=== PATIENT | female | born 1940 | race Caucasian/White ===

== ENCOUNTER → 2017-05-14 | Outpatient (CLI) | payer MEDICARE, BC ==
[2017-05-14 12:23] LABS: ALT 25 U/L (9-52); AST 23 U/L (14-36); Alkaline Phosphatase 73 U/L (38-126); Anion Gap 11 mmol/L; Blood Urea Nitrogen 25 mg/dL (7-17); Calcium 9.9 mg/dL (8.4-10.2); Carbon Dioxide 26 mmol/L (22-30); Chloride 105 mmol/L (98-107); Cholesterol 262 mg/dL (<200); Glucose 91 mg/dL (74-99); HDL Cholesterol 59 mg/dL (40-60); Non-African American GFR(MDRD) 57 (>60 ml/min/1.73 sqM); Potassium 4.7 mmol/L (3.5-5.1); Sodium 142 mmol/L (137-145); Total Bilirubin 0.9 mg/dL (0.2-1.3); Total Protein 7.6 g/dL (6.3-8.2)
== END | disposition home or self-care (01) ==
LOC: LABWHC1 11:07
PROVIDERS: ATTEND Internal Medicine Interventional Cardiology
DX: E78.2 Mixed hyperlipidemia (principal)
CPT/HCPCS: 36415; 80053; 80061

== ENCOUNTER → 2017-06-09 | Outpatient (CLI) | payer MEDICARE, BC ==
--- NOTE | 2017-06-09 11:46 | US ---
EXAMINATION TYPE: US abdomen complete DATE OF EXAM: 06/09/2017 COMPARISON: NONE CLINICAL HISTORY: 76-year-old female Right Upper Quad Pain R10.9. Bloating, indigestion, intermittent abdominal pain . TECHNIQUE: Multiple sonographic images of the abdomen are obtained. FINDINGS: Liver Length: 14.1 cm Gallbladder Wall: 0.2 cm CBD: 0.3 cm Spleen: 8.5 cm Right Kidney: 10.6 x 3.8 x 3.7 cm Left Kidney: 9.5 x 4.2 x 4.6 cm Pancreas: Portions of the pancreatic head are obscured by shadowing from bowel gas. Liver: appears wnl Gallbladder: non mobile dense echogenic area posterior wall = 0.4cm without shadowing, possible chol esterol polyp or adherent calculus. No abnormal gallbladder distention or pericholecystic fluid. Evidence for sonographic Oneill's sign: No CBD: wnl Spleen: wnl Right Kidney: no evidence of hydronephrosis or mass Left Kidney: no evidence of hydronephrosis or mass Upper IVC: appears wnl Abd Aorta: calcifications noted throughout. Proximal abdominal aorta is ectatic at 2.7 cm. IMPRESSION: 1. A 4 mm nodular echogenicity along the gallbladder wall could represent an adherent calculus or a c holesterol polyp. A 6-12 month follow-up can be considered. No evidence for acute cholecystitis. 2. Atherosclerotic changes throughout the aorta with an ectatic upper abdominal aorta at 2.7 cm.
== END | disposition home or self-care (01) ==
LOC: RADUSWWP 10:28
PROVIDERS: ATTEND Family Medicine
DX: I77.811 Abdominal aortic ectasia (principal); I70.0 Atherosclerosis of aorta; K82.8 Other specified diseases of gallbladder
CPT/HCPCS: 76700

== ENCOUNTER → 2017-12-06 | Outpatient (CLI) | payer MEDICARE, BC ==
--- NOTE | 2017-12-07 15:52 | PE ---
EXAMINATION TYPE: PET CT fusion skull to thigh DATE OF EXAM: 12/06/2017 COMPARISON: NONE Prior PET/CT: None HISTORY: Urinary bladder carcinoma TECHNIQUE: Following the intravenous administration of 13.06 mCi of F-18 FDG, whole body images are performed from the skull base to the midthigh. Images are reviewed on the computer in the coronal, a xial, and sagittal planes. Reconstructed rotating images are created on independent workstation and reviewed on the computer. A localization and attenuation correction CT is performed in conjunction with the PET scan. DLP: 307.72 mGycm SCAN: Initial Blood glucose: 92 mg/dL Average Mediastinum SUV: 2.1 Average Liver SUV: 2.24 FINDINGS: NECK: There is mild increased uptake within the left tonsillar pillar region. This has an SUV of 2.8 7. Inflammatory changes should be considered. This would be an unusual location for metastasis. THORAX: No abnormal uptake ABDOMEN: There is normal uptake within the renal collecting systems. The neobladder and urostomy site of normal excretion within these regions. PELVIS: No abnormal uptake OSSEOUS STRUCTURES: No abnormal uptake. LOCALIZATION CT: There is some fullness in the left tonsillar pillar. Direct visualization is recomme nded. Postsurgical changes are within the pelvis. Urinary bladder is absent. Uterus and adnexal regio ns are unremarkable. COMPARISON: Not applicable IMPRESSION: 1. Mild elevated uptake within the left tonsillar pillar which is slightly full compared to the right . Direct visualization is recommended. This would be an unusual location for metastatic disease. 2. No additional suspicious abnormal uptake identified.
== END | disposition home or self-care (01) ==
LOC: RADPETMAIN 10:27
PROVIDERS: ATTEND Internal Medicine Hematology & Oncology
DX: C67.8 Malignant neoplasm of overlapping sites of bladder (principal); R93.8 Abnormal findings on diagnostic imaging of other specified body structures
CPT/HCPCS: 78815; A9552

== ENCOUNTER → 2017-12-19 | Outpatient (CLI) | payer MEDICARE, BC ==
--- NOTE | 2017-12-19 11:07 | XR ---
EXAMINATION TYPE: XR abdomen 1V DATE OF EXAM: 12/19/2017 COMPARISON: 07/06/2017 HISTORY: Pain TECHNIQUE: Single supine KUB image of the abdomen is obtained FINDINGS: Right-sided stent is noted in place. Small bowel demonstrates no evidence for dilatation or air fluid levels. Gas and fecal material is seen in non-distended colon. No convincing evidence for pneumoperitoneum. No unusual calcifications. The lung bases are clear. The osseous structures are intact. IMPRESSION: 1. Overall nonobstructive bowel gas pattern.
== END ==
LOC: RADXRMAIN 10:34
PROVIDERS: ATTEND Urology
DX: N20.1 Calculus of ureter (principal); C67.9 Malignant neoplasm of bladder, unspecified
CPT/HCPCS: 74018

== ENCOUNTER 2018-03-16 08:30 | Inpatient (IN) | payer MEDICARE, BC ==
[2018-03-16] MEDS ORDERED: SODIUM CHLORIDE 0.9% 1,000 ML IV STA ×2 (08:52→10:25)
--- NOTE | 2018-03-16 09:19 | ED ---
General Adult HPI - General Chief complaint: Weakness Stated complaint: dehydration, weakness Time Seen by Provider: 03/16/18 08:52 Source: patient, RN notes reviewed, old records reviewed Mode of arrival: wheelchair Limitations: no limitations - History of Present Illness Initial comments: This is a 37-year-old female the ER for evaluation weakness. Patient is presenting with just generalized weakness nausea decreased appetite and anorexia. Patient has no fevers. No nausea vomiting or diarrhea. 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 No other significant changes or change in medications - Related Data Home Medications Medication Instructions Recorded Confirmed Aspirin 162 mg PO HS@199906/29/14 03/16/18 Flecainide [Tambocor] 50 mg PO Q12HR 07/06/17 03/16/18 Losartan [Cozaar] 25 mg PO HS@199907/06/17 03/16/18 Metoprolol Tartrate [Lopressor] 12.5 mg PO BID 07/06/17 03/16/18 Allergies Allergy/AdvReac Type Severity Reaction Status Date / Time ciprofloxacin [From Cipro] AdvReac Nausea & Verified 03/16/18 10:16 Vomiting codeine AdvReac Rash, Verified 03/16/18 10:16 vomiting hydrocodone AdvReac Rash, Verified 03/16/18 10:16 Vomiting levofloxacin [From Levaquin] AdvReac Nausea & Verified 03/16/18 10:16 Vomiting metoclopramide [From Reglan] AdvReac Hallucinati Verified 03/16/18 10:16 ons Penicillins AdvReac Rash/Hives Verified 03/16/18 10:16 zolpidem [From Ambien] AdvReac Hallucinati Verified 03/16/18 10:16 ons narcotics AdvReac Rash, Uncoded 03/16/18 10:16 Vomiting Review of Systems ROS Statement: Those systems with pertinent positive or pertinent negative responses have been documented in the HPI. ROS Other: All systems not noted in ROS Statement are negative. Past Medical History Past Medical History: Cancer, Hyperlipidemia, Hypertension Additional Past Medical History / Comment(s): ARRYTHMIA, MURMUR, "YELLOW JAUNDICE" AT AGE 11, bladder ca History of Any Multi-Drug Resistant Organisms: None Reported Past Surgical History: Appendectomy, Hysterectomy Additional Past Surgical History / Comment(s): POLIO HX, RT SHOULDER FUSED WITH BONE FROM HIP bladder removal Past Anesthesia/Blood Transfusion Reactions: Postoperative Nausea & Vomiting ( PONV) Past Psychological History: Anxiety Smoking Status: Former smoker Past Alcohol Use History: Occasional Past Drug Use History: None Reported - Past Family History Brother(s) Family Medical History: Cancer Additional Family Medical History / Comment(s): PANCREATIC General Exam Limitations: no limitations General appearance: alert, in no apparent distress, cachectic Head exam: Present: atraumatic, normocephalic, normal inspection Eye exam: Present: normal appearance, PERRL, EOMI. Absent: scleral icterus, conjunctival injection, periorbital swelling ENT exam: Present: normal exam, mucous membranes moist Neck exam: Present: normal inspection. Absent: tenderness, meningismus, lymphadenopathy Respiratory exam: Present: normal lung sounds bilaterally. Absent: respiratory distress, wheezes, rales, rhonchi, stridor Cardiovascular Exam: Present: regular rate, normal rhythm, normal heart sounds. Absent: systolic murmur, diastolic murmur, rubs, gallop, clicks GI/Abdominal exam: Present: soft, normal bowel sounds. Absent: distended, tenderness, guarding, rebound, rigid Extremities exam: Present: normal inspection, full ROM, normal capillary refill. Absent: tenderness, pedal edema, joint swelling, calf tenderness Back exam: Present: normal inspection Neurological exam: Present: alert, oriented X3, CN II-XII intact Psychiatric exam: Present: normal affect, normal mood Skin exam: Present: warm, dry, intact, normal color. Absent: rash Course Vital Signs 03/16/18 08:34 Temperature 98.6 F Pulse Rate 71 Respiratory 18 Rate Blood Pressure 112/73 O2 Sat by Pulse 97 Oximetry - Reevaluation(s) Reevaluation #1: 03/16/18 10:55 Patient has no significant change in clinical condition EKG Findings - EKG Comments: EKG Findings:: EKG shows paced rhythm rate of 66, pO2 66, QRS 160, QTc 423 Medical Decision Making - Medical Decision Making 77 female the ER for evaluation. Patient comes in for weakness, mild UTI, severe dehydration, patient will be admitted for IV hydration, monitoring of kidney function and electrolytes - Lab Data Result diagrams: 03/16/18 09:15 03/16/18 09:15 Lab Results 03/16/18 03/16/18 03/16/18 Range/Units 09:15 09:15 09:15 WBC 5.1 (3.8-10.6) k/uL RBC 3.34 L (3.80-5.40) m/uL Hgb 10.3 L (11.4-16.0) gm/dL Hct 28.6 L (34.0-46.0) % MCV 85.7 (80.0-100.0) fL MCH 30.8 (25.0-35.0) pg MCHC 35.9 (31.0-37.0) g/dL RDW 15.5 (11.5-15.5) % Plt Count 73 L (150-450) k/uL Neutrophils % 76 % Lymphocytes % 10 % Monocytes % 10 % Eosinophils % 0 % Basophils % 0 % Neutrophils # 3.9 (1.3-7.7) k/uL Lymphocytes # 0.5 L (1.0-4.8) k/uL Monocytes # 0.5 (0-1.0) k/uL Eosinophils # 0.0 (0-0.7) k/uL Basophils # 0.0 (0-0.2) k/uL Manual Slide Review Performed PT (9.0-12.0) sec INR (<1.2) APTT (22.0-30.0) sec Sodium 128 L (137-145) mmol/L Potassium 4.7 (3.5-5.1) mmol/L Chloride 95 L (98-107) mmol/L Carbon Dioxide 17 L (22-30) mmol/L Anion Gap 16 mmol/L BUN 64 H (7-17) mg/dL Creatinine 2.25 H (0.52-1.04) mg/dL Est GFR (CKD-EPI)AfAm 24 (>60 ml/min/1.73 sqM) Est GFR (CKD-EPI)NonAf 21 (>60 ml/min/1.73 sqM) Glucose 115 H (74-99) mg/dL Plasma Lactic Acid Jae (0.7-2.0) mmol/L Calcium 9.0 (8.4-10.2) mg/dL Phosphorus 3.1 (2.5-4.5) mg/dL Magnesium 1.6 (1.6-2.3) mg/dL Total Bilirubin 0.8 (0.2-1.3) mg/dL AST 22 (14-36) U/L ALT 20 (9-52) U/L Alkaline Phosphatase 76 (38-126) U/L Total Creatine Kinase <20 L (30-135) U/L CK-MB (CK-2) <0.2 (0.0-2.4) ng/mL CK-MB (CK-2) Rel Index Troponin I <0.012 (0.000-0.034) ng/mL Total Protein 6.9 (6.3-8.2) g/dL Albumin 3.6 (3.5-5.0) g/dL TSH 1.150 (0.465-4.680) mIU/L Urine Color Urine Appearance (Clear) Urine pH (5.0-8.0) Ur Specific Dexter (1.001-1.035) Urine Protein (Negative) Urine Glucose (UA) (Negative) Urine Ketones (Negative) Urine Blood (Negative) Urine Nitrite (Negative) Urine Bilirubin (Negative) Urine Urobilinogen (<2.0) mg/dL Ur Leukocyte Esterase (Negative) Urine RBC (0-5) /hpf Urine WBC (0-5) /hpf Urine WBC Clumps (None) /hpf Urine Bacteria (None) /hpf 03/16/18 03/16/18 03/16/18 Range/Units 09:15 09:15 09:25 WBC (3.8-10.6) k/uL RBC (3.80-5.40) m/uL Hgb (11.4-16.0) gm/dL Hct (34.0-46.0) % MCV (80.0-100.0) fL MCH (25.0-35.0) pg MCHC (31.0-37.0) g/dL RDW (11.5-15.5) % Plt Count (150-450) k/uL Neutrophils % % Lymphocytes % % Monocytes % % Eosinophils % % Basophils % % Neutrophils # (1.3-7.7) k/uL Lymphocytes # (1.0-4.8) k/uL Monocytes # (0-1.0) k/uL Eosinophils # (0-0.7) k/uL Basophils # (0-0.2) k/uL Manual Slide Review PT 9.7 (9.0-12.0) sec INR 1.0 (<1.2) APTT 22.5 (22.0-30.0) sec Sodium (137-145) mmol/L Potassium (3.5-5.1) mmol/L Chloride (98-107) mmol/L Carbon Dioxide (22-30) mmol/L Anion Gap mmol/L BUN (7-17) mg/dL Creatinine (0.52-1.04) mg/dL Est GFR (CKD-EPI)AfAm (>60 ml/min/1.73 sqM) Est GFR (CKD-EPI)NonAf (>60 ml/min/1.73 sqM) Glucose (74-99) mg/dL Plasma Lactic Acid Jae 1.2 (0.7-2.0) mmol/L Calcium (8.4-10.2) mg/dL Phosphorus (2.5-4.5) mg/dL Magnesium (1.6-2.3) mg/dL Total Bilirubin (0.2-1.3) mg/dL AST (14-36) U/L ALT (9-52) U/L Alkaline Phosphatase (38-126) U/L Total Creatine Kinase (30-135) U/L CK-MB (CK-2) (0.0-2.4) ng/mL CK-MB (CK-2) Rel Index Troponin I (0.000-0.034) ng/mL Total Protein (6.3-8.2) g/dL Albumin (3.5-5.0) g/dL TSH (0.465-4.680) mIU/L Urine Color Light Red Urine Appearance Turbid H (Clear) Urine pH 6.0 (5.0-8.0) Ur Specific Dexter 1.010 (1.001-1.035) Urine Protein 2+ H (Negative) Urine Glucose (UA) Negative (Negative) Urine Ketones Negative (Negative) Urine Blood Large H (Negative) Urine Nitrite Negative (Negative) Urine Bilirubin Negative (Negative) Urine Urobilinogen <2.0 (<2.0) mg/dL Ur Leukocyte Esterase Large H (Negative) Urine RBC >182 H (0-5) /hpf Urine WBC >182 H (0-5) /hpf Urine WBC Clumps Many H (None) /hpf Urine Bacteria Moderate H (None) /hpf - Radiology Data Radiology results: report reviewed (X-ray abdominal series with chest is negative for acute dz), image reviewed Disposition Clinical Impression: Acute renal failure, Dehydration, Weakness Disposition: ADMITTED IP TO THIS [facility] Condition: Fair Is patient prescribed a controlled substance at d/c from ED?: No Referrals: Sonny Villar DO [Primary Care Provider] - 1-2 days
[2018-03-16 09:50] LABS: Partial Thromboplastin Time 22.5 sec (22.0-30.0); Prothrombin Time 9.7 sec (9.0-12.0)
[2018-03-16 09:51] LABS: Albumin 3.6 g/dL (3.5-5.0); Magnesium 1.6 mg/dL (1.6-2.3); Phosphorus 3.1 mg/dL (2.5-4.5); Potassium 4.7 mmol/L (3.5-5.1); Total Bilirubin 0.8 mg/dL (0.2-1.3); Total Protein 6.9 g/dL (6.3-8.2)
[2018-03-16 09:54] LABS: Basophils % (A) 0 %; Eosinophils % (A) 0 %; HCT 28.6 % (34.0-46.0); HGB 10.3 gm/dL (11.4-16.0); Lymphocytes # (A) 0.5 k/uL (1.0-4.8); Lymphocytes % (A) 10 %; MCH 30.8 pg (25.0-35.0); MCHC 35.9 g/dL (31.0-37.0); MCV 85.7 fL (80.0-100.0); Mean Platelet Volume 7.4; Monocytes # (A) 0.5 k/uL (0-1.0); Monocytes % (A) 10 %; Neutrophils # (A) 3.9 k/uL (1.3-7.7); Neutrophils % (A) 76 %; RBC 3.34 m/uL (3.80-5.40); RDW 15.5 % (11.5-15.5); WBC 5.1 k/uL (3.8-10.6)
[2018-03-16 09:54] LABS: Appearance,Urine Turbid (Clear); Bacteria,Urine Moderate /hpf; Bilirubin,Urine Negative (Negative); Blood,Urine Large (Negative); Color,Urine Light Red; Glucose,Urine (UA) Negative (Negative); Ketones,Urine Negative (Negative); Leukocyte Esterase,Urine Large (Negative); Nitrite,Urine Negative (Negative); Protein,Urine 2+ (Negative); RBC,Urine >182 /hpf (0-5); Urobilinogen,Urine <2.0 mg/dL (<2.0); WBC,Urine >182 /hpf (0-5)
--- NOTE | 2018-03-16 10:03 | XR ---
EXAMINATION TYPE: XR abdomen acute w cxr DATE OF EXAM: 03/16/2018 COMPARISON: 12/19/2017 HISTORY: 77-year-old female with pain TECHNIQUE: 4 views FINDINGS: Frontal view of the chest shows normal heart size, aorta, and pulmonary vasculature. No consolidation or pleural effusion. Multiple screws with fixation is present at the right shoulder. Left anterior chest wall pacemaker ge nerator with right atrial and right ventricular leads. No evidence for free intraperitoneal air. Probable right abdominal ostomy. No dilated small bowel or differential air-fluid levels. Gassy colon with mild stool burden. Multiple surgical clips along the pelvic sidewalls. IMPRESSION: 1. No acute cardiopulmonary process. 2. No evidence for free air or bowel obstruction.
[2018-03-16 10:10] LABS: Creatine Kinase <20 U/L (30-135)
[2018-03-16 10:24] LABS: Creatine Kinase MB <0.2 ng/mL (0.0-2.4); Troponin I <0.012 ng/mL (0.000-0.034)
[2018-03-16] MEDS ORDERED: cefTRIAXone IN SWFI 2,000 MG/20 ML SYRINGE IVP STA (10:25)
[2018-03-16] MEDS ORDERED: SODIUM CHLORIDE 0.9% 500 ML IV STA (10:25)
[2018-03-16 10:31] LABS: Platelet Count 73 k/uL (150-450)
[2018-03-16] MEDS: SODIUM CHLORIDE 0.9% 1,000 ML IV SCH (20:03)
[2018-03-16] MEDS: FLECAINIDE 50 MG TAB PO SCH (20:04)
[2018-03-16] MEDS: FAMOTIDINE 20 MG TAB PO SCH (20:04)
[2018-03-16] MEDS: METOPROLOL TARTRATE 12.5 MG TAB PO SCH (20:04)
[2018-03-16] MEDS ORDERED: ASPIRIN 81 MG PO SCH (21:30)
[2018-03-16] MEDS ORDERED: BISACODYL 5 MG TABLET.DR PO PRN (21:31)
[2018-03-16] MEDS: ACETAMINOPHEN TAB 500 MG TAB PO PRN (22:34)
[2018-03-17] MEDS: SODIUM CHLORIDE 0.9% 1,000 ML IV SCH ×3 (00:13→21:08)
[2018-03-17 08:14] LABS: Albumin 3.3 g/dL (3.5-5.0); Calcium 8.8 mg/dL (8.4-10.2); Potassium 4.8 mmol/L (3.5-5.1); Total Bilirubin 0.6 mg/dL (0.2-1.3); Total Protein 6.5 g/dL (6.3-8.2)
[2018-03-17 08:39] LABS: HGB 10.4 gm/dL (11.4-16.0); Hypochromasia Slight; MCH 32.1 pg (25.0-35.0); MCHC 33.4 g/dL (31.0-37.0); Mean Platelet Volume 8.3; RBC 3.23 m/uL (3.80-5.40); RDW 15.5 % (11.5-15.5); WBC 6.2 k/uL (3.8-10.6)
[2018-03-17 08:43] LABS: Platelet Count 51 k/uL (150-450)
[2018-03-17 08:46] LABS: MCV 96.1 fL (80.0-100.0)
[2018-03-17] MEDS: cefTRIAXone IN SWFI 1,000 MG/10 ML SYRINGE IVP SCH (08:53)
[2018-03-17] MEDS: FLECAINIDE 50 MG TAB PO SCH ×2 (08:55→21:06)
[2018-03-17] MEDS: METOPROLOL TARTRATE 12.5 MG TAB PO SCH ×2 (08:55→21:06)
[2018-03-17] MEDS: FAMOTIDINE 20 MG TAB PO SCH (08:56)
[2018-03-17 10:43] LABS: Neutrophils # (M) 3.91 k/uL (1.3-7.7); Neutrophils % (M) 63 %; Nucleated Red Blood Cells 0 /100 WBC (0-0); Total Cells Counted 100
[2018-03-17 10:44] LABS: Toxic Vacuolation Present
--- NOTE | 2018-03-17 11:14 | P.HPIM ---
History of Present Illness H&P Date: 03/17/18 Chief Complaint: Weakness 77-year-old female who presented to the emergency room with a chief complaint of generalized weakness. She also reports decreased oral intake and decreased appetite. She states that "a lot of food does not taste good". She denies shortness of breath, chest pain, pressure, abdominal pain, or vomiting. She denies fever or chills at home. The patient has a history of bladder cancer with urostomy. She states she last had chemotherapy approximately one week ago. The patient has not completed her entire on chemotherapy, but she states she does not want to continue with further treatment. Patient reports "I am not living. This is not living. Whether I have 10 minutes left or 10 years, I am okay with that". Patient states she has not discussed this with her oncologist but plans to do so today. She also has a history of hyperlipidemia, hypertension, and anxiety. 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 The patient is a former cigarette smoker inserted smoking at age 26. She states that she smoked 3-7 cigarettes per day and quit smoking in 2013. She reports occasional alcohol use. Abdominal x-ray: No evidence for free air obstruction. Chest x-ray: Negative for acute process. Laboratory data: WBC 5.1. Hemoglobin 10.3. Platelet count 73. INR 1.0. Sodium 128. Potassium 4.7. Chloride 95. Carbon dioxide 17. BUN 64. Creatinine 2.25. Glucose 115. Troponin negative 1. Urinalysis reveals turbid light red blood, 2+ proteinuria, large hematuria, large leukocyte esterase, RBC greater than 182, WBCs greater than 182, many WBC clumps and moderate bacteria. The patient was admitted to the hospital under the care of Dr. Villar. Consultations were placed to urology and oncology. Review of Systems Those systems with pertinent positive or pertinent negative responses have been documented in the HPI Past Medical History Past Medical History: Cancer, Hyperlipidemia, Hypertension Additional Past Medical History / Comment(s): "tachybrady "-had pacemaker, MURMUR, "YELLOW JAUNDICE" AT AGE 11, bladder ca- had 2 rounds of chemo, cataracts, hx polio History of Any Multi-Drug Resistant Organisms: None Reported Past Surgical History: Appendectomy, Hysterectomy, Pacemaker Additional Past Surgical History / Comment(s): RT SHOULDER FUSED WITH BONE FROM HIP bladder removal /ostomy, dual pacemaker 2013 Past Anesthesia/Blood Transfusion Reactions: Postoperative Nausea & Vomiting ( PONV) Type of Cardiac Device: Permanent Pacemaker Device Placement Date:: 2013 Smoking Status: Former smoker - Past Family History Father History Unknown: Yes Mother Family Medical History: Diabetes Mellitus Additional Family Medical History / Comment(s): rheumatic fever. "heart problems " Brother(s) Family Medical History: Cancer Additional Family Medical History / Comment(s): PANCREATIC Medications and Allergies Home Medications Medication Instructions Recorded Confirmed Type Aspirin 162 mg PO HS@199906/29/14 03/16/18 History Flecainide [Tambocor] 50 mg PO Q12HR 07/06/17 03/16/18 History Losartan [Cozaar] 25 mg PO HS@199907/06/17 03/16/18 History Metoprolol Tartrate [Lopressor] 12.5 mg PO BID 07/06/17 03/16/18 History Allergies Allergy/AdvReac Type Severity Reaction Status Date / Time ciprofloxacin [From Cipro] AdvReac Nausea & Verified 03/16/18 10:16 Vomiting codeine AdvReac Rash, Verified 03/16/18 10:16 vomiting hydrocodone AdvReac Rash, Verified 03/16/18 10:16 Vomiting levofloxacin [From Levaquin] AdvReac Nausea & Verified 03/16/18 10:16 Vomiting metoclopramide [From Reglan] AdvReac Hallucinati Verified 03/16/18 10:16 ons Penicillins AdvReac Rash/Hives Verified 03/16/18 10:16 zolpidem [From Ambien] AdvReac Hallucinati Verified 03/16/18 10:16 ons narcotics AdvReac Rash, Uncoded 03/16/18 10:16 Vomiting Physical Exam Vitals: Vital Signs Temp Pulse Pulse Resp BP BP Pulse Ox 03/17/18 07:52 98.3 F 03/17/18 06:19 97.4 F L 77 18 130/69 99 03/16/18 23:25 99 F 03/16/18 21:35 102.1 F H 62 18 125/75 98 03/16/18 20:24 97 03/16/18 17:18 98.8 F 89 16 145/78 94 L 03/16/18 14:30 97.8 F 62 18 106/60 97 03/16/18 11:00 64 18 102/64 98 Intake and Output 03/16/18 03/17/18 03/17/18 22:59 06:59 14:59 Intake Total 1850 Output Total 1050 250 Balance 800 -250 Intake: Intake, IV Titration 1200 Amount Sodium Chloride 0.9% 1, 1200 000 ml @ 100 mls/hr IV . Q10H [facility] Rx#:[id number] Oral 650 Output: Urine 1050 250 Other: Voiding Method Ileal Conduit (Right) Ileal Conduit (Right) Ileal Conduit ( Right) # Bowel Movements 1 1 GENERAL: This is a 77-year-old female in no apparent distress at the time of examination, however is shivering during examination. Pleasant and cooperative. HEENT: Head is atraumatic, normocephalic. Pupils are equal, round, and reactive to light. Sclerae anicteric. Conjunctivae are clear. Mucus membranes of the mouth are moist. Neck is supple. RESPIRATORY: Clear to ausculation. No wheezes, rales, or rhonchi. No use of accessory muscles. Patient maintaining oxygen saturation greater than 92%. No chest wall tenderness is noted on palpation or with deep breathing. CARDIOVASCULAR: Regular rate and rhythm. S1 and S2 noted. No systolic or diastolic murmur auscultated. No JVD noted. No S3 or S4 noted. GASTROINTESTINAL/GI: No distention noted. Abdomen soft and round. Normal active bowel sounds auscultated x 4 quadrants. No pain or tenderness noted upon palpation. Patient has urostomy to lower abdomen with reddish colored urine. INTEGUMENTARY: No cyanosis. No jaundice. No rashes noted. No cellulitis noted. EXTREMITIES: 2+ peripheral pulses. No evidence of peripheral edema. No calf tenderness noted. NEUROLOGIC: Cranial nerves II-XII intact. PSYCHIATRIC: Awake, alert, and oriented X 3. Appropriate affect. Intact judgement and insight. Results CBC & Chem 7: 03/17/18 07:36 03/17/18 07:36 Labs: Abnormal Lab Results - Last 24 Hours (Table) 03/17/18 03/17/18 Range/Units 07:36 07:36 RBC 3.23 L (3.80-5.40) m/uL Hgb 10.4 L (11.4-16.0) gm/dL Hct 31.0 L (34.0-46.0) % Plt Count 51 L (150-450) k/uL Sodium 132 L (137-145) mmol/L Chloride 108 H (98-107) mmol/L Carbon Dioxide 11 L (22-30) mmol/L BUN 47 H (7-17) mg/dL Creatinine 1.50 H (0.52-1.04) mg/dL Albumin 3.3 L (3.5-5.0) g/dL Microbiology - Last 24 Hours (Table) 03/16/18 09:25 Urine Culture - Preliminary Urine,Suprapubic Thrombosis Risk Factor Assmnt - Choose All That Apply Any of the Below Risk Factors Present?: Yes Each Risk Factor Represents 2 Points: Patient confined to bed, Malignancy Each Risk Factor Represents 3 Points: Age 75 years or older Thrombosis Risk Factor Assessment Total Risk Factor Score: 7 Thrombosis Risk Factor Assessment Level: High Risk Assessment and Plan Plan: ASSESSMENT: Urinary tract infection related to urostomy, present on admission, urine culture pending Bladder cancer with history of urostromy, last chemotherapy treatment 1 week ago , patient does not want to continue chemo Thrombocytopenia, secondary to above Acute kidney injury, present on admission, creatinine 2.25, baseline creatinine 1.0, secondary to dehydration, decreased PO intake, and urinary tract infection Metabolic acidosis, secondary to above Hypovolemic hyponatremia, improving with IV hydration Reports of syncope at home per patient, may be secondary to hypovolemia and dehydration Hyperlipidemia Hypertension Generalized anxiety disorder History of tachybradycardia syndrome with permanent pacemaker implantation in 2013 History of nicotine dependence, in remission, patient quit smoking in 2013 PLAN: Urology and oncology on consult. Await further recommendations and input Continue Rocephin. Await results of urine culture. Check orthostatics due to patient reports of syncope at home when she gets home from supine position Hold Cozaar due to KELI Begin sodium bicarb 650mg QID Continue IV fluids Hold aspirin due to thrombocytopenia Home meds as appropriate Monitor labs. Repeat in AM PT/OT GI prophylaxis: Protonix 40 mg PO Daily DVT prophylaxis: SCDs to bilateral LE Monitor vital signs and address as appropriate Discharge planning: Patient to return home when stable Further recommendations pending patient's course Nurse practitioner note has been reviewed by physician. Signing provider agrees with the documented findings, assessment, and plan of care.
[2018-03-17] MEDS: SODIUM BICARBONATE TAB 650 MG TAB PO SCH ×3 (16:29→22:47)
--- NOTE | 2018-03-17 17:56 | P.CONS ---
History of Present Illness - Reason for Consult Consult date: 03/17/18 bladder carcinoma Requesting physician: Sonny Villar - Chief Complaint weakness - History of Present Illness Mrs. Barker is a very pleasant female patient of Dr. Foote who presented with gross hematuria Jul 2017, evaluated by Urology in [facility], cystoscopy revealed high-grade urothelial carcinoma, CT CAP did not reveal any evident of metastatic disease (per patient/family), she had TURBT, of treatments offered she opted for surgical approach and had radical cystectomy on 11/16/17, path revealing 1.8 X 1.9 cm, grade 3/3, urothelial carcinoma with invasion into muscularis propria, Lt sided lymph nodes 2/6 positive, Rt sided lymph nodes 2/2 negative. patient had prolonged recovery. Patient was initially seen by Dr. Sullivan in October, she was initiated on treatment aat the beginning of January. Patient is status post 2 cycles day 1 and 8 of carboplatin and Gemzar. Patient did not tolerate first cycle well, dose was reduced by 20%, patient completed second cycle and is hospitalized with progressive weakness. Patient has a urostomy so she had no symptoms of UTI other than weakness, today the urine in her ostomy is blood tinged, patient denies fevers chills, appetite is poor, energy levels are poor, no vomiting, difficulty in breathing, abdominal pain, diarrhea or constipation to report, no other bleeding, patient denies pain. Patient states that she is not going to do chemotherapy anymore. Daughter is at bedside. 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, MURMUR, "YELLOW JAUNDICE" AT AGE 11, bladder ca- had 2 rounds of chemo, cataracts, hx polio History of Any Multi-Drug Resistant Organisms: None Reported Past Surgical History: Appendectomy, Bladder Surgery, Hysterectomy, Pacemaker Additional Past Surgical History / Comment(s): RT SHOULDER FUSED WITH BONE FROM HIP bladder removal /ostomy, dual pacemaker 2013 Past Anesthesia/Blood Transfusion Reactions: Postoperative Nausea & Vomiting ( PONV) Type of Cardiac Device: Permanent Pacemaker Device Placement Date:: 2013 Smoking Status: Former smoker (1/2 PPD x 50 years) Past Drug Use History: None Reported - Past Family History Father History Unknown: Yes Mother Family Medical History: Diabetes Mellitus Additional Family Medical History / Comment(s): rheumatic fever. "heart problems " Brother(s) Family Medical History: Cancer Additional Family Medical History / Comment(s): PANCREATIC Medications and Allergies Home Medications Medication Instructions Recorded Confirmed Type Aspirin 162 mg PO HS@199906/29/14 03/16/18 History Flecainide [Tambocor] 50 mg PO Q12HR 07/06/17 03/16/18 History Losartan [Cozaar] 25 mg PO HS@199907/06/17 03/16/18 History Metoprolol Tartrate [Lopressor] 12.5 mg PO BID 07/06/17 03/16/18 History Allergies Allergy/AdvReac Type Severity Reaction Status Date / Time ciprofloxacin [From Cipro] AdvReac Nausea & Verified 03/16/18 10:16 Vomiting codeine AdvReac Rash, Verified 03/16/18 10:16 vomiting hydrocodone AdvReac Rash, Verified 03/16/18 10:16 Vomiting levofloxacin [From Levaquin] AdvReac Nausea & Verified 03/16/18 10:16 Vomiting metoclopramide [From Reglan] AdvReac Hallucinati Verified 03/16/18 10:16 ons Penicillins AdvReac Rash/Hives Verified 03/16/18 10:16 zolpidem [From Ambien] AdvReac Hallucinati Verified 03/16/18 10:16 ons narcotics AdvReac Rash, Uncoded 03/16/18 10:16 Vomiting Physical Exam Vitals: Vital Signs Temp Pulse Resp BP Pulse Ox 03/17/18 14:41 98.4 F 65 24 176/67 100 03/17/18 07:52 98.3 F 03/17/18 06:19 97.4 F L 77 18 130/69 99 03/16/18 23:25 99 F 03/16/18 21:35 102.1 F H 62 18 125/75 98 03/16/18 20:24 97 Intake and Output 03/17/18 03/17/18 03/17/18 06:59 14:59 22:59 Intake Total 1850 800 Output Total 1050 250 450 Balance 800 550 -450 Intake: Intake, IV Titration 1200 800 Amount Sodium Chloride 0.9% 1, 1200 800 000 ml @ 100 mls/hr IV . Q10H [facility] Rx#:[id number] Oral 650 Output: Urine 1050 250 450 Other: Voiding Method Ileal Conduit (Right) Ileal Conduit (Right) Ileal Conduit ( Right) # Bowel Movements 1 - Constitutional General appearance: cooperative, no acute distress, thin - EENT dry mucous membranes Eyes: anicteric sclerae ENT: hearing grossly normal - Neck Neck: no lymphadenopathy - Respiratory Respiratory: bilateral: CTA - Cardiovascular Rhythm: regular Heart sounds: normal: S1, S2 leg Peripheral Edema: bilateral: Trace - Gastrointestinal right side of the abdomen urostomy, stoma is pink, collection bag has blood tinged urine, no particulate matter noted General gastrointestinal: soft - Integumentary Integumentary: pale - Neurologic Neurologic: CNII-XII intact - Musculoskeletal Musculoskeletal: generalized weakness, strength equal bilaterally - Psychiatric Psychiatric: A&O x's 3, appropriate affect, intact judgment & insight Results CBC & Chem 7: 03/17/18 07:36 03/17/18 07:36 Labs: Abnormal Lab Results - Last 24 Hours (Table) 03/17/18 03/17/18 Range/Units 07:36 07:36 RBC 3.23 L (3.80-5.40) m/uL Hgb 10.4 L (11.4-16.0) gm/dL Hct 31.0 L (34.0-46.0) % Plt Count 51 L (150-450) k/uL Sodium 132 L (137-145) mmol/L Chloride 108 H (98-107) mmol/L Carbon Dioxide 11 L (22-30) mmol/L BUN 47 H (7-17) mg/dL Creatinine 1.50 H (0.52-1.04) mg/dL Albumin 3.3 L (3.5-5.0) g/dL Microbiology - Last 24 Hours (Table) 03/16/18 09:15 Blood Culture - Preliminary Blood No Growth after 24 hours 03/16/18 09:25 Urine Culture - Preliminary Urine,Suprapubic Gram Neg Bacilli Assessment and Plan (1) Urothelial carcinoma Narrative/Plan: Patient diagnosed with T2 N2 M0 disease in July 2017. Patient is status post surgery with radical cystectomy. Adjuvant chemotherapy recommended due to positive lymph nodes. Patient intolerant to treatment due to side effects. Patient has decided against further chemotherapy. Recommended palliative care if patient is going to opt out of active cancer treatment. This would allow patient to continue treatment of other, i.e. urinary tract infections, and she can transition to a hospice setting at an appropriate time. Patient is progressively getting weaker but does live independently. Suggested again, palliative care so that senior living can evaluate patient frequently and make recommendations for safety and, if needed, transition to more supportive settings as appropriate. All of patient's and daughter's questions were answered to the best of my ability, palliative care informational session requested. Will review the case with primary Oncologist. Current Visit: Yes Status: Chronic Priority: High Code(s): C68.9 - MALIGNANT NEOPLASM OF URINARY ORGAN, UNSPECIFIED SNOMED Code(s): 410998388
[2018-03-17] MEDS: ACETAMINOPHEN TAB 500 MG TAB PO PRN (21:05)
[2018-03-18] MEDS: SODIUM CHLORIDE 0.9% 1,000 ML IV SCH ×3 (04:53→20:39)
[2018-03-18] MEDS: ACETAMINOPHEN TAB 500 MG TAB PO PRN (06:05)
[2018-03-18 07:50] LABS: Basophils % (A) 0 %; Eosinophils % (A) 0 %; HCT 21.5 % (34.0-46.0); Lymphocytes # (A) 0.7 k/uL (1.0-4.8); Lymphocytes % (A) 13 %; MCH 30.6 pg (25.0-35.0); MCHC 34.4 g/dL (31.0-37.0); Mean Platelet Volume 7.4; Monocytes # (A) 0.5 k/uL (0-1.0); Monocytes % (A) 9 %; Neutrophils % (A) 73 %; RBC 2.42 m/uL (3.80-5.40); WBC 5.5 k/uL (3.8-10.6)
[2018-03-18 07:57] LABS: Platelet Count 45 k/uL (150-450)
[2018-03-18 07:58] LABS: HGB 7.4 gm/dL (11.4-16.0); MCV 89.2 fL (80.0-100.0)
[2018-03-18] MEDS: METOPROLOL TARTRATE 12.5 MG TAB PO SCH ×2 (08:03→20:42)
[2018-03-18] MEDS: SODIUM BICARBONATE TAB 650 MG TAB PO SCH ×4 (08:03→20:42)
[2018-03-18] MEDS: cefTRIAXone IN SWFI 1,000 MG/10 ML SYRINGE IVP SCH (08:03)
[2018-03-18] MEDS: PANTOPRAZOLE 40 MG TABLET PO SCH (08:03)
[2018-03-18] MEDS: FLECAINIDE 50 MG TAB PO SCH ×2 (08:03→20:42)
[2018-03-18 08:29] LABS: Albumin 2.3 g/dL (3.5-5.0); Calcium 7.9 mg/dL (8.4-10.2); Potassium 3.8 mmol/L (3.5-5.1); Total Bilirubin 0.3 mg/dL (0.2-1.3); Total Protein 4.7 g/dL (6.3-8.2)
--- NOTE | 2018-03-18 09:27 | P.PN ---
Subjective Progress Note Date: 03/18/18 77-year-old female who presented to the emergency room with a chief complaint of generalized weakness. She also reports decreased oral intake and decreased appetite. She states that "a lot of food does not taste good". She denies shortness of breath, chest pain, pressure, abdominal pain, or vomiting. She denies fever or chills at home. The patient has a history of bladder cancer with urostomy. She states she last had chemotherapy approximately one week ago. The patient has not completed her entire on chemotherapy, but she states she does not want to continue with further treatment. Patient reports "I am not living. This is not living. Whether I have 10 minutes left or 10 years, I am okay with that". Patient states she has not discussed this with her oncologist but plans to do so today. She also has a history of hyperlipidemia, hypertension, and anxiety. 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 The patient is a former cigarette smoker inserted smoking at age 26. She states that she smoked 3-7 cigarettes per day and quit smoking in 2013. She reports occasional alcohol use. Abdominal x-ray: No evidence for free air obstruction. Chest x-ray: Negative for acute process. Laboratory data: WBC 5.1. Hemoglobin 10.3. Platelet count 73. INR 1.0. Sodium 128. Potassium 4.7. Chloride 95. Carbon dioxide 17. BUN 64. Creatinine 2.25. Glucose 115. Troponin negative 1. Urinalysis reveals turbid light red blood, 2+ proteinuria, large hematuria, large leukocyte esterase, RBC greater than 182, WBCs greater than 182, many WBC clumps and moderate bacteria. The patient was admitted to the hospital under the care of Dr. Villar. Consultations were placed to urology and oncology. 03/18/2018 Patient seen and examined at the bedside on rounds with Dr. Villar. Patient states she is feeling better today. She reports no further episodes of chills or rigors. She is afebrile. Urine culture reveals E. coli. She is on ceftriaxone, which is susceptible to bacteria. WBC today 5.5. Her hemoglobin is 7.4, down from 10.4 yesterday. Platelet count is 45. Urostomy connected to Bertrand drainage bag with blood-tinged urine. Creatinine this morning is down to 1.31. BUN is 30. Patient states she is tolerating PO intake without nausea or vomiting. She denies pain or discomfort at this time. She remains on an annual stable. She is afebrile. Patient states she spoke with oncology regarding stopping chemotherapy treatment. Palliative care was consulted. When appropriate, patient will sign into hospice which was discussed with her this morning. Objective - Vital Signs Vital signs: Vital Signs Temp 98.9 F 03/18/18 05:00 Pulse 64 03/18/18 05:00 Resp 16 03/18/18 05:00 BP 155/69 03/18/18 05:00 Pulse Ox 99 03/18/18 05:00 Intake & Output 03/17/18 03/18/18 03/18/18 18:59 06:59 18:59 Intake Total 800 1870 Output Total 700 1250 Balance 100 620 Weight 54.975 kg Intake: Intake, IV Titration 800 800 Amount Sodium Chloride 0.9% 1, 800 800 000 ml @ 100 mls/hr IV . Q10H [facility] Rx#:[id number] Oral 1070 Output: Urine 700 1250 Other: Voiding Method Ileal Conduit (Right) Ileal Conduit (Right) Ileal Conduit ( Right) - Exam GENERAL: This is a 77-year-old female in no apparent distress at the time of examination. Pleasant and cooperative. HEENT: Head is atraumatic, normocephalic. Pupils are equal, round, and reactive to light. Sclerae anicteric. Conjunctivae are clear. Mucus membranes of the mouth are moist. Neck is supple. RESPIRATORY: Clear to ausculation. No wheezes, rales, or rhonchi. No use of accessory muscles. Patient maintaining oxygen saturation greater than 92%. No chest wall tenderness is noted on palpation or with deep breathing. CARDIOVASCULAR: Regular rate and rhythm. S1 and S2 noted. No systolic or diastolic murmur auscultated. No JVD noted. No S3 or S4 noted. GASTROINTESTINAL/GI: No distention noted. Abdomen soft and round. Normal active bowel sounds auscultated x 4 quadrants. No pain or tenderness noted upon palpation. Patient has urostomy to lower abdomen with reddish colored urine. INTEGUMENTARY: No cyanosis. No jaundice. No rashes noted. No cellulitis noted. EXTREMITIES: 2+ peripheral pulses. No evidence of peripheral edema. No calf tenderness noted. NEUROLOGIC: Cranial nerves II-XII intact. PSYCHIATRIC: Awake, alert, and oriented X 3. Appropriate affect. Intact judgement and insight. - Labs CBC & Chem 7: 03/18/18 07:15 03/18/18 07:15 Labs: Abnormal Lab Results - Last 24 Hours (Table) 03/18/18 03/18/18 Range/Units 07:15 07:15 RBC 2.42 L (3.80-5.40) m/uL Hgb 7.4 L D (11.4-16.0) gm/dL Hct 21.5 L (34.0-46.0) % RDW 16.0 H (11.5-15.5) % Plt Count 45 L* (150-450) k/uL Lymphocytes # 0.7 L (1.0-4.8) k/uL Sodium 129 L (137-145) mmol/L Carbon Dioxide 13 L (22-30) mmol/L BUN 30 H (7-17) mg/dL Creatinine 1.31 H (0.52-1.04) mg/dL Glucose 72 L (74-99) mg/dL Calcium 7.9 L (8.4-10.2) mg/dL Total Protein 4.7 L (6.3-8.2) g/dL Albumin 2.3 L (3.5-5.0) g/dL Microbiology - Last 24 Hours (Table) 03/16/18 09:25 Urine Culture - Final Urine,Suprapubic Escherichia coli 03/16/18 09:15 Blood Culture - Preliminary Blood No Growth after 24 hours Assessment and Plan Plan: ASSESSMENT: Urinary tract infection related to urostomy, present on admission, urine culture pending Bladder cancer with history of urostromy, last chemotherapy treatment 1 week ago , patient does not want to continue chemo Thrombocytopenia, secondary to above Acute blood loss anemia, hemoglobin 7.4 down from 10.4, also aspect of hemodilution secondary to IV fluids Acute kidney injury, present on admission, creatinine 2.25, baseline creatinine 1.0, secondary to dehydration, decreased PO intake, and urinary tract infection Metabolic acidosis, secondary to above Hypovolemic hyponatremia, maintained on IV fluids Reports of syncope at home per patient, may be secondary to hypovolemia and dehydration Hyperlipidemia Hypertension Generalized anxiety disorder History of tachybradycardia syndrome with permanent pacemaker implantation in 2013 History of nicotine dependence, in remission, patient quit smoking in 2013 PLAN: Urology and oncology on consult. Appreciate recommendations and input Continue ceftriaxone Monitor platelets and hemoglobin. Recheck in a.m. Patient may require transfusion in near future. Check orthostatics due to patient reports of syncope at home when she gets home from supine position Hold Cozaar due to KELI Begin hydralazine 25 mg twice a day for hypertension Continue sodium bicarb 650mg QID Continue IV fluids Hold aspirin due to thrombocytopenia Home meds as appropriate Monitor labs. Repeat in AM PT/OT GI prophylaxis: Protonix 40 mg PO Daily DVT prophylaxis: SCDs to bilateral LE Monitor vital signs and address as appropriate Discharge planning: Patient to return home when stable Further recommendations pending patient's course Nurse practitioner note has been reviewed by physician. Signing provider agrees with the documented findings, assessment, and plan of care.
[2018-03-18] MEDS: hydrALAZINE HCL 25 MG TAB PO SCH ×2 (11:31→20:42)
[2018-03-18 15:04] VITALS: BMI 18.4
--- NOTE | 2018-03-18 17:22 | P.PN ---
Subjective Progress Note Date: 03/18/18 Principal diagnosis: urinary tract infection patient seen today in follow-up, she states changing her urostomy collection device, urine is clear yellow, no foul odor, she is tolerating oral intake without nausea, no shortness of breath, abdominal pain, diarrhea, constipation, swelling, bleeding or pain to report. Objective - Vital Signs Vital signs: Vital Signs Temp 97.8 F 03/18/18 14:50 Pulse 67 03/18/18 14:50 Resp 18 03/18/18 14:50 BP 145/75 03/18/18 14:50 Pulse Ox 100 03/18/18 14:50 Intake & Output 03/17/18 03/18/18 03/18/18 18:59 06:59 18:59 Intake Total 800 1870 Output Total 700 1250 Balance 100 620 Weight 54.975 kg 54.975 kg Intake: Intake, IV Titration 800 800 Amount Sodium Chloride 0.9% 1, 800 800 000 ml @ 100 mls/hr IV . Q10H [facility] Rx#:[id number] Oral 1070 Output: Urine 700 1250 Other: Voiding Method Ileal Conduit (Right) Ileal Conduit (Right) Ileal Conduit ( Right) - Constitutional General appearance: Present: no acute distress, thin - EENT Eyes: Present: anicteric sclerae - Respiratory Respiratory: bilateral: CTA - Cardiovascular Heart sounds: normal: S1, S2 - Peripheral edema leg Peripheral Edema: bilateral: None - Gastrointestinal General gastrointestinal: Present: soft - Genitourinary Genitourinary Comment(s): right lower quadrant urostomy, stoma is pink, urine is yellow in collection device - Neurologic Neurologic: Present: CNII-XII intact - Musculoskeletal Musculoskeletal: Present: generalized weakness, strength equal bilaterally - Psychiatric Psychiatric: Present: A&O x's 3, appropriate affect, intact judgment & insight - Labs CBC & Chem 7: 03/18/18 07:15 03/18/18 07:15 Labs: Abnormal Lab Results - Last 24 Hours (Table) 03/18/18 03/18/18 Range/Units 07:15 07:15 RBC 2.42 L (3.80-5.40) m/uL Hgb 7.4 L D (11.4-16.0) gm/dL Hct 21.5 L (34.0-46.0) % RDW 16.0 H (11.5-15.5) % Plt Count 45 L* (150-450) k/uL Lymphocytes # 0.7 L (1.0-4.8) k/uL Sodium 129 L (137-145) mmol/L Carbon Dioxide 13 L (22-30) mmol/L BUN 30 H (7-17) mg/dL Creatinine 1.31 H (0.52-1.04) mg/dL Glucose 72 L (74-99) mg/dL Calcium 7.9 L (8.4-10.2) mg/dL Total Protein 4.7 L (6.3-8.2) g/dL Albumin 2.3 L (3.5-5.0) g/dL Microbiology - Last 24 Hours (Table) 03/16/18 09:15 Blood Culture - Preliminary Blood No Growth after 48 hours 03/16/18 09:25 Urine Culture - Final Urine,Suprapubic Escherichia coli Assessment and Plan (1) Urothelial carcinoma Current Visit: Yes Status: Chronic Priority: High Code(s): C68.9 - MALIGNANT NEOPLASM OF URINARY ORGAN, UNSPECIFIED SNOMED Code(s): 626233361 Plan: case was discussed yesterday with Dr. Foote. Reviewed case with patient and daughter with clarification of prognosis. Patient diagnosed with metastatic bladder carcinoma with resection, disease invading muscularis propria and 2 out of 4 lymph nodes on one slide. Patient receiving treatment adjuvantly to reduce risk of recurrence. Patient verbalizes understanding the purpose of treatment. Patient understands that her risk of recurrence is increased due to not completing treatment. Patient will continue to follow-up with Dr. Foote for monitoring of her disease, typically every 3-4 months. If patient has recurrence she can be considered for treatment at that time based on her performance status and preference as there are other options for second line treatment including immunotherapy. Patient's prognosis fair. Pt has no active malignancy at this time.
[2018-03-19] MEDS: SODIUM CHLORIDE 0.9% 1,000 ML IV SCH ×2 (06:46→20:05)
[2018-03-19 07:39] VITALS: RESP 16
[2018-03-19 08:21] LABS: Calcium 7.9 mg/dL (8.4-10.2); Potassium 3.4 mmol/L (3.5-5.1)
[2018-03-19] MEDS: cefTRIAXone IN SWFI 1,000 MG/10 ML SYRINGE IVP SCH (08:27)
[2018-03-19] MEDS: SODIUM BICARBONATE TAB 650 MG TAB PO SCH ×4 (08:28→20:05)
[2018-03-19] MEDS: FLECAINIDE 50 MG TAB PO SCH ×2 (08:28→20:05)
[2018-03-19] MEDS: PANTOPRAZOLE 40 MG TABLET PO SCH (08:28)
[2018-03-19] MEDS: hydrALAZINE HCL 25 MG TAB PO SCH ×2 (08:29→20:05)
[2018-03-19] MEDS: METOPROLOL TARTRATE 12.5 MG TAB PO SCH ×2 (08:29→20:05)
[2018-03-19] MEDS: ACETAMINOPHEN TAB 500 MG TAB PO PRN ×2 (08:42→17:20)
[2018-03-19 08:50] LABS: HCT 21.6 % (34.0-46.0); HGB 7.5 gm/dL (11.4-16.0); MCH 30.7 pg (25.0-35.0); MCHC 34.9 g/dL (31.0-37.0); MCV 87.9 fL (80.0-100.0); Mean Platelet Volume 7.3; RBC 2.46 m/uL (3.80-5.40); RDW 15.6 % (11.5-15.5); WBC 5.8 k/uL (3.8-10.6)
[2018-03-19 08:51] LABS: Platelet Count 55 k/uL (150-450)
[2018-03-19 11:59] LABS: Band Neutrophils % 1 %; Lymphocytes # (M) 1.16 k/uL (1.0-4.8); Monocytes # (M) 0.52 k/uL (0-1.0); Neutrophils % (M) 70 %; Nucleated Red Blood Cells 0 /100 WBC (0-0); Total Cells Counted 100
[2018-03-19 12:00] LABS: Poikilocytosis (M) Present
[2018-03-19] MEDS: NAPROXEN 250 MG TAB PO PRN (20:04)
[2018-03-20] MEDS: SODIUM CHLORIDE 0.9% 1,000 ML IV SCH ×2 (06:10→20:45)
[2018-03-20] MEDS: cefTRIAXone IN SWFI 1,000 MG/10 ML SYRINGE IVP SCH (07:28)
[2018-03-20] MEDS: ACETAMINOPHEN TAB 500 MG TAB PO PRN (07:28)
[2018-03-20] MEDS: PANTOPRAZOLE 40 MG TABLET PO SCH (07:29)
[2018-03-20] MEDS: FLECAINIDE 50 MG TAB PO SCH ×2 (07:29→20:43)
[2018-03-20] MEDS: SODIUM BICARBONATE TAB 650 MG TAB PO SCH ×4 (07:29→20:43)
[2018-03-20] MEDS: METOPROLOL TARTRATE 12.5 MG TAB PO SCH ×2 (07:29→20:43)
[2018-03-20] MEDS: hydrALAZINE HCL 25 MG TAB PO SCH ×2 (07:29→20:44)
[2018-03-20 07:41] LABS: Anisocytosis Slight; Basophils % (A) 0 %; Eosinophils % (A) 0 %; HCT 22.3 % (34.0-46.0); HGB 7.6 gm/dL (11.4-16.0); Lymphocytes # (A) 0.7 k/uL (1.0-4.8); Lymphocytes % (A) 12 %; MCH 30.3 pg (25.0-35.0); MCHC 34.3 g/dL (31.0-37.0); MCV 88.3 fL (80.0-100.0); Mean Platelet Volume 7.9; Monocytes # (A) 0.5 k/uL (0-1.0); Monocytes % (A) 9 %; Neutrophils # (A) 4.5 k/uL (1.3-7.7); Neutrophils % (A) 75 %; RBC 2.52 m/uL (3.80-5.40); RDW 16.5 % (11.5-15.5)
[2018-03-20 07:45] LABS: Platelet Count 58 k/uL (150-450)
[2018-03-20 07:52] LABS: Calcium 7.9 mg/dL (8.4-10.2); Potassium 3.2 mmol/L (3.5-5.1)
[2018-03-20] MEDS: NAPROXEN 250 MG TAB PO PRN (20:44)
[2018-03-21] MEDS: SODIUM CHLORIDE 0.9% 1,000 ML IV SCH ×2 (08:04→12:15)
[2018-03-21 08:19] LABS: Calcium 7.8 mg/dL (8.4-10.2); Potassium 3.6 mmol/L (3.5-5.1)
[2018-03-21 08:28] LABS: Anisocytosis Slight; Basophils % (A) 1 %; Eosinophils % (A) 1 %; Lymphocytes # (A) 1.2 k/uL (1.0-4.8); Lymphocytes % (A) 25 %; MCHC 33.2 g/dL (31.0-37.0); MCV 90.2 fL (80.0-100.0); Mean Platelet Volume 8.2; Monocytes # (A) 0.4 k/uL (0-1.0); Monocytes % (A) 9 %; Neutrophils # (A) 2.8 k/uL (1.3-7.7); Neutrophils % (A) 61 %; RBC 2.33 m/uL (3.80-5.40); WBC 4.7 k/uL (3.8-10.6)
[2018-03-21 08:37] LABS: Platelet Count 85 k/uL (150-450)
[2018-03-21] MEDS: cefTRIAXone IN SWFI 1,000 MG/10 ML SYRINGE IVP SCH (08:48)
[2018-03-21] MEDS: hydrALAZINE HCL 25 MG TAB PO SCH (08:48)
[2018-03-21] MEDS: SODIUM BICARBONATE TAB 650 MG TAB PO SCH ×2 (08:48→12:15)
[2018-03-21] MEDS: METOPROLOL TARTRATE 12.5 MG TAB PO SCH (08:48)
[2018-03-21] MEDS: PANTOPRAZOLE 40 MG TABLET PO SCH (08:48)
[2018-03-21] MEDS: FLECAINIDE 50 MG TAB PO SCH (08:48)
--- NOTE | 2018-03-21 10:54 | P.DS ---
Providers Date of admission: 03/16/18 10:54 Attending physician: Sonny Villar Consults: 03/16/18 21:31 Consult Physician Routine Consulting Provider: Fei Alexis Consult Reason/Comments: UTI, Bladder cancer Do you want consulting provider notified?: Yes, Notify in am 03/16/18 21:33 Consult Physician Routine Consulting Provider: Nadeem Foote Consult Reason/Comments: Bladder cancer Do you want consulting provider notified?: Yes, Notify in am Primary care physician: Sonny Villar Hospital Course: 77-year-old with history of bladder cancer status post radiation therapy is admitted for urinary tract infection patient is clinically doing well will be discharged today. Patient aspirin is being held because of thrombocytopenia with platelet count lower than 55,000 on admission and now it C. diff thousand and patient is not to receive anymore chemotherapy because of which I'll resume aspirin. Patient blood pressure is a little low normal side because of which losartan will not be restarted rest of rate control medications will be continued as if he is. Patient will receive 1 unit of blood transfusion as per recommendations from my oncology as her hemoglobin is borderline at 7. Patient has history of proximal atrial fibrillation PHYSICAL EXAMINATION: GENERAL: The patient is alert and oriented x3, not in any acute distress. Well developed, well nourished. HEENT: Pupils are round and equally reacting to light. EOMI. No scleral icterus. Does have conjunctival pallor. Normocephalic, atraumatic. No pharyngeal erythema. No thyromegaly. CARDIOVASCULAR: S1 and S2 present. No murmurs, rubs, or gallops. PULMONARY: Chest is clear to auscultation, no wheezing or crackles. ABDOMEN: Soft, nontender, nondistended, normoactive bowel sounds. No palpable organomegaly. MUSCULOSKELETAL: No joint swelling or deformity. EXTREMITIES: No cyanosis, clubbing, or pedal edema. NEUROLOGICAL: Gross neurological examination did not reveal any focal deficits. SKIN: No rashes. Please refer to the progress note from Dr. Villar yesterday for further details of hospitalization course and other chronic medical problems Patient Condition at Discharge: Fair Plan - Discharge Summary Discharge Rx Participant: No New Discharge Prescriptions: New Cefuroxime Axetil [Ceftin] 500 mg PO BID #4 tab Continue Aspirin 162 mg PO HS@2000 Metoprolol Tartrate [Lopressor] 12.5 mg PO BID Flecainide [Tambocor] 50 mg PO Q12HR Discontinued Losartan [Cozaar] 25 mg PO HS@1999 Discharge Medication List Aspirin 162 mg PO HS@199906/29/14 [History] Flecainide [Tambocor] 50 mg PO Q12HR 07/06/17 [History] Metoprolol Tartrate [Lopressor] 12.5 mg PO BID 07/06/17 [History] Cefuroxime Axetil [Ceftin] 500 mg PO BID #4 tab 03/21/18 [Rx] Follow up Appointment(s)/Referral(s): Sonny Villar DO [Primary Care Provider] - 1-2 days [facility], [NON-STAFF] - (for Palliative Care) Nadeem Foote MD [STAFF PHYSICIAN] - 6 Weeks Discharge Disposition: HOME WITH HOME HEALTH SERVICES
[2018-03-21] MEDS: NAPROXEN 250 MG TAB PO PRN (13:14)
[2018-03-21 14:15] VITALS: BP 134/68; PULSE 62; TEMP 97.3
== END 2018-03-21 14:45 | disposition home health service (06) | DRG 699 ==
LOC: EC 08:30 → 5ONC 10:54
PROVIDERS: ADMIT Family Medicine; ATTEND Family Medicine
PROC: 30233N1 Transfusion of Nonautologous Red Blood Cells into Peripheral Vein, Percutaneous Approach (ICD-10-PCS; principal; 2018-03-21)
DX: N99.521 Infection of incontinent external stoma of urinary tract (principal); N39.0 Urinary tract infection, site not specified; D62 Acute posthemorrhagic anemia; E87.1 Hypo-osmolality and hyponatremia; E87.2 Acidosis; N17.9 Acute kidney failure, unspecified; C67.9 Malignant neoplasm of bladder, unspecified; D69.59 Other secondary thrombocytopenia; E78.5 Hyperlipidemia, unspecified; E86.0 Dehydration; F41.1 Generalized anxiety disorder; I10 Essential (primary) hypertension; I48.0 Paroxysmal atrial fibrillation; R31.9 Hematuria, unspecified; Z79.82 Long term (current) use of aspirin; Z83.3 Family history of diabetes mellitus; Z86.12 Personal history of poliomyelitis; Z87.891 Personal history of nicotine dependence; Z90.710 Acquired absence of both cervix and uterus; Z92.3 Personal history of irradiation; Z95.0 Presence of cardiac pacemaker; Z90.6 Acquired absence of other parts of urinary tract; Z79.899 Other long term (current) drug therapy; Z92.21 Personal history of antineoplastic chemotherapy; H26.9 Unspecified cataract; Z88.1 Allergy status to other antibiotic agents; Z88.5 Allergy status to narcotic agent; Z88.0 Allergy status to penicillin; Z88.8 Allergy status to other drugs, medicaments and biological substances
CPT/HCPCS: 36415; 74022; 80048; 80053; 81001; 82550; 82553; 83605; 83735; 84100; 84443; 84484; 85025; 85610; 85730; 86850; 86900; 86901; 86920; 87040; 87077; 87086; 87186; 93005; 96361; 96374; 99285

== ENCOUNTER → 2018-05-23 | Outpatient (CLI) | payer MEDICARE, BC ==
--- NOTE | 2018-05-25 16:21 | PE ---
Nuclear medicine PET/CT HISTORY: Bladder cancer, subsequent Patient received 10.3 mCi F-18 intravenously in delayed scanning was performed from the skull base to the mid thighs. Localization and attenuation correction CT scan was performed. Correlation to prior nuclear medicine PET/CT dated 12/06/2017 Neck and chest: There is no evident cervical adenopathy. No suspicious hypermetabolic uptake. There i s no evident lung mass or mediastinal, or hilar adenopathy. Pacemaker is present in the left pectoral region, leads are present in the right atrium and ventricle. There are coronary artery calcification s. Biapical pleural thickening is present. Abdomen pelvis: No retroperitoneal adenopathy. Atheromatous changes present within the aorta. There i s moderate right-sided hydronephrosis. Ostomy is present in the right lower quadrant. Postop changes are noted to the bowel status post ileal loop and cystectomy, radiopharmaceutical uptake in the right hemipelvis thought to be present within the ileal loop, some physiologic bowel activity also suspect ed. No evident adenopathy. Osseous structures are stable. Postop changes are noted in the right shoulder. No evident lytic or bl astic lesion, no suspicious hypermetabolic uptake. Degenerative disc disease, facet arthropathy noted especially in the lower lumbar spine. IMPRESSION: Suspect interval development of a ureteral stricture on the right with hydronephrosis may be present, consider urologic consult. Postop changes, no suspicious hypermetabolic uptake.
== END | disposition home or self-care (01) ==
LOC: RADPETMAIN 13:19
PROVIDERS: ATTEND Internal Medicine Hematology & Oncology
DX: C67.8 Malignant neoplasm of overlapping sites of bladder (principal); Z90.79 Acquired absence of other genital organ(s)
CPT/HCPCS: 78815; A9552

== ENCOUNTER 2018-06-25 10:20 | Day surgery (SDC) | payer MEDICARE, BC ==
[~2018-06-25 10:20] MED LIST: GENTAMICIN 80 MG in SODIUM CHLORIDE 0.9% 100 ML IVPB ONE; GENTAMICIN IN NACL ISO-OSM PMX 80 MG in SALINE 1 100ML.BAG IVPB ONE
[2018-06-25 11:06] LABS: Basophils # (A) 0.1 k/uL (0-0.2); Basophils % (A) 1 %; Eosinophils # (A) 0.2 k/uL (0-0.7); Eosinophils % (A) 2 %; HCT 35.3 % (34.0-46.0); HGB 11.2 gm/dL (11.4-16.0); Lymphocytes % (A) 31 %; MCHC 31.6 g/dL (31.0-37.0); MCV 101.2 fL (80.0-100.0); Macrocytosis Slight; Mean Platelet Volume 6.9; Monocytes # (A) 0.5 k/uL (0-1.0); Monocytes % (A) 8 %; Neutrophils # (A) 3.6 k/uL (1.3-7.7); Neutrophils % (A) 55 %; Platelet Count 209 k/uL (150-450); RBC 3.49 m/uL (3.80-5.40); RDW 14.1 % (11.5-15.5); WBC 6.5 k/uL (3.8-10.6)
[2018-06-25 11:12] VITALS: PULSE 82
[2018-06-25 11:13] LABS: Calcium 9.6 mg/dL (8.4-10.2); Potassium 4.5 mmol/L (3.5-5.1)
[2018-06-25] MEDS ORDERED: SODIUM CHLORIDE 0.9% 500 ML 500 ML IV ONE (12:35)
[2018-06-25] MEDS ORDERED: MIDAZOLAM 2 MG/2 ML VIAL IV ONE (12:39)
[2018-06-25] MEDS ORDERED: LIDOCAINE 1% INJ 10MG/ML (20 ML MDV) SQ ONE (12:40)
[2018-06-25] MEDS ORDERED: IOPAMIDOL-370 50ML BTL MISCELLANE ONE (12:57)
[2018-06-25] MEDS ORDERED: ACETAMINOPHEN TAB 325 MG TAB PO STA (14:53)
--- NOTE | 2018-06-25 16:21 | IR ---
EXAMINATION TYPE: IR nephrostomy DATE OF EXAM: 06/25/2018 COMPARISON: Nuclear medicine PET/CT 05/23/2018 HISTORY: Hydronephrosis, ureteral obstruction PROCEDURE: Maximal barrier technique was utilized. The skin overlying the right kidney was localized using ultrasound and the overlying skin prepped and draped. Ultrasound was utilized with sterile te chnique. Lidocaine used for local anesthesia. Skin casper was made with a scalpel. Access was gained under ultrasound with a 21-gauge needle to the upper pole posterior calyx of the right kidney. Urine returned in the hub of the needle. A 0.018 inch wire was advanced. The access site was dilated, gentle hand injection of contrast performed and fluoroscopic images obtained verifying placement, an d subsequently an 8.5-Spanish catheter was advanced over wire in the renal pelvis and fixed in place. Urine returned in the hub of the catheter. Catheter was fixed to the skin with 2-0 silk and a steri le dressing was placed. The patient remained in stable condition without complication. The patient was discharged to observation. 113 intraoperative images. 1.7 minutes fluoroscopy time. 27 minutes conscious sedation time. IMPRESSION: STATUS POST 8.5 TURKMEN NEPHROSTOMY TUBE PLACEMENT WITH ULTRASOUND AND FLUOROSCOPIC GREGORY DUNAWAY. THIS PROCEDURE WAS PERFORMED BY THE UNDERSIGNED.
[2018-06-25 16:54] VITALS: BP 147/77; RESP 18
== END 2018-06-25 16:10 | disposition home or self-care (01) ==
LOC: CATHCVL 10:20
PROVIDERS: ATTEND Radiology Diagnostic Radiology
DX: N13.30 Unspecified hydronephrosis (principal); Z90.6 Acquired absence of other parts of urinary tract; Z88.6 Allergy status to analgesic agent; Z88.1 Allergy status to other antibiotic agents; Z88.5 Allergy status to narcotic agent; Z88.0 Allergy status to penicillin; Z88.8 Allergy status to other drugs, medicaments and biological substances
CPT/HCPCS: 50432; 80048; 85025; C1729; C1769 ×2; J2250; J2001; J1580; Q9967

== ENCOUNTER → 2018-07-02 | Day surgery (SDC) | payer MEDICARE, BC ==
[2018-07-02 16:12] VITALS: BP 165/71; PULSE 75; RESP 16; TEMP 97.8
== END ==
LOC: RADPROMAIN 15:07
PROVIDERS: ATTEND Radiology Diagnostic Radiology
DX: Z43.6 Encounter for attention to other artificial openings of urinary tract (principal)

== ENCOUNTER → 2018-07-13 | Outpatient (CLI) | payer MEDICARE, BC ==
--- NOTE | 2018-07-13 13:59 | XR ---
EXAMINATION TYPE: XR KUB DATE OF EXAM: 07/13/2018 COMPARISON: 07/06/2017 INDICATION: Issues with right kidney TECHNIQUE: Single view abdomen supine view FINDINGS: Ostomy site is over the right midabdomen. Double pigtail catheters present presumably thro ugh the ostomy into the renal collecting system. Multiple surgical clips are within the [id number] from the patient's cystectomy. Bowel gas pattern is nonspecific. Psoas margins are normal. No organomegaly is present. IMPRESSION: 1. Nonspecific abdomen.
== END | disposition home or self-care (01) ==
LOC: RADXRMAIN 11:32
PROVIDERS: ATTEND Urology
DX: C67.4 Malignant neoplasm of posterior wall of bladder (principal)
CPT/HCPCS: 74018

== ENCOUNTER → 2018-12-05 | Outpatient (CLI) | payer MEDICARE, BC ==
--- NOTE | 2018-12-06 16:24 | PE ---
EXAMINATION TYPE: PET CT fusion skull to thigh DATE OF EXAM: 12/05/2018 COMPARISON: No recent CT examinations. Prior PET/CT: 05/23/2018 HISTORY: Bladder cancer TECHNIQUE: Following the intravenous administration of 1 4.667 mCi of F-18 FDG, whole body images ar e performed from the skull base to the midthigh. Images are reviewed on the computer in the coronal, axial, and sagittal planes. Reconstructed rotating images are created on independent workstation an d reviewed on the computer. A localization and attenuation correction CT is performed in conjunctio n with the PET scan. DLP: 268.45 mGycm SCAN: Subsequent Blood glucose: 80 mg/dL Average Mediastinum SUV: 1.64 Average Liver SUV: 2.25 FINDINGS: NECK: No abnormal uptake THORAX: No abnormal uptake ABDOMEN: There is increased uptake at an ostomy site over the right upper quadrant. This appears to b e related to the excretion. Note is made of hydronephrosis on the right. PELVIS: There may be a neobladder in the right hemipelvis. Correlate with surgical history. Suspiciou s uptake is not identified. OSSEOUS STRUCTURES: No abnormal uptake LOCALIZATION CT: Ascending thoracic aorta at the level of main pulmonary artery is 3.4 cm. The main p ulmonary artery the bifurcation is 2.6 cm. Vascular calcifications within the coronary vessels and wi thin the aorta. There is a moderate right hydronephrosis. Ostomy is in the right upper quadrant. Neob ladder the right lower quadrant hemipelvis. Stent is present within the right ureter and neobladder. COMPARISON: Findings appear stable from the prior PET/CT. IMPRESSION: 1. No suspicious uptake to suggest metastatic disease. 2. Hydronephrosis remains stable on the right.
== END | disposition home or self-care (01) ==
LOC: RADPETMAIN 11:56
PROVIDERS: ATTEND Internal Medicine Hematology & Oncology
DX: C67.8 Malignant neoplasm of overlapping sites of bladder (principal); Z92.21 Personal history of antineoplastic chemotherapy
CPT/HCPCS: 78815; A9552

== ENCOUNTER 2019-02-11 11:24 | Inpatient (IN) | payer MEDICARE, BC ==
[2019-02-11] MEDS ORDERED: ACETAMINOPHEN TAB 500 MG TAB PO STA (11:54)
--- NOTE | 2019-02-11 11:57 | ED ---
General Adult HPI - General Chief complaint: Extremity Injury, Lower Stated complaint: Fall Time Seen by Provider: 02/11/19 11:35 Source: patient, RN notes reviewed Mode of arrival: ambulatory Limitations: no limitations - History of Present Illness Initial comments: This a 78-year-old female who presents emergency Department complaining of left hip pain. Patient states she was walking off a stage and fell off the edges states which was about a foot and a half hyper patient states she did not strike her head did not hurt her neck per patient denies any loss of consciousness or any episode of being days. Patient denies any upper extremity pain. Patient denies any chest pain or back pain. Patient denies any abdominal pain. Patient denies any knee ankle or foot pain. Patient's only complaint is left hip pain. She states anytime she tries to move it at all it hurts. - Related Data Home Medications Medication Instructions Recorded Confirmed Aspirin 162 mg PO HS 06/29/14 07/08/18 Flecainide [Tambocor] 50 mg PO Q12HR 07/06/17 07/08/18 Metoprolol Tartrate [Lopressor] 12.5 mg PO BID 07/06/17 07/08/18 Acetaminophen Tab [Tylenol Tab] 650 mg PO DIRECTED PRN 07/03/18 07/08/18 Dronabinol [Marinol] 2.5 mg PO HS 07/03/18 07/08/18 Allergies Allergy/AdvReac Type Severity Reaction Status Date / Time nitrofurantoin Allergy Swelling Verified 02/11/19 11:49 [From Macrobid] ciprofloxacin [From Cipro] AdvReac Nausea & Verified 02/11/19 11:49 Vomiting codeine AdvReac Rash, Verified 02/11/19 11:49 vomiting gentamicin AdvReac Diarrhea Verified 02/11/19 11:49 hydrocodone AdvReac Rash, Verified 02/11/19 11:49 Vomiting hydromorphone [From Dilaudid] AdvReac Vomiting Verified 02/11/19 11:49 levofloxacin [From Levaquin] AdvReac Nausea & Verified 02/11/19 11:49 Vomiting metoclopramide [From Reglan] AdvReac Hallucinati Verified 02/11/19 11:49 ons morphine AdvReac Vomiting Verified 02/11/19 11:49 oxycodone AdvReac Vomiting Verified 02/11/19 11:49 Penicillins AdvReac Rash/Hives Verified 02/11/19 11:49 zolpidem [From Ambien] AdvReac Hallucinati Verified 02/11/19 11:49 ons narcotics AdvReac Rash, Uncoded 02/11/19 11:49 Vomiting Review of Systems ROS Statement: Those systems with pertinent positive or pertinent negative responses have been documented in the HPI. ROS Other: All systems not noted in ROS Statement are negative. 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 . Bladder cancer, diagnosed December 2017, tx with chemo. , has urostomy bag., Bilateral cataracts. Hx "polio and pneumonia when young"., Nephrostomy tube inserted 06/25/18. History of Any Multi-Drug Resistant Organisms: None Reported Past Surgical History: Appendectomy, Bladder Surgery, Hysterectomy, Pacemaker Additional Past Surgical History / Comment(s): RT SHOULDER FUSED WITH BONE FROM HIP. Bladder removal /ostomy, dual pacemaker 2013., Nephrostomy tube (06/25/18) Past Anesthesia/Blood Transfusion Reactions: Postoperative Nausea & Vomiting (PONV) Type of Cardiac Device: Permanent Pacemaker Device Placement Date:: 2013 Past Psychological History: Anxiety Smoking Status: Former smoker Past Alcohol Use History: Rare Past Drug Use History: None Reported - Past Family History Father History Unknown: Yes Mother Family Medical History: Cancer, Diabetes Mellitus Additional Family Medical History / Comment(s): rheumatic fever. "heart problems" Cervical cancer. Brother(s) Family Medical History: Cancer Additional Family Medical History / Comment(s): PANCREATIC General Exam - General Exam Comments Initial Comments: GENERAL: Patient is well-developed and well-nourished. Patient is nontoxic and well- hydrated and is in mild distress. ENT: Neck is soft and supple. No significant lymphadenopathy is noted. Oropharynx is clear. Moist mucous membranes. Neck has full range of motion without eliciting any pain. EYES: The sclera were anicteric and conjunctiva were pink and moist. Extraocular movements were intact and pupils were equal round and reactive to light. Eyelids were unremarkable. PULMONARY: Unlabored respirations. Good breath sounds bilaterally. No audible rales rhonchi or wheezing was noted. CARDIOVASCULAR: There is a regular rate and rhythm without any murmurs gallops or rubs. ABDOMEN: Soft and nontender with normal bowel sounds. No palpable organomegaly was noted. There is no palpable pulsatile mass. SKIN: Skin is clear with no lesions or rashes and otherwise unremarkable. NEUROLOGIC: Patient is alert and oriented x3. Cranial nerves II through XII are grossly intact. Motor and sensory are also intact. Normal speech, volume and content. Symmetrical smile. MUSCULOSKELETAL: Left hip is tender to palpation. Left hip is also externally rotated and it appears shortened. Any movement of the leg hurts the hip. LYMPHATICS: No significant lymphadenopathy is noted PSYCHIATRIC: Normal psychiatric evaluation. Limitations: no limitations Course Vital Signs 02/11/19 11:38 Temperature 97.6 F Pulse Rate 78 Respiratory 18 Rate Blood Pressure 139/98 O2 Sat by Pulse 97 Oximetry Medical Decision Making - Medical Decision Making X-ray of the hip shows a left hip subcapital femur fracture I spoke with the [facility] physician medical research assistant and he agreed to admit the patient admitted the patient I consulted Dr. Villar for medical management EKG shows sinus rhythm at 65 bpm IA interval is 448 QRSs 106 QT interval 422 QTC is 438. EKG shows no ST segment elevation or depression. - Lab Data Result diagrams: 02/11/19 13:27 Disposition Clinical Impression: Subcapital fracture of femur Disposition: ADMITTED IP TO THIS [facility] Time of Disposition: 13:08
--- NOTE | 2019-02-11 12:46 | XR ---
EXAMINATION TYPE: XR Hip Complete LT DATE OF EXAM: 02/11/2019 CLINICAL HISTORY: History of bladder cancer with left hip pain. TECHNIQUE: AP and frogleg views of the left hip are obtained. COMPARISON: PET CT December 05, 2018. FINDINGS: There is acute subcapital displaced fracture through the left proximal femur with impactio n and superior displacement of distal fracture fragment. Left pelvic surgical clips are present. No h ip joint dislocation is seen. IMPRESSION: There is acute subcapital fracture of left proximal femur. (Initial encounter closed type post traumatic fracture)
[2019-02-11] MEDS ORDERED: SODIUM CHLORIDE 0.9% 1,000 ML IV ONE (13:08)
[2019-02-11 13:35] LABS: Basophils % (A) 0 %; Eosinophils # (A) 0.1 k/uL (0-0.7); Eosinophils % (A) 2 %; HCT 35.3 % (34.0-46.0); HGB 11.8 gm/dL (11.4-16.0); Lymphocytes # (A) 1.5 k/uL (1.0-4.8); Lymphocytes % (A) 21 %; MCH 31.9 pg (25.0-35.0); MCHC 33.3 g/dL (31.0-37.0); MCV 95.7 fL (80.0-100.0); Mean Platelet Volume 7.7; Monocytes # (A) 0.4 k/uL (0-1.0); Monocytes % (A) 5 %; Neutrophils % (A) 71 %; Platelet Count 148 k/uL (150-450); RBC 3.69 m/uL (3.80-5.40); RDW 13.1 % (11.5-15.5); WBC 7.1 k/uL (3.8-10.6)
[2019-02-11 13:46] LABS: Partial Thromboplastin Time 25.5 sec (22.0-30.0); Prothrombin Time 10.5 sec (9.0-12.0)
[2019-02-11 13:47] LABS: Albumin 3.8 g/dL (3.5-5.0); Calcium 9.5 mg/dL (8.4-10.2); Potassium 4.4 mmol/L (3.5-5.1); Total Bilirubin 0.5 mg/dL (0.2-1.3); Total Protein 6.7 g/dL (6.3-8.2)
[2019-02-11] MEDS: PANTOPRAZOLE 40 MG/10 ML VIAL IVP SCH (15:59)
[2019-02-11] MEDS: ACETAMINOPHEN TAB 325 MG TAB PO PRN ×2 (18:01→23:27)
--- NOTE | 2019-02-11 18:15 | XR ---
EXAMINATION TYPE: XR chest 1V portable DATE OF EXAM: 02/11/2019 COMPARISON: 07/02/2014 HISTORY: Preop TECHNIQUE: Single frontal view of the chest is obtained. FINDINGS: There is no heart failure nor confluent pneumonic infiltrate. Costophrenic angles are sun r. There is left axillary pacemaker. Bony thorax is intact. There is right shoulder surgery. IMPRESSION: No active cardiopulmonary disease. No change.
--- NOTE | 2019-02-11 19:41 | P.HPOR ---
History of Present Illness H&P Date: 02/11/19 Chief Complaint: Left hip pain after fall The patient is a pleasant 78-year-old female who experienced a mechanical fall earlier today. She was walking down the steps of the stage and missed the last step, falling and injuring her left hip. She was brought to the emergency department where x-rays revealed a displaced femoral neck fracture. She denies head trauma or other areas of pain. She localizes the pain to the left hip. She denies antecedent hip pain. She normally ambulates without the use of a walker or any assistive devices. Past Medical History Past Medical History: Cancer, Hyperlipidemia, Hypertension, Pneumonia, Renal Disease Additional Past Medical History / Comment(s): Bladder cancer with muscle invasion/surgery/urostomy and chemo, frequent UTIs, tachybrady syndrome with pacemaker, hx of polio History of Any Multi-Drug Resistant Organisms: None Reported Past Surgical History: Appendectomy, Bladder Surgery, Hysterectomy, Pacemaker Additional Past Surgical History / Comment(s): 2013 pacemaker, radical cy stectomy with ileal loop/urostomy, R nephrostomy tube and now R ureteral stent, R shoulder fusion with bone from hip donor site. Past Anesthesia/Blood Transfusion Reactions: Postoperative Nausea & Vomiting (PONV) Additional Past Anesthesia/Blood Transfusion Reaction / Comment(s): Pt has received blood in past without reaction. Type of Cardiac Device: Permanent Pacemaker Device Placement Date:: 2013 Smoking Status: Current every day smoker - Past Family History Father History Unknown: Yes Additional Family Medical History / Comment(s): Father in a MVA when pt was young. Mother Family Medical History: Cancer, Diabetes Mellitus Additional Family Medical History / Comment(s): Cervical cancer, rheumatic fever, heart problems. Brother(s) Family Medical History: Cancer Additional Family Medical History / Comment(s): PANCREATIC Medications and Allergies Home Medications Medication Instructions Recorded Confirmed Type Aspirin 162 mg PO HS 06/29/14 02/11/19 History Flecainide [Tambocor] 50 mg PO Q12HR 07/06/17 02/11/19 History Metoprolol Tartrate [Lopressor] 12.5 mg PO BID 07/06/17 02/11/19 History Allergies Allergy/AdvReac Type Severity Reaction Status Date / Time nitrofurantoin Allergy Swelling Verified 02/11/19 13:47 [From Macrobid] ciprofloxacin [From Cipro] AdvReac Nausea & Verified 02/11/19 13:47 Vomiting codeine AdvReac Rash, Verified 02/11/19 13:47 vomiting gentamicin AdvReac Diarrhea Verified 02/11/19 13:47 hydrocodone AdvReac Rash, Verified 02/11/19 13:47 Vomiting hydromorphone [From Dilaudid] AdvReac Vomiting Verified 02/11/19 13:47 levofloxacin [From Levaquin] AdvReac Nausea & Verified 02/11/19 13:47 Vomiting metoclopramide [From Reglan] AdvReac Hallucinati Verified 02/11/19 13:47 ons morphine AdvReac Vomiting Verified 02/11/19 13:47 oxycodone AdvReac Vomiting Verified 02/11/19 13:47 Penicillins AdvReac Rash/Hives Verified 02/11/19 13:47 zolpidem [From Ambien] AdvReac Hallucinati Verified 02/11/19 13:47 ons narcotics AdvReac Rash, Uncoded 02/11/19 11:49 Vomiting Physical Examination HEENT: Normocephalic and atraumatic. Cardiovascular: Regular rate and rhythm. Pulmonary: No audible wheeze or conversational dyspnea Abdomen: Soft & nontender Musculoskeletal: Focal tenderness to palpation over the greater trochanter of the left hip. There is no erythema, ecchymosis or abrasions. The left lower extremity is short and externally rotated. Pain with logroll. Light touch sensation is subjectively intact throughout the left lower extremity. Intact gross motor function to the tibialis anterior, EHL and gastroc-soleus complex. Palpable dorsalis pedis pulse. The foot is warm, dry and well perfused. No pain with palpation or passive range of motion of the right lower extremity or bilateral upper extremities. Results X-rays of the pelvis and left hip were reviewed and interpreted from an orthopedic standpoint. These demonstrate a displaced transcervical fracture of the left femoral neck. No other fractures or acute osseous pathology is appreciated. - Labs Labs: Abnormal Lab Results - Last 24 Hours (Table) 02/11/19 02/11/19 Range/Units 13:27 13:27 RBC 3.69 L (3.80-5.40) m/uL Plt Count 148 L (150-450) k/uL Chloride 113 H (98-107) mmol/L Carbon Dioxide 20 L (22-30) mmol/L BUN 34 H (7-17) mg/dL Creatinine 1.27 H (0.52-1.04) mg/dL H & H 02/11/19 Range/Units 13:27 Hgb 11.8 (11.4-16.0) gm/dL Hct 35.3 (34.0-46.0) % Coagulation 02/11/19 Range/Units 13: INR 1.0 (<1.2) Result Diagrams: 02/11/19 13:27 02/11/19 13:27 Assessment and Plan Assessment: 1. Displaced left transcervical femoral neck fracture status post fall 2. History of bladder cancer with permanent ostomy 3. History of bradycardia status post pacemaker insertion 4. Nicotine addiction Plan: I discussed the diagnosis and radiographic findings with the patient and her significant other. We reviewed the pertinent anatomy and pathophysiology of the fracture. We discussed treatment options and I explained the rationale behind surgical intervention. I recommended operative treatment in the form of a hemiarthroplasty. We discussed the surgical plan and expected postoperative course. Risks and benefits were reviewed including (but not limited to) the risks of infection, bleeding, blood clots, dislocation and possible need for additional surgery. Questions were invited and answered. Patient expressed understanding and wishes to proceed with surgery. Patient will be kept on bedrest. Continue PRN pain management. NPO after midnight. We will plan for surgery after preoperative evaluation by the internal medicine and cardiology teams. Petar Ratliff D.O. Orthopedic surgeon [facility]
[2019-02-11] MEDS: FLECAINIDE 50 MG TAB PO SCH (20:25)
[2019-02-11] MEDS: METOPROLOL TARTRATE 12.5 MG TAB PO SCH (20:26)
[2019-02-12] MEDS: ACETAMINOPHEN TAB 325 MG TAB PO PRN (05:51)
[2019-02-12 08:05] LABS: Basophils % (A) 0 %; Eosinophils # (A) 0.3 k/uL (0-0.7); Eosinophils % (A) 5 %; HCT 33.6 % (34.0-46.0); Lymphocytes # (A) 1.5 k/uL (1.0-4.8); Lymphocytes % (A) 23 %; MCH 31.7 pg (25.0-35.0); MCHC 32.6 g/dL (31.0-37.0); MCV 97.2 fL (80.0-100.0); Mean Platelet Volume 7.6; Monocytes # (A) 0.6 k/uL (0-1.0); Monocytes % (A) 9 %; Neutrophils # (A) 3.8 k/uL (1.3-7.7); Neutrophils % (A) 60 %; Platelet Count 153 k/uL (150-450); RBC 3.46 m/uL (3.80-5.40); RDW 12.9 % (11.5-15.5); WBC 6.3 k/uL (3.8-10.6)
[2019-02-12 08:20] LABS: Calcium 8.9 mg/dL (8.4-10.2); Potassium 4.4 mmol/L (3.5-5.1)
[2019-02-12] MEDS: METOPROLOL TARTRATE 12.5 MG TAB PO SCH ×2 (09:47→21:57)
[2019-02-12] MEDS: FLECAINIDE 50 MG TAB PO SCH ×2 (09:48→21:57)
[2019-02-12] MEDS: PANTOPRAZOLE 40 MG/10 ML VIAL IVP SCH (09:49)
--- NOTE | 2019-02-12 10:29 | CONS ---
CONSULTATION Mrs. Barker is a 78-year-old female who presented after a fall and a fractured hip. Cardiology consultation was requested for preoperative evaluation. She has a known history of sick sinus syndrome with pauses and subsequently underwent a permanent pacemaker implantation. She had a prior history of smoking as well as a history of hypertension and hyperlipidemia. She has been doing well from the cardiac standpoint, underwent permanent pacemaker implantation in 2014 and has been stable from the cardiac standpoint. She has a history of bladder CA, underwent surgical intervention and urostomy and has been followed by Dr. Alexis. Yesterday, she was cleaning up a stage when she misjudged a step and fell down and fractured her hip. She had a displaced femoral neck fracture on the left side. Prior to that, she has been doing well. Her activity level has been stable. She denied any chest pain. No dizziness. No palpitation. No PND or orthopnea. No peripheral edema. She is active without any limitation until this point. Her appetite has been good and her weight has been stable. Her coronary risk factors are remarkable for the history of hypertension and hyperlipidemia. Her medications at home include metoprolol tartrate 12.5 mg twice a day, flecainide 50 mg twice a day, and aspirin once a day. The patient could not tolerate statin and has declined anticoagulation in the past. REVIEW OF SYSTEMS: RESPIRATORY SYSTEM: No recent wheezing. No cough. No history of obstructive lung disease. GI SYSTEM: No recent GI bleeding. No peptic ulcer disease. SYSTEM: She has urostomy, but no recent hematuria or dysuria. NERVOUS SYSTEM: No history of stroke or seizure. PHYSICAL EXAMINATION: She is a 78-year-old female, alert, oriented, in no apparent distress. Blood pressure 133/70 with a heart rate in the 60s. HEAD: Normocephalic. EYES: Sclerae nonicteric. NECK: Good upstroke, no bruit noted, no venous distention. LUNGS: Clear to auscultation anteriorly. HEART: Regular rate and rhythm, S1, S2. No S3 with systolic ejection murmur heard at the base. No diastolic murmur, no rub. ABDOMEN: Soft, nontender, positive bowel sounds, no organomegaly. EXTREMITIES: No edema, intact distal pulses. LAB DATA: Revealed BUN and creatinine 27 and 1.36, potassium 4.4, hemoglobin of 11. Her EKG revealed a sinus mechanism with evidence of atrial pacing and first-degree AV block. Her chest x-ray shows no acute infiltrate. IMPRESSION: 1. Status post fall and mechanical fracture of the left hip. 2. History of sick sinus syndrome with permanent pacemaker implantation, stable. 3. Prior history of smoking. 4. History of bladder cancer with permanent ostomy. 5. Renal failure has been noted in the past. RECOMMENDATION: From the cardiac standpoint she is stable, will continue present therapy. She has no evidence of congestive heart failure or acute ischemic event. There is no contraindication to her surgical intervention from the cardiac standpoint. Thank you for this consult. We will follow with you. MARY / IJN: [id number] /
--- NOTE | 2019-02-12 11:22 | P.CONS ---
History of Present Illness - Reason for Consult Consult date: 02/12/19 Medical Clearance, medical management Requesting physician: Petar Vogt Gaudencio - Chief Complaint Left hip fracture - History of Present Illness This is a 78-year-old female presented to the ER after walking off the stage, missed the last step, sustaining a fall resulting in left hip pain. Denies syncope, denies head trauma. Denies lightheadedness dizziness or focal def icits. Denies chest pain, palpitations or increased shortness of breath. Denies nausea, vomiting or diarrhea. Denies abdominal pain. Hip x-ray reporting left hip subcapital femur fracture. EKG reporting sinus rhythm with first-degree AV block, incomplete right bundle branch block. BUN 27, Creatinine 1.36, VSS.Cardiac clearance obtained per RN. Review of Systems ROS Statement: Those systems with pertinent positive or pertinent negative responses have been documented in the HPI. ROS Other: All systems not noted in ROS Statement are negative. Past Medical History Past Medical History: Cancer, Hyperlipidemia, Hypertension, Pneumonia, Renal Disease Additional Past Medical History / Comment(s): Bladder cancer with muscle invasion/surgery/urostomy and chemo, frequent UTIs, tachybrady syndrome with pacemaker, hx of polio History of Any Multi-Drug Resistant Organisms: None Reported Past Surgical History: Appendectomy, Bladder Surgery, Hysterectomy, Pacemaker Additional Past Surgical History / Comment(s): 2013 pacemaker, radical cystectomy with ileal loop/urostomy, R nephrostomy tube and now R ureteral stent, R shoulder fusion with bone from hip donor site. Past Anesthesia/Blood Transfusion Reactions: Postoperative Nausea & Vomiting (PONV) Additional Past Anesthesia/Blood Transfusion Reaction / Comm: Pt has received blood in past without reaction. Type of Cardiac Device: Permanent Pacemaker Device Placement Date:: 2013 Smoking Status: Current every day smoker - Past Family History Father History Unknown: Yes Additional Family Medical History / Comment(s): Father in a MVA when pt was young. Mother Family Medical History: Cancer, Diabetes Mellitus Additional Family Medical History / Comment(s): Cervical cancer, rheumatic fever, heart problems. Brother(s) Family Medical History: Cancer Additional Family Medical History / Comment(s): PANCREATIC Medications and Allergies Home Medications Medication Instructions Recorded Confirmed Type Aspirin 162 mg PO HS 06/29/14 02/11/19 History Flecainide [Tambocor] 50 mg PO Q12HR 07/06/17 02/11/19 History Metoprolol Tartrate [Lopressor] 12.5 mg PO BID 07/06/17 02/11/19 History Allergies Allergy/AdvReac Type Severity Reaction Status Date / Time nitrofurantoin Allergy Swelling Verified 02/11/19 13:47 [From Macrobid] ciprofloxacin [From Cipro] AdvReac Nausea & Verified 02/11/19 13:47 Vomiting codeine AdvReac Rash, Verified 02/11/19 13:47 vomiting gentamicin AdvReac Diarrhea Verified 02/11/19 13:47 hydrocodone AdvReac Rash, Verified 02/11/19 13:47 Vomiting hydromorphone [From Dilaudid] AdvReac Vomiting Verified 02/11/19 13:47 levofloxacin [From Levaquin] AdvReac Nausea & Verified 02/11/19 13:47 Vomiting metoclopramide [From Reglan] AdvReac Hallucinati Verified 02/11/19 13:47 ons morphine AdvReac Vomiting Verified 02/11/19 13:47 oxycodone AdvReac Vomiting Verified 02/11/19 13:47 Penicillins AdvReac Rash/Hives Verified 02/11/19 13:47 zolpidem [From Ambien] AdvReac Hallucinati Verified 02/11/19 13:47 ons narcotics AdvReac Rash, Uncoded 02/11/19 11:49 Vomiting Physical Exam Vitals: Vital Signs Temp Pulse Pulse Resp BP BP Pulse Ox 02/12/19 07:00 98.3 F 64 14 133/71 94 L 02/12/19 02:10 98.8 F 61 16 103/62 94 L 02/11/19 20:08 98.3 F 66 16 116/59 96 02/11/19 14:59 97.8 F 79 16 164/82 98 02/11/19 13:53 97.5 F L 61 16 138/68 97 02/11/19 11:38 97.6 F 78 18 139/98 97 Intake and Output 02/11/19 02/12/19 02/12/19 22:59 06:59 14:59 Intake Total 150 590 Output Total 400 200 Balance -250 390 Intake: Intake, IV Titration 150 Amount Sodium Chloride 0.9% 1, 150 000 ml @ 75 mls/hr IV . [id number] ONE Rx#:[id number] Oral 590 Output: Urine 400 200 PHYSICAL EXAM: VITAL SIGNS: As above GENERAL: Sitting up in bed, no acute distress HEENT: Conjunctivae normal. eyes normal. NECK: No JVD. No thyroid enlargement. No LNs CARDIOVASCULAR: S1, S2 regular.. No murmur RESPIRATION: Unlabored. Breath sounds diminished in the bases. No rhonchi or crackles. No bronchial breathing. ABDOMEN: Soft, nontender . Urostomy present with clear urine. No guarding. no masses palpable. Bowel sounds heard. LEGS: No edema. no swelling PSYCHIATRY: Alert and oriented X3, mood and affect normal. NERVOUS SYSTEM: Cranial N 2-12 grossly normal. Moves all 4 limbs. Diffuse weakness No focal deficits. Strength and sensation grossly intact.. Skin: no lesions, no rash. Tender left hip, externally rotated and shorter.warm,positive DP. Lymphatic system. No LN neck axilla or groin. Results CBC & Chem 7: 02/12/19 07:36 02/12/19 07:36 Labs: Abnormal Lab Results - Last 24 Hours (Table) 02/11/19 02/11/19 02/12/19 Range/Units 13:27 13:27 07:36 RBC 3.69 L 3.46 L (3.80-5.40) m/uL Hgb 11.0 L (11.4-16.0) gm/dL Hct 33.6 L (34.0-46.0) % Plt Count 148 L (150-450) k/uL Chloride 113 H (98-107) mmol/L Carbon Dioxide 20 L (22-30) mmol/L BUN 34 H (7-17) mg/dL Creatinine 1.27 H (0.52-1.04) mg/dL Glucose (74-99) mg/dL 02/12/19 Range/Units 07:36 RBC (3.80-5.40) m/uL Hgb (11.4-16.0) gm/dL Hct (34.0-46.0) % Plt Count (150-450) k/uL Chloride 116 H (98-107) mmol/L Carbon Dioxide 18 L (22-30) mmol/L BUN 27 H (7-17) mg/dL Creatinine 1.36 H (0.52-1.04) mg/dL Glucose 107 H (74-99) mg/dL Assessment and Plan Assessment: -Left femoral neck fracture status post fall -History of PONV -Acute on chronic renal failure, stage 3b, baseline around 1.0 -Hypertension -Hyperlipidemia -Nicotine dependence -Tachybrady Syndrome status post pacemaker insertion -History of bladder cancer with urostomy -History of recurrent UTIs -History of polio Plan: Continue on current medication regime ,monitoring and symptomatic treatment. Gentle IV fluid hydration. Close monitoring of renal function and electrolytes with repeat labs ordered for a.m. Home meds have been reviewed and resumed. Medically cleared for surgery. Pain management/anticoagulation as per PCP. Further recommendations to follow.Thank you Dr. Lion for allowing us to participate in the care of this pleasant lady. The impression and plan of care has been dictated as directed. : I performed a history and examination of this patient, discussed the same with the dictator. I agree with the dictator's note ,documented as a scribe. Any additional findings or plans will be noted. Time taken: 35 minutes
[2019-02-12 13:57] VITALS: BMI 18.8
[2019-02-12] MEDS ORDERED: CLINDAMYCIN 600 MG in DEXTROSE 5% IN WATER 50 ML IVPB ONE ×2 (15:00)
[2019-02-12] MEDS ORDERED: LACTATED RINGERS 1,000 ML IV ONE ×2 (15:31→19:14)
[2019-02-12] MEDS ORDERED: ONDANSETRON 4 MG/2 ML VIAL IVP ONE (16:50)
[2019-02-12] MEDS ORDERED: MIDAZOLAM (PF) 2 MG/2 ML VIAL IVP ONE (16:52)
[2019-02-12] MEDS ORDERED: KETAMINE 10 MG/ML 20 ML VIAL ONE (18:02)
[2019-02-12] MEDS ORDERED: PHENYLEPHRINE-0.9% NACL SYG 1 MG/10 ML SYRINGE ONE (18:02)
[2019-02-12] MEDS ORDERED: MIDAZOLAM 2 MG/2 ML VIAL ONE (18:02)
[2019-02-12] MEDS ORDERED: PROPOFOL 10 MG/ML 20 ML VIAL IV ONE (18:02)
[2019-02-12] MEDS ORDERED: BUPIVACAIN-EPI 0.25%-1:200,000 30 ML VIAL SQ ONE (20:04)
[2019-02-12] MEDS ORDERED: NALOXONE 0.4 MG/ML 1 ML VIAL IV PRN (20:35)
--- NOTE | 2019-02-12 21:12 | XR ---
PROCEDURE: XR Hip Limited LT - 1V DATE AND TIME: 02/12/2019 8:55 PM CLINICAL INDICATION: PHH; POST SURGERY TECHNIQUE: Department protocol COMPARISON: None FINDINGS: The left hip prosthesis anatomic positioning and alignment is documented on this AP view. P ostprocedure changes appreciated. No unexpected findings. IMPRESSION: Postoperative 1 view
[2019-02-12] MEDS: KETOROLAC 30 MG/ML 1 ML VIAL IVP PRN (21:21)
[2019-02-12 22:29] LABS: Basophils % (A) 0 %; Eosinophils # (A) 0.1 k/uL (0-0.7); Eosinophils % (A) 2 %; HCT 33.9 % (34.0-46.0); HGB 10.7 gm/dL (11.4-16.0); Lymphocytes # (A) 1.1 k/uL (1.0-4.8); Lymphocytes % (A) 13 %; MCH 31.1 pg (25.0-35.0); MCHC 31.4 g/dL (31.0-37.0); MCV 98.8 fL (80.0-100.0); Mean Platelet Volume 7.6; Monocytes # (A) 0.5 k/uL (0-1.0); Monocytes % (A) 6 %; Neutrophils # (A) 6.3 k/uL (1.3-7.7); Neutrophils % (A) 77 %; Platelet Count 122 k/uL (150-450); RBC 3.43 m/uL (3.80-5.40); RDW 12.9 % (11.5-15.5); WBC 8.2 k/uL (3.8-10.6)
[2019-02-13] MEDS: CLINDAMYCIN 900 MG in DEXTROSE 5% IN WATER 50 ML IVPB SCH ×4 (00:14→05:01)
[2019-02-13 08:06] LABS: Basophils % (A) 0 %; Eosinophils # (A) 0.1 k/uL (0-0.7); Eosinophils % (A) 1 %; HGB 9.3 gm/dL (11.4-16.0); Lymphocytes # (A) 1.1 k/uL (1.0-4.8); Lymphocytes % (A) 12 %; MCH 31.4 pg (25.0-35.0); MCHC 33.1 g/dL (31.0-37.0); Mean Platelet Volume 8.4; Monocytes # (A) 0.8 k/uL (0-1.0); Monocytes % (A) 9 %; Neutrophils # (A) 6.6 k/uL (1.3-7.7); Neutrophils % (A) 76 %; Platelet Count 106 k/uL (150-450); RBC 2.95 m/uL (3.80-5.40); RDW 14.7 % (11.5-15.5); WBC 8.7 k/uL (3.8-10.6)
[2019-02-13 08:37] LABS: Calcium 8.5 mg/dL (8.4-10.2); Potassium 4.3 mmol/L (3.5-5.1)
[2019-02-13] MEDS: METOPROLOL TARTRATE 12.5 MG TAB PO SCH ×2 (10:12→21:37)
[2019-02-13] MEDS: ACETAMINOPHEN TAB 325 MG TAB PO PRN (10:12)
[2019-02-13] MEDS: ENOXAPARIN 40 MG/0.4 ML SYRINGE SQ SCH (10:12)
[2019-02-13] MEDS: FLECAINIDE 50 MG TAB PO SCH ×2 (10:12→21:37)
[2019-02-13] MEDS: PANTOPRAZOLE 40 MG/10 ML VIAL IVP SCH (10:17)
--- NOTE | 2019-02-13 11:19 | P.PN ---
Subjective Progress Note Date: 02/13/19 Chart and interval events reviewed. Patient was seen and examined. Son at bedside. She states that the pain is much improved and well-controlled. Denies any issues or concerns overnight. She has not been out of bed yet. Objective - Vital Signs Vital signs: Vital Signs Temp 100.4 F H 02/13/19 08:00 Pulse 60 02/13/19 08:15 Resp 16 02/13/19 08:15 BP 106/60 02/13/19 08:00 Pulse Ox 95 02/13/19 08:00 Intake & Output 02/12/19 02/13/19 02/13/19 18:59 06:59 18:59 Intake Total 1054 625 436 Output Total 1140 700 Balance -86 -75 436 Weight 54.431 kg Intake: IV 1054 500 Intake, IV Titration 125 Amount Clindamycin 900 mg In 50 Dextrose 5% in Water 50 ml @ 50 mls/hr IVPB Q6HR MARGARETTE Rx#:[id number] Sodium Chloride 0.9% 1, 75 000 ml @ 75 mls/hr IV . [id number] ONE Rx#:[id number] Oral 436 Output: Urine 1140 650 Estimated Blood Loss 50 Other: # Voids 2 - Exam General: Lying supine in bed. Appears comfortable and in no acute distress Musculoskeletal - left hip: The dressing is clean, dry and in place. No strikethrough or shadowing. A ppropriate tenderness to palpation. Abduction pillow and KI in place. Intact light touch sensation and gross motor function distally. Calf is soft and nontender. - Labs CBC & Chem 7: 02/13/19 07:21 02/13/19 07:21 Labs: Abnormal Lab Results - Last 24 Hours (Table) 02/12/19 02/13/19 02/13/19 Range/Units 21:54 07:21 07:21 RBC 3.43 L 2.95 L (3.80-5.40) m/uL Hgb 10.7 L 9.3 L (11.4-16.0) gm/dL Hct 33.9 L 28.0 L (34.0-46.0) % Plt Count 122 L 106 L (150-450) k/uL Sodium 136 L (137-145) mmol/L Chloride 111 H (98-107) mmol/L Carbon Dioxide 19 L (22-30) mmol/L BUN 24 H (7-17) mg/dL Creatinine 1.19 H (0.52-1.04) mg/dL Assessment and Plan Assessment: 1. Postop day #1 status post left hip hemiarthroplasty for displaced femoral neck fracture 2. Sick sinus syndrome s/p pacemaker implantation 3. H/o bladder cancer with permanent ostomy 4. Nicotine addiction Plan: Intraoperative findings were reviewed with the patient. Begin PT/OT - weightbearing as tolerated with a walker. Posterior hip precautions - these were reviewed with the patient. Maintain abduction pillow while in bed (knee immobilizer DC'd) Up with assist only, fall precautions DVT prophylaxis with LMWH Continue PRN pain management Reinforce dressing as needed. Will be changed to aquacel prior to discharge. Discussed the negative effects of cigarette smoking as it relates to increased risk of infection and delayed wound healing - she expressed understanding. DC planning - expect subacute rehab
--- NOTE | 2019-02-13 11:35 | P.OP ---
Date of Procedure: 02/12/19 Preoperative Diagnosis: Displaced left femoral neck fracture Postoperative Diagnosis: Displaced left femoral neck fracture Procedure(s) Performed: Left hip hemiarthroplasty Implants: Rodo LDFX size 12 cemented femoral stem. 47mm +0 endo head with centralizer and cement restrictor Anesthesia: local, spinal Surgeon: Petar Ratliff Dairy Equipment Specialist #1: Chris Bales Estimated Blood Loss (ml): 50 Condition: stable Disposition: PACU Indications for Procedure: The patient is 78-year-old female who sustained a displaced left femoral neck fracture after a mechanical fall. Surgical treatment was recommended. Risks and benefits were discussed with the patient and her family, including (but not limited to) the risks of infection, bleeding, injury tendons or neurovascular structures, dislocation and possible need for future surgery. They expressed und erstanding and wished to proceed with surgery. Consent forms were signed. The surgical site was confirmed and marked preoperatively. Description of Procedure: The patient was brought to the OR by the Anesthesia team and spinal anesthesia was administered. She was then placed in the right lateral decubitus position on a peg board. An axillary roll was placed and all bony prominences were well padded. The left lower extremity was then prepped and draped in standard, sterile fashion. Prophylactic antibiotics were administered. A timeout was performed which confirmed the patient, the operative side, site and procedure to be performed: all team members expressed agreement. A curvilinear incision was marked over the greater trochanter for a posterior approach to the left hip. The skin was sharply incised. Electrocautery was used to dissect the subcutaneous tissue down to the tensor fascia, coagulating perforating vessels as needed. The fascia was sharply incised and the gluteus lukas was bluntly divided proximally. A Charnley retractor was placed and hip was gently internally rotated. The gluteus medius musculature was retracted proximally. The piriformis and short external rotators were identified. These were released from their insertions and tagged for later repair. A capsulotomy was made, taking care to protect the labrum. The fracture site was identified. The femoral head was still seated within the acetabulum. A corkscrew extractor was used to remove the fractured head. A cutting guide was used to make a femoral neck osteotomy while the femoral head was being sized on the back table. The diameter of the acetabulum was sized and a 47 mm head was selected. We elevated the femoral neck and performed a box osteotomy. We lateralized, reamed and broached up to a size 12 stem. The trial head was attached and the hip was reduced. This demonstrated excellent motion and stability. The hip was again dislocated and the trial components were r emoved. A distal cement restrictor was inserted. Antibiotic cement was prepared while the femoral canal was irrigated, brushed and dried. We then inserted and cemented the femoral stem with appropriate anteversion. We allowed the cement to harden fully. The 47 mm head was retrialed and size was confirmed. This was selected and impacted onto a clean, dry trunnion. The hip was reduced and showed good stability, range of motion and leg length. The joint was thoroughly irrigated with normal saline. The capsule was repaired with #1 Vicryl suture after final deep irrigation. The piriformis and short external rotators were repaired with #5 Ethibond suture. The tensor fascia was closed with interrupted #1 Vicryl suture followed by and a running, barbed suture. The subcutaneous tissues were closed in layers with 0 Vicryl & 2-0 Vicryl. The skin incision was closed with a running, barbed subcuticular stitch. Local anesthetic with epinephrine was injected into the stefany-incisional subcutaneous tissues for adjunctive postoperative pain control and hemostasis. Mastisol and steri strips were applied, followed by a sterile dressing were applied. An abduction pillow and knee immobilizer were placed. The patient tolerated the procedure well. She was transferred to her hospital bed and taken to recovery in stable condition. All sponge, needle and instrument counts were correct at the end of the case.
[2019-02-13] MEDS ORDERED: BACLOFEN 10 MG TAB PO PRN (15:29)
--- NOTE | 2019-02-13 17:08 | P.PN ---
Subjective Progress Note Date: 02/13/19 Principal diagnosis: left hip fracture; status post left hip arthroplasty; POD #1 78-year-old female who sustained a displaced left femoral neck fracture after a mechanical fall. Surgical treatment was recommended. Risks and benefits were discussed with the patient and her family, including (but not limited to) the risks of infection, bleeding, injury tendons or neurovascular structures, dislocation and possible need for future surgery. Objective - Vital Signs Vital signs: Vital Signs Temp 99.4 F 02/13/19 11:49 Pulse 60 02/13/19 08:15 Resp 16 02/13/19 08:15 BP 106/60 02/13/19 08:00 Pulse Ox 95 02/13/19 08:00 Intake & Output 02/12/19 02/13/19 02/13/19 18:59 06:59 18:59 Intake Total 1054 625 436 Output Total 1140 700 Balance -86 -75 436 Weight 54.431 kg Intake: IV 1054 500 Intake, IV Titration 125 Amount Clindamycin 900 mg In 50 Dextrose 5% in Water 50 ml @ 50 mls/hr IVPB Q6HR MARGARETTE Rx#:[id number] Sodium Chloride 0.9% 1, 75 000 ml @ 75 mls/hr IV . [id number] ONE Rx#:[id number] Oral 436 Output: Urine 1140 650 Estimated Blood Loss 50 Other: # Voids 2 - Exam - Constitutional General appearance: Present: average body habitus, cooperative, no acute distress - EENT Eyes: Present: anicteric sclerae, EOMI, PERRLA, normal appearance ENT: Present: hearing grossly normal, normal oropharynx Ears: bilateral: normal - Neck Neck: Present: normal ROM. Absent: lymphadenopathy, rigidity, thyromegaly Carotids: negative: bruit present Thyroid: bilateral: normal size, negative: enlarged, nodule - Respiratory Respiratory: bilateral: CTA, negative: rales, rhonchi, wheezing - Cardiovascular Rhythm: regular Heart sounds: normal: S1, S2 Abnormal Heart Sounds: Absent: systolic murmur, diastolic murmur - Gastrointestinal General gastrointestinal: Present: normal bowel sounds, soft. Absent: distended, organomegaly, tenderness - Genitourinary Genitourinary Comment(s): deferred - Integumentary Integumentary: Present: normal turgor. Absent: jaundiced, rash, ulcer - Neurologic Neurologic: Present: CNII-XII intact. Absent: focal deficits - Musculoskeletal Musculoskeletal: Present: gait normal, strength equal bilaterally - Psychiatric Psychiatric: Present: A&O x's 3, appropriate affect, intact judgment & insight - Labs CBC & Chem 7: 02/13/19 07:21 02/13/19 07:21 Labs: Abnormal Lab Results - Last 24 Hours (Table) 02/12/19 02/13/19 02/13/19 Range/Units 21:54 07:21 07:21 RBC 3.43 L 2.95 L (3.80-5.40) m/uL Hgb 10.7 L 9.3 L (11.4-16.0) gm/dL Hct 33.9 L 28.0 L (34.0-46.0) % Plt Count 122 L 106 L (150-450) k/uL Sodium 136 L (137-145) mmol/L Chloride 111 H (98-107) mmol/L Carbon Dioxide 19 L (22-30) mmol/L BUN 24 H (7-17) mg/dL Creatinine 1.19 H (0.52-1.04) mg/dL Assessment and Plan Assessment: -Left femoral neck fracture status post fall -History of PONV -Acute on chronic renal failure, stage 3b, baseline around 1.0 -Hypertension -Hyperlipidemia -Nicotine dependence -Tachybrady Syndrome status post pacemaker insertion -History of bladder cancer with urostomy -History of recurrent UTIs -History of polio Plan: Continue on current medication regime ,monitoring and symptomatic treatment. Gentle IV fluid hydration. Close monitoring of renal function and electrolytes with repeat labs ordered for a.m. Home meds have been reviewed and resumed. Medically cleared for surgery. Pain management/anticoagulation as per PCP. Further recommendations to follow.Thank you Dr. Lion for allowing us to participate in the care of this pleasant lady. Time with Patient: Greater than 30
[2019-02-13] MEDS: KETOROLAC 30 MG/ML 1 ML VIAL IVP PRN (22:57)
[2019-02-14 07:42] LABS: Calcium 8.7 mg/dL (8.4-10.2); Potassium 4.2 mmol/L (3.5-5.1)
[2019-02-14 08:12] LABS: Basophils % (A) 0 %; Eosinophils # (A) 0.4 k/uL (0-0.7); Eosinophils % (A) 4 %; HGB 9.2 gm/dL (11.4-16.0); Lymphocytes # (A) 1.4 k/uL (1.0-4.8); Lymphocytes % (A) 17 %; MCH 32.2 pg (25.0-35.0); MCHC 34.3 g/dL (31.0-37.0); MCV 93.9 fL (80.0-100.0); Mean Platelet Volume 8.3; Monocytes # (A) 0.9 k/uL (0-1.0); Monocytes % (A) 11 %; Neutrophils # (A) 5.3 k/uL (1.3-7.7); Neutrophils % (A) 66 %; Platelet Count 106 k/uL (150-450); RBC 2.87 m/uL (3.80-5.40); RDW 13.6 % (11.5-15.5); WBC 8.1 k/uL (3.8-10.6)
[2019-02-14] MEDS: PANTOPRAZOLE 40 MG/10 ML VIAL IVP SCH (08:12)
[2019-02-14] MEDS: KETOROLAC 30 MG/ML 1 ML VIAL IVP PRN ×3 (08:23→22:19)
[2019-02-14] MEDS: METOPROLOL TARTRATE 12.5 MG TAB PO SCH ×2 (08:23→20:06)
[2019-02-14] MEDS: FLECAINIDE 50 MG TAB PO SCH ×2 (08:23→20:06)
[2019-02-14] MEDS: ENOXAPARIN 40 MG/0.4 ML SYRINGE SQ SCH (09:10)
[2019-02-14] MEDS ORDERED: traMADol 50 MG TAB PO PRN (12:31)
--- NOTE | 2019-02-14 12:42 | P.PN ---
Subjective Progress Note Date: 02/14/19 Chart and interval events reviewed, discussed with RN. Patient was seen and examined. Daughter at bedside. She reports the pain is mild at rest but worse when moving. This is not well controlled with Tylenol. She was able to get up to the chair with help. Objective - Vital Signs Vital signs: Vital Signs Temp 98.8 F 02/14/19 08:29 Pulse 62 02/14/19 08:29 Resp 16 02/14/19 08:29 BP 152/75 02/14/19 08:29 Pulse Ox 96 02/14/19 08:29 Intake & Output 02/13/19 02/14/19 02/14/19 18:59 06:59 18:59 Intake Total 1268 Output Total 450 1075 Balance 818 -1075 Intake: Oral 1268 Output: Urine 450 1075 Other: Voiding Method Toilet Toilet - Exam Musculoskeletal - left hip: The dressing is clean, dry and in place. Minimal shadowing. Abduction pillow in place. Mild/appropriate pain with gentle PROM of the thigh. Leg lengths appear symmetric - Labs CBC & Chem 7: 02/14/19 06:49 02/14/19 06:49 Labs: Abnormal Lab Results - Last 24 Hours (Table) 02/14/19 02/14/19 Range/Units 06:49 06:49 RBC 2.87 L (3.80-5.40) m/uL Hgb 9.2 L (11.4-16.0) gm/dL Hct 27.0 L (34.0-46.0) % Plt Count 106 L (150-450) k/uL Chloride 112 H (98-107) mmol/L Carbon Dioxide 20 L (22-30) mmol/L BUN 22 H (7-17) mg/dL Creatinine 1.32 H (0.52-1.04) mg/dL Assessment and Plan Assessment: 1. Postop day #2 status post left hip hemiarthroplasty for displaced femoral neck fracture 2. Postop anemia 3. Sick sinus syndrome s/p pacemaker implantation 4. H/o bladder cancer with permanent ostomy 5. Nicotine addiction Plan: Will try adding tramadol for adjunctive pain management. Begin PT/OT - weightbearing as tolerated with a walker. Posterior hip precautions - these were reviewed with the patient. Maintain abduction pillow while in bed Up with assist only, fall precautions DVT prophylaxis with LMWH Reinforce dressing as needed. Will be changed to aquacel prior to discharge. DC planning
--- NOTE | 2019-02-14 13:42 | P.PN ---
Subjective Progress Note Date: 02/14/19 Principal diagnosis: left hip fracture; status post left hip arthroplasty; POD #1 78-year-old female who sustained a displaced left femoral neck fracture after a mechanical fall. Surgical treatment was recommended. Risks and benefits were discussed with the patient and her family, including (but not limited to) the risks of infection, bleeding, injury tendons or neurovascular structures, dislocation and possible need for future surgery. 02/14/2019 Patient is seen and evaluated in room at bedside; patient does report uncontrolled pain especially with movement; currently taking Tylenol; orthopedic has seen patient and recommended adding tramadol for pain control; PT/OT are working with patient she is weightbearing as tolerated with a walker and up with assistance only; she will continue to maintain hip precautions Plan is for patient to be discharged to skilled rehab; discharge planning in process Objective - Vital Signs Vital signs: Vital Signs Temp 98.8 F 02/14/19 08:29 Pulse 62 02/14/19 08:29 Resp 16 02/14/19 08:29 BP 152/75 02/14/19 08:29 Pulse Ox 96 02/14/19 08:29 Intake & Output 02/13/19 02/14/19 02/14/19 18:59 06:59 18:59 Intake Total 1268 Output Total 450 1075 Balance 818 -1075 Intake: Oral 1268 Output: Urine 450 1075 Other: Voiding Method Toilet Toilet - Exam - Constitutional General appearance: Present: average body habitus, cooperative, no acute distress - EENT Eyes: Present: anicteric sclerae, EOMI, PERRLA, normal appearance ENT: Present: hearing grossly normal, normal oropharynx Ears: bilateral: normal - Neck Neck: Present: normal ROM. Absent: lymphadenopathy, rigidity, thyromegaly Carotids: negative: bruit present Thyroid: bilateral: normal size, negative: enlarged, nodule - Respiratory Respiratory: bilateral: CTA, negative: rales, rhonchi, wheezing - Cardiovascular Rhythm: regular Heart sounds: normal: S1, S2 Abnormal Heart Sounds: Absent: systolic murmur, diastolic murmur - Gastrointestinal General gastrointestinal: Present: normal bowel sounds, soft. Absent: distended, organomegaly, tenderness - Genitourinary Genitourinary Comment(s): deferred - Integumentary Integumentary: Present: normal turgor. Absent: jaundiced, rash, ulcer - Neurologic Neurologic: Present: CNII-XII intact. Absent: focal deficits - Musculoskeletal Musculoskeletal: Present: gait normal, strength equal bilaterally - Psychiatric Psychiatric: Present: A&O x's 3, appropriate affect, intact judgment & insight - Labs CBC & Chem 7: 02/14/19 06:49 19 06:49 Labs: Abnormal Lab Results - Last 24 Hours (Table) 02/14/19 02/14/19 Range/Units 06:49 06:49 RBC 2.87 L (3.80-5.40) m/uL Hgb 9.2 L (11.4-16.0) gm/dL Hct 27.0 L (34.0-46.0) % Plt Count 106 L (150-450) k/uL Chloride 112 H (98-107) mmol/L Carbon Dioxide 20 L (22-30) mmol/L BUN 22 H (7-17) mg/dL Creatinine 1.32 H (0.52-1.04) mg/dL Assessment and Plan Assessment: -Left femoral neck fracture status post fall -History of PONV -Acute on chronic renal failure, stage 3b, baseline around 1.0 -Hypertension -Hyperlipidemia -Nicotine dependence -Tachybrady Syndrome status post pacemaker insertion -History of bladder cancer with urostomy -History of recurrent UTIs -History of polio Plan: Continue on current medication regime ,monitoring and symptomatic treatment. Gentle IV fluid hydration. Close monitoring of renal function and electrolytes with repeat labs ordered for a.m. Home meds have been reviewed and resumed. Medically cleared for surgery. Pain management/anticoagulation as per PCP. Further recommendations to follow.Thank you Dr. Lion for allowing us to participate in the care of this pleasant lady. Time with Patient: Greater than 30
[2019-02-14 19:39] VITALS: PULSE 72
[2019-02-14 21:01] LABS: Basophils % (A) 0 %; Eosinophils # (A) 0.5 k/uL (0-0.7); Eosinophils % (A) 8 %; HCT 26.8 % (34.0-46.0); HGB 8.9 gm/dL (11.4-16.0); Lymphocytes # (A) 1.4 k/uL (1.0-4.8); Lymphocytes % (A) 20 %; MCH 31.7 pg (25.0-35.0); MCHC 33.2 g/dL (31.0-37.0); MCV 95.2 fL (80.0-100.0); Mean Platelet Volume 8.5; Monocytes # (A) 0.6 k/uL (0-1.0); Monocytes % (A) 9 %; Neutrophils # (A) 4.2 k/uL (1.3-7.7); Neutrophils % (A) 61 %; Platelet Count 109 k/uL (150-450); RBC 2.82 m/uL (3.80-5.40); RDW 13.7 % (11.5-15.5); WBC 6.8 k/uL (3.8-10.6)
[2019-02-15] MEDS: ENOXAPARIN 40 MG/0.4 ML SYRINGE SQ SCH (07:41)
[2019-02-15] MEDS: METOPROLOL TARTRATE 12.5 MG TAB PO SCH (07:42)
[2019-02-15] MEDS: FLECAINIDE 50 MG TAB PO SCH (07:42)
[2019-02-15] MEDS: PANTOPRAZOLE 40 MG/10 ML VIAL IVP SCH (07:42)
[2019-02-15 07:59] VITALS: BP 97/63; RESP 18; TEMP 98.4
[2019-02-15 08:05] LABS: Basophils % (A) 0 %; Eosinophils # (A) 0.6 k/uL (0-0.7); Eosinophils % (A) 8 %; HGB 9.4 gm/dL (11.4-16.0); Lymphocytes # (A) 1.4 k/uL (1.0-4.8); Lymphocytes % (A) 21 %; MCH 31.3 pg (25.0-35.0); MCHC 32.6 g/dL (31.0-37.0); MCV 96.1 fL (80.0-100.0); Mean Platelet Volume 8.1; Monocytes # (A) 0.6 k/uL (0-1.0); Monocytes % (A) 9 %; Neutrophils # (A) 3.9 k/uL (1.3-7.7); Neutrophils % (A) 58 %; Platelet Count 123 k/uL (150-450); RBC 3.01 m/uL (3.80-5.40); RDW 13.8 % (11.5-15.5); WBC 6.7 k/uL (3.8-10.6)
--- NOTE | 2019-02-15 08:51 | P.DS ---
Providers Date of admission: 02/11/19 13:08 Expected date of discharge: 02/15/19 Attending physician: Petar Ratliff, Consults: 02/11/19 13:08 Consult Physician Urgent Consulting Provider: Sonny Villar Consult Reason/Comments: Medical clearance for surgery Do you want consulting provider notified?: Yes 02/11/19 18:34 Consult Physician Urgent Consulting Provider: Kevin Traore Consult Reason/Comments: CARDIAC CLEARANCE FOR SURGERY Do you want consulting provider notified?: Yes Primary care physician: Sonny Villar - Discharge Diagnosis(es) (1) Subcapital fracture of femur Current Visit: Yes Status: Acute (2) Weakness Current Visit: No Status: Acute (3) 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 The patient was cleared by medicine for surgery. The patient underwent a left hip hemiarthroplasty on 02/12/[address] Ratliff. The procedure was performed without complication or sequelae. The patient is doing well postoperatively. Labs and vital signs are stable on the day of discharge. On the day of discharge the patient's hip incision is healing well. There is minimal erythema. There is no drainage noted at this time. There is minimal soft tissue swelling to the hip and thigh. The patient has full foot and ankle motion without difficulty or pain. Neurovascular status to the left lower extremity is intact. The patient is to be discharged to skilled rehab today in good condition. Pertinent Studies: Laboratory Tests 02/15/19 07:38 WBC 6.7 RBC 3.01 L Hgb 9.4 L Hct 29.0 L Plt Count 123 L Patient Condition at Discharge: Stable Plan - Discharge Summary Discharge Rx Participant: No New Discharge Prescriptions: New Enoxaparin [Lovenox] 40 mg SQ DAILY #14 syringe Acetaminophen Tab [Tylenol Tab] 650 mg PO Q6H PRN #30 tablet PRN Reason: Pain No Action Aspirin 162 mg PO HS Metoprolol Tartrate [Lopressor] 12.5 mg PO BID Flecainide [Tambocor] 50 mg PO Q12HR Discharge Medication List Aspirin 162 mg PO HS 06/29/14 [History] Flecainide [Tambocor] 50 mg PO Q12HR 11/05/17 [History] Metoprolol Tartrate [Lopressor] 12.5 mg PO BID 07/06/17 [History] Acetaminophen Tab [Tylenol Tab] 650 mg PO Q6H PRN #30 tablet 02/14/19 [Rx] Enoxaparin [Lovenox] 40 mg SQ DAILY #14 syringe 02/14/19 [Rx] Follow up Appointment(s)/Referral(s): Petar Ratliff DO [Medical Doctor] - 2 Weeks None,Stated [REFERRING] - 1-2 days Activity/Diet/Wound Care/Special Instructions: Keep dressing in place for 10 days post-op unless saturated. PT - WBAT with walker. Use pain medication as directed. Continue LMWH for 2 weeks then change to ASA 325mg PO BID Follow up outpatient with Dr. Ratliff in 2 weeks -- call for appointment. Call [facility] with questions or concerns Discharge Disposition: TRANSFER TO SNF/ECF
[2019-02-15] MEDS: KETOROLAC 30 MG/ML 1 ML VIAL IVP PRN (12:17)
--- NOTE | 2019-02-15 20:13 | PN ---
PROGRESS NOTE DATE OF SERVICE: 02/15/2019. This 78-year-old woman who was admitted after hip surgery is being closely monitored. The patient also had renal failure which is rather stable at this time. The patient is slated to go home. The patient being followed by Dr. Villar in the outpatient setting. No chest pain. No palpitations. No fever. PHYSICAL EXAM: Alert and oriented times three. Pulse 72, blood pressure 97/60, respiration 18. Temp is 98.4, pulse ox 94% on room air. HEENT is conjunctivae normal. NECK: No jugular venous distention. No carotid bruit. CARDIOVASCULAR: S1, S2 muffled. RESPIRATIONS: Breath sounds diminished in the bases. No rhonchi. No crackles. ABDOMEN is soft, nontender. No mass palpable. LEGS: Status post surgery. NERVOUS SYSTEM: Higher functions as mentioned earlier. Moves all four extremities. No focal deficits. Lymphatics: No lymph nodes palpable in the neck, axillae or groin. SKIN: No ulcer, rash or bleeding. JOINTS: Status post surgery. LABS: WBC 6.7, hemoglobin 9.5, creatinine is 1.32. ASSESSMENT: 1. Left femoral neck fracture status post fall and surgery. 2. History of postoperative nausea, vomiting. 3. History of chronic renal failure stage III. 4. Hypertension. 5. Hyperlipidemia. 6. History of nicotine dependence. 7. Tachy-shyanne syndrome and pacemaker implantation. 8. History of bladder cancer with urostomy. 9. History of recurrent urinary tract infection. 10.History of polio. RECOMMENDATIONS AND DISCUSSION: Recommend to continue current medications, management. Symptomatic treatment. Continue DVT prophylaxis. Incentive spirometry. Repeat labs in the outpatient setting. Otherwise, further recommendations per [facility]. Further recommendations to follow. Follow up with Dr. Villar in the outpatient setting. MMODL / IJN: [id number] /
== END 2019-02-15 12:52 | disposition home health service (06) | DRG 470 ==
LOC: EC 11:24 → 4SSUR 13:08
PROVIDERS: ADMIT Orthopaedic Surgery; ATTEND Orthopaedic Surgery
PROC: 0SRS0J9 Replacement of Left Hip Joint, Femoral Surface with Synthetic Substitute, Cemented, Open Approach (ICD-10-PCS; principal; 2019-02-12 18:06)
DX: S72.012A Unspecified intracapsular fracture of left femur, initial encounter for closed fracture (principal); C68.9 Malignant neoplasm of urinary organ, unspecified; N17.9 Acute kidney failure, unspecified; W10.9XXA Fall (on) (from) unspecified stairs and steps, initial encounter; Y92.009 Unspecified place in unspecified non-institutional (private) residence as the place of occurrence of the external cause; Y93.01 Activity, walking, marching and hiking; Z79.82 Long term (current) use of aspirin; E78.5 Hyperlipidemia, unspecified; F17.200 Nicotine dependence, unspecified, uncomplicated; I12.9 Hypertensive chronic kidney disease with stage 1 through stage 4 chronic kidney disease, or unspecified chronic kidney disease; N18.3 Chronic kidney disease, stage 3 (moderate); I44.0 Atrioventricular block, first degree; I45.10 Unspecified right bundle-branch block; Z80.49 Family history of malignant neoplasm of other genital organs; Z83.3 Family history of diabetes mellitus; Z85.51 Personal history of malignant neoplasm of bladder; Z86.12 Personal history of poliomyelitis; Z87.440 Personal history of urinary (tract) infections; Z90.710 Acquired absence of both cervix and uterus; Z93.6 Other artificial openings of urinary tract status; Z95.0 Presence of cardiac pacemaker; Z88.1 Allergy status to other antibiotic agents; Z88.5 Allergy status to narcotic agent; Z88.8 Allergy status to other drugs, medicaments and biological substances; D64.9 Anemia, unspecified
CPT/HCPCS: 71045; 73501; 73502; 80048; 80053; 84484; 85025; 85610; 85730; 86850; 86900; 86901; 93005; 99285

== ENCOUNTER 2019-04-13 15:04 | Emergency (ER) | payer MEDICARE, BC ==
[2019-04-13] MEDS ORDERED: IBUPROFEN 600 MG TAB PO STA (16:01)
[2019-04-13] MEDS ORDERED: ACETAMINOPHEN TAB 500 MG TAB PO STA (16:01)
[2019-04-13] MEDS ORDERED: SODIUM CHLORIDE 0.9% 500 ML 500 ML IV SCH (16:15)
[2019-04-13 16:24] LABS: Basophils % (A) 0 %; Eosinophils # (A) 0.1 k/uL (0-0.7); Eosinophils % (A) 1 %; HCT 33.9 % (34.0-46.0); HGB 11.5 gm/dL (11.4-16.0); Lymphocytes # (A) 0.4 k/uL (1.0-4.8); Lymphocytes % (A) 6 %; MCH 31.4 pg (25.0-35.0); MCV 92.4 fL (80.0-100.0); Monocytes # (A) 0.7 k/uL (0-1.0); Monocytes % (A) 9 %; Neutrophils % (A) 82 %; Platelet Count 176 k/uL (150-450); RBC 3.67 m/uL (3.80-5.40); RDW 13.2 % (11.5-15.5); WBC 7.3 k/uL (3.8-10.6)
--- NOTE | 2019-04-13 16:27 | ED ---
General Adult HPI - General Chief complaint: Urogenital Stated complaint: Abd pain & back pain Time Seen by Provider: 04/13/19 15:20 Source: patient, RN notes reviewed Mode of arrival: wheelchair Limitations: no limitations - History of Present Illness Initial comments: This is a 78-year-old female presents emergency Department with a urostomy. Patient states she has suprapubic discomfort and she believes she has an infection. Patient states she has had the chills but didn't know she had a fever. I took a temperature while interviewing her sugar 102.6 fever. Patient denies any nausea vomiting or diarrhea. Patient denies chest pain difficulty breathing shortness of breath. Patient states some of the pain radiates to the right side into her back a little. - Related Data Home Medications Medication Instructions Recorded Confirmed Aspirin 162 mg PO HS 06/29/14 04/13/19 Flecainide [Tambocor] 50 mg PO Q12HR 07/06/17 04/13/19 Metoprolol Tartrate [Lopressor] 12.5 mg PO BID 07/06/17 04/13/19 Allergies Allergy/AdvReac Type Severity Reaction Status Date / Time nitrofurantoin Allergy Swelling Verified 04/13/19 15:43 [From Macrobid] ciprofloxacin [From Cipro] AdvReac Nausea & Verified 04/13/19 15:43 Vomiting codeine AdvReac Vomiting Verified 04/13/19 15:43 gentamicin AdvReac Diarrhea Verified 04/13/19 15:43 hydrocodone AdvReac Vomiting Verified 04/13/19 15:43 hydromorphone [From Dilaudid] AdvReac Vomiting Verified 04/13/19 15:43 ketorolac [From Toradol] AdvReac Unknown Verified 04/13/19 15:43 levofloxacin [From Levaquin] AdvReac Nausea & Verified 04/13/19 15:43 Vomiting metoclopramide [From Reglan] AdvReac Hallucinati Verified 04/13/19 15:43 ons morphine AdvReac Vomiting Verified 04/13/19 15:43 oxycodone AdvReac Vomiting Verified 04/13/19 15:43 Penicillins AdvReac Rash/Hives Verified 04/13/19 15:43 zolpidem [From Ambien] AdvReac Hallucinati Verified 04/13/19 15:43 ons narcotics AdvReac Vomiting Uncoded 04/13/19 15:20 Review of Systems ROS Statement: Those systems with pertinent positive or pertinent negative responses have been documented in the HPI. ROS Other: All systems not noted in ROS Statement are negative. Past Medical History Past Medical History: Cancer, Hyperlipidemia, Hypertension, Pneumonia, Renal Disease Additional Past Medical History / Comment(s): Bladder cancer with muscle invasion/surgery/urostomy and chemo, frequent UTIs, tachybrady syndrome with pacemaker, hx of polio History of Any Multi-Drug Resistant Organisms: None Reported Past Surgical History: Appendectomy, Bladder Surgery, Hysterectomy, Pacemaker Additional Past Surgical History / Comment(s): 2013 pacemaker, radical cystectomy with ileal loop/urostomy, R nephrostomy tube and now R ureteral stent, R shoulder fusion with bone from hip donor site. Past Anesthesia/Blood Transfusion Reactions: Postoperative Nausea & Vomiting (PONV) Additional Past Anesthesia/Blood Transfusion Reaction / Comment(s): Pt has received blood in past without reaction. Type of Cardiac Device: Permanent Pacemaker Device Placement Date:: 2013 Past Psychological History: Anxiety Smoking Status: Current every day smoker - Past Family History Father History Unknown: Yes Additional Family Medical History / Comment(s): Father in a MVA when pt was young. Mother Family Medical History: Cancer, Diabetes Mellitus Additional Family Medical History / Comment(s): Cervical cancer, rheumatic fever, heart problems. Brother(s) Family Medical History: Cancer Additional Family Medical History / Comment(s): PANCREATIC General Exam - General Exam Comments Initial Comments: GENERAL: Patient is well-developed and well-nourished. Patient is nontoxic and well- hydrated and is in mild distress. ENT: Neck is soft and supple. No significant lymphadenopathy is noted. Oropharynx is clear. Moist mucous membranes. Neck has full range of motion without eliciting any pain. EYES: The sclera were anicteric and conjunctiva were pink and moist. Extraocular movements were intact and pupils were equal round and reactive to light. Eyelids were unremarkable. PULMONARY: Unlabored respirations. Good breath sounds bilaterally. No audible rales rhonchi or wheezing was noted. CARDIOVASCULAR: There is a regular rate and rhythm without any murmurs gallops or rubs. ABDOMEN: Soft and nontender with normal bowel sounds. SKIN: Skin is clear with no lesions or rashes and otherwise unremarkable. NEUROLOGIC: Patient is alert and oriented x3. Cranial nerves II through XII are grossly intact. Motor and sensory are also intact. Normal speech, volume and content. Symmetrical smile. MUSCULOSKELETAL: Normal extremities with adequate strength and full range of motion. No lower extremity swelling or edema. No calf tenderness. LYMPHATICS: No significant lymphadenopathy is noted PSYCHIATRIC: Normal psychiatric evaluation. Limitations: no limitations Course Vital Signs 04/13/19 04/13/19 04/13/19 15:20 16:45 17:36 Temperature 99.1 F 101.6 F H Pulse Rate 80 63 Respiratory 24 13 Rate Blood Pressure 102/70 116/75 O2 Sat by Pulse 96 98 Oximetry 04/13/19 04/13/19 18:18 18:35 Temperature 100.3 F H Pulse Rate 60 Respiratory 13 Rate Blood Pressure 112/57 O2 Sat by Pulse 97 Oximetry Medical Decision Making - Medical Decision Making EKG shows atrial paced rhythm with a prolonged FL interval ventricular rate is 76 FL interval 336 QRS is 118 QT interval 46 QTC is 456. Patient's EKG shows no ST segment elevation or depression. I gave the patient 2 g of Rocephin IV push I spoke with Dr. Villar he wanted to see the patient in his office tomorrow and the patient did not want to stay and she did want to go home and follow-up as an outpatient. - Lab Data Result diagrams: 04/13/19 16:16 04/13/19 16:16 Lab Results 04/13/19 04/13/19 04/13/19 Range/Units 16:16 16:16 16:16 WBC 7.3 (3.8-10.6) k/uL RBC 3.67 L (3.80-5.40) m/uL Hgb 11.5 (11.4-16.0) gm/dL Hct 33.9 L (34.0-46.0) % MCV 92.4 (80.0-100.0) fL MCH 31.4 (25.0-35.0) pg MCHC 34.0 (31.0-37.0) g/dL RDW 13.2 (11.5-15.5) % Plt Count 176 (150-450) k/uL Neutrophils % 82 % Lymphocytes % 6 % Monocytes % 9 % Eosinophils % 1 % Basophils % 0 % Neutrophils # 6.0 (1.3-7.7) k/uL Lymphocytes # 0.4 L (1.0-4.8) k/uL Monocytes # 0.7 (0-1.0) k/uL Eosinophils # 0.1 (0-0.7) k/uL Basophils # 0.0 (0-0.2) k/uL PT (9.0-12.0) sec INR (<1.2) APTT (22.0-30.0) sec Sodium 130 L (137-145) mmol/L Potassium 4.4 (3.5-5.1) mmol/L Chloride 101 (98-107) mmol/L Carbon Dioxide 16 L (22-30) mmol/L Anion Gap 13 mmol/L BUN 38 H (7-17) mg/dL Creatinine 1.60 H (0.52-1.04) mg/dL Est GFR (CKD-EPI)AfAm 36 (>60 ml/min/1.73 sqM) Est GFR (CKD-EPI)NonAf 31 (>60 ml/min/1.73 sqM) Glucose 101 H (74-99) mg/dL Plasma Lactic Acid Jae 0.7 (0.7-2.0) mmol/L Calcium 9.2 (8.4-10.2) mg/dL Total Bilirubin 0.6 (0.2-1.3) mg/dL AST 27 (14-36) U/L ALT 12 (9-52) U/L Alkaline Phosphatase 77 (38-126) U/L Total Protein 6.8 (6.3-8.2) g/dL Albumin 3.7 (3.5-5.0) g/dL Urine Color Urine Appearance (Clear) Urine pH (5.0-8.0) Ur Specific [place] (1.001-1.035) Urine Protein (Negative) Urine Glucose (UA) (Negative) Urine Ketones (Negative) Urine Blood (Negative) Urine Nitrite (Negative) Urine Bilirubin (Negative) Urine Urobilinogen (<2.0) mg/dL Ur Leukocyte Esterase (Negative) Urine WBC (0-5) /hpf Urine WBC Clumps (None) /hpf 04/13/19 04/13/19 Range/Units 16:16 16:35 WBC (3.8-10.6) k/uL RBC (3.80-5.40) m/uL Hgb (11.4-16.0) gm/dL Hct (34.0-46.0) % MCV (80.0-100.0) fL MCH (25.0-35.0) pg MCHC (31.0-37.0) g/dL RDW (11.5-15.5) % Plt Count (150-450) k/uL Neutrophils % % Lymphocytes % % Monocytes % % Eosinophils % % Basophils % % Neutrophils # (1.3-7.7) k/uL Lymphocytes # (1.0-4.8) k/uL Monocytes # (0-1.0) k/uL Eosinophils # (0-0.7) k/uL Basophils # (0-0.2) k/uL PT 9.5 (9.0-12.0) sec INR 0.9 (<1.2) APTT 27.8 (22.0-30.0) sec Sodium (137-145) mmol/L Potassium (3.5-5.1) mmol/L Chloride (98-107) mmol/L Carbon Dioxide (22-30) mmol/L Anion Gap mmol/L BUN (7-17) mg/dL Creatinine (0.52-1.04) mg/dL Est GFR (CKD-EPI)AfAm (>60 ml/min/1.73 sqM) Est GFR (CKD-EPI)NonAf (>60 ml/min/1.73 sqM) Glucose (74-99) mg/dL Plasma Lactic Acid Jae (0.7-2.0) mmol/L Calcium (8.4-10.2) mg/dL Total Bilirubin (0.2-1.3) mg/dL AST (14-36) U/L ALT (9-52) U/L Alkaline Phosphatase (38-126) U/L Total Protein (6.3-8.2) g/dL Albumin (3.5-5.0) g/dL Urine Color Yellow Urine Appearance Turbid H (Clear) Urine pH 6.0 (5.0-8.0) Ur Specific [place] 1.018 (1.001-1.035) Urine Protein 2+ H (Negative) Urine Glucose (UA) Negative (Negative) Urine Ketones Negative (Negative) Urine Blood Moderate H (Negative) Urine Nitrite Positive H (Negative) Urine Bilirubin Negative (Negative) Urine Urobilinogen <2.0 (<2.0) mg/dL Ur Leukocyte Esterase Large H (Negative) Urine WBC >182 H (0-5) /hpf Urine WBC Clumps Many H (None) /hpf Disposition Clinical Impression: Urinary tract infection, Cystitis Disposition: HOME SELF-CARE Instructions (If sedation given, give patient instructions): Urinary Tract Infection in Women (ED) Additional Instructions: Patient is to follow-up with Dr. Villar tomorrow morning and he will administer antibiotics in the office. Is patient prescribed a controlled substance at d/c from ED?: No Referrals: Sonny Villar DO [Primary Care Provider] - 1-2 days Time of Disposition: 18:42
[2019-04-13 16:32] LABS: Albumin 3.7 g/dL (3.5-5.0); Calcium 9.2 mg/dL (8.4-10.2); Potassium 4.4 mmol/L (3.5-5.1); Total Bilirubin 0.6 mg/dL (0.2-1.3); Total Protein 6.8 g/dL (6.3-8.2)
[2019-04-13 16:33] LABS: INR 0.9 (<1.2); Partial Thromboplastin Time 27.8 sec (22.0-30.0); Prothrombin Time 9.5 sec (9.0-12.0)
[2019-04-13 17:03] LABS: Appearance,Urine Turbid (Clear); Bilirubin,Urine Negative (Negative); Blood,Urine Moderate (Negative); Color,Urine Yellow; Glucose,Urine (UA) Negative (Negative); Ketones,Urine Negative (Negative); Leukocyte Esterase,Urine Large (Negative); Nitrite,Urine Positive (Negative); Protein,Urine 2+ (Negative); Specific Gravity,Urine 1.018 (1.001-1.035); Urobilinogen,Urine <2.0 mg/dL (<2.0); WBC,Urine >182 /hpf (0-5)
[2019-04-13 17:37] VITALS: RESP 13
[2019-04-13] MEDS ORDERED: cefTRIAXone IN SWFI 1,000 MG/10 ML SYRINGE IVP STA (18:19)
[2019-04-13 18:36] VITALS: BP 112/57; PULSE 60
[2019-04-13 19:12] VITALS: TEMP 98.7
== END 2019-04-13 19:11 | disposition home or self-care (01) ==
LOC: EC 15:04
DX: N30.90 Cystitis, unspecified without hematuria (principal); I10 Essential (primary) hypertension; F17.200 Nicotine dependence, unspecified, uncomplicated; Z79.82 Long term (current) use of aspirin; Z79.899 Other long term (current) drug therapy; Z88.1 Allergy status to other antibiotic agents; Z88.5 Allergy status to narcotic agent; Z88.0 Allergy status to penicillin; Z88.8 Allergy status to other drugs, medicaments and biological substances; Z87.440 Personal history of urinary (tract) infections; Z85.51 Personal history of malignant neoplasm of bladder; Z95.0 Presence of cardiac pacemaker
CPT/HCPCS: 36415; 93005; 80053; 83605; 85025; 85610; 85730; 81001; 87040; 87086; 87077; 87186; 99284; 96365; 96366; J0696

== ENCOUNTER → 2019-09-06 | Outpatient (CLI) | payer MEDICARE, BC ==
--- NOTE | 2019-09-06 16:30 | CT ---
EXAMINATION TYPE: CT abdomen pelvis wo con DATE OF EXAM: 09/06/2019 COMPARISON: 12/05/2018 HISTORY: 79-year-old female Bladder ca. Hx bladder sx, appy CT DLP: 656 mGycm. Automated exposure control for dose reduction was used. TECHNIQUE: Contiguous axial scanning of the abdomen and pelvis without IV contrast. Coronal and sagit heidy reconstructions performed. FINDINGS: Pacer leads are present. Heart normal size. Ectatic lower descending thoracic aorta 2.9 cm. Emphysema tous change in the visualized lower lungs. Strandy left basilar atelectasis. Lack of IV contrast limits assessment of the solid abdominal viscera, lymph nodes, and vascular struc tures. There is a 2.7 cm fatty omental epigastric midline hernia with the abdominal wall defect measuring 2. 4 cm wide. Slightly larger from prior. Noncontrast appearance of the liver, gallbladder, adrenal glands, left kidney, spleen, and pancreas s how no gross abnormality. Moderate atherosclerotic calcifications throughout the abdominal aorta with more severe atelectatic c hange near the aortic bifurcation and moderate to severe along the proximal aspect of the common maurizio c arteries. Continued moderate to severe right-sided hydronephrosis. A ureteral stent is present extending to the right lower quadrant ileal conduit. This distal aspect of the stent has retracted into the ostomy an d is located in the ileal conduit at the level of the subcutaneous adipose. No dilated small bowel, free fluid, or free air. Moderate stool right side of the colon. No perisplen ic inflammatory change. No mesenteric or retroperitoneal lymphadenopathy identified Prominent artifacts from the patient's left hip total arthroplasty Limited visualization of pelvic st ructures. Suspect the uterus to be present. Ovaries not clearly delineated. No obvious pelvic lymphad enopathy seen. Bladder not visualized likely due to cystectomy. Bones: Left hip total arthroplasty. Degenerative change at the pubic symphysis and right hip as well as both SI joints. Bony irregularity along the anterior aspect of the right iliac wing could be traum atic or postsurgical. Moderate to advanced degenerative disc disease L4-L5. Corresponding hypertrophi c facet arthropathy with grade 1 anterolisthesis here. No osseous destructive process seen. IMPRESSION: 1. Lack of IV contrast decreases sensitivity for detection of solid abdominal visceral metastases. 2. Status post cystectomy. No evident metastatic disease within the abdomen or pelvis on this noncon trast study. 3. Diverting urostomy with right lower quadrant ileal conduit. There is a right ureteral stent prese nt. As compared to 12/05/2018, the distal aspect of the stent has retracted into the ostomy. 4. Despite the stent, there is continued moderate to severe right-sided hydronephrosis. 5. Moderate-sized ventral epigastric midline hernia containing omental fat measuring 2.7 cm wide.
== END | disposition home or self-care (01) ==
LOC: RADCTMAIN 15:54
PROVIDERS: ATTEND Urology
DX: C67.9 Malignant neoplasm of bladder, unspecified (principal); N13.30 Unspecified hydronephrosis; Z90.49 Acquired absence of other specified parts of digestive tract; Z93.6 Other artificial openings of urinary tract status; Z96.0 Presence of urogenital implants; Z88.1 Allergy status to other antibiotic agents; Z88.0 Allergy status to penicillin; Z88.5 Allergy status to narcotic agent; Z88.8 Allergy status to other drugs, medicaments and biological substances
CPT/HCPCS: 74176

== ENCOUNTER → 2019-10-14 | Outpatient (CLI) | payer MEDICARE, BC ==
--- NOTE | 2019-10-14 14:55 | CT ---
EXAMINATION TYPE: CT shoulder RT wo con DATE OF EXAM: 10/14/2019 COMPARISON: None HISTORY: Right shoulder pain. History of shoulder fusion in 1972. CT DLP: [address] of the right shoulder with reconstruction imaging. TECHNIQUE: Unenhanced CT of the right shoulder was performed with bone and soft tissue window setting s submitted in the axial coronal and sagittal planes. At a separate workstation [id number] TR imaging was o btained. FINDINGS: There is extensive streak artifact from metallic hardware which limits evaluation. Noted ar e changes of glenohumeral effusion with multiple fixation screws noted to be in place. There also du ears to be acromiohumeral fusion as well. No visible subacromial joint space identified. I do not see evidence for fracture or bony lesion. No soft tissue masses are evident. IMPRESSION: 1. Changes of right shoulder fusion without evidence for fracture or dislocation. Limited evaluation given streak artifact from metallic hardware.
== END | disposition home or self-care (01) ==
LOC: RADCTMAIN 14:25
PROVIDERS: ATTEND Orthopaedic Surgery
DX: M25.511 Pain in right shoulder (principal); T84.84XA Pain due to internal orthopedic prosthetic devices, implants and grafts, initial encounter

== ENCOUNTER 2019-10-29 13:03 | Day surgery (SDC) | payer MEDICARE, BC ==
[2019-10-27 15:36] VITALS: BMI 19.3
[~2019-10-29 13:03] MED LIST changes: +DEXAMETHASONE SOD PHOSPHATE 10 MG/ML 1 ML VIAL IV ONE; -GENTAMICIN 80 MG in SODIUM CHLORIDE 0.9% 100 ML IVPB ONE; -GENTAMICIN IN NACL ISO-OSM PMX 80 MG in SALINE 1 100ML.BAG IVPB ONE; +LACTATED RINGERS 1,000 ML IV SCH; +MIDAZOLAM 2 MG/2 ML VIAL IV PRN; +ONDANSETRON 4 MG/2 ML VIAL IVP ONE; +fentaNYL (PF) 50 MCG/ML 2 ML AMP IV PRN
[2019-10-29] MEDS ORDERED: SUCCINYLCHOLINE CHLORIDE 100 MG/5 ML SYR IV ONE (15:40)
[2019-10-29] MEDS ORDERED: PROPOFOL 10 MG/ML 20 ML VIAL IV ONE (15:40)
[2019-10-29] MEDS ORDERED: ePHEDrine SULFATE/0.9% NACL/PF 50 MG/5 ML SYRINGE IV ONE (15:40)
[2019-10-29] MEDS ORDERED: LIDOCAINE 1% INJ 10MG/ML (20 ML MDV) ONE (15:40)
[2019-10-29] MEDS ORDERED: fentaNYL (PF) 50 MCG/ML 2 ML AMP ONE (15:40)
[2019-10-29 17:54] VITALS: RESP 16; TEMP 97.4
--- NOTE | 2019-10-29 18:15 | FL ---
EXAMINATION TYPE: FL guidance operating room, XR shoulder limited RT DATE OF EXAM: 10/29/2019 CLINICAL HISTORY: Right shoulder prior surgery. TECHNIQUE: Fluoroscopy. Limited intraoperative views right shoulder. COMPARISON: CT right shoulder October 14, 2019 FINDINGS: Fluoroscopic guidance was provided during surgical screw removal procedure performed by Dr Jose Ratliff. A total of 54 seconds of fluoroscopic time was utilized during the procedure and 2 spo t intraoperative images are acquired. Intraoperative images first show multiple screws in the right shoulder extending into the AC joint an d glenohumeral articulation with desired ossific fusion. Second image after surgery shows complete re moval of all these metallic screws. IMPRESSION: As Above.
[2019-10-29 18:57] VITALS: BP 134/72; PULSE 65
--- NOTE | 2019-11-03 14:39 | P.OP ---
Date of Procedure: 10/29/19 Preoperative Diagnosis: 1. Painful retained hardware - right shoulder 2. History of right glenohumeral arthrodesis Postoperative Diagnosis: 1. Painful retained hardware - right shoulder 2. History of right glenohumeral arthrodesis Procedure(s) Performed: 1. Removal of hardware - right shoulder Anesthesia: RAKAN Surgeon: Petar Ratliff Import/Export Analyst #1: Estee Sexton Estimated Blood Loss (ml): 15 Condition: stable Disposition: PACU Indications for Procedure: The patient is a very pleaseant 79-year-old female with a history of poliomyelitis and a prior right glenohumeral arthrodesis many years ago. Recently, she noticed several screw heads had become prominent and painful. One of them was tenting the skin, with overlying changes concerning for impending rupture. Treatment options (and associated risks and benefits) were reviewed; the patient opted for hardware removal. We specifically discussed the risks of intraoperative/iatrogenic or postoperative fracture, as well as persistent pain. In preop, additional questions were addressed and she wished to proceed with surgery. Consent forms were signed. The operative site was confirmed and marked. Description of Procedure: The patient was brought to the operating suite by the anesthesia team and general anesthesia was administered uneventfully. She was placed in the beachchair position and all bony prominences were well-padded. The right upper extremity was then prepped and draped in standard, sterile fashion. A time-out was performed, confirming patient identifiers, the operative side, site and the procedure to be performed: all team members expressed agreement. The prominent screw heads were identified by palpation. Their specific positions and trajectories were confirmed with intraoperative fluoroscopy. Small longitudinal incisions were sequentially made over each screw head. The two most superior and lateral screws were just below the skin. Fibrous tissue was resected to clear the screw heads. These were easily removed with a screwdriver. The most medial screw head was partially covered with bone. This was carefully resected with a curette and a rongeur. Once the head was exposed, this was also removed easily. The main compression screw across the glenoid was exposed in a similar fashion. It had a square head (without slots or grooves for a screwdriver). Once circumferentially exposed, it was grasped with a vise insurance agency owner and was atraumatically unscrewed out of the humeral head. A total of 5 screws were explanted. There was no purulence or obvious evidence of infection. However, since the screws had recently become prominent after over 40 years without any issues, a swab culture was obtained from the screw tract of the large compression screw to assess for any occult infection. X-rays were obtained, confirming complete removal of all the hardware. No fractures were identified. The shoulder was then examined under live fluoroscopy: the arthrodesis appeared solid and there was no appreciable motion at the fusion site. The wounds were thoroughly irrigated with normal saline. The incisions were closed with 4-0 nylon sutures. Local anesthetic with epinephrine was injected for postoperative pain control and hemostasis. The patient had very thin, fragile skin and diffuse blood-filled blisters were present throughout the shoulder and arm after removal of the [place] & adhesive drapes. There were no open wounds. Sterile dressings were applied. All sponge, needle and instrument counts were correct at the end of the case. The patient tolerated the procedure well and was transferred to recovery in stable condition.
== END 2019-10-29 19:00 | disposition home or self-care (01) ==
LOC: OR 13:03
PROVIDERS: ATTEND Orthopaedic Surgery
DX: T84.84XA Pain due to internal orthopedic prosthetic devices, implants and grafts, initial encounter (principal); I10 Essential (primary) hypertension; I49.5 Sick sinus syndrome; F41.9 Anxiety disorder, unspecified; E78.5 Hyperlipidemia, unspecified; Z86.12 Personal history of poliomyelitis; Z98.890 Other specified postprocedural states; Z88.0 Allergy status to penicillin; Z88.1 Allergy status to other antibiotic agents; Z88.5 Allergy status to narcotic agent; Z88.8 Allergy status to other drugs, medicaments and biological substances; Z95.0 Presence of cardiac pacemaker; Z95.5 Presence of coronary angioplasty implant and graft; Z79.82 Long term (current) use of aspirin; Z79.899 Other long term (current) drug therapy; Z85.51 Personal history of malignant neoplasm of bladder; Z92.21 Personal history of antineoplastic chemotherapy; Z90.49 Acquired absence of other specified parts of digestive tract; Y83.1 Surgical operation with implant of artificial internal device as the cause of abnormal reaction of the patient, or of later complication, without mention of misadventure at the time of the procedure
CPT/HCPCS: 87070; 87205; 87075; 87102; 73020; 20680; J1100; J0690; J2001; J3010; J0330; J2704

== ENCOUNTER → 2019-12-17 | Outpatient (CLI) | payer MEDICARE, BC ==
--- NOTE | 2019-12-20 10:14 | PE ---
EXAMINATION TYPE: PET CT fusion skull to thigh DATE OF EXAM: 12/17/2019 COMPARISON: CT abdomen and pelvis September 06, 2019 and prior PET/CT December 05, 2018. HISTORY: Bladder cancer progress study. Originally diagnosed end of 2016. Had surgery November 16 8. TECHNIQUE: Following the intravenous administration of 10.17 mCi of F-18 FDG, whole body images a re performed from the skull base to the midthigh. Images are reviewed on the computer in the coronal , axial, and sagittal planes. Reconstructed rotating images are created on independent workstation a nd reviewed on the computer. A noncontrast CT is performed in conjunction with the PET scan. SCAN: Subsequent Scan FINDINGS: SKULL BASE AND NECK: Slight asymmetric soft tissue thickening and mild hypermetabolic uptake left to ngue base axial image 29 Max SUV 3.05, consider ENT CT consult for direct visualization. No suspicio us adjacent hypermetabolic adenopathy. CHEST, MEDIASTINUM, AND HILAR REGION: No new areas of suspicious hypermetabolic uptake. ABDOMEN AND PELVIS: Redemonstration of right-sided urostomy. Persistent severe right-sided hydronephr osis despite ureter stent extending into right-sided urostomy. New [id number] left-sided hydr onephrosis noted. Metallic artifact from left hip arthroplasty makes evaluation of pelvis slightly ponce boptimal. No definitive new areas of suspicious hypermetabolic uptake. Normal urinary excretion into right lower quadrant ileal loop noted. Small focus right lateral gluteal muscles max SUV 2.45 could r eflect inflammatory change. OSSEOUS STRUCTURES: No areas of suspicious hypermetabolic uptake. OTHER CT: Moderate to severe left-sided carotid bulb calcified plaque. Stable left sided pacemaker. The descending thoracic aorta measures up to 3.1 cm in size on axial mechelle ge 101. Facet arthropathy lower lumbar spine. Calcified plaque distal abdominal aorta extends into iliac bran ch vessels. IMPRESSION: No new areas of suspicious hypermetabolic uptake to suggest malignant neoplastic recurre nce. New [id number] left-sided hydronephrosis noted. Persistent right-sided severe hydronephr osis despite ureter stent redemonstrated. Area of concern left tongue base, advise ENT follow-up.
== END | disposition home or self-care (01) ==
LOC: RADPETMAIN 10:04
PROVIDERS: ATTEND Internal Medicine Hematology & Oncology
DX: C67.8 Malignant neoplasm of overlapping sites of bladder (principal); N13.30 Unspecified hydronephrosis
CPT/HCPCS: 78815; A9552

== ENCOUNTER → 2020-01-17 | Outpatient (CLI) | payer MEDICARE, BC ==
--- NOTE | 2020-01-17 13:06 | CT ---
EXAMINATION TYPE: CT abdomen pelvis wo con DATE OF EXAM: 01/17/2020 COMPARISON: PET/CT dated 12/17/[address] dated 09/06/2019 HISTORY: History of bladder cancer with urostomy and hydronephrosis. CT DLP: 255.8 mGycm Automated exposure control for dose reduction was used. TECHNIQUE: Helical acquisition of images was performed from the lung bases through the pelvis. FINDINGS: Lack of intravenous and oral contrast limit evaluation of both the hollow and solid viscera . LUNG BASES: There is a punctate elongated 2 mm solid pulmonary nodule seen peripherally in the right lower lobe on series 4 image 2. This is not well seen on PET/CT, possibly given some motion artifact. Minimal emphysematous changes in the lung bases. LIVER/GB: Unremarkable unenhanced morphology. PANCREAS: No significant abnormality is seen. SPLEEN: No splenomegaly. ADRENALS: No significant abnormality is seen. KIDNEYS: There is a right-sided urostomy/ileal conduit with a stent coiled in the sinus tract within the subcutaneous tissues of the right lower quadrant of the urostomy and within the loop of small bow el of the urostomy. There is subsequent resolution of the previously seen severe right hydronephrosis however the severe left hydronephrosis is similar. The left ureter can be followed to the point wher e it crosses the left common iliac artery however distally it becomes decompressed and cannot be reli ably followed thereafter. There is a hair pin turn of the proximal left ureter at the level of L3 how ever ureter remains dilated distal to this in the mid ureter. FREE AIR: No free air is visualized. ADENOPATHY: No greater than 1 cm short axis lymph node is seen in the abdomen or pelvis given the li mitation of lack of intravenous contrast. OSSEOUS STRUCTURES: Extensive spray artifact from the patient's left hip arthroplasty creates limite d visualization of the surrounding structures. Urinary bladder is presumed to be surgically absent. T here is diffuse osseous demineralization. Again irregularity of the right iliac wing may be posttraum atic. BOWEL: Postsurgical change of the small bowel from the formed ileal conduit within the pelvis. Mild degree colonic fecal stasis. Very small hiatal hernia. No dilated bowel to suggest obstruction. OTHER: Fat filled midline ventral right paracentral hernia has a wide neck measuring approximately 2. 6 cm and no abutting loops of bowel. Inferior to this there is a small periumbilical fat filled herni a. Overall severe atherosclerosis of the abdominal aorta and its branches. IMPRESSION: 1. RESOLVED SEVERE RIGHT-SIDED HYDRONEPHROSIS IN COMPARISON TO THE PRIOR PET/CT STATUS POST REPOSITIO RADHA OF A RIGHT URETERAL STENT. 2. PERSISTENT SEVERE LEFT-SIDED HYDRONEPHROSIS AND HYDROURETER OF THE PROXIMAL AND MID URETER. THE LE FT URETER BECOMES COLLAPSED WITHIN THE HIGH PELVIS IT CROSSES OVER THE COMMON ILIAC ARTERY AND CAN NOT BE FOLLOWED DISTALLY.
== END | disposition home or self-care (01) ==
LOC: RADCTMAIN 12:23
PROVIDERS: ATTEND Urology
DX: N13.30 Unspecified hydronephrosis (principal); N28.89 Other specified disorders of kidney and ureter; Z88.5 Allergy status to narcotic agent; Z88.0 Allergy status to penicillin; Z88.1 Allergy status to other antibiotic agents
CPT/HCPCS: 74176

== ENCOUNTER 2020-01-21 10:41 | Day surgery (SDC) | payer MEDICARE, BC ==
[2020-01-19 15:23] VITALS: BMI 18.8
--- NOTE | 2020-01-21 08:00 | P.GSHP ---
History of Present Illness H&P Date: 01/21/20 79 yo female 2 years sp cystectomy and ileal loop 2 years ago in [facility]. SHe developed rt hydronephrosis that required a nephrostomy tube and antegrade stent THe same has developed on the left. We discussed exploration which she declined THer eis no obvious cancerous growth This is probably due to scar tissue. She comes for n tube placement left with possible antegrade stent - Constitutional Constitutional: Denies chills, Denies fever - EENT Eyes: denies blurred vision, denies pain Ears, nose, mouth and throat: Denies headache, Denies sore throat - Cardiovascular Cardiovascular: Denies chest pain, Denies shortness of breath - Respiratory Respiratory: Denies cough, Denies 7 - Gastrointestinal Gastrointestinal: Denies abdominal pain, Denies diarrhea, Denies nausea, Denies vomiting - Genitourinary (Female) Genitourinary: Denies dysuria, Denies hematuria - Genitourinary (Male) Genitourinary: Denies dysuria, Denies hematuria - Musculoskeletal Musculoskeletal: Denies myalgias - Integumentary Integumentary: Denies pruritus, Denies rash - Neurological Neurological: Denies numbness, Denies weakness - Psychiatric Psychiatric: Denies anxiety, Denies depression - Endocrine Endocrine: Denies fatigue, Denies weight change Past Medical History Past Medical History: Cancer, Hyperlipidemia, Hypertension, Pneumonia, Renal Disease Additional Past Medical History / Comment(s): Bladder cancer with muscle invasion/surgery/urostomy and chemo x2, frequent UTIs, has urostomy, has Rt ureteral stent. Tachybrady syndrome with pacemaker, hx of polio. Constipation. Bruises easily. History of Any Multi-Drug Resistant Organisms: None Reported Past Surgical History: Appendectomy, Bladder Surgery, Hysterectomy, Orthopedic Surgery, Pacemaker Additional Past Surgical History / Comment(s): 2013 pacemaker, radical cystectomy with ileal loop/urostomy, R nephrostomy tube, R ureteral stents, R shoulder fusion with bone from hip donor site. ORIF Lt hip. Removal hardware Rt Shoulder. Past Anesthesia/Blood Transfusion Reactions: Motion Sickness, Postoperative Nausea & Vomiting (PONV) Additional Past Anesthesia/Blood Transfusion Reaction / Comment(s): Pt has received blood in past without reaction. Type of Cardiac Device: Permanent Pacemaker Device Placement Date:: 2013 Smoking Status: Former smoker - Past Family History Father History Unknown: Yes Additional Family Medical History / Comment(s): Father in a MVA when pt was young. Mother Family Medical History: Cancer, Diabetes Mellitus Additional Family Medical History / Comment(s): Cervical cancer, rheumatic fever, heart problems. Brother(s) Family Medical History: Cancer Additional Family Medical History / Comment(s): PANCREATIC Medications and Allergies Home Medications Medication Instructions Recorded Confirmed Type Aspirin 162 mg PO HS 06/29/14 01/19/20 History Flecainide [Tambocor] 50 mg PO Q12HR 07/06/17 01/19/20 History Metoprolol Tartrate [Lopressor] 12.5 mg PO BID 07/06/17 01/19/20 History Multivit with Calcium,Iron,Min 1 each PO DAILY 10/27/19 01/19/20 History [Women's Multivitamin] L.acidoph,Paracasei, B.lactis 1 each PO BID 01/19/20 01/19/20 History [Probiotic] Allergies Allergy/AdvReac Type Severity Reaction Status Date / Time ciprofloxacin [From Cipro] Allergy Nausea & Verified 01/19/20 15:42 Vomiting hydrocodone Allergy Vomiting Verified 01/19/20 15:42 hydromorphone [From Dilaudid] Allergy Vomiting Verified 01/19/20 15:42 levofloxacin [From Levaquin] Allergy Nausea & Verified 01/19/20 15:42 Vomiting morphine Allergy Vomiting Verified 01/19/20 15:42 nitrofurantoin Allergy Swelling Verified 01/19/20 15:42 [From Macrobid] oxycodone Allergy Vomiting Verified 01/19/20 15:42 Penicillins Allergy Rash/Hives Verified 01/19/20 15:42 codeine AdvReac Vomiting Verified 01/19/20 15:42 gentamicin AdvReac Diarrhea Verified 01/19/20 15:42 in past, Tolerating recently ketorolac [From Toradol] AdvReac avoids due Verified 01/19/20 15:42 to kidneys metoclopramide [From Reglan] AdvReac Hallucinati Verified 01/19/20 15:42 ons zolpidem [From Ambien] AdvReac Hallucinati Verified 01/19/20 15:42 ons narcotics AdvReac Vomiting Uncoded 01/19/20 15:42 Surgical - Exam - General well developed, well nourished, no distress - ENT no hearing loss - Neck no masses - Respiratory normal expansion, normal respiratory effort - Cardiovascular Rhythm: regular - Abdomen right sided ostomy[ileal loop] - Integumentary no rash, no growths - Neurologic normal coordination, normal sensation - Musculoskeletal normal gait, normal posture - Psychiatric oriented to time, oriented to person, oriented to place, speech is normal, memory intact Assessment and Plan Assessment: Impression: Left sided hydronephrosis sp cystectomy with ileal loop O=Plan Left side n tube with possible antegrade stent by Dr Estrada of radiology
[~2020-01-21 10:41] MED LIST changes: -DEXAMETHASONE SOD PHOSPHATE 10 MG/ML 1 ML VIAL IV ONE; +GENTAMICIN 80 MG in SODIUM CHLORIDE 0.9% 100 ML IVPB ONE; -LACTATED RINGERS 1,000 ML IV SCH; -MIDAZOLAM 2 MG/2 ML VIAL IV PRN; -ONDANSETRON 4 MG/2 ML VIAL IVP ONE; -fentaNYL (PF) 50 MCG/ML 2 ML AMP IV PRN
[2020-01-21] MEDS ORDERED: SODIUM CHLORIDE 0.9% 500 ML 500 ML IV ONE (11:35)
[2020-01-21 11:43] VITALS: RESP 16; TEMP 98
[2020-01-21] MEDS ORDERED: LIDOCAINE 1% INJ 10MG/ML (20 ML MDV) SQ ONE (12:11)
[2020-01-21] MEDS ORDERED: IOPAMIDOL-250 50ML BTL IV ONE (12:19)
--- NOTE | 2020-01-21 13:05 | IR ---
EXAMINATION TYPE: IR nephrostomy, US guidance for procedure DATE OF EXAM: 01/21/2020 COMPARISON: CT dated 01/17/2020 HISTORY: Hydronephrosis, left ureteral obstruction PROCEDURE: Maximal barrier technique was utilized. The skin overlying the left kidney was localized using ultrasound and the overlying skin prepped and draped. Ultrasound was utilized with sterile celine hnique. Lidocaine used for local anesthesia. Skin casper was made with a scalpel. Access was gained u nder ultrasound with a 21-gauge needle to the left kidney. Urine returned in the hub of the needle. A 0.018 inch wire was advanced. The access site was dilated and subsequently an 8.5 Nepalese catheter was advanced over wire in the renal pelvis and fixed in place. Urine returned in the hub of the cat heter, fluid was cloudy and sent for microbiology. Catheter was fixed to the skin with 2-0 silk and a sterile dressing was placed. The patient remained in stable condition without complication. The p atient was discharged to observation. IMPRESSION: STATUS POST 8.5 PARAGUAYAN NEPHROSTOMY TUBE PLACEMENT WITH ULTRASOUND AND FLUOROSCOPIC GREGORY DUNAWAY. THIS PROCEDURE WAS PERFORMED BY THE UNDERSIGNED.
[2020-01-21 13:55] LABS: Appearance,Urine Turbid (Clear); Bacteria,Urine Few /hpf; Bilirubin,Urine Negative (Negative); Blood,Urine Large (Negative); Color,Urine Light Red; Glucose,Urine (UA) Negative (Negative); Ketones,Urine Negative (Negative); Leukocyte Esterase,Urine Large (Negative); Mucus,Urine Few /hpf; Nitrite,Urine Positive (Negative); PH, Urine 5.5 (5.0-8.0); Protein,Urine 1+ (Negative); RBC,Urine >182 /hpf (0-5); Urobilinogen,Urine <2.0 mg/dL (<2.0); WBC,Urine >182 /hpf (0-5)
[2020-01-21 13:57] LABS: Specific Gravity,Urine 1.012 (1.001-1.035)
[2020-01-21 14:47] VITALS: BP 130/84; PULSE 69
== END 2020-01-21 13:55 | disposition home or self-care (01) ==
LOC: CATHCVL 10:41
PROVIDERS: ATTEND Radiology Diagnostic Radiology
DX: N13.1 Hydronephrosis with ureteral stricture, not elsewhere classified (principal); I10 Essential (primary) hypertension; I49.5 Sick sinus syndrome; E78.5 Hyperlipidemia, unspecified; Z79.82 Long term (current) use of aspirin; Z79.899 Other long term (current) drug therapy; Z88.1 Allergy status to other antibiotic agents; Z88.5 Allergy status to narcotic agent; Z88.0 Allergy status to penicillin; Z87.891 Personal history of nicotine dependence; Z95.0 Presence of cardiac pacemaker; Z98.890 Other specified postprocedural states; Z90.710 Acquired absence of both cervix and uterus; Z90.49 Acquired absence of other specified parts of digestive tract; Z87.440 Personal history of urinary (tract) infections; Z87.01 Personal history of pneumonia (recurrent); Z85.51 Personal history of malignant neoplasm of bladder; Z86.12 Personal history of poliomyelitis; Z80.0 Family history of malignant neoplasm of digestive organs; Z83.3 Family history of diabetes mellitus; Z80.49 Family history of malignant neoplasm of other genital organs; Z82.49 Family history of ischemic heart disease and other diseases of the circulatory system
CPT/HCPCS: 50432; 81001; 87086; 87077; 87186; 87635; C1729; C1769 ×2; J2001; J1580; Q9966; 76942

== ENCOUNTER → 2020-02-01 | Day surgery (SDC) | payer MEDICARE, BC ==
--- NOTE | 2020-01-31 08:36 | P.GSHP ---
History of Present Illness H&P Date: 01/31/20 79 yo female with bladder cancer treated witha cystectomy and ileal loop in [facility]. Immediately moved back to [place] and I assumed her care. Had right sided hydro treated with n tube followed by an antegrade stent. 2 years later she had developed left sided hydro. She had a n tube placed last week She now comes for an antegrade stent the cause of each hydro is unknown I assume it is scar based on otherwise normal ct scans However short of exploration which she declined we arent sure. - Constitutional Constitutional: Denies chills, Denies fever - EENT Eyes: denies blurred vision, denies pain Ears, nose, mouth and throat: Denies headache, Denies sore throat - Cardiovascular Cardiovascular: Denies chest pain, Denies shortness of breath - Respiratory Respiratory: Denies cough, Denies 7 - Gastrointestinal Gastrointestinal: Denies abdominal pain, Denies diarrhea, Denies nausea, Denies vomiting - Genitourinary (Female) Genitourinary: Denies dysuria, Denies hematuria - Genitourinary (Male) Genitourinary: Denies dysuria, Denies hematuria - Musculoskeletal Musculoskeletal: Denies myalgias - Integumentary Integumentary: Denies pruritus, Denies rash - Neurological Neurological: Denies numbness, Denies weakness - Psychiatric Psychiatric: Denies anxiety, Denies depression - Endocrine Endocrine: Denies fatigue, Denies weight change Past Medical History Past Medical History: Cancer, Hyperlipidemia, Hypertension, Pneumonia, Renal Disease Additional Past Medical History / Comment(s): Bladder cancer with muscle invasion/surgery/urostomy and chemo x2, frequent UTIs, has urostomy, has Rt ureteral stent. Tachybrady syndrome with pacemaker, hx of polio. Constipation. Bruises easily. History of Any Multi-Drug Resistant Organisms: None Reported Past Surgical History: Appendectomy, Bladder Surgery, Hysterectomy, Orthopedic Surgery, Pacemaker Additional Past Surgical History / Comment(s): 2013 pacemaker, radical cystectomy with ileal loop/urostomy, R nephrostomy tube, R ureteral stents, R shoulder fusion with bone from hip donor site. ORIF Lt hip. Removal hardware Rt Shoulder. Past Anesthesia/Blood Transfusion Reactions: Motion Sickness, Postoperative Nausea & Vomiting (PONV) Additional Past Anesthesia/Blood Transfusion Reaction / Comment(s): Pt has received blood in past without reaction. Type of Cardiac Device: Permanent Pacemaker Device Placement Date:: 2013 Smoking Status: Former smoker - Past Family History Father History Unknown: Yes Additional Family Medical History / Comment(s): Father in a MVA when pt was young. Mother Family Medical History: Cancer, Diabetes Mellitus Additional Family Medical History / Comment(s): Cervical cancer, rheumatic fever, heart problems. Brother(s) Family Medical History: Cancer Additional Family Medical History / Comment(s): PANCREATIC Medications and Allergies Home Medications Medication Instructions Recorded Confirmed Type Aspirin 162 mg PO HS 06/29/14 01/21/20 History Flecainide [Tambocor] 50 mg PO Q12HR 07/06/17 01/21/20 History Metoprolol Tartrate [Lopressor] 12.5 mg PO BID 07/06/17 01/21/20 History Multivit with Calcium,Iron,Min 1 each PO DAILY 10/27/19 01/21/20 History [Women's Multivitamin] L.acidoph,Paracasei, B.lactis 1 each PO BID 01/19/20 01/21/20 History [Probiotic] Allergies Allergy/AdvReac Type Severity Reaction Status Date / Time ciprofloxacin [From Cipro] Allergy Nausea & Verified 01/19/20 15:42 Vomiting hydrocodone Allergy Vomiting Verified 01/19/20 15:42 hydromorphone [From Dilaudid] Allergy Vomiting Verified 01/19/20 15:42 levofloxacin [From Levaquin] Allergy Nausea & Verified 01/19/20 15:42 Vomiting morphine Allergy Vomiting Verified 01/19/20 15:42 nitrofurantoin Allergy Swelling Verified 01/19/20 15:42 [From Macrobid] oxycodone Allergy Vomiting Verified 01/19/20 15:42 Penicillins Allergy Rash/Hives Verified 01/19/20 15:42 codeine AdvReac Vomiting Verified 01/19/20 15:42 ketorolac [From Toradol] AdvReac avoids due Verified 01/19/20 15:42 to kidneys metoclopramide [From Reglan] AdvReac Hallucinati Verified 01/19/20 15:42 ons zolpidem [From Ambien] AdvReac Hallucinati Verified 01/19/20 15:42 ons narcotics AdvReac Vomiting Uncoded 01/19/20 15:42 Surgical - Exam - General well developed, well nourished - Eyes PERRL - ENT no hearing loss - Respiratory normal expansion, normal respiratory effort - Cardiovascular Rhythm: regular - Abdomen rlq ileal loop, left nephrostomy tube - Integumentary no rash, no growths - Neurologic normal coordination, normal sensation - Musculoskeletal normal gait, normal posture - Psychiatric oriented to time, oriented to person, oriented to place, speech is normal, memory intact Assessment and Plan Assessment: Impression Bladder cancer, left sie hydronephrosis, sp n tube Plan: antegrade stent left
[2020-01-31 08:56] VITALS: BMI 18.5
[~2020-02-01] MED LIST changes: +IOPAMIDOL-250 100ML BTL IV ONE; +IV FLUID CONTINUATION 450 ML IV ONE; +LIDOCAINE 1% INJ 10MG/ML (20 ML MDV) SQ ONE
[2020-02-01 14:14] LABS: Anisocytosis Slight; Basophils # (A) 0.1 k/uL (0-0.2); Basophils % (A) 1 %; Eosinophils # (A) 0.3 k/uL (0-0.7); Eosinophils % (A) 3 %; HCT 38.2 % (34.0-46.0); Lymphocytes % (A) 31 %; MCHC 31.4 g/dL (31.0-37.0); MCV 92.4 fL (80.0-100.0); Mean Platelet Volume 7.4; Monocytes # (A) 0.6 k/uL (0-1.0); Monocytes % (A) 6 %; Neutrophils # (A) 5.4 k/uL (1.3-7.7); Neutrophils % (A) 56 %; Platelet Count 344 k/uL (150-450); RBC 4.13 m/uL (3.80-5.40); RDW 16.3 % (11.5-15.5); WBC 9.7 k/uL (3.8-10.6)
[2020-02-01] MEDS: MIDAZOLAM 2 MG/2 ML VIAL IV ONE ×2 (14:15→14:32)
[2020-02-01 14:24] LABS: Potassium 4.6 mmol/L (3.5-5.1)
[2020-02-01 15:19] VITALS: RESP 18
[2020-02-01 15:32] VITALS: BP 133/79; PULSE 63
--- NOTE | 2020-02-02 10:30 | IR ---
EXAMINATION TYPE: IR percutaneous right ureteral stent insertion DATE OF EXAM: 02/01/2020 COMPARISON: 01/21/2020 HISTORY: Hydronephrosis, ureteral obstruction PROCEDURE: Procedure was discussed with the patient, the risks, complications, benefits and alternati ves were discussed and informed consent was obtained. Patient was placed prone position on the fluoro scopic table and prepped and draped in the usual sterile fashion. Maximal barrier and technique was u tilized. Small amount of diluted contrast was injected into the pre-existing percutaneous nephrostomy tube and there was severe hydronephrosis and hydroureter. Catheter was removed over guidewire and ex changed for a guiding catheter. Utilizing a Glidewire O.35 and guidance catheter access across the ob struction of the distal ureter at the level of the ileal conduit was easily achieved. There is subseq uent placement of a 6 x 26 cm ureteral stent. Repeat imaging demonstrated ideal placement. Patient was stable throughout procedure and stable upon discharge from Department of radiology. Appro ximately 20 images submitted. A 5.8 minutes of fluoroscopy utilized. IMPRESSION: 1. Successful left percutaneous antegrade ureteral stent insertion.
== END ==
LOC: CATHCVL 13:18
PROVIDERS: ATTEND Radiology Diagnostic Radiology
DX: N13.1 Hydronephrosis with ureteral stricture, not elsewhere classified (principal); E78.5 Hyperlipidemia, unspecified; I10 Essential (primary) hypertension; I49.5 Sick sinus syndrome; Z11.59 Encounter for screening for other viral diseases; Z85.51 Personal history of malignant neoplasm of bladder; Z88.0 Allergy status to penicillin; Z88.6 Allergy status to analgesic agent; Z88.5 Allergy status to narcotic agent; Z88.8 Allergy status to other drugs, medicaments and biological substances; Z88.1 Allergy status to other antibiotic agents; Z90.6 Acquired absence of other parts of urinary tract; Z87.01 Personal history of pneumonia (recurrent); Z92.21 Personal history of antineoplastic chemotherapy; Z93.6 Other artificial openings of urinary tract status; Z96.0 Presence of urogenital implants; Z95.0 Presence of cardiac pacemaker; Z86.12 Personal history of poliomyelitis; Z87.19 Personal history of other diseases of the digestive system; Z90.49 Acquired absence of other specified parts of digestive tract; Z98.890 Other specified postprocedural states; Z90.710 Acquired absence of both cervix and uterus; Z98.1 Arthrodesis status; Z87.81 Personal history of (healed) traumatic fracture; Z87.898 Personal history of other specified conditions; Z91.89 Other specified personal risk factors, not elsewhere classified; Z87.891 Personal history of nicotine dependence; Z79.82 Long term (current) use of aspirin; Z79.899 Other long term (current) drug therapy; Z80.49 Family history of malignant neoplasm of other genital organs; Z83.3 Family history of diabetes mellitus; Z82.49 Family history of ischemic heart disease and other diseases of the circulatory system; Z80.0 Family history of malignant neoplasm of digestive organs
CPT/HCPCS: 50693; 80048; 85025; C2625; C1769 ×2; U0003; J2250; J2001; J1580; Q9966

== ENCOUNTER → 2020-04-20 | Outpatient (CLI) | payer MEDICARE, BC ==
--- NOTE | 2020-04-20 12:40 | CT ---
EXAMINATION TYPE: CT abdomen pelvis wo con DATE OF EXAM: 04/20/2020 COMPARISON: 01/17/2020 and 09/06/2019 HISTORY: 79-year-old female UTI, bilateral hydronephrosis CT DLP: 293.2 mGycm. Automated exposure control for dose reduction was used. TECHNIQUE: Contiguous axial scanning of the abdomen and pelvis without IV contrast. Coronal and sagit heidy reconstructions performed. FINDINGS: Heart normal size without pericardial effusion. Right atrial and right ventricular pacer leads are pr esent. Mild emphysematous change in the visualized lower lungs. No pleural effusion. Ectatic lower descending thoracic aorta at 2.9 cm. Focal moderate to severe atherosclerotic calcifica tions of the mid abdominal aorta just below the renal artery takeoff, axial image 51. Additional mode rate atelectatic change throughout the distal abdominal aorta and iliac arteries. Noncontrast appearance of the liver, gallbladder, adrenal glands, spleen, pancreas and no gross abnor mality. Redemonstrated are several urostomy with a right lower quadrant ileal conduit. There is recurrence of severe right-sided hydronephrosis as compared to 01/17/2020. Persistent moderat e to severe left hydronephrosis as compared to 01/17/2020. The left-sided ureteral stent shows its proximal end looped within the proximal ureter. The right ureteral stent shows its proximal end looped in the right renal pelvis. The catheter stents extend into the right lower quadrant ileal conduit and distal loops are at the le erinn of the subcutaneous adipose just deep to the ostomy. No dilated small bowel, free fluid, or free air. No mesenteric or retroperitoneal lymphadenopathy see n. Moderate stool burden. A very chronic inflammatory change seen. Status post cystectomy. Uterus and ovaries are visualized. Left hip total arthroplasty. Degenerative changes of the pubic symphysis. Facet arthropathy lower lum bar spine. Either postsurgical post traumatic change of the right iliac crest are unchanged. Bones: Osteopenia. There is grade 1 anterolisthesis L4-L5. IMPRESSION: 1. Redemonstrated diverting urostomy with right lower quadrant ileal conduit. 2. As compared to 01/17/2020, there is recurrence of severe right-sided hydronephrosis and persistent moderate to severe left hydronephrosis. 3. Bilateral ureteral stents have been placed. On the left, the proximal loop is low within the prox imal aspect of the ureter. On the right, the proximal loop is within the renal pelvis. Both distal lo ops are at the level of the subcutaneous adipose, deep to the ostomy. 4. Moderate to severe focal atherosclerotic calcifications of the infrarenal mid abdominal aorta.
== END | disposition home or self-care (01) ==
LOC: RADCTMAIN 08:54
PROVIDERS: ATTEND Internal Medicine Infectious Disease
DX: N13.6 Pyonephrosis (principal); N39.0 Urinary tract infection, site not specified; Z96.0 Presence of urogenital implants
CPT/HCPCS: 36415; 74176; 82565; 84520

== ENCOUNTER → 2020-05-11 | Outpatient (CLI) | payer MEDICARE, BC ==
--- NOTE | 2020-05-11 15:05 | FL ---
EXAMINATION TYPE: FL loopogram DATE OF EXAM: 05/11/2020 COMPARISON: NONE HISTORY: possible stricture 50ml isovue 370 injected through ostomy, 3min 8sec fl time TECHNIQUE: Fluoroscopy. FINDINGS: Identified are 2 ureteral stents extending into the patient's diverting urostomy. Ostomy is localized and Bertrand catheter is placed into the ostomy and approximately 50 cc of contrast was injec melanie. Visualized ileal loop demonstrates a normal caliber. The ileal loop fills with contrast without evidence for reflux into the ureters. Therefore I suspect stricture at the ureteral anastomosis. No f illing defects are noted. IMPRESSION: 1. There is no evidence for reflux of contrast into the ureters and therefore I suspect stricture at the anastomotic site.
== END | disposition home or self-care (01) ==
LOC: RADUSWWP 05-10 13:24
PROVIDERS: ATTEND Urology
DX: N13.30 Unspecified hydronephrosis (principal); Z88.1 Allergy status to other antibiotic agents; Z88.0 Allergy status to penicillin; Z88.5 Allergy status to narcotic agent; Z88.6 Allergy status to analgesic agent; Z88.8 Allergy status to other drugs, medicaments and biological substances
CPT/HCPCS: 82565; 84520; 50431; Q9967

== ENCOUNTER → 2020-06-27 | Outpatient (CLI) | payer MEDICARE, BC ==
[2020-06-27 09:29] LABS: Basophils % (A) 0 %; Eosinophils # (A) 0.4 k/uL (0-0.7); Eosinophils % (A) 5 %; HCT 40.3 % (34.0-46.0); HGB 12.5 gm/dL (11.4-16.0); Lymphocytes # (A) 2.8 k/uL (1.0-4.8); Lymphocytes % (A) 33 %; MCH 30.7 pg (25.0-35.0); MCV 99.2 fL (80.0-100.0); Mean Platelet Volume 7.5; Monocytes # (A) 0.6 k/uL (0-1.0); Monocytes % (A) 7 %; Neutrophils # (A) 4.4 k/uL (1.3-7.7); Neutrophils % (A) 53 %; Platelet Count 232 k/uL (150-450); RBC 4.06 m/uL (3.80-5.40); RDW 13.3 % (11.5-15.5); WBC 8.3 k/uL (3.8-10.6)
[2020-06-27 09:41] LABS: Calcium 9.7 mg/dL (8.4-10.2); Potassium 4.3 mmol/L (3.5-5.1)
== END | disposition home or self-care (01) ==
LOC: LABWHC1 08:18
PROVIDERS: ATTEND Urology
DX: Z01.818 Encounter for other preprocedural examination (principal); N13.30 Unspecified hydronephrosis; R35.0 Frequency of micturition
CPT/HCPCS: 36415; 80048; 85025

== ENCOUNTER → 2020-07-05 | Day surgery (SDC) | payer MEDICARE, BC ==
[2020-07-03 17:07] VITALS: BMI 19.1
--- NOTE | 2020-07-04 17:45 | P.GSHP ---
History of Present Illness H&P Date: 07/04/20 79 yo female with invasive bladder cancer who underwent a radical cystectmy with ileal loop in [facility] 10/2017. SHe came back to [place] 1 week post op for recouperation I assumed her urological care. Eventually she developed bilateral hydronephrosis that was felt to be due to stricture disease She ended up with bilateral n tubes and eventual antegrade stents. SHe has had these changed via endoscopy of the loop. I wondered whether she may have fascial stenosis of the loop but saw a reconstructive surgeon who felt she did not. She comes for endscoy with exchange of the bilateral double j catheters. - Constitutional Constitutional: Denies chills, Denies fever - EENT Eyes: denies blurred vision, denies pain Ears, nose, mouth and throat: Denies headache, Denies sore throat - Cardiovascular Cardiovascular: Denies chest pain, Denies shortness of breath - Respiratory Respiratory: Denies cough, Denies 7 - Gastrointestinal Gastrointestinal: Denies abdominal pain, Denies diarrhea, Denies nausea, Denies vomiting - Genitourinary (Female) Genitourinary: Denies dysuria, Denies hematuria - Genitourinary (Male) Genitourinary: Denies dysuria, Denies hematuria - Musculoskeletal Musculoskeletal: Denies myalgias - Integumentary Integumentary: Denies pruritus, Denies rash - Neurological Neurological: Denies numbness, Denies weakness - Psychiatric Psychiatric: Denies anxiety, Denies depression - Endocrine Endocrine: Denies fatigue, Denies weight change Past Medical History Past Medical History: Cancer, Hyperlipidemia, Hypertension, Pneumonia, Renal Disease Additional Past Medical History / Comment(s): Bladder cancer w/ muscle invasion/surgery/urostomy and chemo x2, frequent UTIs, hydronephrosis, has bilat ureteral stent. Tachybrady syndrome with Pacemaker. Hx of polio, mild Rt side weakness. Occ Constipation. Bruises easily. History of Any Multi-Drug Resistant Organisms: None Reported Past Surgical History: Appendectomy, Bladder Surgery, Hysterectomy, Orthopedic Surgery, Pacemaker Additional Past Surgical History / Comment(s): 2013 pacemaker, radical cystectomy with ileal loop/urostomy, R nephrostomy tube, R ureteral stents, R shoulder fusion with bone from hip donor site. ORIF Lt hip. Removal hardware Rt Shoulder. Bilat ureteral stents 03/2020 est Past Anesthesia/Blood Transfusion Reactions: Motion Sickness, Postoperative Nausea & Vomiting (PONV) Additional Past Anesthesia/Blood Transfusion Reaction / Comment(s): Pt has received blood in past without reaction. Has hx of confusion, poss combativeness Type of Cardiac Device: Permanent Pacemaker Device Placement Date:: 2013 Smoking Status: Current some day smoker - Past Family History Father History Unknown: Yes Additional Family Medical History / Comment(s): Father in a MVA when pt was young. Mother Family Medical History: Cancer, Diabetes Mellitus Additional Family Medical History / Comment(s): Cervical cancer, rheumatic fever, heart problems. Brother(s) Family Medical History: Cancer Additional Family Medical History / Comment(s): PANCREATIC Medications and Allergies Home Medications Medication Instructions Recorded Confirmed Type Aspirin 162 mg PO HS 06/29/14 07/03/20 History Flecainide [Tambocor] 50 mg PO Q12HR 07/06/17 07/03/20 History Metoprolol Tartrate [Lopressor] 12.5 mg PO BID 07/06/17 07/03/20 History L.acidoph,Paracasei, B.lactis 1 each PO BID 01/19/20 07/03/20 History [Probiotic] Acetaminophen Tab [Tylenol] 325 mg PO Q6H PRN 07/03/20 07/03/20 History Cholecalciferol [Vitamin D3 (25 2,000 unit PO DAILY 07/03/20 07/03/20 History Mcg = 1000 Iu)] Allergies Allergy/AdvReac Type Severity Reaction Status Date / Time ciprofloxacin [From Cipro] Allergy Nausea & Verified 07/03/20 16:29 Vomiting hydrocodone Allergy Vomiting Verified 07/03/20 16:29 hydromorphone [From Dilaudid] Allergy Vomiting Verified 07/03/20 16:29 morphine Allergy Vomiting Verified 07/03/20 16:29 nitrofurantoin Allergy Swelling Verified 07/03/20 16:29 [From Macrobid] oxycodone Allergy Vomiting Verified 07/03/20 16:29 Penicillins Allergy Rash/Hives Verified 07/03/20 16:29 codeine AdvReac Vomiting Verified 07/03/20 16:29 ketorolac [From Toradol] AdvReac avoids due Verified 07/03/20 16:29 to kidneys metoclopramide [From Reglan] AdvReac Hallucinati Verified 07/03/20 16:29 ons zolpidem [From Ambien] AdvReac Hallucinati Verified 07/03/20 16:29 ons narcotics AdvReac Vomiting Uncoded 07/03/20 16:29 Surgical - Exam - General well developed, well nourished, no distress - Eyes PERRL - ENT no hearing loss - Neck trachea midline - Respiratory normal expansion, normal respiratory effort - Cardiovascular Rhythm: regular - Abdomen rlq ileal loop Abdomen: soft, non tender - Musculoskeletal normal gait, normal posture - Psychiatric oriented to time, oriented to person, oriented to place, speech is normal, memory intact Assessment and Plan Assessment: Impression: Bilateral ureteral ileal stricture with hydronephrosis. Invasive bladder cancer sp cystectomy with ileal loop Plan: Exchange of bilateral ureteral catheters via loop endoscopy
[~2020-07-05] MED LIST changes: +DEXAMETHASONE SOD PHOSPHATE 10 MG/ML 1 ML VIAL IV ONE; -GENTAMICIN 80 MG in SODIUM CHLORIDE 0.9% 100 ML IVPB ONE; +GENTAMICIN IN NACL ISO-OSM PMX 80 MG in SALINE 1 100ML.BAG IVPB ONE; +HYDROmorphone 0.5 MG/0.5 ML SYRINGE IVP ONE; -IOPAMIDOL-250 100ML BTL IV ONE; +IOPAMIDOL-370 50ML BTL INJ ONE; -IV FLUID CONTINUATION 450 ML IV ONE; +IV FLUID CONTINUATION 500 ML IV ONE; +LIDOCAINE 1% (10MG/ML) FOR IV START INTRADERMA ONE; +LIDOCAINE 1% INJ 10MG/ML (20 ML MDV) ONE; +MIDAZOLAM 2 MG/2 ML VIAL ONE; +ONDANSETRON 4 MG/2 ML VIAL IVP ONE; +ONDANSETRON 4 MG/2 ML VIAL ONE; +PROPOFOL 10 MG/ML 20 ML VIAL IV ONE; +diphenhydrAMINE 50 MG/ML 1 ML VIAL ONE; +fentaNYL (PF) 50 MCG/ML 2 ML AMP IV PRN; +fentaNYL (PF) 50 MCG/ML 2 ML AMP ONE
[2020-07-05 07:09] VITALS: TEMP 97.8
[2020-07-05 07:11] LABS: Glucose,Whole Blood 98 mg/dL (75-99)
[2020-07-05] MEDS: LACTATED RINGERS 1,000 ML IV SCH ×2 (07:13→07:31)
--- NOTE | 2020-07-05 08:01 | XR ---
EXAMINATION TYPE: XR KUB DATE OF EXAM: 07/05/2020 COMPARISON: 04/20/2020 HISTORY: Bilateral hydronephrosis TECHNIQUE: One view abdominal series FINDINGS: Diffuse osteopenia with hypertrophic and degenerative changes spine. Postsurgical change right iliac wing and left hip. Arthropathy right hip. Extensive surgery in the pelvis with multiple ureteral sten ts. Vascular calcifications noted. No suspicious calcifications overlying the kidneys. Suggestion of an ostomy. IMPRESSION: 1. Postsurgical change with nonspecific abdomen. Multiple suspected ureteral stents.
--- NOTE | 2020-07-05 09:08 | P.OP ---
Date of Procedure: 07/05/20 Preoperative Diagnosis: Bilateral hydronephrosis secondary to ureteral strictures, ileal loop status post cystectomy Postoperative Diagnosis: Same, failed exchange of double-J catheter left Procedure(s) Performed: Cystoscopy with exchange of right double-J catheter and failure of exchange of left double-J cath [place] [facility] [place]: Fei Alexis Pathology: none sent Condition: stable Disposition: PACU Indications for Procedure: The patient is 79. She has a history of bladder cancer and underwent a cystectomy ileal loop in [place] in 2019. She came to the [place] immediately for postoperative care. I assumed her care. She developed bilateral ureteral obstruction that was felt to be due to strictures. She ended up with bilateral nephrostomy tubes and antegrade stents. She comes today for exchange of her double-J catheters. Description of Procedure: Patient is brought to the operating room. She's placed in operating table supine position. She's given IV sedation. A sterile prep and drape was administered. Looposcopy was performed. The left double-J catheter is identified and pulled out to the stomal opening. An 035 wires passed through the double-J catheter up in the renal pelvis. I remove the double-J catheter. Upon advancing the new double-J catheter the wire slipped out of the collecting system. I then removed the right double-J catheter to the stomal opening. I passed an 035 wire through the stent up into the renal pelvis. I then pass a new 7 x 28 double-J catheter that coils in the renal pelvis and the ileal loop. I then spent about 30 minutes trying to identify the left ureteral to ileal opening but cannot do so. The procedures terminated. She will require a nephrostomy tube and antegrade stent which I'll arrange for today. She is returned recovery room in good condition.
[2020-07-05 09:18] VITALS: RESP 16
--- NOTE | 2020-07-05 09:31 | FL ---
EXAMINATION TYPE: FL guidance operating room DATE OF EXAM: 07/05/2020 CLINICAL HISTORY: Bilateral kidney stones TECHNIQUE: Fluoroscopy. COMPARISON: Abdominal x-ray earlier today.. FINDINGS: Fluoroscopic guidance was provided during bilateral kidney stent removal and reinsertion p rocedure performed by Dr. Alexis. A total of 0.21 minute of fluoroscopic time was utilized during the procedure and 3 spot intraoperative images are acquired. Images acquired show portions of double-J ureter stents. Please refer to procedure note was not prese nt nor performed procedure. IMPRESSION: As Above.
--- NOTE | 2020-07-05 14:33 | IR ---
Antegrade left ureteral stent placement, ULTRASOUND AND FLUOROSCOPIC GUIDED AND ANTEGRADE DOUBLE-J UR ETERAL STENT PLACEMENT. EXAMINATION TYPE: IR ureter drain/stent, US guidance for procedure DATE OF EXAM: 07/05/2020 COMPARISON: US exam 02/01/2020 HISTORY: Ileal conduit, hydronephrosis. PROCEDURE: Maximal barrier technique was utilized. The skin overlying the left kidney was localized with ultras ound and the overlying skin was prepped and draped. An ultrasound image was obtained and submitted o n patient's chart. Lidocaine was used for local anesthesia. Skin casper made with a scalpel. Under d irect ultrasound guidance, a 21-gauge needle was advanced into a posterior midpole calyx of the left kidney and urine returned in the hub of the needle. A 0.018 inch wire was advanced under fluoroscopy dominant course of the ureter. The access site was upsized and a 0.038 inch wire was advanced down the ureter. The wire was exchanged for a 0.035 inch angled Glidewire through a hockey-stick catheter 5-Macedonian. Catheter was advanced into the bladder and gentle hand-injection of contrast verified domenic cement. Spot images were obtained. The ureter was sized and subsequently a 8-Macedonian double-J cathet er was advanced over the wire and deployed such that the distal loop is overlying the ileal loop and proximal loop over the region of the renal collecting system. The wire was removed. Spot image obta ined verified placement. The patient remained in stable condition without complication. 29 minutes of sedation time. 306 intraoperative images. 6.9 minutes fluoroscopy time. IMPRESSION: STATUS POST NEPHROSTOMY FOR ANTEGRADE DOUBLE-J URETERAL STENT PLACEMENT DESCRIBED, THIS PROCEDURE WAS PERFORMED BY THE UNDERSIGNED.
[2020-07-05 15:14] VITALS: PULSE 72
[2020-07-05 19:56] VITALS: BP 114/56
== END | disposition home or self-care (01) ==
LOC: OR 06:48
PROVIDERS: ATTEND Urology
DX: Z46.6 Encounter for fitting and adjustment of urinary device (principal); N13.1 Hydronephrosis with ureteral stricture, not elsewhere classified; Z85.51 Personal history of malignant neoplasm of bladder; E78.5 Hyperlipidemia, unspecified; I10 Essential (primary) hypertension; Z87.01 Personal history of pneumonia (recurrent); Z92.21 Personal history of antineoplastic chemotherapy; Z87.440 Personal history of urinary (tract) infections; I49.5 Sick sinus syndrome; Z86.12 Personal history of poliomyelitis; M62.81 Muscle weakness (generalized); F41.9 Anxiety disorder, unspecified; F32.9 Major depressive disorder, single episode, unspecified; Z97.2 Presence of dental prosthetic device (complete) (partial); Z90.710 Acquired absence of both cervix and uterus; Z95.0 Presence of cardiac pacemaker; Z93.6 Other artificial openings of urinary tract status; F17.200 Nicotine dependence, unspecified, uncomplicated; Z90.6 Acquired absence of other parts of urinary tract; Z98.890 Other specified postprocedural states; Z83.3 Family history of diabetes mellitus; Z80.49 Family history of malignant neoplasm of other genital organs; Z82.49 Family history of ischemic heart disease and other diseases of the circulatory system; Z80.0 Family history of malignant neoplasm of digestive organs; Z79.82 Long term (current) use of aspirin; Z79.899 Other long term (current) drug therapy; Z88.1 Allergy status to other antibiotic agents; Z88.5 Allergy status to narcotic agent; Z88.0 Allergy status to penicillin; Z88.8 Allergy status to other drugs, medicaments and biological substances
CPT/HCPCS: 52332; 50694; 74018; 76942; C2625 ×2; C1769 ×4; C1729; J1580; J2250; J1200; J1100; J2405; J2001; J3010; J2704; J1170; Q9967

== ENCOUNTER 2020-08-20 16:23 | Inpatient (IN) | payer MEDICARE, BC ==
[2020-08-20] MEDS ORDERED: SODIUM CHLORIDE 0.9% 500 ML 500 ML IV STA (16:45)
--- NOTE | 2020-08-20 16:49 | ED ---
General Adult HPI - General Chief complaint: Urogenital Stated complaint: poss UTI/stent problem Time Seen by Provider: 08/20/20 16:37 Source: patient Mode of arrival: wheelchair Limitations: no limitations - History of Present Illness Initial comments: 80-year-old female patient percents to the emergency department today for evaluation of low back pain or abdominal pain and decreased output in her urostomy. She has history of invasive bladder cancer status post radical cystectomy with ileal loop. She has subsequent history for ureteral strictures and has had ureteral catheters and antegrade stents placed with the most recent catheter and stent replacement on 07/05/2020. Since that procedure patient has been having significant flank and abdominal pain. She has underwent for UTI and evaluation at [facility]. She did speak to Dr. Alexis today. Recommended she come to the emergency department for evaluation. Patient states she has had about 50% decrease in the output in her urostomy over the last 24 hours. States that the pain is somewhat improved but it does come and go. She is also reporting nausea without vomiting. States that she has been using Harvard and Toradol for management of the pain. Patient denies any recent rash, fever, chills, cough, shortness of breath, chest pain, diarrhea, constipation, numbness, tingling, dizziness, weakness, headache, visual changes, or any other complaints. - Related Data Home Medications Medication Instructions Recorded Confirmed Flecainide [Tambocor] 50 mg PO BID@0800,199907/06/17 08/20/20 Metoprolol Tartrate [Lopressor] 12.5 mg PO BID@080007/06/17 08/20/20 L.acidoph,Paracasei, B.lactis 1 tab PO DAILY 01/19/20 08/20/20 [Probiotic] Acetaminophen Tab [Tylenol] 325 mg PO Q6H PRN 07/03/20 08/20/20 HYDROcodone/APAP 5-325MG [Harvard 1 tab PO QID PRN 08/20/20 08/20/20 5-325] Ketorolac [Toradol] 10 mg PO Q6HR PRN 08/20/20 08/20/20 Methenamine Hippurate 1 gm PO DAILY@0800 08/20/20 08/20/20 Multivitamins, Thera [Multivitamin 1 tab PO DAILY 08/20/20 08/20/20 (formulary)] Ondansetron [Zofran] 4 mg PO Q8HR PRN 08/20/20 08/20/20 Allergies Allergy/AdvReac Type Severity Reaction Status Date / Time ciprofloxacin [From Cipro] Allergy Nausea & Verified 08/20/20 17:57 Vomiting hydrocodone Allergy Vomiting, Verified 08/20/20 17:57 CAN TAKE LOW DOSES hydromorphone [From Dilaudid] Allergy Vomiting Verified 08/20/20 17:57 morphine Allergy Vomiting Verified 08/20/20 17:57 nitrofurantoin Allergy Swelling Verified 08/20/20 17:57 [From Macrobid] oxycodone Allergy Vomiting Verified 08/20/20 17:57 Penicillins Allergy Rash/Hives Verified 08/20/20 17:57 cetirizine [From Zyrtec] AdvReac Swelling Verified 08/20/20 17:57 codeine AdvReac Vomiting Verified 08/20/20 17:57 ketorolac [From Toradol] AdvReac avoids due Verified 08/20/20 17:57 to kidneys linezolid AdvReac Swelling Verified 08/20/20 17:57 metoclopramide [From Reglan] AdvReac Hallucinati Verified 08/20/20 17:57 ons zolpidem [From Ambien] AdvReac Hallucinati Verified 08/20/20 17:57 ons narcotics AdvReac Vomiting Uncoded 07/03/20 16:29 Review of Systems ROS Statement: Those systems with pertinent positive or pertinent negative responses have been documented in the HPI. ROS Other: All systems not noted in ROS Statement are negative. Past Medical History Past Medical History: Cancer Additional Past Medical History / Comment(s): Bladder cancer with muscle invasion/surgery/urostomy and chemo x2, frequent UTIs, has urostomy, has Rt ureteral stent. Tachybrady syndrome with pacemaker, hx of polio. Constipation. Bruises easily. History of Any Multi-Drug Resistant Organisms: None Reported Past Surgical History: Joint Replacement Additional Past Surgical History / Comment(s): 2013 pacemaker, radical cystectomy with ileal loop/urostomy, R nephrostomy tube, R ureteral stents, R shoulder fusion with bone from hip donor site. ORIF Lt hip. Removal hardware Rt Shoulder. Past Anesthesia/Blood Transfusion Reactions: Motion Sickness, Postoperative Nausea & Vomiting (PONV) Additional Past Anesthesia/Blood Transfusion Reaction / Comment(s): Pt has received blood in past without reaction. Type of Cardiac Device: Permanent Pacemaker Device Placement Date:: 2013 Past Psychological History: Anxiety, Depression Smoking Status: Current every day smoker Past Alcohol Use History: None Reported, Rare Past Drug Use History: None Reported - Past Family History Father History Unknown: Yes Additional Family Medical History / Comment(s): Father in a MVA when pt was young. Mother Family Medical History: Cancer, Diabetes Mellitus Additional Family Medical History / Comment(s): Cervical cancer, rheumatic fever, heart problems. Brother(s) Family Medical History: Cancer Additional Family Medical History / Comment(s): PANCREATIC General Exam Limitations: no limitations General appearance: alert, in no apparent distress, other (This is a well developed, thin appearing adult female in no acute distress. Vital signs upon presentation are temperature 98.3F, pulse 74, respirations 18, blood pressure 109/65, pulse ox 97% on room air.) Respiratory exam: Present: normal lung sounds bilaterally. Absent: respiratory distress, wheezes, rales, rhonchi, stridor Cardiovascular Exam: Present: regular rate, normal rhythm, normal heart sounds. Absent: systolic murmur, diastolic murmur, rubs, gallop, clicks GI/Abdominal exam: Present: soft, normal bowel sounds, other (Suprapubic urostomy noted). Absent: distended, tenderness, guarding, rebound, rigid Back exam: Absent: CVA tenderness (R), CVA tenderness (L) Neurological exam: Present: alert, oriented X3, CN II-XII intact Psychiatric exam: Present: normal affect, normal mood Skin exam: Present: warm, dry, intact, normal color. Absent: rash Course Vital Signs 08/20/20 08/20/20 16:31 18:01 Temperature 98.3 F 97.7 F Pulse Rate 74 79 Respiratory 18 18 Rate Blood Pressure 109/65 130/82 O2 Sat by Pulse 97 99 Oximetry Medical Decision Making - Medical Decision Making 80-year-old female patient percents to the emergency department today for evaluation of low back pain or abdominal pain and decreased output in her urost viridiana. She has history of invasive bladder cancer status post radical cystectomy with ileal loop. She has subsequent history for ureteral strictures and has had ureteral catheters and antegrade stents placed with the most recent catheter and stent replacement on 07/05/2020. Physical examination revealed no CVA or abdominal tenderness. Labs showed increased BUN and creatinine She is afebrile, vital signs. Dr. Alexis was in to see the patient, wants her admitted with IV fluids. NPO at midnight. He will replace stents tomorrow. - Lab Data Result diagrams: 08/20/20 16:54 08/20/20 16:54 Lab Results 08/20/20 08/20/20 08/20/20 Range/Units 16:54 16:54 16:54 WBC 11.3 H (3.8-10.6) k/uL RBC 4.02 (3.80-5.40) m/uL Hgb 12.8 (11.4-16.0) gm/dL Hct 37.9 (34.0-46.0) % MCV 94.0 D (80.0-100.0) fL MCH 31.8 (25.0-35.0) pg MCHC 33.8 (31.0-37.0) g/dL RDW 12.8 (11.5-15.5) % Plt Count 223 (150-450) k/uL MPV 7.2 Neutrophils % 66 % Lymphocytes % 20 % Monocytes % 6 % Eosinophils % 5 % Basophils % 1 % Neutrophils # 7.5 (1.3-7.7) k/uL Lymphocytes # 2.3 (1.0-4.8) k/uL Monocytes # 0.7 (0-1.0) k/uL Eosinophils # 0.6 (0-0.7) k/uL Basophils # 0.1 (0-0.2) k/uL PT 9.6 (9.0-12.0) sec INR 0.9 (<1.2) APTT 26.2 (22.0-30.0) sec Sodium 138 (137-145) mmol/L Potassium 4.5 (3.5-5.1) mmol/L Chloride 107 (98-107) mmol/L Carbon Dioxide 21 L (22-30) mmol/L Anion Gap 10 mmol/L BUN 80 H (7-17) mg/dL Creatinine 2.61 H (0.52-1.04) mg/dL Est GFR (CKD-EPI)AfAm 19 (>60 ml/min/1.73 sqM) Est GFR (CKD-EPI)NonAf 17 (>60 ml/min/1.73 sqM) Glucose 121 H (74-99) mg/dL Calcium 10.0 (8.4-10.2) mg/dL Total Bilirubin 0.4 (0.2-1.3) mg/dL AST 20 (14-36) U/L ALT 8 (4-34) U/L Alkaline Phosphatase 71 (38-126) U/L Total Protein 7.2 (6.3-8.2) g/dL Albumin 4.0 (3.5-5.0) g/dL Disposition Clinical Impression: Flank pain, Acute kidney injury Disposition: ADMITTED IP TO THIS [facility] Condition: Serious Decision to Admit Reason: Admit from EC Decision Date: 08/20/20 Decision Time: 17:41
[2020-08-20 17:06] LABS: Basophils # (A) 0.1 k/uL (0-0.2); Basophils % (A) 1 %; Eosinophils # (A) 0.6 k/uL (0-0.7); Eosinophils % (A) 5 %; HCT 37.9 % (34.0-46.0); HGB 12.8 gm/dL (11.4-16.0); Lymphocytes # (A) 2.3 k/uL (1.0-4.8); Lymphocytes % (A) 20 %; MCH 31.8 pg (25.0-35.0); MCHC 33.8 g/dL (31.0-37.0); Mean Platelet Volume 7.2; Monocytes # (A) 0.7 k/uL (0-1.0); Monocytes % (A) 6 %; Neutrophils # (A) 7.5 k/uL (1.3-7.7); Neutrophils % (A) 66 %; Platelet Count 223 k/uL (150-450); RBC 4.02 m/uL (3.80-5.40); RDW 12.8 % (11.5-15.5); WBC 11.3 k/uL (3.8-10.6)
[2020-08-20 17:12] LABS: INR 0.9 (<1.2); Partial Thromboplastin Time 26.2 sec (22.0-30.0); Prothrombin Time 9.6 sec (9.0-12.0)
[2020-08-20 17:34] LABS: Potassium 4.5 mmol/L (3.5-5.1); Total Bilirubin 0.4 mg/dL (0.2-1.3); Total Protein 7.2 g/dL (6.3-8.2)
[2020-08-20] MEDS ORDERED: ACETAMINOPHEN TAB 325 MG TAB PO PRN (17:40)
[2020-08-20] MEDS ORDERED: NALOXONE 0.4 MG/ML 1 ML VIAL IV PRN (17:40)
[2020-08-20] MEDS ORDERED: ONDANSETRON 4 MG/2 ML VIAL IVP PRN (17:40)
[2020-08-20] MEDS ORDERED: HYDROmorphone 0.5 MG/0.5 ML SYRINGE IVP PRN (17:40)
[2020-08-20] MEDS: SODIUM CHLORIDE 0.9% 1,000 ML IV SCH (17:53)
--- NOTE | 2020-08-20 19:22 | P.GSHP ---
History of Present Illness H&P Date: 08/20/20 80 yo female with a history of bladder cancer She underwent a cystectomy with ileal loop in 2017 in [facility]. SHe immediately came to [place]. I assumed her post op care. SHe developed bilateral ureteral strictures requring nephostomy tubes, antegrade stents and now looposcopy with stent exchange. She recently came to the office complaining of abdominal pain with decreased appetite She was set up for another stent change for friday but showed up in the ER this pm with increasing pain. HEr cr has increased to 2.6 but her BUN is 80 c/w dehydration SHe will be admitted for iv hydration and stent change tomorrow. I reviewed her ct scan and do not see obvious metastatic disease. IF this doesnt control her pain she will need a bone scan, If that were to be negative she made need a referral to a [facility] for loop revision - Constitutional Constitutional: Reports anorexia, Reports chronic pain, Reports lethargy, Reports poor appetite - Gastrointestinal Gastrointestinal: Reports abdominal pain - Genitourinary (Female) Genitourinary: Reports as per HPI Past Medical History Past Medical History: Cancer Additional Past Medical History / Comment(s): Bladder cancer with muscle invasion/surgery/urostomy and chemo x2, frequent UTIs, has urostomy, has Rt ureteral stent. Tachybrady syndrome with pacemaker, hx of polio. Constipation. Bruises easily. History of Any Multi-Drug Resistant Organisms: None Reported Past Surgical History: Joint Replacement Additional Past Surgical History / Comment(s): 2013 pacemaker, radical cystec joseph with ileal loop/urostomy, R nephrostomy tube, R ureteral stents, R shoulder fusion with bone from hip donor site. ORIF Lt hip. Removal hardware Rt Shoulder. Past Anesthesia/Blood Transfusion Reactions: Motion Sickness, Postoperative Nausea & Vomiting (PONV) Additional Past Anesthesia/Blood Transfusion Reaction / Comment(s): Pt has received blood in past without reaction. Type of Cardiac Device: Permanent Pacemaker Device Placement Date:: 2013 Past Psychological History: Anxiety, Depression Smoking Status: Current every day smoker Past Alcohol Use History: None Reported, Rare Past Drug Use History: None Reported - Past Family History Father History Unknown: Yes Additional Family Medical History / Comment(s): Father in a MVA when pt was young. Mother Family Medical History: Cancer, Diabetes Mellitus Additional Family Medical History / Comment(s): Cervical cancer, rheumatic fever, heart problems. Brother(s) Family Medical History: Cancer Additional Family Medical History / Comment(s): PANCREATIC Medications and Allergies Home Medications Medication Instructions Recorded Confirmed Type Flecainide [Tambocor] 50 mg PO BID@0800,199907/06/17 08/20/20 History Metoprolol Tartrate [Lopressor] 12.5 mg PO BID@0800,199907/06/17 08/20/20 History L.acidoph,Paracasei, B.lactis 1 tab PO DAILY 01/19/20 08/20/20 History [Probiotic] Acetaminophen Tab [Tylenol] 325 mg PO Q6H PRN 07/03/20 08/20/20 History HYDROcodone/APAP 5-325MG [[place] 1 tab PO QID PRN 08/20/20 08/20/20 History 5-325] Ketorolac [Toradol] 10 mg PO Q6HR PRN 08/20/20 08/20/20 History Methenamine Hippurate 1 gm PO DAILY@0800 08/20/20 08/20/20 History Multivitamins, Thera [Multivitamin 1 tab PO DAILY 08/20/20 08/20/20 History (formulary)] Ondansetron [Zofran] 4 mg PO Q8HR PRN 08/20/20 08/20/20 History Allergies Allergy/AdvReac Type Severity Reaction Status Date / Time ciprofloxacin [From Cipro] Allergy Nausea & Verified 08/20/20 17:57 Vomiting hydrocodone Allergy Vomiting, Verified 08/20/20 17:57 CAN TAKE LOW DOSES hydromorphone [From Dilaudid] Allergy Vomiting Verified 08/20/20 17:57 morphine Allergy Vomiting Verified 08/20/20 17:57 nitrofurantoin Allergy Swelling Verified 08/20/20 17:57 [From Macrobid] oxycodone Allergy Vomiting Verified 08/20/20 17:57 Penicillins Allergy Rash/Hives Verified 08/20/20 17:57 cetirizine [From Zyrtec] AdvReac Swelling Verified 08/20/20 17:57 codeine AdvReac Vomiting Verified 08/20/20 17:57 ketorolac [From Toradol] AdvReac avoids due Verified 08/20/20 17:57 to kidneys linezolid AdvReac Swelling Verified 08/20/20 17:57 metoclopramide [From Reglan] AdvReac Hallucinati Verified 08/20/20 17:57 ons zolpidem [From Ambien] AdvReac Hallucinati Verified 08/20/20 17:57 ons narcotics AdvReac Vomiting Uncoded 07/03/20 16:29 Surgical - Exam Vital Signs Temp Pulse Resp BP Pulse Ox 98.3 F 74 18 109/65 97 08/20/20 16:31 08/20/20 16:31 08/20/20 16:31 08/20/20 16:31 08/20/20 16:31 - General well developed, chronically ill - Eyes PERRL - ENT no hearing loss - Respiratory normal expansion, normal respiratory effort - Cardiovascular Rhythm: regular - Abdomen rlq ileal loop Abdomen: soft, non tender - Integumentary no rash, no growths - Neurologic normal coordination, normal sensation - Musculoskeletal normal posture - Psychiatric oriented to time, oriented to person, oriented to place, speech is normal, memory intact Results - Labs 08/20/20 16:54 08/20/20 16:54 Abnormal Lab Results - Last 24 Hours (Table) 08/20/20 08/20/20 Range/Units 16:54 16:54 WBC 11.3 H (3.8-10.6) k/uL Carbon Dioxide 21 L (22-30) mmol/L BUN 80 H (7-17) mg/dL Creatinine 2.61 H (0.52-1.04) mg/dL Glucose 121 H (74-99) mg/dL Diabetes panel 08/20/20 Range/Units 16:54 Sodium 138 (137-145) mmol/L Potassium 4.5 (3.5-5.1) mmol/L Chloride 107 (98-107) mmol/L Carbon Dioxide 21 L (22-30) mmol/L BUN 80 H (7-17) mg/dL Creatinine 2.61 H (0.52-1.04) mg/dL Glucose 121 H (74-99) mg/dL Calcium 10.0 (8.4-10.2) mg/dL AST 20 (14-36) U/L ALT 8 (4-34) U/L Alkaline Phosphatase 71 (38-126) U/L Total Protein 7.2 (6.3-8.2) g/dL Albumin 4.0 (3.5-5.0) g/dL Calcium panel 08/20/20 Range/Units 16:54 Calcium 10.0 (8.4-10.2) mg/dL Albumin 4.0 (3.5-5.0) g/dL Pituitary panel 08/20/20 Range/Units 16:54 Sodium 138 (137-145) mmol/L Potassium 4.5 (3.5-5.1) mmol/L Chloride 107 (98-107) mmol/L Carbon Dioxide 21 L (22-30) mmol/L BUN 80 H (7-17) mg/dL Creatinine 2.61 H (0.52-1.04) mg/dL Glucose 121 H (74-99) mg/dL Calcium 10.0 (8.4-10.2) mg/dL Adrenal panel 08/20/20 Range/Units 16:54 Sodium 138 (137-145) mmol/L Potassium 4.5 (3.5-5.1) mmol/L Chloride 107 (98-107) mmol/L Carbon Dioxide 21 L (22-30) mmol/L BUN 80 H (7-17) mg/dL Creatinine 2.61 H (0.52-1.04) mg/dL Glucose 121 H (74-99) mg/dL Calcium 10.0 (8.4-10.2) mg/dL Total Bilirubin 0.4 (0.2-1.3) mg/dL AST 20 (14-36) U/L ALT 8 (4-34) U/L Alkaline Phosphatase 71 (38-126) U/L Total Protein 7.2 (6.3-8.2) g/dL Albumin 4.0 (3.5-5.0) g/dL - Imaging CT scan - abdomen: report reviewed, image reviewed CT scan - pelvis: report reviewed, image reviewed Assessment and Plan Assessment: Impression: Dehydration. bladder cancer. Bilateral ureteral strictures. Stent pain Plan: Iv hydration Stent exchange
[2020-08-20 20:26] LABS: Appearance,Urine Cloudy (Clear); Bacteria,Urine Rare /hpf; Bilirubin,Urine Negative (Negative); Blood,Urine Moderate (Negative); Color,Urine Yellow; Glucose,Urine (UA) Negative (Negative); Ketones,Urine Negative (Negative); Leukocyte Esterase,Urine Large (Negative); Mucus,Urine Rare /hpf; Nitrite,Urine Negative (Negative); PH, Urine 6.5 (5.0-8.0); Protein,Urine 1+ (Negative); RBC,Urine 31 /hpf (0-5); Specific Gravity,Urine 1.011 (1.001-1.035); Squamous Epithelial Cell,Urine <1 /hpf (0-4); Urobilinogen,Urine <2.0 mg/dL (<2.0); WBC,Urine 127 /hpf (0-5)
[2020-08-20] MEDS ORDERED: GENTAMICIN 80 MG in SODIUM CHLORIDE 0.9% 100 ML IVPB ONE (22:17)
[2020-08-21] MEDS ORDERED: FLECAINIDE 50 MG TAB PO ONE (00:15)
[2020-08-21] MEDS ORDERED: METOPROLOL TARTRATE 25 MG TAB PO ONE (00:15)
[2020-08-21 02:41] VITALS: RESP 16
[2020-08-21] MEDS: SODIUM CHLORIDE 0.9% 1,000 ML IV SCH (04:46)
[2020-08-21 07:55] LABS: Basophils % (A) 0 %; Eosinophils # (A) 0.5 k/uL (0-0.7); Eosinophils % (A) 7 %; HCT 30.8 % (34.0-46.0); HGB 10.2 gm/dL (11.4-16.0); Lymphocytes # (A) 1.9 k/uL (1.0-4.8); Lymphocytes % (A) 28 %; MCH 31.8 pg (25.0-35.0); MCHC 33.2 g/dL (31.0-37.0); MCV 95.9 fL (80.0-100.0); Mean Platelet Volume 7.4; Monocytes # (A) 0.6 k/uL (0-1.0); Monocytes % (A) 8 %; Neutrophils # (A) 3.7 k/uL (1.3-7.7); Neutrophils % (A) 54 %; Platelet Count 152 k/uL (150-450); RBC 3.21 m/uL (3.80-5.40); RDW 12.9 % (11.5-15.5); WBC 6.9 k/uL (3.8-10.6)
[2020-08-21] MEDS ORDERED: Methenamine Hippurate [Methenamine Hippurate] 1 GM Tablet PO SCH (08:00)
[2020-08-21] MEDS ORDERED: FLECAINIDE 50 MG TAB PO SCH (08:00)
[2020-08-21] MEDS ORDERED: METOPROLOL TARTRATE 25 MG TAB PO SCH (08:00)
[2020-08-21 08:03] LABS: Calcium 8.8 mg/dL (8.4-10.2); Potassium 5.2 mmol/L (3.5-5.1)
[2020-08-21] MEDS ORDERED: NON FORMULARY DRUG (L.Acidoph,Paracasei, B.Lactis [Probiotic] 1 EACH Capsule) PO SCH (09:00)
[2020-08-21] MEDS ORDERED: MULTIVITAMINS, THERA 1 EACH TAB PO SCH (09:00)
[2020-08-21] MEDS ORDERED: IV FLUID CONTINUATION 1,000 ML IV ONE (13:24)
[2020-08-21] MEDS ORDERED: DEXAMETHASONE SOD PHOSPHATE 4 MG/ML 1 ML VIAL IVP ONE (13:54)
[2020-08-21] MEDS ORDERED: ONDANSETRON 4 MG/2 ML VIAL IVP ONE (13:54)
[2020-08-21] MEDS ORDERED: MIDAZOLAM 2 MG/2 ML VIAL ONE (14:17)
[2020-08-21] MEDS ORDERED: PROPOFOL 10 MG/ML 20 ML VIAL IV ONE (14:17)
[2020-08-21] MEDS ORDERED: fentaNYL (PF) 50 MCG/ML 2 ML AMP ONE (14:17)
[2020-08-21] MEDS ORDERED: ePHEDrine SULFATE/0.9% NACL/PF 50 MG/5 ML SYRINGE IV ONE (14:17)
[2020-08-21] MEDS ORDERED: LIDOCAINE 1% INJ 10MG/ML (20 ML MDV) ONE (14:17)
--- NOTE | 2020-08-21 15:04 | P.OP ---
Date of Procedure: 08/21/20 Preoperative Diagnosis: Right flank pain, bilateral hydronephrosis secondary to ureteral stricture status post cystectomy Postoperative Diagnosis: Same Procedure(s) Performed: Looposcopy with exchange of right double-J catheter, 7 x 28 Anesthesia: RAKAN Surgeon: Fei Alexis Pathology: none sent Condition: stable Disposition: PACU Indications for Procedure: The patient is 80. She has an ileal loop status post cystectomy 3 years ago in [place]. She developed bilateral hydroureteronephrosis due to ureteral strictures. There's been no evidence of recurrence of the cancer despite 2 positive lymph nodes. She recently was seen because of persistent right-sided flank pain. The double-J catheter appears to have migrated into the mid ureter on the right side. I reviewed the CAT scan and did not see any evidence of lymphadenopathy. She comes for exchange of double-J catheters. She was admitted to the hospital last night for IV hydration Description of Procedure: The patient is brought to the operating suite. She's given general LMA anesthetic. She is prepped and draped sterilely. There is a double-J catheter emanating from the ileal loop. An 035 wires passed through this and this indeed is the right double-J catheter. I slowly advanced the wire up into the renal pelvis. I remove the double-J catheter carefully. I passed a new 7 x 28 double-J catheter that migrates through a loop in the right mid ureter. It straightened that out and places the loop in the renal pelvis and now in the base of the ileal loop. I then pass the flexible cystoscope into the base of the loop. I see the left double-J catheter which is positioned nicely in the renal pelvis on fluoroscopy. Given that the 2 double-J catheters are almost intertwined in the base of the ileal loop I elect not to exchange the left side as it was just placed about a month ago. The patient is awake and returned recovery room good condition. Appliances been replaced. We'll see how she responds to this with regard to her pain. If her pain goes away when. At the migration of the stent into the middle of the right ureter is the cause of her pain. We will then have to decide to manage this if the stent continues to migrate distally.
--- NOTE | 2020-08-21 16:29 | FL ---
Fluoroscopy HISTORY: Right-sided stent exchange 88 seconds fluoroscopy time supplied to the referring clinician. 1 intraoperative C-arm images docum ent the procedure. See dictated report from urology.
[2020-08-21 17:21] VITALS: TEMP 98.2
[2020-08-21 17:23] VITALS: BP 146/78; PULSE 61
== END 2020-08-21 17:40 | disposition home or self-care (01) | DRG 694 ==
LOC: EC 16:23 → 6PED 17:55
PROVIDERS: ADMIT Urology; ATTEND Urology
PROC: 0TP97DZ Removal of Intraluminal Device from Ureter, Via Natural or Artificial Opening (ICD-10-PCS; principal; 2020-08-20)
PROC: 0T767DZ Dilation of Right Ureter with Intraluminal Device, Via Natural or Artificial Opening (ICD-10-PCS; principal; 2020-08-20)
PROC: 0TJ98ZZ Inspection of Ureter, Via Natural or Artificial Opening Endoscopic (ICD-10-PCS; principal; 2020-08-20)
DX: N13.1 Hydronephrosis with ureteral stricture, not elsewhere classified (principal); N17.9 Acute kidney failure, unspecified; I49.5 Sick sinus syndrome; E86.0 Dehydration; K59.00 Constipation, unspecified; F17.210 Nicotine dependence, cigarettes, uncomplicated; Z79.899 Other long term (current) drug therapy; Z95.0 Presence of cardiac pacemaker; Z87.440 Personal history of urinary (tract) infections; Z85.51 Personal history of malignant neoplasm of bladder; Z86.12 Personal history of poliomyelitis; Z96.60 Presence of unspecified orthopedic joint implant; Z87.39 Personal history of other diseases of the musculoskeletal system and connective tissue; Z93.6 Other artificial openings of urinary tract status; Z86.59 Personal history of other mental and behavioral disorders; Z98.890 Other specified postprocedural states; Z88.1 Allergy status to other antibiotic agents; Z88.5 Allergy status to narcotic agent; Z88.0 Allergy status to penicillin; Z88.8 Allergy status to other drugs, medicaments and biological substances; Z83.3 Family history of diabetes mellitus; Z80.49 Family history of malignant neoplasm of other genital organs; Z83.1 Family history of other infectious and parasitic diseases; Z82.49 Family history of ischemic heart disease and other diseases of the circulatory system; Z80.0 Family history of malignant neoplasm of digestive organs
CPT/HCPCS: 36415; 80048; 80053; 81001; 85025; 85610; 85730; 87077; 87086; 87186; 96360; 96361; 99284

== ENCOUNTER 2020-08-26 10:09 | Inpatient (IN) | payer MEDICARE, BC ==
[2020-08-26] MEDS ORDERED: HYDROcodone/APAP 5-325MG 1 EACH TAB PO STA (10:33)
[2020-08-26] MEDS ORDERED: VANCOMYCIN IV PER PHARMACY 1 EACH MISC MISCELLANE PRN (10:38)
[2020-08-26] MEDS ORDERED: cefTRIAXone IN SWFI 1,000 MG/10 ML SYRINGE IVP STA (10:44)
[2020-08-26] MEDS ORDERED: SODIUM CHLORIDE 0.9% 500 ML 500 ML IV ONE ×2 (10:45→22:20)
[2020-08-26] MEDS ORDERED: VANCOMYCIN 1,000 MG in SODIUM CHLORIDE 0.9% 250 ML IVPB ONE (11:00)
--- NOTE | 2020-08-26 11:08 | ED ---
General Adult HPI - General Chief complaint: Abdominal Pain Stated complaint: Ostomy Time Seen by Provider: 08/26/20 10:22 Source: patient, RN notes reviewed, old records reviewed Mode of arrival: ambulatory Limitations: no limitations - History of Present Illness Initial comments: 80-year-old female patient to ED for evaluation. Patient has extensive medical history. Patient had her bladder removed a little over 2 years ago. Patient has an ostomy and she has ureteral stents which route the urine to the ostomy. She has been having abdominal pain for the last 3 weeks. This has somewhat come and gone however has been persistent the last 3 days. Patient recently had her stents were placed 5 days ago. This is done by urologist Dr. Alexis. She has not had a general surgeon in the area, the bladder removal was performed in [place]. She is return to Hospital today with continued abdominal pain. This is a currently in her left lower quadrant however she is also had pain in her right lower quadrant as well. She talked to her urologist today Dr. Wade who recommended she presented to Hospital for admission with IV antibiotics due to a urine culture which grew enterococcus faecalis as well as Staphylococcus epidermidis. She denies any other complaints, no cough or upper respiratory symptoms, denies any fevers any nausea vomiting or diarrhea. Systemic: Pt denies fatigue, fever/chills, rash. Pt denies weakness, night swea ts, weight loss. Neuro: Pt denies headache, visual disturbances, syncope or pre-syncope. HEENT: Pt denies ocular discharge or irritation, otalgia, rhinorrhea, pharyngitis or notable lymphadenopathy. Cardiopulmonary: Pt denies chest pain, SOB, heart palpitations, dyspnea on exertion. Abdominal/GI: Pt denies n/v/d. : Pt denies dysuria, burning w/ urination, frequency/urgency. Denies new onset urinary or bowel incontinence. MSK: Pt denies myalgia, loss of strength or function in extremities. Neuro: Pt denies new onset weakness, paresthesias. - Related Data Home Medications Medication Instructions Recorded Confirmed Flecainide [Tambocor] 50 mg PO BID@0800,199907/06/17 08/26/20 Metoprolol Tartrate [Lopressor] 12.5 mg PO BID@0800,199907/06/17 08/26/20 L.acidoph,Paracasei, B.lactis 1 tab PO DAILY 01/19/20 08/26/20 [Probiotic] Acetaminophen Tab [Tylenol] 325 mg PO Q6H PRN 07/03/20 08/26/20 HYDROcodone/APAP 5-325MG [[place] 1 tab PO QID PRN 08/20/20 08/26/20 5-325] Methenamine Hippurate 1 gm PO DAILY@0800 08/20/20 08/26/20 Multivitamins, Thera [Multivitamin 1 tab PO DAILY 08/20/20 08/26/20 (formulary)] Allergies Allergy/AdvReac Type Severity Reaction Status Date / Time ciprofloxacin [From Cipro] Allergy Nausea & Verified 08/26/20 11:19 Vomiting hydrocodone Allergy Vomiting, Verified 08/26/20 11:19 CAN TAKE LOW DOSES hydromorphone [From Dilaudid] Allergy Vomiting Verified 08/26/20 11:19 morphine Allergy Vomiting Verified 08/26/20 11:19 nitrofurantoin Allergy Swelling Verified 08/26/20 11:19 [From Macrobid] oxycodone Allergy Vomiting Verified 08/26/20 11:19 Penicillins Allergy Rash/Hives Verified 08/26/20 11:19 cetirizine [From Zyrtec] AdvReac Swelling Verified 08/26/20 11:19 codeine AdvReac Vomiting Verified 08/26/20 11:19 ketorolac [From Toradol] AdvReac avoids due Verified 08/26/20 11:19 to kidneys linezolid AdvReac Swelling Verified 08/26/20 11:19 metoclopramide [From Reglan] AdvReac Hallucinati Verified 08/26/20 11:19 ons zolpidem [From Ambien] AdvReac Hallucinati Verified 08/26/20 11:19 ons narcotics AdvReac Vomiting Uncoded 08/21/20 13:23 Review of Systems ROS Statement: Those systems with pertinent positive or pertinent negative responses have been documented in the HPI. ROS Other: All systems not noted in ROS Statement are negative. Past Medical History Past Medical History: Cancer Additional Past Medical History / Comment(s): Bladder cancer with muscle invasion/surgery/urostomy and chemo x2, frequent UTIs, has urostomy, has Rt ureteral stent. Tachybrady syndrome with pacemaker, hx of polio. Constipation. Bruises easily. History of Any Multi-Drug Resistant Organisms: None Reported Past Surgical History: Joint Replacement Additional Past Surgical History / Comment(s): 2013 pacemaker, radical cystectomy with ileal loop/urostomy, R nephrostomy tube, R ureteral stents, R shoulder fusion with bone from hip donor site. ORIF Lt hip. Removal hardware Rt Shoulder. Past Anesthesia/Blood Transfusion Reactions: Motion Sickness, Postoperative Nausea & Vomiting (PONV) Additional Past Anesthesia/Blood Transfusion Reaction / Comment(s): Pt has received blood in past without reaction. Type of Cardiac Device: Permanent Pacemaker Device Placement Date:: 2013 Past Psychological History: Anxiety, Depression Smoking Status: Current every day smoker Past Alcohol Use History: None Reported Past Drug Use History: None Reported - Past Family History Father History Unknown: Yes Additional Family Medical History / Comment(s): Father in a MVA when pt was young. Mother Family Medical History: Cancer, Diabetes Mellitus Additional Family Medical History / Comment(s): Cervical cancer, rheumatic fever, heart problems. Brother(s) Family Medical History: Cancer Additional Family Medical History / Comment(s): PANCREATIC General Exam - General Exam Comments Initial Comments: Constitutional: NAD, AOX3, Pt has pleasant affect. HEENT: NC/AT, trachea midline, neck supple, no lymphadenopathy. Posterior pharynx non erythematous, without exudates. External ears appear normal, without discharge. Mucous membranes moist. Eyes PERRLA, EOM intact. There is no scleral icterus. No pallor noted. Cardiopulmonary: RRR, no murmurs, rubs or gallops, no JVD noted. Lungs CTAB in anterior and posterior hayes. No peripheral edema. Abdominal exam: Abdomen soft and non-distended. Abdomen mildly tender to palpation in LLQ, no other areas of abdominal tenderness. Ostomy intact there is approximately 2cm of visible stent. No hepatosplenomegaly. No ecchymosis Neuro: CN II-XII grossly intact. No nuchal rigidity. No raccon eyes, no mack sign, no hemotympanum. No cervical spinal tenderness. MSK: Full active ROM in upper and lower extremities, 5/5 stregnth. Limitations: no limitations Course Vital Signs 08/26/20 08/26/20 10:10 12:18 Temperature 98.7 F Pulse Rate 86 61 Respiratory 18 18 Rate Blood Pressure 115/74 96/47 O2 Sat by Pulse 99 99 Oximetry Medical Decision Making - Medical Decision Making 80-year-old female patient to ED for evaluation of abdominal pain. Vital signs stable, afebrile. Physical exam displayed mild tenderness in the left lower quadrant region. stent is noted in the ostomy. Physical exam is otherwise unremarkable. Laboratory investigations revealed improved kidney function. Previous urine culture reveals enterococcus faecalis as well as Staphylococcus epidermis. CT abdomen and pelvis without contrast displayed distal above the right stent remains proximal to the urostomy moderate to severe left-sided hydronephrosis slightly worse from April. Distal loop may need to be pulled other urostomy. Some urothelial thickening the right renal collecting system could be post inflammatory change or possible UTI. . Patient was initiated on vancomycin. Case was discussed with Dr. Wade. He is in agreement with plan and will see the patient on consult. I discussed case with the admitting physician Dr. Vera who recommends ID consult. Discussed case in depth with patient as well as family they're in agreement with plan. Case discussed with Dr. Vasquez. - Lab Data Result diagrams: 08/26/20 10:46 08/26/20 10:46 Lab Results 08/26/20 08/26/20 08/26/20 Range/Units 10:46 10:46 10:46 WBC 8.6 (3.8-10.6) k/uL RBC 3.86 (3.80-5.40) m/uL Hgb 12.3 (11.4-16.0) gm/dL Hct 36.4 (34.0-46.0) % MCV 94.4 (80.0-100.0) fL MCH 31.8 (25.0-35.0) pg MCHC 33.7 (31.0-37.0) g/dL RDW 13.4 (11.5-15.5) % Plt Count 225 (150-450) k/uL MPV 7.5 Neutrophils % 61 % Lymphocytes % 21 % Monocytes % 8 % Eosinophils % 7 % Basophils % 1 % Neutrophils # 5.3 (1.3-7.7) k/uL Lymphocytes # 1.8 (1.0-4.8) k/uL Monocytes # 0.7 (0-1.0) k/uL Eosinophils # 0.6 (0-0.7) k/uL Basophils # 0.1 (0-0.2) k/uL Sodium 141 (137-145) mmol/L Potassium 4.3 (3.5-5.1) mmol/L Chloride 113 H (98-107) mmol/L Carbon Dioxide 22 (22-30) mmol/L Anion Gap 6 mmol/L BUN 49 H (7-17) mg/dL Creatinine 1.74 H (0.52-1.04) mg/dL Est GFR (CKD-EPI)AfAm 32 (>60 ml/min/1.73 sqM) Est GFR (CKD-EPI)NonAf 28 (>60 ml/min/1.73 sqM) Glucose 87 (74-99) mg/dL Plasma Lactic Acid Jae 1.0 (0.7-2.0) mmol/L Calcium 9.6 (8.4-10.2) mg/dL Total Bilirubin 0.3 (0.2-1.3) mg/dL AST 21 (14-36) U/L ALT 13 (4-34) U/L Alkaline Phosphatase 70 (38-126) U/L Total Protein 6.9 (6.3-8.2) g/dL Albumin 3.9 (3.5-5.0) g/dL Lipase 263 (23-300) U/L - EKG Data -: EKG Interpreted by Me (and Dr. Navarrete ) EKG Comments: ventricular rate 64, SD interval 392, QRS 104, QT/QTc 404/416. Electronic pacemaker. Incomplete Bundle-branch block. Cannot rule out anterior infarct age indeterminate. No concern for acute ischemia this time. Disposition Clinical Impression: Migration of ureteral stent, UTI (urinary tract infection), Abdominal pain Disposition: ADMITTED IP TO THIS HOSP Condition: Stable Is patient prescribed a controlled substance at d/c from ED?: No Referrals: Sonny Villar DO [Primary Care Provider] - 1-2 days
[2020-08-26 11:10] LABS: Basophils # (A) 0.1 k/uL (0-0.2); Basophils % (A) 1 %; Eosinophils # (A) 0.6 k/uL (0-0.7); Eosinophils % (A) 7 %; HCT 36.4 % (34.0-46.0); HGB 12.3 gm/dL (11.4-16.0); Lymphocytes # (A) 1.8 k/uL (1.0-4.8); Lymphocytes % (A) 21 %; MCH 31.8 pg (25.0-35.0); MCHC 33.7 g/dL (31.0-37.0); MCV 94.4 fL (80.0-100.0); Mean Platelet Volume 7.5; Monocytes # (A) 0.7 k/uL (0-1.0); Monocytes % (A) 8 %; Neutrophils # (A) 5.3 k/uL (1.3-7.7); Neutrophils % (A) 61 %; Platelet Count 225 k/uL (150-450); RBC 3.86 m/uL (3.80-5.40); RDW 13.4 % (11.5-15.5); WBC 8.6 k/uL (3.8-10.6)
[2020-08-26 11:21] LABS: Albumin 3.9 g/dL (3.5-5.0); Calcium 9.6 mg/dL (8.4-10.2); Potassium 4.3 mmol/L (3.5-5.1); Total Bilirubin 0.3 mg/dL (0.2-1.3); Total Protein 6.9 g/dL (6.3-8.2)
--- NOTE | 2020-08-26 11:56 | CT ---
EXAMINATION TYPE: CT abdomen pelvis wo con DATE OF EXAM: 08/26/2020 COMPARISON: 04/20/2020 HISTORY: 80 year-old female left lower quadrant pain post ureteral stent placements CT DLP: 413.2 mGycm. Automated exposure control for dose reduction was used. TECHNIQUE: Contiguous axial scanning of the abdomen and pelvis without IV contrast. Coronal and sagit heidy reconstructions performed. FINDINGS: Heart normal size without pericardial effusion. Lung bases clear without pleural effusion. Noncontrast appearance of the liver, gallbladder, adrenal glands, spleen, pancreas and no gross evalu ate noncontrast CT. Moderate to severe atherosclerotic calcifications focally in the mid abdominal aorta may narrow the l umen down to 4 mm. No dilated small bowel, free fluid, or free air. No mesenteric or retroperitoneal lymphadenopathy macario ntified. Redemonstrated are bilateral diverticular nephrostomies with a right mid abdominal ileal conduit. Proximal loop of the right ureteral stent is low within the proximal ureter but the distal loop appea rs to be outside of the ileostomy and there is resolution of the previous right-sided hydronephrosis. There may be some underlying urothelial thickening of the collecting system however on coronal image 37. The proximal loop of the left ureteral stent is at the UPJ and there is moderate to severe hydronephr osis on this side, similar to slightly increased from 04/20/2020. The distal loop is within the abdomi nal cavity just proximal to the ileostomy. Staple line in the mid lower abdomen from prior bowel surgery. Status post cystectomy. Loops of small bowel in the lower abdomen. Moderate stool burden. No pericolo teresa inflammatory change. Left hip hemiarthroplasty. Facet arthropathy mid to lower lumbar spine with grade 1 anterolisthesis L 4-L5. IMPRESSION: 1. Prior bladder resection with diverging urostomy and right mid abdominal ileal conduit. 2. Bilateral ureteral stents. Both proximal loops of the stents remain low, the right located in the proximal ureter and the left located in the UPJ. 3. The right stent appears to have been adjusted. The distal loop is now outside of the urostomy. 4. The distal loop of the left stent remains proximal to the urostomy and there is moderate to sever e left hydronephrosis, slightly worsened from 04/20/2020. This may need to be adjusted. The distal loo p may need to be pulled out of the urostomy. Clinically correlate. 5. Some urothelial thickening of the right renal collecting system could be chronic postinflammatory change. Correlate to exclude UTI.
[2020-08-26] MEDS ORDERED: HYDROcodone/APAP 5-325MG 1 EACH TAB PO PRN ×2 (12:50→13:19)
[2020-08-26] MEDS ORDERED: NALOXONE 0.4 MG/ML 1 ML VIAL IV PRN (12:50)
[2020-08-26] MEDS ORDERED: ACETAMINOPHEN TAB 325 MG TAB PO PRN (13:19)
--- NOTE | 2020-08-26 13:39 | P.HPIM ---
History of Present Illness This is a pleasant 80 years old female with past medical history of bilateral hydronephrosis. Actually she was in the hospital a few days ago on 08/25- 60 she had right flank pain and bilateral hydronephrosis secondary to ureteral stricture status post cystectomy. At that time she had laparoscopic exchange of right double-J catheter by Dr. Henry. She had ileal loop status post cystectomy 3 years ago in [place]. She developed bilateral hydroureteronephrosis due to ureteral strictures. As per Dr. Henry There's been no evidence of recurrence of the cancer despite 2 positive lymph nodes, who also recommended The double-J c atheter appears to have migrated into the mid ureter on the right side. At that time the right J catheter was replaced while the left one left in place. For 2 days after discharge she was doing well, evening she had some pain and Friday which is yesterday she got more severe pain and there was blood in her urine. Also she's been complaining from pain on the right left and upper which was moving different sites, sometimes also move around to the back. She has tenderness in the in the left lower quadrant close to the ileostomy. She is also had chemotherapy before and she follows up with office follow- up, her next appointment with him is on October She has history of pacemaker and on flecainide for cardiac arrhythmia and she follow up with Dr. Traore as an outpatient. Currently she is asymptomatic regarding this also patient states recently has tried Zyvox and caused her itching and ALLERGIC reaction and she does not want to take it anymore. Her urine culture from 10/21 showing enterococcus faecalis as well as Staphylococcus epidermidis. . In the emergency room she had a CAT scan of the abdomen and pelvis without contrast: Showing bilateral ureteral stent. Both proximal loops of the stents remain low, the right located in the proximal ureter and the left located in the UPJ. And there is moderate to severe left hydronephrosis slightly worsened from 04/20. There is some urothelial thickening of the right renal collecting system could be related to UTI An emergency room patient is afebrile and blood pressure is low side 96/47 Mildly elevated creatinine at 1.7 1.4-2.2. An emergency room patient received [place], ceftriaxone and IV vancomycin as well as 500 mL of NS bolus Review of Systems CONSTITUTIONAL: No fever, no malaise, no fatigue. HEENT: No recent visual problems or hearing problems. Denied any sore throat. CARDIOVASCULAR: No orthopnea, PND, no palpitations, no syncope. PULMONARY: No shortness of breath, no cough, no hemoptysis. GASTROINTESTINAL: No diarrhea, no nausea, no vomiting. Normoactive bowel sounds. NEUROLOGICAL: No headaches, no weakness, no numbness. HEMATOLOGICAL: Denies any bleeding or petechiae. GENITOURINARY: Denies any burning micturition, frequency, or urgency. MUSCULOSKELETAL/RHEUMATOLOGICAL: Denies any joint pain, swelling, or any muscle pain. ENDOCRINE: Denies any polyuria or polydipsia. Past Medical History Past Medical History: Cancer Additional Past Medical History / Comment(s): Bladder cancer with muscle i nvasion/surgery/urostomy and chemo x2, frequent UTIs, has urostomy, has Rt ureteral stent. Tachybrady syndrome with pacemaker, hx of polio. Constipation. Bruises easily. History of Any Multi-Drug Resistant Organisms: None Reported Past Surgical History: Joint Replacement Additional Past Surgical History / Comment(s): 2013 pacemaker, radical cystectomy with ileal loop/urostomy, R nephrostomy tube, R ureteral stents, R shoulder fusion with bone from hip donor site. ORIF Lt hip. Removal hardware Rt Shoulder. Past Anesthesia/Blood Transfusion Reactions: Motion Sickness, Postoperative Nausea & Vomiting (PONV) Additional Past Anesthesia/Blood Transfusion Reaction / Comment(s): Pt has received blood in past without reaction. Type of Cardiac Device: Permanent Pacemaker Device Placement Date:: 2013 Past Psychological History: Anxiety, Depression Smoking Status: Current every day smoker Past Alcohol Use History: None Reported Past Drug Use History: None Reported - Past Family History Father History Unknown: Yes Additional Family Medical History / Comment(s): Father in a MVA when pt was young. Mother Family Medical History: Cancer, Diabetes Mellitus Additional Family Medical History / Comment(s): Cervical cancer, rheumatic fever, heart problems. Brother(s) Family Medical History: Cancer Additional Family Medical History / Comment(s): PANCREATIC Medications and Allergies Home Medications Medication Instructions Recorded Confirmed Type Flecainide [Tambocor] 50 mg PO BID@080007/06/17 08/26/20 History Metoprolol Tartrate [Lopressor] 12.5 mg PO BID@0800,2000 11/05/17 12/26/20 History L.acidoph,Paracasei, B.lactis 1 tab PO DAILY 01/19/20 08/26/20 History [Probiotic] Acetaminophen Tab [Tylenol] 325 mg PO Q6H PRN 07/03/20 08/26/20 History HYDROcodone/APAP 5-325MG [[place] 1 tab PO QID PRN 08/20/20 08/26/20 History 5-325] Methenamine Hippurate 1 gm PO DAILY@0800 08/20/20 08/26/20 History Multivitamins, Thera [Multivitamin 1 tab PO DAILY 08/20/20 08/26/20 History (formulary)] Allergies Allergy/AdvReac Type Severity Reaction Status Date / Time ciprofloxacin [From Cipro] Allergy Nausea & Verified 08/26/20 11:19 Vomiting hydrocodone Allergy Vomiting, Verified 08/26/20 11:19 CAN TAKE LOW DOSES hydromorphone [From Dilaudid] Allergy Vomiting Verified 08/26/20 11:19 morphine Allergy Vomiting Verified 08/26/20 11:19 nitrofurantoin Allergy Swelling Verified 08/26/20 11:19 [From Macrobid] oxycodone Allergy Vomiting Verified 08/26/20 11:19 Penicillins Allergy Rash/Hives Verified 08/26/20 11:19 cetirizine [From Zyrtec] AdvReac Swelling Verified 08/26/20 11:19 codeine AdvReac Vomiting Verified 08/26/20 11:19 ketorolac [From Toradol] AdvReac avoids due Verified 08/26/20 11:19 to kidneys linezolid AdvReac Swelling Verified 08/26/20 11:19 metoclopramide [From Reglan] AdvReac Hallucinati Verified 08/26/20 11:19 ons zolpidem [From Ambien] AdvReac Hallucinati Verified 08/26/20 11:19 ons narcotics AdvReac Vomiting Uncoded 08/21/20 13:23 Physical Exam Vitals: Vital Signs Temp Pulse Resp BP Pulse Ox 08/26/20 12:18 61 18 96/47 99 08/26/20 10:10 98.7 F 86 18 115/74 99 Intake and Output 08/25/20 08/26/20 08/26/20 22:59 06:59 14:59 Other: Weight 54.431 kg GENERAL: The patient is alert and oriented x3, not in any acute distress. Well developed, well nourished. HEENT: Pupils are round and equally reacting to light. EOMI. No scleral icterus. No conjunctival pallor. Normocephalic, atraumatic. No pharyngeal erythema. No thyromegaly. CARDIOVASCULAR: S1 and S2 present. No murmurs, rubs, or gallops. PULMONARY: Chest is clear to auscultation, no wheezing or crackles. -ABDOMEN: Soft, nontender, nondistended, normoactive bowel sounds. No palpable organomegaly. Right lower quadrant ileostomy. And there is a urostomy tube seen coming ABOUT 1 cm from the orifice. Also left lower quadrant tenderness with no rebound tenderness MUSCULOSKELETAL: No joint swelling or deformity. EXTREMITIES: No cyanosis, clubbing, or pedal edema. NEUROLOGICAL: Gross neurological examination did not reveal any focal deficits. SKIN: No rashes. No petechiae Results CBC & Chem 7: 08/26/20 10:46 08/26/20 10:46 Labs: Abnormal Lab Results - Last 24 Hours (Table) 08/26/20 Range/Units 10:46 Chloride 113 H (98-107) mmol/L BUN 49 H (7-17) mg/dL Creatinine 1.74 H (0.52-1.04) mg/dL Assessment and Plan Assessment: Bilateral hydronephrosis status post bilateral ureteral stent placement, right side stent was replaced 5 days prior to this admission Acute urinary tract infection with enterococcus faecalis as well as Staphylococcus epidermidis. 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 Consult urology, pain management. Continue with antibiotics as per ID team. Continue with IV hydration Labs and medication were reviewed.. Continue same treatment. Continue with symptomatic treatment. Resume home medication. Monitor lytes and vitals. DVT and GI prophylaxis. Further recommendations depends on the clinical course of the patient DVT prophylaxis: Subcutaneous heparin GI Prophylaxis: Pepcid PT/OT: Pending Prognosis is guarded
[2020-08-26] MEDS ORDERED: METOPROLOL TARTRATE 12.5 MG TAB PO SCH (20:00)
[2020-08-26] MEDS: FLECAINIDE 50 MG TAB PO SCH (20:17)
[2020-08-26] MEDS: ASPIRIN 81 MG PO SCH (20:17)
[2020-08-26 22:42] LABS: Appearance,Urine Clear (Clear); Bacteria,Urine Rare /hpf; Bilirubin,Urine Negative (Negative); Blood,Urine Moderate (Negative); Color,Urine Light Yellow; Glucose,Urine (UA) Negative (Negative); Hyaline Casts,Urine 1 /lpf (0-2); Ketones,Urine Negative (Negative); Leukocyte Esterase,Urine Large (Negative); Nitrite,Urine Negative (Negative); PH, Urine 6.5 (5.0-8.0); Protein,Urine 1+ (Negative); RBC,Urine 43 /hpf (0-5); Specific Gravity,Urine 1.012 (1.001-1.035); Urobilinogen,Urine <2.0 mg/dL (<2.0); WBC,Urine 36 /hpf (0-5)
--- NOTE | 2020-08-27 06:45 | CONS ---
CONSULTATION DATE OF SERVICE: 08/26/2020 REASON FOR CONSULTATION: Complicated urinary tract infection with multiple antibiotic allergies. HISTORY OF PRESENT ILLNESS: The patient is a 80-year-old female with past medical history significant for bladder cancer status post cystectomy and urostomy formation. This patient also has a ureteral stent that was recently changed on Friday, as the patient was having some abdominal pain. The patient did mention that Friday and Friday she felt the best in her life. No abdominal pain. However, she started having pain mostly in the lower abdominal area described to be dull aching to sharp 6-7/10 with no radiation. The patient denies any nausea, no vomiting. Denies any chest pain, shortness of breath, cough or fever. With the pain getting worse, the patient presented to [facility] ER. The patient apparently did have a urine culture done on the at the time she had the ureteral stent placement and those cultures currently positive for Enterococcus faecalis and Staph epidermidis. The patient did have multiple antibiotic allergies. Patient was started on vancomycin and has been admitted to the hospital. Infectious Disease was consulted for further management of antibiotic therapy. On presentation hospital the patient has been afebrile. Did have a normal white count. Urine obtained from urostomy after change did show large leukocyte esterase and 36 WBC. REVIEW OF SYSTEMS: Positive points have been mentioned in HPI. Rest of the systems are negative. PAST MEDICAL HISTORY: Bladder cancer, frequent UTI. PAST SURGICAL HISTORY: Pacemaker placement, radical cystectomy with ileal loop urostomy, right nephrostomy tube, right ureteral stent placement, ORIF left hip. SOCIAL HISTORY: Current everyday smoker. No drinking or drug use. FAMILY HISTORY: No pertinent findings noticed. ALLERGIES: CIPRO, NITROFURANTOIN, PENICILLIN, . MEDICATIONS: The patient is currently on vancomycin, Pharmacy to dose, Narcan, Tambocor, aspirin, [place] and Tylenol. PHYSICAL EXAMINATION: VITAL SIGNS: Blood pressure 110/65 with a pulse of 54, temperature 98.2, she is 98% on room air. GENERAL DESCRIPTION: The patient is an elderly female lying in bed in no distress. No tachypnea or accessory muscle of respiration use. HEENT: Examination shows no pallor or scleral icterus. Oral mucous membrane is dry. No pharyngeal erythema or thrush. NECK: Trachea central, no thyromegaly. LUNGS: Unlabored breathing, clear to auscultation anteriorly. No wheeze or crackle. HEART: S1, S2. Regular rate and rhythm. ABDOMEN: Soft, no tenderness. No guarding or rigidity. EXTREMITIES: No edema of the feet. SKIN: No rash or mass palpable. NEUROLOGICAL: Patient is awake, alert, oriented times 2. Mood and affect normal. LABS: Hemoglobin is 12.8, white count 8.6, BUN of 49, creatinine 1.74. Electrolytes are normal. Liver enzymes are normal. Urine is positive. Urine culture done on July 21 shows Staph epi, Enterococcus faecalis with vancomycin DOUG of 2. The patient did have a CT of abdomen and pelvis with bilateral ureteral stents with moderate to severe left-sided hydronephrosis slightly worse from the 04/2020. DIAGNOSTIC IMPRESSION: 1. Patient admitted to the hospital with abdominal pain in this patient with history of bladder cancer in this patient who is status post radical cystectomy and urostomy with evidence of bilateral hydronephrosis with recent ureteral stent placement. The patient's recent urine cultures were also positive for Enterococcus faecalis and Staph epi, both of them have a vancomycin DOUG of 2, though Enterococcus sensitive pathogen. The patient is allergic to PENICILLIN. 2. Patient did have elevated creatinine, high risk of nephrotoxicity from vancomycin. PLAN: 1. Discontinue the vancomycin. 2. We will start the patient on daptomycin 4 mg/kg daily. 3. We will wait for the repeat urine culture to finalize to determine her discharge antibiotics. Thank you for this consultation. Will follow this patient along with you. MMODL / IJN: [id number] /
[2020-08-27] MEDS: FLECAINIDE 50 MG TAB PO SCH ×2 (06:56→20:45)
[2020-08-27 07:35] LABS: Basophils % (A) 0 %; Eosinophils # (A) 0.5 k/uL (0-0.7); Eosinophils % (A) 8 %; HCT 31.2 % (34.0-46.0); HGB 10.6 gm/dL (11.4-16.0); Lymphocytes # (A) 1.6 k/uL (1.0-4.8); Lymphocytes % (A) 26 %; Mean Platelet Volume 7.8; Monocytes # (A) 0.6 k/uL (0-1.0); Monocytes % (A) 9 %; Neutrophils # (A) 3.3 k/uL (1.3-7.7); Neutrophils % (A) 55 %; Platelet Count 182 k/uL (150-450); RBC 3.32 m/uL (3.80-5.40); RDW 13.5 % (11.5-15.5); WBC 6.1 k/uL (3.8-10.6)
[2020-08-27] MEDS ORDERED: VANCOMYCIN 1,000 MG in SODIUM CHLORIDE 0.9% 250 ML IVPB ONE (09:00)
--- NOTE | 2020-08-27 10:26 | P.GSCN ---
History of Present Illness Consult date: 08/27/20 Reason for Consult: UTI, Right sided hydronephrosis History of present illness: Ms Barker is a 80 yo female with a history of bladder cancer She underwent a cystectomy with ileal loop in 2018 in [place]. She follow us up with Dr Alexis, She developed bilateral ureteral strictures requring nephostomy tubes, antegrade stents and now looposcopy with stent exchange. She had was recently admitted with KELI, and worsening pain, it was found that the right stent has migrated to proximal ureter. She underwent right stent exchange on 08/23 and was discharged home. She indicated since discharge she has not had any improvement of her pain. She described her pain as diffuse abdominal pain not localized to specific area. She also complains of fatigue, denies any fevers/chills. On presentation she underwent a CT which showed that the right stent has migrated back to the proximal ureter. But of note her creatinine has improved and is back to baseline at 1.7. Of note her culture from her last admission was positive. She indicated this a.m. her pain has improved. Review of Systems - Constitutional Reports fatigue, Reports weakness, Denies fever, Denies weight loss - EENT Ears, nose, mouth and throat: Denies dysphagia - Cardiovascular Denies chest pain, Denies shortness of breath - Respiratory Denies cough, Denies 7 - Gastrointestinal Reports abdominal pain, Denies nausea, Denies vomiting - Genitourinary Genitourinary: Reports flank pain, Reports hematuria - Neurological Denies headaches, Denies syncope Past Medical History Past Medical History: Cancer Additional Past Medical History / Comment(s): Bladder cancer with muscle invasion/surgery/urostomy and chemo x2, frequent UTIs, has urostomy, has Rt ureteral stent. Tachybrady syndrome with pacemaker, hx of polio. Constipation. Bruises easily. History of Any Multi-Drug Resistant Organisms: None Reported Past Surgical History: Joint Replacement Additional Past Surgical History / Comment(s): 2013 pacemaker, radical cystectomy with ileal loop/urostomy, R nephrostomy tube, R ureteral stents, R shoulder fusion with bone from hip donor site. ORIF Lt hip. Removal hardware Rt Shoulder. Past Anesthesia/Blood Transfusion Reactions: Motion Sickness, Postoperative Nausea & Vomiting (PONV) Additional Past Anesthesia/Blood Transfusion Reaction / Comm: Pt has received blood in past without reaction. Type of Cardiac Device: Permanent Pacemaker Device Placement Date:: 2013 Past Psychological History: Anxiety, Depression Smoking Status: Current every day smoker Past Alcohol Use History: None Reported Past Drug Use History: None Reported - Past Family History Father History Unknown: Yes Additional Family Medical History / Comment(s): Father in a MVA when pt was young. Mother Family Medical History: Cancer, Diabetes Mellitus Additional Family Medical History / Comment(s): Cervical cancer, rheumatic fever, heart problems. Brother(s) Family Medical History: Cancer Additional Family Medical History / Comment(s): PANCREATIC Medications and Allergies Home Medications Medication Instructions Recorded Confirmed Type Flecainide [Tambocor] 50 mg PO BID@0800,199907/06/17 08/26/20 History Metoprolol Tartrate [Lopressor] 12.5 mg PO BID@0800,199907/06/17 08/26/20 History L.acidoph,Paracasei, B.lactis 1 tab PO DAILY 01/19/20 08/26/20 History [Probiotic] Acetaminophen Tab [Tylenol] 325 mg PO Q6H PRN 07/03/20 08/26/20 History HYDROcodone/APAP 5-325MG [[place] 1 tab PO QID PRN 08/20/20 08/26/20 History 5-325] Methenamine Hippurate 1 gm PO DAILY@0800 08/20/20 08/26/20 History Multivitamins, Thera [Multivitamin 1 tab PO DAILY 08/20/20 08/26/20 History (formulary)] Allergies Allergy/AdvReac Type Severity Reaction Status Date / Time ciprofloxacin [From Cipro] Allergy Nausea & Verified 08/26/20 11:19 Vomiting hydromorphone [From Dilaudid] Allergy Vomiting Verified 08/26/20 11:19 morphine Allergy Vomiting Verified 08/26/20 11:19 nitrofurantoin Allergy Swelling Verified 08/26/20 11:19 [From Macrobid] oxycodone Allergy Vomiting Verified 08/26/20 11:19 Penicillins Allergy Rash/Hives Verified 08/26/20 11:19 cetirizine [From Zyrtec] AdvReac Swelling Verified 08/26/20 11:19 codeine AdvReac Vomiting Verified 08/26/20 11:19 ketorolac [From Toradol] AdvReac avoids due Verified 08/26/20 11:19 to kidneys linezolid AdvReac Swelling Verified 08/26/20 11:19 metoclopramide [From Reglan] AdvReac Hallucinati Verified 08/26/20 11:19 ons zolpidem [From Ambien] AdvReac Hallucinati Verified 08/26/20 11:19 ons narcotics AdvReac Vomiting Uncoded 08/21/20 13:23 Surgical - Exam Vital Signs Temp Pulse Resp BP Pulse Ox 98.7 F 86 18 115/74 99 08/26/20 10:10 08/26/20 10:10 08/26/20 10:10 08/26/20 10:10 08/26/20 10:10 - General well developed, well nourished, no distress, no pain - Eyes PERRL, normal ocular movement - ENT normal nares, normal mucosa - Respiratory normal expansion, normal respiratory effort - Abdomen Abdomen: soft, non tender - Psychiatric oriented to time, oriented to person, oriented to place Results - Labs 08/27/20 07:03 08/26/20 10:46 Abnormal Lab Results - Last 24 Hours (Table) 08/26/20 08/26/20 08/27/20 Range/Units 10:46 10:56 07:03 RBC 3.32 L (3.80-5.40) m/uL Hgb 10.6 L (11.4-16.0) gm/dL Hct 31.2 L (34.0-46.0) % Chloride 113 H (98-107) mmol/L BUN 49 H (7-17) mg/dL Creatinine 1.74 H (0.52-1.04) mg/dL Urine Protein 1+ H (Negative) Urine Blood Moderate H (Negative) Ur Leukocyte Esterase Large H (Negative) Urine RBC 43 H (0-5) /hpf Urine WBC 36 H (0-5) /hpf Urine WBC Clumps Rare H (None) /hpf Urine Bacteria Rare H (None) /hpf Diabetes panel 08/26/20 Range/Units 10:46 Sodium 141 (137-145) mmol/L Potassium 4.3 (3.5-5.1) mmol/L Chloride 113 H (98-107) mmol/L Carbon Dioxide 22 (22-30) mmol/L BUN 49 H (7-17) mg/dL Creatinine 1.74 H (0.52-1.04) mg/dL Glucose 87 (74-99) mg/dL Calcium 9.6 (8.4-10.2) mg/dL AST 21 (14-36) U/L ALT 13 (4-34) U/L Alkaline Phosphatase 70 (38-126) U/L Total Protein 6.9 (6.3-8.2) g/dL Albumin 3.9 (3.5-5.0) g/dL Calcium panel 08/26/20 Range/Units 10:46 Calcium 9.6 (8.4-10.2) mg/dL Albumin 3.9 (3.5-5.0) g/dL Pituitary panel 08/26/20 Range/Units 10:46 Sodium 141 (137-145) mmol/L Potassium 4.3 (3.5-5.1) mmol/L Chloride 113 H (98-107) mmol/L Carbon Dioxide 22 (22-30) mmol/L BUN 49 H (7-17) mg/dL Creatinine 1.74 H (0.52-1.04) mg/dL Glucose 87 (74-99) mg/dL Calcium 9.6 (8.4-10.2) mg/dL Adrenal panel 08/26/20 Range/Units 10:46 Sodium 141 (137-145) mmol/L Potassium 4.3 (3.5-5.1) mmol/L Chloride 113 H (98-107) mmol/L Carbon Dioxide 22 (22-30) mmol/L BUN 49 H (7-17) mg/dL Creatinine 1.74 H (0.52-1.04) mg/dL Glucose 87 (74-99) mg/dL Calcium 9.6 (8.4-10.2) mg/dL Total Bilirubin 0.3 (0.2-1.3) mg/dL AST 21 (14-36) U/L ALT 13 (4-34) U/L Alkaline Phosphatase 70 (38-126) U/L Total Protein 6.9 (6.3-8.2) g/dL Albumin 3.9 (3.5-5.0) g/dL Assessment and Plan Assessment: 80 yo female with a history of bladder cancer She underwent a cystectomy with ileal loop in 2018. Sge developed bilateral ureteral strictures requring nephostomy tubes, antegrade stents and now looposcopy with stent exchange. Had right stent exchange on 08/21, but She continued to have diffused abdominal pain. He CT showed the right stent has migrated back down. He Urine culture is positive Plan: -Continue antibiotics, antibiotics recs per Infectious disease -Given improvement of her pain and stable Creat no intervention from Urology standpoint, Give that her stent continue to migrate down she might eventually require open repair for her stricture vs chronic nephrostomy tubes -Will reasses tomorrow
--- NOTE | 2020-08-27 10:43 | P.PN ---
Subjective This is a pleasant 80 years old female with past medical history of bilateral hydronephrosis. Actually she was in the hospital a few days ago on 08/25- 60 she had right flank pain and bilateral hydronephrosis secondary to ureteral stricture status post cystectomy. At that time she had laparoscopic exchange of right double-J catheter by Dr. Henry. She had ileal loop status post cystectomy 3 years ago in [place]. She developed bilateral hydroureteronephrosis due to ureteral strictures. As per Dr. Henry There's been no evidence of recurrence of the cancer despite 2 positive lymph nodes, who also recommended The double-J catheter appears to have migrated into the mid ureter on the right side. At that time the right J catheter was replaced while the left one left in place. For 2 days after discharge she was doing well, evening she had some pain and Friday which is yesterday she got more severe pain and there was blood in her urine. Also she's been complaining from pain on the right left and upper which was moving different sites, sometimes also move around to the back. She has tenderness in the in the left lower quadrant close to the ileostomy. She is also had chemotherapy before and she follows up with office follow- up, her next appointment with him is on October She has history of pacemaker and on flecainide for cardiac arrhythmia and she follow up with Dr. Traore as an outpatient. Currently she is asymptomatic regarding this also patient states recently has tried Zyvox and caused her itching and ALL ERGIC reaction and she does not want to take it anymore. Her urine culture from 10/21 showing enterococcus faecalis as well as Staphylococcus epidermidis. . In the emergency room she had a CAT scan of the abdomen and pelvis without contrast: Showing bilateral ureteral stent. Both proximal loops of the stents remain low, the right located in the proximal ureter and the left located in the UPJ. And there is moderate to severe left hydronephrosis slightly worsened from 04/20. There is some urothelial thickening of the right renal collecting system could be related to UTI An emergency room patient is afebrile and blood pressure is low side 96/47 Mildly elevated creatinine at 1.7 1.4-2.2. An emergency room patient received Narco, ceftriaxone and IV vancomycin as well as 500 mL of NS bolus 08/27/2020 Patient is awake and alert, she still have some abdominal pain. Vitals stable and she is afebrile Her CBC shows some hemodilution with WBC 6.1K, hemoglobin 10.6 and platelets normal at 180 2K. Repeat BMP is still pending and we will follow-up the results Infectious disease input from yesterday is appreciated and her IV vancomycin was changed to daptomycin, to decrease the chances of nephrotoxicity. Urology input is also appreciated, no intervention now and keep monitoring now and she might eventually require open repair for her stricture against chronic nephrostomy tube. Metoprolol held and patient is kept on IV hydration Review of Systems CONSTITUTIONAL: No fever, no malaise, no fatigue. HEENT: No recent visual problems or hearing problems. Denied any sore throat. CARDIOVASCULAR: No orthopnea, PND, no palpitations, no syncope. PULMONARY: No shortness of breath, no cough, no hemoptysis. GASTROINTESTINAL: No diarrhea, no nausea, no vomiting. Normoactive bowel sounds. Active Medications Generic Name Dose Route Start Last Admin Trade Name Freq PRN Reason Stop Dose Admin Acetaminophen 325 mg 08/26/20 13:19 Acetaminophen Tab 325 Mg Tab PO Q6H PRN Pain Hydrocodone Bitart/Acetaminophen 1 each 08/26/20 12:50 08/26/20 20:18 Hydrocodone/Apap 5-325mg 1 Each Tab PO 1 each Q6HR PRN Administration Moderate Pain Aspirin 162 mg 08/26/20 21:00 08/26/20 20:17 Aspirin 81 Mg PO 162 mg HS MARGARETTE Administration Flecainide Acetate 50 mg 08/26/20 20:00 08/27/20 06:56 Flecainide 50 Mg Tab PO 50 mg BID@0800,2000 MARGARETTE Administration Daptomycin 250 mg/ Sodium 50 mls @ 100 mls/hr 08/27/20 09:00 08/27/20 06:56 Chloride IVPB 100 mls/hr Q24HR MARGARETTE Administration Protocol Naloxone HCl 0.2 mg 08/26/20 12:50 Naloxone 0.4 Mg/Ml 1 Ml Vial IV Q2M PRN Opioid Reversal Objective - Vital Signs Vital signs: Vital Signs Temp 97.9 F 08/27/20 01:30 Pulse 71 08/27/20 05:45 Resp 14 08/27/20 05:45 BP 95/59 08/27/20 05:45 Pulse Ox 98 08/27/20 05:45 Intake & Output 08/26/20 08/27/20 08/27/20 18:59 06:59 18:59 Output Total 450 400 Balance -450 -400 Weight 54.431 kg Output: Urine 450 400 Right Lower Abdomen 250 Stool 0 - Exam GENERAL: The patient is alert and oriented x3, not in any acute distress. Well developed, well nourished. HEENT: Pupils are round and equally reacting to light. EOMI. No scleral icterus. No conjunctival pallor. Normocephalic, atraumatic. No pharyngeal erythema. No thyromegaly. CARDIOVASCULAR: S1 and S2 present. No murmurs, rubs, or gallops. PULMONARY: Chest is clear to auscultation, no wheezing or crackles. -ABDOMEN: Soft, bilateral lower abdominal tenderness, no rebound tenderness, nondistended, normoactive bowel sounds. No palpable organomegaly. Right lower quadrant ileal loop for urine output MUSCULOSKELETAL: No joint swelling or deformity. EXTREMITIES: No cyanosis, clubbing, or pedal edema. NEUROLOGICAL: Gross neurological examination did not reveal any focal deficits. SKIN: No rashes. no petechiae. - Labs CBC & Chem 7: 08/27/20 07:03 08/26/20 10:46 Labs: Abnormal Lab Results - Last 24 Hours (Table) 08/26/20 08/26/20 08/27/20 Range/Units 10:46 10:56 07:03 RBC 3.32 L (3.80-5.40) m/uL Hgb 10.6 L (11.4-16.0) gm/dL Hct 31.2 L (34.0-46.0) % Chloride 113 H (98-107) mmol/L BUN 49 H (7-17) mg/dL Creatinine 1.74 H (0.52-1.04) mg/dL Urine Protein 1+ H (Negative) Urine Blood Moderate H (Negative) Ur Leukocyte Esterase Large H (Negative) Urine RBC 43 H (0-5) /hpf Urine WBC 36 H (0-5) /hpf Urine WBC Clumps Rare H (None) /hpf Urine Bacteria Rare H (None) /hpf Microbiology - Last 24 Hours (Table) 08/26/20 10:56 Urine Culture - Preliminary Urine,Voided Assessment and Plan Assessment: Bilateral hydronephrosis status post bilateral ureteral stent placement, right side stent was replaced 5 days prior to this admission Acute urinary tract infection with enterococcus faecalis as well as Staphylococcus epidermidis. History of bladder cancer status post cystectomy and ileal loop Abdominal pain secondary to above Mild hypotension Chronic kidney disease, stage III to IV Plan: This is a pleasant 80 years old female who presents with bilateral hydroneph rosis status post ureteral stent placement and UTI secondary to enterococcus faecalis as well as Staphylococcus epidermidis. Follow-up recommendation by Consult urology, pain management. Continue with antibiotics as per ID team. Continue with IV hydration Labs and medication were reviewed.. Continue same treatment. Continue with symptomatic treatment. Resume home medication. Monitor lytes and vitals. DVT and GI prophylaxis. Further recommendations depends on the clinical course of the patient DVT prophylaxis: Subcutaneous heparin GI Prophylaxis: Pepcid PT/OT: Pending Prognosis is guarded
[2020-08-27] MEDS: SODIUM CHLORIDE 0.9% 1,000 ML IV SCH ×2 (11:36→20:45)
[2020-08-27 12:32] LABS: Anion Gap 5.1 mmol/L (4.00-12.00); BUN/Creat Ratio 28.67 Ratio (12.00-20.00); Calcium 8.4 mg/dL (8.7-10.3); Carbon Dioxide 18.9 mmol/L (21.6-31.8); Non-African American GFR(CKD) 32.8 (60.0-200.0); Potassium 4.5 mmol/L (3.5-5.5)
[2020-08-27 15:16] VITALS: BMI 18.8
--- NOTE | 2020-08-27 17:01 | PN ---
PROGRESS NOTE DATE OF SERVICE: 08/27/2020. REASON FOR FOLLOWUP: Complicated UTI infection. INTERVAL HISTORY: Patient is currently afebrile. Patient is breathing better. Her abdominal pain has improved. No chest pain, shortness of breath or cough. No nausea, vomiting, diarrhea. PHYSICAL EXAMINATION: Blood pressure 105/66, pulse of 72, temperature 98.2. She is 97% on room air. General description: The patient is an elderly female lying in bed in no distress. Respiratory system: Unlabored breathing, clear to auscultation anteriorly. Heart S1, S2. Regular rate and rhythm. Abdomen soft, no tenderness. LABS: Hemoglobin 7, white count 6.1, creatinine 1.5. Blood and urine culture currently pending. DIAGNOSTIC IMPRESSION AND PLAN: Patient with complicated urinary tract infection with recent urine culture positive for Enterococcus faecalis, Staph epidermidis. The patient did have MULTIPLE ANTIBIOTIC ALLERGIES currently covered with daptomycin to continue while waiting for the culture to finalize. She may benefit from IV antibiotic on discharge. We will be trying to arrange. Continue supportive care. MARY / MALINDAN: [id number] /
[2020-08-27] MEDS: ASPIRIN 81 MG PO SCH (20:45)
[2020-08-27] MEDS ORDERED: SENNOSIDES 8.6 MG TAB PO PRN (21:53)
[2020-08-28 07:03] LABS: African American GFR (CKD) 40 (>60 ml/min/1.73 sqM); Anion Gap 2 mmol/L; Blood Urea Nitrogen 35 mg/dL (7-17); Calcium 8.8 mg/dL (8.4-10.2); Carbon Dioxide 18 mmol/L (22-30); Chloride 117 mmol/L (98-107); Glucose 89 mg/dL (74-99); Non-African American GFR(CKD) 34 (>60 ml/min/1.73 sqM); Potassium 4.4 mmol/L (3.5-5.1); Sodium 137 mmol/L (137-145)
[2020-08-28 07:08] LABS: Vancomycin,Random 5.3 ug/mL
[2020-08-28] MEDS ORDERED: FAMOTIDINE 20 MG/2 ML VIAL IV SCH (09:00)
[2020-08-28] MEDS: HEPARIN SODIUM,PORCINE 5,000 UNIT/ML 1 ML VIAL SQ SCH ×2 (09:00→19:30)
[2020-08-28] MEDS: FLECAINIDE 50 MG TAB PO SCH ×2 (09:00→19:31)
--- NOTE | 2020-08-28 12:25 | P.PN ---
Subjective This is a pleasant 80 years old female with past medical history of bilateral hydronephrosis. Actually she was in the hospital a few days ago on 08/25- 60 she had right flank pain and bilateral hydronephrosis secondary to ureteral stricture status post cystectomy. At that time she had laparoscopic exchange of right double-J catheter by Dr. Henry. She had ileal loop status post cystectomy 3 years ago in [place]. She developed bilateral hydroureteronephrosis due to ureteral strictures. As per Dr. Henry There's been no evidence of recurrence of the cancer despite 2 positive lymph nodes, who also recommended The double-J catheter appears to have migrated into the mid ureter on the right side. At that time the right J catheter was replaced while the left one left in place. For 2 days after discharge she was doing well, evening she had some pain and Friday which is yesterday she got more severe pain and there was blood in her urine. Also she's been complaining from pain on the right left and upper which was moving different sites, sometimes also move around to the back. She has tenderness in the in the left lower quadrant close to the ileostomy. She is also had chemotherapy before and she follows up with office follow- up, her next appointment with him is on October She has history of pacemaker and on flecainide for cardiac arrhythmia and she follow up with Dr. Traore as an outpatient. Currently she is asymptomatic regarding this also patient states recently has tried Zyvox and caused her itching and ALL ERGIC reaction and she does not want to take it anymore. Her urine culture from 10/21 showing enterococcus faecalis as well as Staphylococcus epidermidis. . In the emergency room she had a CAT scan of the abdomen and pelvis without contrast: Showing bilateral ureteral stent. Both proximal loops of the stents remain low, the right located in the proximal ureter and the left located in the UPJ. And there is moderate to severe left hydronephrosis slightly worsened from 04/20. There is some urothelial thickening of the right renal collecting system could be related to UTI An emergency room patient is afebrile and blood pressure is low side 96/47 Mildly elevated creatinine at 1.7 1.4-2.2. An emergency room patient received Narco, ceftriaxone and IV vancomycin as well as 500 mL of NS bolus 08/27/2020 Patient is awake and alert, she still have some abdominal pain. Vitals stable and she is afebrile Her CBC shows some hemodilution with WBC 6.1K, hemoglobin 10.6 and platelets normal at 180 2K. Repeat BMP is still pending and we will follow-up the results Infectious disease input from yesterday is appreciated and her IV vancomycin was changed to daptomycin, to decrease the chances of nephrotoxicity. Urology input is also appreciated, no intervention now and keep monitoring now and she might eventually require open repair for her stricture against chronic nephrostomy tube. Metoprolol held and patient is kept on IV hydration 08/28/2020 This is a pleasant 80 years old female who was admitted with abdominal pain secondary to bilateral UTI secondary to enterococcus and staph from previous culture, repeat urinalysis on admission showed persistent UTI, repeat urine culture is growing group D enterococcus and final culture is pending. Patient is currently on daptomycin with infectious disease on the case. Urologist R following the case for bilateral stents which are possibly migrated downwards, no need for placement for now and keep monitoring for now Her creatinine is trending down 1.7 down to 1.5 and 1.45 today, her metoprolol was held and she kept on normal saline at 50 mL per hour, we will keep monitoring I discussed the plan with the patient and she agrees with it Objective - Vital Signs Vital signs: Vital Signs Temp 97.7 F 08/28/20 07:17 Pulse 70 08/28/20 07:17 Resp 18 08/28/20 07:45 BP 93/56 08/28/20 07:17 Pulse Ox 98 08/28/20 07:17 Intake & Output 08/27/20 08/28/20 08/28/20 18:59 06:59 18:59 Intake Total 180 Output Total 600 1425 Balance -600 -1425 180 Weight 54.431 kg Intake: Oral 180 Output: Urine 600 1425 Stool 0 - Exam GENERAL: The patient is alert and oriented x3, not in any acute distress. Well developed, well nourished. HEENT: Pupils are round and equally reacting to light. EOMI. No scleral icterus. No conjunctival pallor. Normocephalic, atraumatic. No pharyngeal erythema. No thyromegaly. CARDIOVASCULAR: S1 and S2 present. No murmurs, rubs, or gallops. PULMONARY: Chest is clear to auscultation, no wheezing or crackles. -ABDOMEN: Soft, bilateral lower abdominal tenderness, no rebound tenderness, nondistended, normoactive bowel sounds. No palpable organomegaly. Right lower quadrant ileal loop for urine output MUSCULOSKELETAL: No joint swelling or deformity. EXTREMITIES: No cyanosis, clubbing, or pedal edema. NEUROLOGICAL: Gross neurological examination did not reveal any focal deficits. SKIN: No rashes. no petechiae. - Labs CBC & Chem 7: 08/27/20 07:03 08/28/20 06:18 Labs: Abnormal Lab Results - Last 24 Hours (Table) 08/27/20 08/28/20 Range/Units 07:03 06:18 Chloride 118 H 117 H (96-109) mmol/L Carbon Dioxide 18.9 L 18 L (21.6-31.8) mmol/L BUN 43.0 H 35 H (9.0-27.0) mg/dL Creatinine 1.45 H (0.52-1.04) mg/dL Est GFR (CKD-EPI)AfAm 38.0 L (60.0-200.0) Est GFR (CKD-EPI)NonAf 32.8 L (60.0-200.0) BUN/Creatinine Ratio 28.67 H (12.00-20.00) Ratio Calcium 8.4 L (8.7-10.3) mg/dL Microbiology - Last 24 Hours (Table) 08/26/20 10:56 Urine Culture - Preliminary Urine,Voided Group D Enterococcus 08/26/20 11:13 Blood Culture - Preliminary Blood No Growth after 24 hours Assessment and Plan Assessment: Bilateral hydronephrosis status post bilateral ureteral stent placement, right side stent was replaced 5 days prior to this admission Acute urinary tract infection with enterococcus faecalis as well as Staphylococcus epidermidis. 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 Follow-up recommendation by Consult urology, pain management. Continue with antibiotics as per ID team. Continue with IV hydration Labs and medication were reviewed.. Continue same treatment. Continue with symptomatic treatment. Resume home medication. Monitor lytes and vitals. DVT and GI prophylaxis. Further recommendations depends on the clinical course of the patient DVT prophylaxis: Subcutaneous heparin GI Prophylaxis: Pepcid PT/OT: Pending Prognosis is guarded
--- NOTE | 2020-08-28 12:50 | P.PN ---
Progress Note - Text Progress Note Date: 08/28/20 Mrs. Barker states that her flank pain has resolved. I reviewed her computed tomography scan. Although the proximal end of the stent has migrated into the proximal ureter, the stent traverses the ureteroileal anastomotic stricture and thus is adequately relieving her obstruction. Her serum creatinine level today is 1.45. Urine culture shows group D Enterococcus. I do not feel that any urologic intervention is indicated at this time. She may be discharged home on appropriate antibiotics and follow up with Dr. Alexis next week (she already has an appointment). Please notify us if we can be of any further assistance.
[2020-08-28] MEDS: ASPIRIN 81 MG PO SCH (19:30)
[2020-08-28 19:55] VITALS: RESP 16
--- NOTE | 2020-08-28 23:43 | PN ---
PROGRESS NOTE DATE OF SERVICE: 08/28/2020 REASON FOR STAY: Complicated UTI infection. INTERVAL HISTORY: Patient is currently afebrile. Patient is breathing comfortably. The patient denies having any chest pain. No shortness of breath or cough. No nausea. No abdominal pain. No diarrhea. PHYSICAL EXAMINATION: Blood pressure 112/71 with a pulse of 71, temperature 98.6. She is 98% on room air. General description is an elderly female lying in bed in no distress. Respiratory system: Unlabored breathing, clear to auscultation anteriorly. Heart S1, S2. Regular rate and rhythm. ABDOMEN: Soft, no tenderness. LABS: BUN of 35, creatinine 1.45. Urine showing Enterococcus. DIAGNOSTIC IMPRESSION AND PLAN: Patient with Enterococcus faecalis, and urinary tract infection in this patient who does have MULTIPLE ANTIBIOTIC ALLERGIES. Patient is currently covered with daptomycin to continue for 2 weeks and a Midline and close outpatient followup. MMODL / IJN: [id number] /
[2020-08-29] MEDS: SODIUM CHLORIDE 0.9% 1,000 ML IV SCH ×2 (05:14→10:43)
[2020-08-29 07:46] VITALS: BP 104/67; PULSE 63; TEMP 97.7
[2020-08-29] MEDS: FLECAINIDE 50 MG TAB PO SCH (08:28)
[2020-08-29] MEDS: HEPARIN SODIUM,PORCINE 5,000 UNIT/ML 1 ML VIAL SQ SCH (08:28)
[2020-08-29] MEDS ORDERED: FAMOTIDINE 20 MG TAB PO SCH (09:00)
[2020-08-29 11:30] LABS: African American GFR (CKD) 41.3 (60.0-200.0); Anion Gap 2.5 mmol/L (4.00-12.00); BUN/Creat Ratio 23.57 Ratio (12.00-20.00); Calcium 8.6 mg/dL (8.7-10.3); Carbon Dioxide 21.5 mmol/L (21.6-31.8); Non-African American GFR(CKD) 35.6 (60.0-200.0); Potassium 4.4 mmol/L (3.5-5.5)
--- NOTE | 2020-08-29 15:01 | PN ---
PROGRESS NOTE DATE OF SERVICE: 08/29/2020 REASON FOR FOLLOWUP: Complicated UTI with multiple antibiotic allergies. INTERVAL HISTORY: The patient is currently afebrile. The patient is feeling better. The patient abdominal pain has improved. No chest pain, shortness of breath or cough. No diarrhea. PHYSICAL EXAMINATION: Blood pressure 104/67, pulse of 63, temperature is 97.7. She is 97% on room air. General description is an elderly female lying in bed in no distress. RESPIRATORY SYSTEM: Unlabored breathing, clear to auscultation anteriorly. HEART: S1, S2. Regular rate and rhythm. ABDOMEN: Soft, no tenderness. LABS: Creatinine 1.4. Urine showing Enterococcus faecalis. DIAGNOSTIC IMPRESSION AND PLAN: Patient with Enterococcus faecalis complicated urinary tract infection in this patient who did have PENICILLIN allergy currently on . She has responded to daptomycin to continue for another two weeks and close outpatient follow up. MMODL / IJN: [id number] /
--- NOTE | 2020-08-30 09:00 | P.DS ---
Providers Date of admission: 08/26/20 13:14 Expected date of discharge: 08/29/20 Attending physician: Jm Vera Consults: 08/26/20 12:50 Consult Physician Stat Consulting Provider: Demetrius Wade Consult Reason/Comments: ureteral stent problem, hydronephrosis, abd pain, uti Do you want consulting provider notified?: Yes Consult Physician Stat Consulting Provider: Alicia Ferrara Consult Reason/Comments: uti, multiple allergies Do you want consulting provider notified?: Yes Primary care physician: Sonny Villar Hospital Course: Final diagnosis Bilateral hydronephrosis status post bilateral ureteral stent placement, right side stent was replaced 5 days prior to this admission Acute urinary tract infection with enterococcus faecalis as well as Staphylococcus epidermidis. History of bladder cancer status post cystectomy and ileal loop Abdominal pain secondary to above Mild hypotension Chronic kidney disease, stage III to IV DVT prophylaxis GI prophylaxis Discharge disposition Patient is being discharged in a stable condition with guarded prognosis to home. Patient will follow-up with Dr. Villar in the outpatient setting upon discharge. Patient will continue with home care along with [facility] for continued IV antibiotic therapy in the form of daptomycin per infectious disease recommendations. Patient is also to follow-up with Dr. Ferrara as scheduled. Total time taken is greater than 35 minutes. History of present illness This is a 80-year-old female who was recently admitted with bilateral flank pain along with some blood in her urine and was being closely monitored. Patient was recently admitted on 08/25/2020 with flank pain along with bilateral hydronephrosis secondary to ureteral stricture status post cystectomy and apparently had a double-J catheters placed by urology. Recent imaging shows that the double-J catheter has migrated into the mid ureter on the right side and the catheter was replaced and patient also has a catheter on the left side as well. Patient's urine cultures are finalized showing enterococcus and infectious disease was following. Patient was started on IV daptomycin and will continue in the outpatient setting with home care along with the infusion center. Patient will follow-up with infectious disease in the outpatient setting. Regions creatinine was also slightly elevated although trending down and improved with IV fluids. Patient is requesting to be discharged to home. Currently no reports of chest pain, shortness of breath, or palpitations. Patient is afebrile. No reports of nausea or vomiting and patient is tolerating diet. Patient will be discharged today. Guarded prognosis On exam vital signs are stable. Temp is 97.7F, pulse is 63, respirations are 16, blood pressure is 104/67, oxygen saturation is 97% on room air. Cardio S1, S2 are muffled. Respiratory system shows diminished breath sounds at the bases with no wheezing or rhonchi noted. Abdomen is soft and nontender. Nervous system shows no focal deficits. Please refer to medication reconciliation sheet for a list of medications. Patient Condition at Discharge: Stable Plan - Discharge Summary New Discharge Prescriptions: New Aspirin 162 mg PO HS 30 Days #60 chew Famotidine [Pepcid] 20 mg PO Q24HR 30 Days #30 tab Continue Flecainide [Tambocor] 50 mg PO BID@799,1999 L.acidoph,Paracasei, B.lactis [Probiotic] 1 tab PO DAILY Acetaminophen Tab [Tylenol] 325 mg PO Q6H PRN PRN Reason: Pain Multivitamins, Thera [Multivitamin (formulary)] 1 tab PO DAILY Methenamine Hippurate 1 gm PO DAILY@0800 HYDROcodone/APAP 5-325MG [[place] 5-325] 1 tab PO QID PRN PRN Reason: Pain Discontinued Metoprolol Tartrate [Lopressor] 12.5 mg PO BID@799,1999 Discharge Medication List Flecainide [Tambocor] 50 mg PO BID@799,199907/06/17 [History] L.acidoph,Paracasei, B.lactis [Probiotic] 1 tab PO DAILY 01/19/20 [History] Acetaminophen Tab [Tylenol] 325 mg PO Q6H PRN 07/03/20 [History] HYDROcodone/APAP 5-325MG [[place] 5-325] 1 tab PO QID PRN 08/20/20 [History] Methenamine Hippurate 1 gm PO DAILY@0800 08/20/20 [History] Multivitamins, Thera [Multivitamin (formulary)] 1 tab PO DAILY 08/20/20 [History] Aspirin 162 mg PO HS 30 Days #60 chew 08/29/20 [Rx] Famotidine [Pepcid] 20 mg PO Q24HR 30 Days #30 tab 08/29/20 [Rx] Follow up Appointment(s)/Referral(s): Sonny Villar DO [Primary Care Provider] - 1-2 days [facility] [NON-STAFF] - 08/30/20 Alicia Ferrara MD [STAFF PHYSICIAN] - 10 Days [facility], [NON-STAFF] - 08/30/20 Patient Instructions/Handouts: Urinary Tract Infection in Women (GEN) Activity/Diet/Wound Care/Special Instructions: Activity Limited until follow-up Follow up with primary care provider upon discharge Continue with IV antibiotic therapy in the outpatient setting per infectious disease Continue current diet Continue to hold Metoprolol until primary care follow-up Follow-up with urology in the outpatient setting as discussed and scheduled Discharge Disposition: HOME WITH HOME HEALTH SERVICES
== END 2020-08-29 13:28 | disposition home health service (06) | DRG 690 ==
LOC: EC 10:09 → 5NMEDONC 13:14
PROVIDERS: ADMIT Internal Medicine; ATTEND Internal Medicine
PROC: 05HB33Z Insertion of Infusion Device into Right Basilic Vein, Percutaneous Approach (ICD-10-PCS; principal; 2020-08-28 17:16)
DX: N13.6 Pyonephrosis (principal); T83.122A Displacement of indwelling ureteral stent, initial encounter; N18.4 Chronic kidney disease, stage 4 (severe); Y73.2 Prosthetic and other implants, materials and accessory gastroenterology and urology devices associated with adverse incidents; F17.210 Nicotine dependence, cigarettes, uncomplicated; F32.9 Major depressive disorder, single episode, unspecified; F41.9 Anxiety disorder, unspecified; Z79.899 Other long term (current) drug therapy; Z80.49 Family history of malignant neoplasm of other genital organs; Z83.3 Family history of diabetes mellitus; Z85.51 Personal history of malignant neoplasm of bladder; Z86.12 Personal history of poliomyelitis; Z87.440 Personal history of urinary (tract) infections; Z88.0 Allergy status to penicillin; Z88.1 Allergy status to other antibiotic agents; Z93.6 Other artificial openings of urinary tract status; Z95.0 Presence of cardiac pacemaker; Z90.6 Acquired absence of other parts of urinary tract; I95.9 Hypotension, unspecified; B95.2 Enterococcus as the cause of diseases classified elsewhere; B95.7 Other staphylococcus as the cause of diseases classified elsewhere; R31.9 Hematuria, unspecified; Z92.21 Personal history of antineoplastic chemotherapy; K59.00 Constipation, unspecified; Z82.49 Family history of ischemic heart disease and other diseases of the circulatory system; Z98.1 Arthrodesis status; Z88.5 Allergy status to narcotic agent; Z88.8 Allergy status to other drugs, medicaments and biological substances
CPT/HCPCS: 36410; 36415; 74176; 76937; 80048; 80053; 80202; 81001; 83605; 83690; 85025; 87040; 87077; 87086; 87186; 93005; 96365; 96366; 96375; 99285

== ENCOUNTER 2020-10-02 12:54 | Observation (INO) | payer MEDICARE, BC ==
[2020-10-02 14:09] LABS: Basophils % (A) 0 %; Eosinophils # (A) 0.2 k/uL (0-0.7); Eosinophils % (A) 2 %; HCT 36.8 % (34.0-46.0); Lymphocytes % (A) 24 %; MCH 30.5 pg (25.0-35.0); MCHC 32.5 g/dL (31.0-37.0); MCV 93.9 fL (80.0-100.0); Mean Platelet Volume 7.7; Monocytes # (A) 0.6 k/uL (0-1.0); Monocytes % (A) 7 %; Neutrophils # (A) 5.6 k/uL (1.3-7.7); Neutrophils % (A) 64 %; Platelet Count 210 k/uL (150-450); RBC 3.92 m/uL (3.80-5.40); RDW 13.6 % (11.5-15.5); WBC 8.7 k/uL (3.8-10.6)
[2020-10-02 14:15] LABS: Appearance,Urine Cloudy (Clear); Bacteria,Urine Few /hpf; Bilirubin,Urine Negative (Negative); Blood,Urine Small (Negative); Color,Urine Yellow; Glucose,Urine (UA) Negative (Negative); Ketones,Urine Negative (Negative); Leukocyte Esterase,Urine Large (Negative); Mucus,Urine Rare /hpf; Nitrite,Urine Negative (Negative); Protein,Urine 1+ (Negative); RBC,Urine 29 /hpf (0-5); Specific Gravity,Urine 1.012 (1.001-1.035); Squamous Epithelial Cell,Urine <1 /hpf (0-4); Urobilinogen,Urine <2.0 mg/dL (<2.0); WBC,Urine >182 /hpf (0-5)
[2020-10-02 14:18] LABS: Albumin 4.3 g/dL (3.5-5.0); Calcium 10.2 mg/dL (8.4-10.2); Potassium 5.1 mmol/L (3.5-5.1); Total Bilirubin 0.6 mg/dL (0.2-1.3); Total Protein 7.6 g/dL (6.3-8.2)
[2020-10-02] MEDS ORDERED: cefTRIAXone IN SWFI 1,000 MG/10 ML SYRINGE IVP STA (14:19)
[2020-10-02] MEDS ORDERED: ACETAMINOPHEN TAB 325 MG TAB PO STA (14:20)
--- NOTE | 2020-10-02 14:51 | CT ---
EXAMINATION TYPE: CT abdomen pelvis wo con DATE OF EXAM: 10/02/2020 HISTORY: pelvic pain, kidney disease, bladder cancer CT DLP: 414.1 mGycm. Automated Exposure Control for Dose Reduction was Utilized. TECHNIQUE: CT scan of the abdomen and pelvis is performed without oral or IV contrast. COMPARISON: CT abdomen and pelvis August 26, [address] PET CT December 17, 2019 FINDINGS: Within the limitations of a non-contrast study, the following observations are made. LUNG BASES: No significant abnormality is appreciated. LIVER/GB: Gallbladder slightly more prominent with distended margins redemonstrated. PANCREAS: No significant abnormality is seen. SPLEEN: No significant abnormality is seen. ADRENALS: No significant abnormality is seen. KIDNEYS: Persistent left double-J ureter stent extending to right pelvic ileal conduit. Persistent mo [id number] left-sided hydronephrosis. Small calculi lower pole calyx axial image 50 now felt pr esent. Low-lying right double-J ureter stent redemonstrated extending to right pelvic ileal conduit. There is new severe right-sided hydronephrosis versus most recent CT. There is also external distal u reter stent through the ostomy to the ileal conduit redemonstrated. This is believed extension from t he right kidney. [place] bladder surgically absent. Bowel loops fill this level. Surgical clips in the bilateral pelvis redemonstrated. BOWEL: Surgical sutures anterior mid colonic loop in the upper to mid pelvis sex matched 94 redemonst rated. No suspicious new bowel dilatation.. GENITAL ORGANS: Uterus surgically absent or markedly atrophic. LYMPH NODES: No greater than 1cm abdominal or pelvic lymph nodes are appreciated. OSSEOUS STRUCTURES: Metallic hardware from left hip arthroplasty causes streak artifact limiting eval uation of pelvic structures similar to prior. Facet arthropathy lower lumbar levels. OTHER: No significant additional abnormality is seen. IMPRESSION: Recurrent severe right-sided hydronephrosis. Positioning of ureter stents appears unchang ed from most recent CT. Stable [id number] left-sided hydronephrosis despite ureteral stent. O therwise no significant interval change from most recent CT.
[2020-10-02] MEDS ORDERED: NALOXONE 0.4 MG/ML 1 ML VIAL IV PRN (15:19)
--- NOTE | 2020-10-02 15:22 | ED ---
Abdominal Pain HPI - General Source: patient Mode of arrival: ambulatory Limitations: no limitations <Christina Peña - Last Filed: 10/02/20 16:36> <Trang Reynolds - Last Filed: 10/06/20 09:53> - General Chief Complaint: Abdominal Pain Stated Complaint: Bladder cancer Time Seen by Provider: 10/02/20 13:18 - History of Present Illness Initial Comments: summary John female with history of bladder cancer with urostomy bag placed and has an 19 presented to the ER today for chief complaint of pelvic pain. Patient states she is palpating for months and figure out what is going on. Patient states that it feels a something is dropping when she stands up or moving across the abdomen at times. Patient states that she has been admitted twice and diagnosed with urinary tract infection R unsure if this is a true infection. Patient states she was on daptomycin for a few weeks in September and states she completed this course of antibiotics on September 13. Patient denies diarrhea vomiting chest pain shortness of breath fevers. She states she has chronic flank pain. for the past 3 days pain has increasd and patient can no longer tolerate the pain presenting to the ER for evaluation. (Christina Peña) - Related Data Home Medications Medication Instructions Recorded Confirmed Flecainide [Tambocor] 50 mg PO BID@0800,199907/06/17 10/02/20 L.acidoph,Paracasei, B.lactis 1 tab PO DAILY 01/19/20 10/02/20 [Probiotic] Acetaminophen Tab [Tylenol] 325 mg PO Q6H PRN 07/03/20 10/02/20 Multivitamins, Thera [Multivitamin 1 tab PO DAILY 08/20/20 10/02/20 (formulary)] Metoprolol Tartrate [Lopressor] 12.5 mg PO BID 10/02/20 10/02/20 Previous Rx's Medication Instructions Recorded Aspirin 162 mg PO HS 30 Days #60 chew 08/29/20 Docusate [Colace] 100 mg PO DAILY PRN cap 10/04/20 traMADol HCl [Ultram] 50 mg PO Q6H PRN #12 tab 10/04/20 Allergies Allergy/AdvReac Type Severity Reaction Status Date / Time ciprofloxacin [From Cipro] Allergy Nausea & Verified 10/02/20 15:30 Vomiting hydrocodone [From [place]] Allergy Rash/Hives Verified 10/02/20 15:30 hydromorphone [From Dilaudid] Allergy Vomiting Verified 10/02/20 15:30 morphine Allergy Vomiting Verified 10/02/20 15:30 nitrofurantoin Allergy Swelling Verified 10/02/20 15:30 [From Macrobid] oxycodone Allergy Vomiting Verified 10/02/20 15:30 Penicillins Allergy Rash/Hives Verified 10/02/20 15:30 cetirizine [From Zyrtec] AdvReac Swelling Verified 10/02/20 15:30 codeine AdvReac Vomiting Verified 10/02/20 15:30 ketorolac [From Toradol] AdvReac avoids due Verified 10/02/20 15:30 to kidneys linezolid AdvReac Swelling Verified 10/02/20 15:30 metoclopramide [From Reglan] AdvReac Hallucinati Verified 10/02/20 15:30 ons zolpidem [From Ambien] AdvReac Hallucinati Verified 10/02/20 15:30 ons narcotics AdvReac Vomiting Uncoded 08/21/20 13:23 Review of Systems ROS Other: All systems not noted in ROS Statement are negative. <Christina Peña - Last Filed: 10/02/20 16:36> ROS Other: All systems not noted in ROS Statement are negative. <Trang Reynolds - Last Filed: 10/06/20 09:53> ROS Statement: Those systems with pertinent positive or pertinent negative responses have been documented in the HPI. Past Medical History Past Medical History: Cancer Additional Past Medical History / Comment(s): Bladder cancer with muscle invasion/surgery/urostomy and chemo x2, frequent UTIs, has urostomy, has Rt ureteral stent. Tachybrady syndrome with pacemaker, hx of polio. Constipation. Bruises easily. History of Any Multi-Drug Resistant Organisms: None Reported Past Surgical History: Joint Replacement Additional Past Surgical History / Comment(s): 2013 pacemaker, radical cystectomy with ileal loop/urostomy, R nephrostomy tube, R ureteral stents, R shoulder fusion with bone from hip donor site. ORIF Lt hip. Removal hardware Rt Shoulder. Past Anesthesia/Blood Transfusion Reactions: Motion Sickness, Postoperative Nausea & Vomiting (PONV) Additional Past Anesthesia/Blood Transfusion Reaction / Comment(s): Pt has received blood in past without reaction. Type of Cardiac Device: Permanent Pacemaker Device Placement Date:: 2013 Past Psychological History: Anxiety, Depression Smoking Status: Current every day smoker Past Alcohol Use History: None Reported Past Drug Use History: None Reported - Past Family History Father History Unknown: Yes Additional Family Medical History / Comment(s): Father in a MVA when pt was young. Mother Family Medical History: Cancer, Diabetes Mellitus Additional Family Medical History / Comment(s): Cervical cancer, rheumatic fever, heart problems. Brother(s) Family Medical History: Cancer Additional Family Medical History / Comment(s): PANCREATIC <Christina Peña - Last Filed: 10/02/20 16:36> General Exam Limitations: no limitations <Christina Peña - Last Filed: 10/02/20 16:36> - General Exam Comments Initial Comments: General: The patient is awake and alert, in no distress Eye: +3 mm pupils are equal, round and reactive to light, extra-ocular movements are intact. No nystagmus. There is normal conjunctiva bilaterally. No signs of icterus. Ears, nose, mouth and throat: There are moist mucous membranes and no oral lesions. Neck: The neck is supple, there is no tenderness or JVD. Cardiovascular: There is a regular rate and rhythm. No murmur, rub or gallop is appreciated. Respiratory: Lungs are clear to auscultation, respirations are non-labored, breath sounds are equal. No wheezes, stridor, rales, or rhonchi. Gastrointestinal: Soft, non-distended, mild diffuse lower abdominal tenderness, abdomen without masses or organomegaly noted. There is no rebound or guarding present. : When patient stands there is some fullness in vagina, no obvious protruding prolapse appreciated externally. there is some specs of blood near introitus Musculoskeletal: Normal ROM, no tenderness. Strength 5/5. Sensation intact. Radial pulses equal bilaterally 2+. Neurological: A&O x 3. CN II-XII intact, There are no obvious motor or sensory deficits. Coordination appears grossly intact. Speech is normal. Skin: Skin is warm and dry and no rashes or lesions are noted. Psychiatric: Cooperative, appropriate mood & affect, normal judgment. (Christina Peña) Course Vital Signs 10/02/20 10/02/20 10/02/20 13:09 14:50 16:14 Temperature 98.3 F 98.2 F 98.1 F Pulse Rate 80 88 88 Respiratory 18 16 18 Rate Blood Pressure 136/83 132/78 132/74 O2 Sat by Pulse 98 98 98 Oximetry Medical Decision Making - Lab Data Result diagrams: 10/02/20 13:57 10/02/20 13:57 <Christina Peña - Last Filed: 10/02/20 16:36> - Lab Data Result diagrams: 10/04/20 04:31 10/04/20 04:31 <Trang Reynolds - Last Filed: 10/06/20 09:53> - Medical Decision Making Labs consistent with CKD. no leukocytosis. blood and urine cultures pending. rocephin given. patient given tylenol for pain. possible vaginal prolapse on exam, there is scant bleeding. OBGYN will be on consult. hx of total hysterectomy. Otherwise at this time patient will be admitted for a urinary tract infection urology consultation for flank pain. patient agreeable to admission at this time. Dr Reynolds agreeable to care plan and admission, speaking with admitting providers. (Christina Peña) I was available for consultation in the emergency department. The history and physical exam were done by the midlevel provider. I was consulted for this patients care. I reviewed the case with the midlevel provider and based on their presentation of the patient, I agree with the assessment, medical decision making and plan of care as documented. Chart was dictated using [employer] dictation software. Attempts were made to correct any dictation errors however some typographical errors may persist. Patient was seen during a national state of emergency due to the Covid-19 pandemic. (Trang Reynolds) - Lab Data Lab Results 10/02/20 10/02/20 10/02/20 Range/Units 13:54 13:57 13:57 WBC 8.7 (3.8-10.6) k/uL RBC 3.92 (3.80-5.40) m/uL Hgb 12.0 (11.4-16.0) gm/dL Hct 36.8 (34.0-46.0) % MCV 93.9 (80.0-100.0) fL MCH 30.5 (25.0-35.0) pg MCHC 32.5 (31.0-37.0) g/dL RDW 13.6 (11.5-15.5) % Plt Count 210 (150-450) k/uL MPV 7.7 Neutrophils % 64 % Lymphocytes % 24 % Monocytes % 7 % Eosinophils % 2 % Basophils % 0 % Neutrophils # 5.6 (1.3-7.7) k/uL Lymphocytes # 2.0 (1.0-4.8) k/uL Monocytes # 0.6 (0-1.0) k/uL Eosinophils # 0.2 (0-0.7) k/uL Basophils # 0.0 (0-0.2) k/uL Sodium 136 L (137-145) mmol/L Potassium 5.1 (3.5-5.1) mmol/L Chloride 105 (98-107) mmol/L Carbon Dioxide 21 L (22-30) mmol/L Anion Gap 10 mmol/L BUN 58 H (7-17) mg/dL Creatinine 2.01 H (0.52-1.04) mg/dL Est GFR (CKD-EPI)AfAm 27 (>60 ml/min/1.73 sqM) Est GFR (CKD-EPI)NonAf 23 (>60 ml/min/1.73 sqM) Glucose 106 H (74-99) mg/dL Plasma Lactic Acid Jae (0.7-2.0) mmol/L Calcium 10.2 (8.4-10.2) mg/dL Total Bilirubin 0.6 (0.2-1.3) mg/dL AST 22 (14-36) U/L ALT 10 (4-34) U/L Alkaline Phosphatase 63 (38-126) U/L Total Protein 7.6 (6.3-8.2) g/dL Albumin 4.3 (3.5-5.0) g/dL Urine Color Yellow Urine Appearance Cloudy H (Clear) Urine pH 8.0 (5.0-8.0) Ur Specific [place] 1.012 (1.001-1.035) Urine Protein 1+ H (Negative) Urine Glucose (UA) Negative (Negative) Urine Ketones Negative (Negative) Urine Blood Small H (Negative) Urine Nitrite Negative (Negative) Urine Bilirubin Negative (Negative) Urine Urobilinogen <2.0 (<2.0) mg/dL Ur Leukocyte Esterase Large H (Negative) Urine RBC 29 H (0-5) /hpf Urine WBC >182 H (0-5) /hpf Urine WBC Clumps Rare H (None) /hpf Ur Squamous Epith Cells <1 (0-4) /hpf Urine Bacteria Few H (None) /hpf Urine Mucus Rare H (None) /hpf 10/02/20 Range/Units 13:57 WBC (3.8-10.6) k/uL RBC (3.80-5.40) m/uL Hgb (11.4-16.0) gm/dL Hct (34.0-46.0) % MCV (80.0-100.0) fL MCH (25.0-35.0) pg MCHC (31.0-37.0) g/dL RDW (11.5-15.5) % Plt Count (150-450) k/uL MPV Neutrophils % % Lymphocytes % % Monocytes % % Eosinophils % % Basophils % % Neutrophils # (1.3-7.7) k/uL Lymphocytes # (1.0-4.8) k/uL Monocytes # (0-1.0) k/uL Eosinophils # (0-0.7) k/uL Basophils # (0-0.2) k/uL Sodium (137-145) mmol/L Potassium (3.5-5.1) mmol/L Chloride (98-107) mmol/L Carbon Dioxide (22-30) mmol/L Anion Gap mmol/L BUN (7-17) mg/dL Creatinine (0.52-1.04) mg/dL Est GFR (CKD-EPI)AfAm (>60 ml/min/1.73 sqM) Est GFR (CKD-EPI)NonAf (>60 ml/min/1.73 sqM) Glucose (74-99) mg/dL Plasma Lactic Acid Jae 1.0 (0.7-2.0) mmol/L Calcium (8.4-10.2) mg/dL Total Bilirubin (0.2-1.3) mg/dL AST (14-36) U/L ALT (4-34) U/L Alkaline Phosphatase (38-126) U/L Total Protein (6.3-8.2) g/dL Albumin (3.5-5.0) g/dL Urine Color Urine Appearance (Clear) Urine pH (5.0-8.0) Ur Specific [place] (1.001-1.035) Urine Protein (Negative) Urine Glucose (UA) (Negative) Urine Ketones (Negative) Urine Blood (Negative) Urine Nitrite (Negative) Urine Bilirubin (Negative) Urine Urobilinogen (<2.0) mg/dL Ur Leukocyte Esterase (Negative) Urine RBC (0-5) /hpf Urine WBC (0-5) /hpf Urine WBC Clumps (None) /hpf Ur Squamous Epith Cells (0-4) /hpf Urine Bacteria (None) /hpf Urine Mucus (None) /hpf Disposition Is patient prescribed a controlled substance at d/c from ED?: No Time of Disposition: 15:22 Decision to Admit Reason: Admit from EC Decision Date: 10/02/20 Decision Time: 15:22 <Christina Peña - Last Filed: 10/02/20 16:36> <Trang Reynolds - Last Filed: 10/06/20 09:53> Clinical Impression: UTI (urinary tract infection), Pelvic pain, Vaginal bleeding, Hydronephrosis Disposition: ADMITTED IP TO THIS [facility] Condition: Stable
[2020-10-02] MEDS: DAPTOmycin 200 MG in SODIUM CHLORIDE 0.9% 50 ML IVPB SCH (17:28)
[2020-10-02] MEDS: SODIUM CHLORIDE 0.9% 1,000 ML IV SCH (17:29)
[2020-10-02] MEDS ORDERED: HYDROcodone/APAP 5-325MG 1 EACH TAB PO PRN (18:37)
[2020-10-02] MEDS ORDERED: DOCUSATE 100 MG CAP PO PRN (19:28)
[2020-10-02] MEDS: METOPROLOL TARTRATE 12.5 MG TAB PO SCH (21:30)
[2020-10-02] MEDS: FLECAINIDE 50 MG TAB PO SCH (21:30)
[2020-10-02] MEDS: ACETAMINOPHEN TAB 325 MG TAB PO PRN (21:32)
[2020-10-03] MEDS: SODIUM CHLORIDE 0.9% 1,000 ML IV SCH ×2 (05:57→16:59)
[2020-10-03] MEDS: LACTOBACILLUS ACIDOPH & BULGAR 1 EACH PACKET PO SCH (08:18)
[2020-10-03] MEDS: METOPROLOL TARTRATE 12.5 MG TAB PO SCH ×2 (08:18→21:40)
[2020-10-03] MEDS: FLECAINIDE 50 MG TAB PO SCH ×2 (08:18→21:40)
[2020-10-03 09:43] LABS: ALT 9 U/L (4-34); AST 21 U/L (14-36); African American GFR (CKD) 28 (>60 ml/min/1.73 sqM); Albumin 3.8 g/dL (3.5-5.0); Albumin/Globulin Ratio 1.2; Alkaline Phosphatase 61 U/L (38-126); Anion Gap 9 mmol/L; Blood Urea Nitrogen 55 mg/dL (7-17); Calcium 9.4 mg/dL (8.4-10.2); Carbon Dioxide 21 mmol/L (22-30); Chloride 107 mmol/L (98-107); Globulin 3.1 g/dL; Glucose 95 mg/dL (74-99); Non-African American GFR(CKD) 24 (>60 ml/min/1.73 sqM); Potassium 4.2 mmol/L (3.5-5.1); Sodium 137 mmol/L (137-145); Total Bilirubin 0.5 mg/dL (0.2-1.3); Total Protein 6.9 g/dL (6.3-8.2)
[2020-10-03 13:56] VITALS: BMI 18.2
[2020-10-03] MEDS: DAPTOmycin 200 MG in SODIUM CHLORIDE 0.9% 50 ML IVPB SCH (15:00)
--- NOTE | 2020-10-03 15:15 | P.HPIM ---
History of Present Illness H&P Date: 10/03/20 Chief Complaint: Pelvic/flank pain/pressure This is a pleasant 80-year-old female with history of bilateral hydronephrosis, status post bilateral ureteral stent placements, recent acute UTI with enterococcus faecalis and Staphylococcus epidermidis-completed daptomycin outpat ient IV therapy, history of bladder cancer, status post cystectomy and ileal loop, chronic kidney disease presented to the ER with complaints of suprapubic pelvic pain radiating to the right with further radiation around to the back with intensified pressure upon standing or sitting 3 days. Reports it feels as if something is falling out when she stands up. Reports spotting of blood on underwear.Denies chest pain, palpitations or shortness of breath. Denies lightheadedness, dizziness or focal deficits. Abdomen/pelvis CT reported gallbladder slightly more prominent with distended margins redemonstrated, Persistent left double-J ureter stent extending to right pelvic ileal conduit, persistent moderate to severe left-sided hydronephrosis new severe right-sided hydronephrosis versus most recent CT, external distal ureter stent through the ostomy to the ilial conduit he demonstrated, extension from the right kidney. afebrile, normal WBC. BUN 55, creatinine 1.95. Potassium down to 4.2. Lactic acid 1. UA reported large leukocytes esterase, negative nitrates, greater than 182 WBCs with rare WBC clumps, few bacteria, urine culture pending. Hematology panel unremarkable. Received a dose of Rocephin in the ER , daptomycin ordered. Review of Systems ROS Statement: Those systems with pertinent positive or pertinent negative responses have been documented in the HPI. ROS Other: All systems not noted in ROS Statement are negative. Past Medical History Past Medical History: Cancer Additional Past Medical History / Comment(s): Bladder cancer with muscle invasion/surgery/urostomy and chemo x2, frequent UTIs, has urostomy, has Rt ureteral stent. Tachybrady syndrome with pacemaker, hx of polio. Constipation. Bruises easily. History of Any Multi-Drug Resistant Organisms: None Reported Past Surgical History: Joint Replacement Additional Past Surgical History / Comment(s): 2013 pacemaker, radical cystectomy with ileal loop/urostomy, R nephrostomy tube, R ureteral stents, R shoulder fusion with bone from hip donor site. ORIF Lt hip. Removal hardware Rt Shoulder. Past Anesthesia/Blood Transfusion Reactions: Motion Sickness, Postoperative Na usea & Vomiting (PONV) Additional Past Anesthesia/Blood Transfusion Reaction / Comment(s): Pt has received blood in past without reaction. Type of Cardiac Device: Permanent Pacemaker Device Placement Date:: 2013 Past Psychological History: Anxiety, Depression Additional Psychological History / Comment(s): Pt resides with her significant other. She is independent. Smoking Status: Current every day smoker Past Alcohol Use History: None Reported Additional Past Alcohol Use History / Comment(s): Pt started smoking in 1965, was light smoker 3-7 cigarettes a day. She quit in 2013 but resumed smoking in 2017 - 2018. Past Drug Use History: None Reported Additional Drug Use History / Comment(s): In past had used "Merinol (prescription form of Marijuana) at hs, 2.5 mg. - Past Family History Father History Unknown: Yes Additional Family Medical History / Comment(s): Father in a MVA when pt was young. Mother Family Medical History: Cancer, Diabetes Mellitus Additional Family Medical History / Comment(s): Cervical cancer, rheumatic fever, heart problems. Brother(s) Family Medical History: Cancer Additional Family Medical History / Comment(s): PANCREATIC Medications and Allergies Home Medications Medication Instructions Recorded Confirmed Type Flecainide [Tambocor] 50 mg PO BID@0800,199907/06/17 10/02/20 History L.acidoph,Paracasei, B.lactis 1 tab PO DAILY 01/19/20 10/02/20 History [Probiotic] Acetaminophen Tab [Tylenol] 325 mg PO Q6H PRN 07/03/20 10/02/20 History HYDROcodone/APAP 5-325MG [[place] 1 tab PO QID PRN 08/20/20 10/02/20 History 5-325] Multivitamins, Thera [Multivitamin 1 tab PO DAILY 08/20/20 10/02/20 History (formulary)] Aspirin 162 mg PO HS 30 Days #60 chew 08/29/20 10/02/20 Rx Metoprolol Tartrate [Lopressor] 12.5 mg PO BID 10/02/20 10/02/20 History Allergies Allergy/AdvReac Type Severity Reaction Status Date / Time ciprofloxacin [From Cipro] Allergy Nausea & Verified 10/02/20 15:30 Vomiting hydrocodone [From [place]] Allergy Rash/Hives Verified 10/02/20 15:30 hydromorphone [From Dilaudid] Allergy Vomiting Verified 10/02/20 15:30 morphine Allergy Vomiting Verified 10/02/20 15:30 nitrofurantoin Allergy Swelling Verified 10/02/20 15:30 [From Macrobid] oxycodone Allergy Vomiting Verified 10/02/20 15:30 Penicillins Allergy Rash/Hives Verified 10/02/20 15:30 cetirizine [From Zyrtec] AdvReac Swelling Verified 10/02/20 15:30 codeine AdvReac Vomiting Verified 10/02/20 15:30 ketorolac [From Toradol] AdvReac avoids due Verified 10/02/20 15:30 to kidneys linezolid AdvReac Swelling Verified 10/02/20 15:30 metoclopramide [From Reglan] AdvReac Hallucinati Verified 10/02/20 15:30 ons zolpidem [From Ambien] AdvReac Hallucinati Verified 10/02/20 15:30 ons narcotics AdvReac Vomiting Uncoded 08/21/20 13:23 Physical Exam Vitals: Vital Signs Temp Pulse Pulse Resp BP BP Pulse Ox 10/03/20 07:24 98.5 F 81 14 134/76 96 10/03/20 03:05 98.0 F 79 15 113/68 96 10/02/20 19:17 98.0 F 85 18 164/91 97 10/02/20 16:41 98 F 90 16 158/81 94 L 10/02/20 16:14 98.1 F 88 18 132/74 98 10/02/20 14:50 98.2 F 88 16 132/78 98 10/02/20 13:09 98.3 F 80 18 136/83 98 Intake and Output 10/02/20 10/03/20 10/03/20 22:59 06:59 14:59 Output Total 450 650 Balance -450 -650 Output: Urine 450 650 Other: Voiding Method Ileal Conduit (Right) Ileal Conduit (Right) Weight 54.431 kg PHYSICAL EXAM: VITAL SIGNS: As above GENERAL: Sitting up in bed, no acute distress HEENT: Conjunctivae normal. eyes normal. NECK: No JVD. No thyroid enlargement. No LNs CARDIOVASCULAR: S1, S2 regular. No murmur RESPIRATION: Breath sounds diminished in the bases. No rhonchi or crackles. No bronchial breathing. ABDOMEN: Soft, nondistended, mild suprapubic, right lower quadrant tenderness. Urostomy bag with some cloudy urine .No guarding. no masses palpable. No ascites, No hepatosplenomegaly.Bowel sounds heard. LEGS: No edema. no swelling. PSYCHIATRY: Alert and oriented X3, mood and affect normal. NERVOUS SYSTEM: Cranial N 2-12 grossly normal. Moves all 4 limbs. No focal deficits. Strength and sensation grossly intact.. Skin: Warm and dry, no rash Lymphatic system. No LN neck axilla. Results CBC & Chem 7: 10/02/20 13:57 10/03/20 09:18 Labs: Abnormal Lab Results - Last 24 Hours (Table) 10/02/20 10/02/20 10/03/20 Range/Units 13:54 13:57 09:18 Sodium 136 L (137-145) mmol/L Carbon Dioxide 21 L 21 L (22-30) mmol/L BUN 58 H 55 H (7-17) mg/dL Creatinine 2.01 H 1.95 H (0.52-1.04) mg/dL Glucose 106 H (74-99) mg/dL Urine Appearance Cloudy H (Clear) Urine Protein 1+ H (Negative) Urine Blood Small H (Negative) Ur Leukocyte Esterase Large H (Negative) Urine RBC 29 H (0-5) /hpf Urine WBC >182 H (0-5) /hpf Urine WBC Clumps Rare H (None) /hpf Urine Bacteria Few H (None) /hpf Urine Mucus Rare H (None) /hpf Microbiology - Last 24 Hours (Table) 10/02/20 13:54 Urine Culture - Preliminary Urine,Voided Thrombosis Risk Factor Assmnt - Choose All That Apply Each Risk Factor Represents 3 Points: Age 75 years or older Thrombosis Risk Factor Assessment Total Risk Factor Score: 3 Thrombosis Risk Factor Assessment Level: Moderate Risk Assessment and Plan Assessment: Recurrent severe right-sided hydronephrosis, stable moderate to severe left- sided hydronephrosis despite ureteral stent as reported per CT History of Bilateral hydronephrosis status post bilateral ureteral stent placement-recent right-sided stent placement Possible rectal, bladder,vaginal prolapse. Reported vaginal spotty spotty bleeding. Possible acute UTI , culture pending Hx of urinary tract infection with enterococcus faecalis as well as Staphylococcus epidermidis, completed daptomycin regimen outpatient. History of bladder cancer status post cystectomy and ileal loop Chronic kidney disease, stage IV Plan: Continue on current medication regime ,monitoring and symptomatic treatment. IV antibiotics. Urine culture pending. Urology, [employer] consulted, recommendations pending. Close monitoring of renal function, electrolytes, c oagulation with repeat labs ordered for a.m.
--- NOTE | 2020-10-03 16:38 | US ---
EXAMINATION TYPE: US pelvic limited DATE OF EXAM: 10/03/2020 COMPARISON: CT 2020 CLINICAL HISTORY: Pelvic pain. Pelvic pain, history of total hysterectomy, history of cystectomy TECHNIQUE: . Transabdominal sonographic images of the pelvis were acquired. Uterus and ovaries surgically absent Bladder surgically absent No evident abnormality IMPRESSION: Postop changes no abnormalities evident
[2020-10-03] MEDS: PANTOPRAZOLE 40 MG/10 ML VIAL IVP SCH (16:56)
--- NOTE | 2020-10-03 18:30 | P.GSCN ---
History of Present Illness Consult date: 10/03/20 Reason for Consult: bilateral hydronephrosis History of present illness: Ms Bakrer is a 80 yo female with a history of bladder cancer She underwent a cystectomy with ileal loop in 2018 in [place]. She follow us up with Dr Alexis, She developed bilateral ureteral strictures requring nephostomy tubes, antegrade stents and now looposcopy with stent exchange. She had was recently admitted with KELI, and worsening painr. She underwent right stent exchange on 08/23 and was discharged home. Has had multiple hospital admission for abdominal and flank pain. She presented back to the ED with similar complaint. She is been having abdominal pain with radiation to the bilateral flank. CT abd/pelvis was obtained which showed bilateral hydronephrosis both stent have migrated to the proximal ureter. Denies any fever/chills or any gross hematuria. slight elevation of creat on presentation at 2.01 from baseline of 1.4-1.7 Review of Systems - Constitutional Denies chills, Denies fever - EENT Ears, nose, mouth and throat: Denies dysphagia - Cardiovascular Denies chest pain, Denies shortness of breath - Respiratory Denies cough, Denies 7 - Gastrointestinal Reports abdominal pain, Denies nausea, Denies vomiting - Genitourinary Genitourinary: Reports flank pain, Denies dysuria, Denies hematuria - Neurological Denies headaches, Denies syncope Past Medical History Past Medical History: Cancer Additional Past Medical History / Comment(s): Bladder cancer with muscle invasion/surgery/urostomy and chemo x2, frequent UTIs, has urostomy, has Rt ureteral stent. Tachybrady syndrome with pacemaker, hx of polio. Constipation. Bruises easily. History of Any Multi-Drug Resistant Organisms: None Reported Past Surgical History: Joint Replacement Additional Past Surgical History / Comment(s): 2013 pacemaker, radical cystectomy with ileal loop/urostomy, R nephrostomy tube, R ureteral stents, R shoulder fusion with bone from hip donor site. ORIF Lt hip. Removal hardware Rt Shoulder. Past Anesthesia/Blood Transfusion Reactions: Motion Sickness, Postoperative Nausea & Vomiting (PONV) Additional Past Anesthesia/Blood Transfusion Reaction / Comm: Pt has received blood in past without reaction. Type of Cardiac Device: Permanent Pacemaker Device Placement Date:: 2013 Past Psychological History: Anxiety, Depression Additional Psychological History / Comment(s): Pt resides with her significant other. She is independent. Smoking Status: Current every day smoker Past Alcohol Use History: None Reported Additional Past Alcohol Use History / Comment(s): Pt started smoking in 1965, was light smoker 3-7 cigarettes a day. She quit in 2013 but resumed smoking in 2017 - 2018. Past Drug Use History: None Reported Additional Drug Use History / Comment(s): In past had used "Merinol (prescription form of Marijuana) at hs, 2.5 mg. - Past Family History Father History Unknown: Yes Additional Family Medical History / Comment(s): Father in a MVA when pt was young. Mother Family Medical History: Cancer, Diabetes Mellitus Additional Family Medical History / Comment(s): Cervical cancer, rheumatic fever, heart problems. Brother(s) Family Medical History: Cancer Additional Family Medical History / Comment(s): PANCREATIC Medications and Allergies Home Medications Medication Instructions Recorded Confirmed Type RX: Flecainide [Tambocor] 50 mg PO BID@0800,199907/06/17 10/02/20 History RX: L.acidoph,Paracasei, B.lactis 1 tab PO DAILY 01/19/20 10/02/20 History [Probiotic] RX: Acetaminophen Tab [Tylenol] 325 mg PO Q6H PRN 07/03/20 10/02/20 History RX: HYDROcodone/APAP 5-325MG 1 tab PO QID PRN 08/20/20 10/02/20 History [[place] 5-325] RX: Multivitamins, Thera 1 tab PO DAILY 08/20/20 10/02/20 History [Multivitamin (formulary)] RX: Aspirin 162 mg PO HS 30 Days #60 chew 08/29/20 10/02/20 Rx Metoprolol Tartrate [Lopressor] 12.5 mg PO BID 10/02/20 10/02/20 History Allergies Allergy/AdvReac Type Severity Reaction Status Date / Time ciprofloxacin [From Cipro] Allergy Nausea & Verified 10/02/20 15:30 Vomiting hydrocodone [From [place]] Allergy Rash/Hives Verified 10/02/20 15:30 hydromorphone [From Dilaudid] Allergy Vomiting Verified 10/02/20 15:30 morphine Allergy Vomiting Verified 10/02/20 15:30 nitrofurantoin Allergy Swelling Verified 10/02/20 15:30 [From Macrobid] oxycodone Allergy Vomiting Verified 10/02/20 15:30 Penicillins Allergy Rash/Hives Verified 10/02/20 15:30 cetirizine [From Zyrtec] AdvReac Swelling Verified 10/02/20 15:30 codeine AdvReac Vomiting Verified 10/02/20 15:30 ketorolac [From Toradol] AdvReac avoids due Verified 10/02/20 15:30 to kidneys linezolid AdvReac Swelling Verified 10/02/20 15:30 metoclopramide [From Reglan] AdvReac Hallucinati Verified 10/02/20 15:30 ons zolpidem [From Ambien] AdvReac Hallucinati Verified 10/02/20 15:30 ons narcotics AdvReac Vomiting Uncoded 08/21/20 13:23 Surgical - Exam Vital Signs Temp Pulse Resp BP Pulse Ox 98.3 F 80 18 136/83 98 10/02/20 13:09 10/02/20 13:09 10/02/20 13:09 10/02/20 13:09 10/02/20 13:09 - General well developed, well nourished, no distress, moderate pain - Eyes PERRL, normal ocular movement - ENT normal nares, normal mucosa - Respiratory normal expansion, normal respiratory effort - Abdomen stoma viable stent seen protrouding from it Abdomen: soft, tender (lower abdomen ) - Psychiatric oriented to time, oriented to person, oriented to place, speech is normal Results - Labs 10/02/20 13:57 10/03/20 09:18 Abnormal Lab Results - Last 24 Hours (Table) 10/03/20 Range/Units 09:18 Carbon Dioxide 21 L (22-30) mmol/L BUN 55 H (7-17) mg/dL Creatinine 1.95 H (0.52-1.04) mg/dL Microbiology - Last 24 Hours (Table) 10/02/20 13:57 Blood Culture - Preliminary Blood No Growth after 24 hours 10/02/20 13:54 Urine Culture - Preliminary Urine,Voided Diabetes panel 10/03/20 Range/Units 09:18 Sodium 137 (137-145) mmol/L Potassium 4.2 (3.5-5.1) mmol/L Chloride 107 (98-107) mmol/L Carbon Dioxide 21 L (22-30) mmol/L BUN 55 H (7-17) mg/dL Creatinine 1.95 H (0.52-1.04) mg/dL Glucose 95 (74-99) mg/dL Calcium 9.4 (8.4-10.2) mg/dL AST 21 (14-36) U/L ALT 9 (4-34) U/L Alkaline Phosphatase 61 (38-126) U/L Total Protein 6.9 (6.3-8.2) g/dL Albumin 3.8 (3.5-5.0) g/dL Calcium panel 10/03/20 Range/Units 09:18 Calcium 9.4 (8.4-10.2) mg/dL Albumin 3.8 (3.5-5.0) g/dL Pituitary panel 10/03/20 Range/Units 09:18 Sodium 137 (137-145) mmol/L Potassium 4.2 (3.5-5.1) mmol/L Chloride 107 (98-107) mmol/L Carbon Dioxide 21 L (22-30) mmol/L BUN 55 H (7-17) mg/dL Creatinine 1.95 H (0.52-1.04) mg/dL Glucose 95 (74-99) mg/dL Calcium 9.4 (8.4-10.2) mg/dL Adrenal panel 10/03/20 Range/Units 09:18 Sodium 137 (137-145) mmol/L Potassium 4.2 (3.5-5.1) mmol/L Chloride 107 (98-107) mmol/L Carbon Dioxide 21 L (22-30) mmol/L BUN 55 H (7-17) mg/dL Creatinine 1.95 H (0.52-1.04) mg/dL Glucose 95 (74-99) mg/dL Calcium 9.4 (8.4-10.2) mg/dL Total Bilirubin 0.5 (0.2-1.3) mg/dL AST 21 (14-36) U/L ALT 9 (4-34) U/L Alkaline Phosphatase 61 (38-126) U/L Total Protein 6.9 (6.3-8.2) g/dL Albumin 3.8 (3.5-5.0) g/dL Assessment and Plan Assessment: Ms Barker is a 80 yo female with a history of bladder cancer She underwent a cystectomy with ileal loop in 2018 in [place]. She follow us up with Dr Alexis, She developed bilateral ureteral strictures requring nephostomy tubes, antegrade stents and now looposcopy with stent exchange. Multiple hospital admission for flank and abdominal pain. CT abd/pelvis was obtained which showed bilateral hydronephrosis both stent have migrated to the proximal ureter. No need to change stent given that both stent are still across from the anastomsis. Patient has hx of ileal conduit, her urine will have chronic bacteiuria. No need for antibiotics given her lack of leucocytosis and fevers. She might benefit from repair of her ilealureteral anastomsis. She has f/u Suzette at [facility] on 10/12. She is advised to keep that f/u to discuss the repair of her stricture. creat 1.95 from 2.01, her baseline is 1.4-1.7, if creat continues to trend down ok for discharge from urology standpoint, she was advised to keep her f/u with [facility].
[2020-10-04 01:54] VITALS: RESP 16; TEMP 97.7
[2020-10-04] MEDS: ACETAMINOPHEN TAB 325 MG TAB PO PRN ×2 (02:27→08:21)
[2020-10-04] MEDS: SODIUM CHLORIDE 0.9% 1,000 ML IV SCH (05:07)
[2020-10-04 08:06] VITALS: BP 178/81; PULSE 70
[2020-10-04] MEDS: METOPROLOL TARTRATE 12.5 MG TAB PO SCH (08:07)
[2020-10-04] MEDS: PANTOPRAZOLE 40 MG/10 ML VIAL IVP SCH (08:07)
[2020-10-04] MEDS: LACTOBACILLUS ACIDOPH & BULGAR 1 EACH PACKET PO SCH (08:07)
[2020-10-04] MEDS: FLECAINIDE 50 MG TAB PO SCH (08:08)
[2020-10-04] MEDS ORDERED: traMADol 50 MG TAB PO PRN (08:40)
--- NOTE | 2020-10-04 08:49 | P.OBCN ---
History of Present Illness Consult date: 10/04/20 Requesting physician: Sonny Villar Reason for consult: pelvic pain, pelvic prolapse, other (Vaginal bleeding) Chief complaint: Pelvic pain History of present illness: This is a 80-year-old female who last saw me in the office in August 2019 for dyspareunia. At that time we have been unable to obtain her operative report from the surgery she had in [place]. She states she thinks she had a hy sterectomy at that time however on exam in the office, it did appear that she had a cervix. My exam notes show that she had a grade 1 cystocele at that time and she did have significant pain on the anterior vaginal wall most likely due to scarring from her cystectomy. On admission to the hospital, in the ER physician did note what they thought was some prolapse and some vaginal bleeding. Pelvic ultrasound is negative and shows no uterus or cervix. Computed tomography scan also showed no uterus. The patient currently states her pain is gone. She states she has had some constipation and feels that the bleeding may have been from straining with a bowel movement. She does have ongoing issues from her bladder cancer and does have a appointment with a specialist at [facility] coming up on October 12. Review of Systems Gastrointestinal: Reports constipation Genitourinary: Reports abnormal vaginal bleeding, Denies prolapse symptoms Past Medical History Past Medical History: Cancer Additional Past Medical History / Comment(s): Bladder cancer with muscle i nvasion/surgery/urostomy and chemo x2, frequent UTIs, has urostomy, has Rt ureteral stent. Tachybrady syndrome with pacemaker, hx of polio. Constipation. Bruises easily. History of Any Multi-Drug Resistant Organisms: None Reported Past Surgical History: Joint Replacement Additional Past Surgical History / Comment(s): 2013 pacemaker, radical cystectomy with ileal loop/urostomy, R nephrostomy tube, R ureteral stents, R shoulder fusion with bone from hip donor site. ORIF Lt hip. Removal hardware Rt Shoulder. Past Anesthesia/Blood Transfusion Reactions: Motion Sickness, Postoperative Nausea & Vomiting (PONV) Additional Past Anesthesia/Blood Transfusion Reaction / Comm: Pt has received blood in past without reaction. Type of Cardiac Device: Permanent Pacemaker Device Placement Date:: 2013 Past Psychological History: Anxiety, Depression Additional Psychological History / Comment(s): Pt resides with her significant other. She is independent. Smoking Status: Current every day smoker Past Alcohol Use History: None Reported Additional Past Alcohol Use History / Comment(s): Pt started smoking in 1965, was light smoker 3-7 cigarettes a day. She quit in 2013 but resumed smoking in 2017 - 2018. Past Drug Use History: None Reported Additional Drug Use History / Comment(s): In past had used "Merinol (prescription form of Marijuana) at hs, 2.5 mg. - Past Family History Father History Unknown: Yes Additional Family Medical History / Comment(s): Father in a MVA when pt was young. Mother Family Medical History: Cancer, Diabetes Mellitus Additional Family Medical History / Comment(s): Cervical cancer, rheumatic fever, heart problems. Brother(s) Family Medical History: Cancer Additional Family Medical History / Comment(s): PANCREATIC Medications and Allergies Home Medications Medication Instructions Recorded Confirmed Type Flecainide [Tambocor] 50 mg PO BID@0800,199907/06/17 10/02/20 History L.acidoph,Paracasei, B.lactis 1 tab PO DAILY 01/19/20 10/02/20 History [Probiotic] Acetaminophen Tab [Tylenol] 325 mg PO Q6H PRN 07/03/20 10/02/20 History HYDROcodone/APAP 5-325MG [[place] 1 tab PO QID PRN 08/20/20 10/02/20 History 5-325] Multivitamins, Thera [Multivitamin 1 tab PO DAILY 08/20/20 10/02/20 History (formulary)] Aspirin 162 mg PO HS 30 Days #60 chew 08/29/20 10/02/20 Rx Metoprolol Tartrate [Lopressor] 12.5 mg PO BID 10/02/20 10/02/20 History Allergies Allergy/AdvReac Type Severity Reaction Status Date / Time ciprofloxacin [From Cipro] Allergy Nausea & Verified 10/02/20 15:30 Vomiting hydrocodone [From [place]] Allergy Rash/Hives Verified 10/02/20 15:30 hydromorphone [From Dilaudid] Allergy Vomiting Verified 10/02/20 15:30 morphine Allergy Vomiting Verified 10/02/20 15:30 nitrofurantoin Allergy Swelling Verified 10/02/20 15:30 [From Macrobid] oxycodone Allergy Vomiting Verified 10/02/20 15:30 Penicillins Allergy Rash/Hives Verified 10/02/20 15:30 cetirizine [From Zyrtec] AdvReac Swelling Verified 10/02/20 15:30 codeine AdvReac Vomiting Verified 10/02/20 15:30 ketorolac [From Toradol] AdvReac avoids due Verified 10/02/20 15:30 to kidneys linezolid AdvReac Swelling Verified 10/02/20 15:30 metoclopramide [From Reglan] AdvReac Hallucinati Verified 10/02/20 15:30 ons zolpidem [From Ambien] AdvReac Hallucinati Verified 10/02/20 15:30 ons narcotics AdvReac Vomiting Uncoded 08/21/20 13:23 Exam Osteopathic Statement: *. No significant issues noted on an osteopathic structural exam other than those noted in the History and Physical/Consult. Vital Signs Temp Pulse Resp BP Pulse Ox 10/04/20 08:00 97.7 F 70 16 178/81 98 10/04/20 01:52 97.7 F 75 16 143/73 97 10/03/20 20:00 98.1 F 76 15 145/82 99 10/03/20 14:58 98.3 F 71 14 97/61 98 Intake and Output 10/03/20 10/04/20 10/04/20 22:59 06:59 14:59 Intake Total 480 Output Total 650 1200 Balance -170 -1200 Intake: Oral 480 Output: Urine 650 1200 Other: Voiding Method Ileal Conduit (Right) # Voids 1 # Bowel Movements 1 - OBG Physical Exam Vulva: both: atrophy Vagina: No vaginal prolapse is noted on exam. There is a small red spot at the introitus on the left side consistent with possibly a small scratch in the skin that is healing. This may be the source of her bleeding. Cervix: absent Uterus: absent Adnexa: No adnexal masses are palpated. She does have some tenderness suprapubically on exam and internally on the anterior vaginal wall. No bleeding is noted on the glove. Results Result Diagrams: 10/02/20 13:57 10/03/20 09:18 Abnormal Lab Results - Last 24 Hours (Table) 10/03/20 Range/Units 09:18 Carbon Dioxide 21 L (22-30) mmol/L BUN 55 H (7-17) mg/dL Creatinine 1.95 H (0.52-1.04) mg/dL Microbiology - Last 24 Hours (Table) 10/02/20 13:54 Urine Culture - Preliminary Urine,Voided Coagulase Negative Staph Group D Enterococcus 10/02/20 13:57 Blood Culture - Preliminary Blood No Growth after 24 hours Assessment and Plan (1) Vaginal bleeding Current Visit: Yes Status: Acute Code(s): N93.9 - ABNORMAL UTERINE AND VAGINAL BLEEDING, UNSPECIFIED SNOMED Code(s): 253439363 Plan: I advised the patient that she most likely did have a scratching her skin possibly from wiping. Advised that we could use some A and D ointment on this area if she does still have some tenderness there. There is no significant prolapse and therefore I have no further recommendation on this complaint. Most of her symptoms seem to be related to her constipation. No APPAREL SALES LEADER intervention is needed at this time. I would be happy to see her in the office for her routine exams if she desires.
[2020-10-04 09:13] LABS: Basophils # (A) 0.02 X 10*3/uL (0.00-0.10); Basophils % (A) 0.2 %; Eosinophils # (A) 0.59 X 10*3/uL (0.04-0.35); Eosinophils % (A) 5.8 %; HGB 10.7 g/dL (12.0-15.0); Lymphocytes # (A) 2.28 X 10*3/uL (0.90-5.00); Lymphocytes % (A) 22.4 %; MCH 30.7 pg (27.0-32.0); MCHC 32.4 g/dL (32.0-37.0); MCV 94.8 fL (80.0-97.0); Mean Platelet Volume 10.7 fL (9.5-12.2); Monocytes # (A) 1.09 X 10*3/uL (0.20-1.00); Monocytes % (A) 10.7 %; Neutrophils # (A) 6.16 X 10*3/uL (1.80-7.70); Neutrophils % (A) 60.5 %; Platelet Count 206 X 10*3/uL (140-440); RBC 3.48 X 10*6/uL (4.10-5.20); RDW 13.5 % (11.5-14.5); WBC 10.18 X 10*3/uL (4.50-10.00)
--- NOTE | 2020-10-04 09:32 | P.DS ---
Providers Date of admission: 10/02/20 15:39 Expected date of discharge: 10/04/20 Attending physician: Sonny Villar Consults: 10/02/20 15:20 Consult Physician Routine Consulting Provider: Dawn Miller Consult Reason/Comments: possible vaginal prolapse/vaginal bleeding Do you want consulting provider notified?: Yes Consult Physician Routine Consulting Provider: Demetrius Wade Consult Reason/Comments: flank, pelvic pain Do you want consulting provider notified?: Yes Primary care physician: Sonny Villar Hospital Course: Final Diagnoses; Recurrent severe right-sided hydronephrosis, stable moderate to severe left- sided hydronephrosis despite ureteral stent as reported per CT. urology following-no need to change stent. History of Bilateral hydronephrosis status post bilateral ureteral stent placement-recent right-sided stent placement Possible rectal, bladder,vaginal prolapse. Reported vaginal spotty spotty bleeding. acute UTI ruled out as per urology; patient with history of ileal conduit, chronic bacteriuria, afebrile, normal WBC. No antibiotics recommended per urology Hx of urinary tract infection with enterococcus faecalis as well as Staphylococcus epidermidis, completed daptomycin regimen outpatient. History of bladder cancer status post cystectomy and ileal loop Chronic kidney disease, stage IV Hospital course:This is a pleasant 80-year-old female with history of bilateral hydronephrosis, status post bilateral ureteral stent placements, recent acute UTI with enterococcus faecalis and Staphylococcus epidermidis-completed daptomycin outpatient IV therapy, history of bladder cancer, status post cystectomy and ileal loop, chronic kidney disease presented to the ER with complaints of suprapubic pelvic pain radiating to the right with further radiation around to the back with intensified pressure upon standing or sitting 3 days. Reports it feels as if something is falling out when she stands up. Reports spotting of blood on underwear.Denies chest pain, palpitations or shortness of breath. Denies lightheadedness, dizziness or focal deficits. Abdomen/pelvis CT reported gallbladder slightly more prominent with distended margins redemonstrated, Persistent left double-J ureter stent extending to right pelvic ileal conduit, persistent moderate to severe left-sided hydronephrosis new severe right-sided hydronephrosis versus most recent CT, external distal ureter stent through the ostomy to the ilial conduit he demonstrated, extension from the right kidney. afebrile, normal WBC. BUN 55, creatinine 1.95. Potassium down to 4.2. Lactic acid 1. UA reported large leukocytes esterase, negative nitrates, greater than 182 WBCs with rare WBC clumps, few bacteria, urine culture pending. Hematology panel unremarkable. Received a dose of Rocephin in the ER , daptomycin ordered. Maintained on IV fluids, significant clinical improvement. Urine culture reporting coagulase-negative staph/group D enterococcus. Evaluated by urology, recommending no need for changing of stents, no need for antibiotic therapy, Urine cx reflecting chronic bacteriuria/colonization-patient afebrile with normal WBC. Urology Recommending patient keep her follow-up scheduled at [facility] on 211 regarding repair of her stricture/ileoureteral anastomosis. Cleared by urology for discharge pending continued trending down of creatinine. Patient will be discharged home today, pending labs and CASE ASSEMBLER evaluation/clearance. Patient reports unable to tolerate [place] dose, pain management adjusted and will discharge on Ultram. The impression and plan of care has been dictated as directed. : I performed a history and examination of this patient, discussed the same with the dictator. I agree with the dictator's note ,documented as a scribe. Any additional findings or plans will be noted. Patient Condition at Discharge: Stable Plan - Discharge Summary Discharge Rx Participant: No New Discharge Prescriptions: New Docusate [Colace] 100 mg PO DAILY PRN cap PRN Reason: Constipation traMADol HCl [Ultram] 50 mg PO Q6H PRN #12 tab PRN Reason: Pain Continue Flecainide [Tambocor] 50 mg PO BID@ L.acidoph,Paracasei, B.lactis [Probiotic] 1 tab PO DAILY Acetaminophen Tab [Tylenol] 325 mg PO Q6H PRN PRN Reason: Pain Multivitamins, Thera [Multivitamin (formulary)] 1 tab PO DAILY Aspirin 162 mg PO HS 30 Days #60 chew Metoprolol Tartrate [Lopressor] 12.5 mg PO BID Discontinued HYDROcodone/APAP 5-325MG [[place] 5-325] 1 tab PO QID PRN PRN Reason: Pain Discharge Medication List Flecainide [Tambocor] 50 mg PO BID@08,199907/06/17 [History] L.acidoph,Paracasei, B.lactis [Probiotic] 1 tab PO DAILY 01/19/20 [History] Acetaminophen Tab [Tylenol] 325 mg PO Q6H PRN 07/03/20 [History] Multivitamins, Thera [Multivitamin (formulary)] 1 tab PO DAILY 08/20/20 [History] Aspirin 162 mg PO HS 30 Days #60 chew 08/29/20 [Rx] Metoprolol Tartrate [Lopressor] 12.5 mg PO BID 10/02/20 [History] Docusate [Colace] 100 mg PO DAILY PRN cap 10/04/20 [Rx] traMADol HCl [Ultram] 50 mg PO Q6H PRN #12 tab 10/04/20 [Rx] Follow up Appointment(s)/Referral(s): Sonny Villar DO [Primary Care Provider] - 1-2 days
[2020-10-04 10:00] LABS: African American GFR (CKD) 28.6 (60.0-200.0); BUN/Creat Ratio 28.42 Ratio (12.00-20.00); Calcium 9.2 mg/dL (8.7-10.3); Non-African American GFR(CKD) 24.6 (60.0-200.0)
--- NOTE | 2020-10-04 14:57 | P.PN ---
Progress Note - Text Progress Note Date: 10/04/20 no acute overnight events, She indicates her flank pain has improved, but her creatinine is stable at 1.9.. Discussed with her the next of his to [facility], she indicated she is hesitant to undergo major abdominal surgery to repair her stricture. The option of doing a nephroureteral stent was discussed with her. At this time she has a follow-up scheduled with Bhaskar Stovall on October 12. Advised her keep the follow-up. In the meantime she is okay for discharge from urology standpoint, advised her to keep her follow-up with Dr. Jair Stovall.
[2020-10-04] MEDS ORDERED: DAPTOmycin 200 MG in SODIUM CHLORIDE 0.9% 50 ML IVPB SCH (16:00)
== END 2020-10-04 10:03 ==
LOC: EC 12:54 → 6NMEDSUR 15:39
PROVIDERS: ADMIT Family Medicine; ATTEND Family Medicine
DX: N13.1 Hydronephrosis with ureteral stricture, not elsewhere classified (principal); N18.4 Chronic kidney disease, stage 4 (severe); K59.00 Constipation, unspecified; N93.9 Abnormal uterine and vaginal bleeding, unspecified; R10.2 Pelvic and perineal pain; I49.5 Sick sinus syndrome; F32.9 Major depressive disorder, single episode, unspecified; F41.9 Anxiety disorder, unspecified; F17.200 Nicotine dependence, unspecified, uncomplicated; F17.210 Nicotine dependence, cigarettes, uncomplicated; R82.71 Bacteriuria; Z79.82 Long term (current) use of aspirin; Z79.899 Other long term (current) drug therapy; Z88.0 Allergy status to penicillin; Z88.1 Allergy status to other antibiotic agents; Z88.5 Allergy status to narcotic agent; Z88.8 Allergy status to other drugs, medicaments and biological substances; Z95.0 Presence of cardiac pacemaker; Z93.6 Other artificial openings of urinary tract status; Z85.51 Personal history of malignant neoplasm of bladder; Z87.440 Personal history of urinary (tract) infections; Z86.12 Personal history of poliomyelitis; Z92.21 Personal history of antineoplastic chemotherapy; Z90.6 Acquired absence of other parts of urinary tract; Z98.1 Arthrodesis status; Z80.49 Family history of malignant neoplasm of other genital organs; Z96.642 Presence of left artificial hip joint; Z96.0 Presence of urogenital implants; Z83.3 Family history of diabetes mellitus; Z83.1 Family history of other infectious and parasitic diseases; Z82.49 Family history of ischemic heart disease and other diseases of the circulatory system; Z80.0 Family history of malignant neoplasm of digestive organs
CPT/HCPCS: 96361 ×2; 96375; 96374; 99285; 36415; 80053 ×2; 80048; 83605; 85025 ×2; 81001; 87040; 87086; 87077; 87186; 76857; 74176; G0378 ×3; J0696; C9113

== ENCOUNTER 2020-10-17 14:08 | Inpatient (IN) | payer MEDICARE, BC ==
[2020-10-17] MEDS ORDERED: SODIUM CHLORIDE 0.9% 500 ML 500 ML IV ONE (14:43)
[2020-10-17 15:39] LABS: HCT 34.6 % (34.0-46.0); HGB 11.3 gm/dL (11.4-16.0); MCH 30.7 pg (25.0-35.0); MCHC 32.6 g/dL (31.0-37.0); MCV 94.1 fL (80.0-100.0); Mean Platelet Volume 7.3; Platelet Count 296 k/uL (150-450); RBC 3.68 m/uL (3.80-5.40); WBC 34.1 k/uL (3.8-10.6)
--- NOTE | 2020-10-17 15:40 | XR ---
EXAMINATION TYPE: XR KUB DATE OF EXAM: 10/17/2020 Comparison: 07/05/2020 Clinical History: 80-year-old female vomiting Findings: Bilateral nephroureteral stents are demonstrated. The distal loops are probably located within an ile al conduit as a right mid abdominal ostomy (likely diverting urostomy) is demonstrated. Surgical clip s along the pelvic sidewalls. Bony irregularity along the anterior right iliac crest relating to prio r surgery or trauma. Nonobstructive bowel gas pattern. Scattered colonic air without significant stool burden. Lung bases are clear. Right atrial and right ventricular leads are visualized. Partially visualized left hip hemiarthroplasty. IMPRESSION: Bilateral nephroureteral stents. Distal loops are likely within an ileal conduit given the right mid abdominal ostomy. Nonobstructive bowel gas pattern. No significant stool burden.
[2020-10-17 15:47] LABS: Albumin 4.1 g/dL (3.5-5.0); Calcium 9.6 mg/dL (8.4-10.2); Magnesium 1.6 mg/dL (1.6-2.3); Potassium 5.1 mmol/L (3.5-5.1); Total Bilirubin 0.5 mg/dL (0.2-1.3); Total Protein 7.8 g/dL (6.3-8.2)
[2020-10-17] MEDS: SODIUM CHLORIDE 0.9% 1,000 ML IV SCH (15:50)
[2020-10-17 15:52] LABS: Band Neutrophils % 2 %; Lymphocytes # (M) 1.02 k/uL (1.0-4.8); Monocytes # (M) 1.02 k/uL (0-1.0); Neutrophils % (M) 92 %; Nucleated Red Blood Cells 0 /100 WBC (0-0); Total Cells Counted 200
[2020-10-17] MEDS ORDERED: cefTRIAXone IN SWFI 1,000 MG/10 ML SYRINGE IVP STA ×2 (15:58→16:59)
--- NOTE | 2020-10-17 16:12 | ED ---
General Adult HPI - General Chief complaint: Nausea/Vomiting/Diarrhea Stated complaint: Post op throwing up Time Seen by Provider: 10/17/20 14:30 Source: patient, family, RN notes reviewed, old records reviewed Mode of arrival: wheelchair Limitations: physical limitation - History of Present Illness Initial comments: 80-year-old female presenting for evaluation of low-grade fever, nausea vomiting. Patient had bilateral nephrostomy tubes placed at [facility] yesterday. She had an episode of nausea vomiting at that time and was seen in the emergency department ultimately she was discharged home. She has history of chronic kidney disease, history of bladder resection and urostomy. According to her daughter she was given Rocephin in the emergency department prior to discharge. She's had several episodes of nausea vomiting, no significant abdominal pain. She states she has a minimal pain at the site of her urostomy tubes. - Related Data Home Medications Medication Instructions Recorded Confirmed Flecainide [Tambocor] 50 mg PO BID@0800,199907/06/17 10/17/20 L.acidoph,Paracasei, B.lactis 1 tab PO DAILY 01/19/20 10/17/20 [Probiotic] Multivitamins, Thera [Multivitamin 1 tab PO DAILY 08/20/20 10/17/20 (formulary)] Metoprolol Tartrate [Lopressor] 12.5 mg PO BID 10/02/20 10/17/20 Acetaminophen Tab [Tylenol] 1,000 mg PO Q6H PRN 10/17/20 10/17/20 Previous Rx's Medication Instructions Recorded Aspirin 162 mg PO HS 30 Days #60 chew 08/29/20 Docusate [Colace] 100 mg PO DAILY PRN cap 10/04/20 traMADol HCl [Ultram] 50 mg PO Q6H PRN #12 tab 10/04/20 Allergies Allergy/AdvReac Type Severity Reaction Status Date / Time ciprofloxacin [From Cipro] Allergy Nausea & Verified 10/17/20 18:01 Vomiting hydrocodone [From [place]] Allergy Rash/Hives Verified 10/17/20 18:01 hydromorphone [From Dilaudid] Allergy Vomiting Verified 10/17/20 18:01 morphine Allergy Vomiting Verified 10/17/20 18:01 nitrofurantoin Allergy Swelling Verified 02/16/21 18:01 [From Macrobid] oxycodone Allergy Vomiting Verified 10/17/20 18:01 Penicillins Allergy Rash/Hives Verified 10/17/20 18:01 cetirizine [From Zyrtec] AdvReac Swelling Verified 10/17/20 18:01 codeine AdvReac Vomiting Verified 10/17/20 18:01 ketorolac [From Toradol] AdvReac avoids due Verified 10/17/20 18:01 to kidneys linezolid AdvReac Swelling Verified 10/17/20 18:01 metoclopramide [From Reglan] AdvReac Hallucinati Verified 10/17/20 18:01 ons zolpidem [From Ambien] AdvReac Hallucinati Verified 10/17/20 18:01 ons narcotics AdvReac Vomiting Uncoded 10/17/20 14:16 Review of Systems ROS Statement: Those systems with pertinent positive or pertinent negative responses have been documented in the HPI. ROS Other: All systems not noted in ROS Statement are negative. Past Medical History Past Medical History: Cancer Additional Past Medical History / Comment(s): Bladder cancer with muscle invasion/surgery/urostomy and chemo x2, frequent UTIs, has urostomy, has Rt ureteral stent. Tachybrady syndrome with pacemaker, hx of polio. Constipation. Bruises easily. History of Any Multi-Drug Resistant Organisms: None Reported Past Surgical History: Joint Replacement Additional Past Surgical History / Comment(s): 2013 pacemaker, radical cystectomy with ileal loop/urostomy, R nephrostomy tube, R ureteral stents, R shoulder fusion with bone from hip donor site. ORIF Lt hip. Removal hardware Rt Shoulder. Past Anesthesia/Blood Transfusion Reactions: Motion Sickness, Postoperative Nausea & Vomiting (PONV) Additional Past Anesthesia/Blood Transfusion Reaction / Comment(s): Pt has received blood in past without reaction. Type of Cardiac Device: Permanent Pacemaker Device Placement Date:: 2013 Past Psychological History: Anxiety, Depression Smoking Status: Current every day smoker Past Alcohol Use History: None Reported Past Drug Use History: None Reported - Past Family History Father History Unknown: Yes Additional Family Medical History / Comment(s): Father in a MVA when pt was young. Mother Family Medical History: Cancer, Diabetes Mellitus Additional Family Medical History / Comment(s): Cervical cancer, rheumatic fever, heart problems. Brother(s) Family Medical History: Cancer Additional Family Medical History / Comment(s): PANCREATIC General Exam Limitations: physical limitation General appearance: alert, in no apparent distress Head exam: Present: atraumatic, normocephalic Eye exam: Present: normal appearance, PERRL ENT exam: Present: mucous membranes dry Neck exam: Present: normal inspection. Absent: tenderness, meningismus Respiratory exam: Present: normal lung sounds bilaterally. Absent: respiratory distress, wheezes Cardiovascular Exam: Present: regular rate, normal rhythm GI/Abdominal exam: Present: soft, other (Urostomy is pink, there is right output although this is somewhat purulent.). Absent: distended, tenderness Extremities exam: Present: normal capillary refill. Absent: pedal edema, calf tenderness Back exam: Present: other (Urostomy dressings are clean dry and intact) Course Vital Signs 10/17/20 14:12 Temperature 99.1 F Pulse Rate 89 Respiratory 18 Rate Blood Pressure 127/73 O2 Sat by Pulse 96 Oximetry Medical Decision Making - Medical Decision Making 80-year-old female with recent nephrostomy tube placement at [facility] with nausea vomiting, low-grade fever, decreased urine output. Patient is hemodynamically stable. The patient does. Dehydrated. Laboratory workup reveals a significantly elevated white blood cell count at 34,000. She has worsening of her kidney function with a balloon of her creatinine from baseline, Baseline is to recurrent creatinine is 4.0. I did have multiple phone calls with [facility] arranging transport and discussed the case with the patient's urologist Dr. Adam would like to see the patient in consultation. I discussed case with Dr. Shanks who will accept transfer. Patient had been given 2 g of Rocephin, blood cultures and urine cultures are pending. Patient has had very little urine output throughout her stay in the emergency department. Dr. Adam did recommend that nephrostomy tubes be opened, they were capped at the time of discharge yesterday. - Lab Data Result diagrams: 10/17/20 15:07 10/17/20 15:07 Lab Results 10/17/20 10/17/20 10/17/20 Range/Units 15:07 15:07 15:07 WBC 34.1 H (3.8-10.6) k/uL RBC 3.68 L (3.80-5.40) m/uL Hgb 11.3 L (11.4-16.0) gm/dL Hct 34.6 (34.0-46.0) % MCV 94.1 (80.0-100.0) fL MCH 30.7 (25.0-35.0) pg MCHC 32.6 (31.0-37.0) g/dL RDW 14.0 (11.5-15.5) % Plt Count 296 (150-450) k/uL MPV 7.3 Neutrophils % (Manual) 92 % Band Neuts % (Manual) 2 % Lymphocytes % (Manual) 3 % Monocytes % (Manual) 3 % Neutrophils # (Manual) 32.00 H (1.3-7.7) k/uL Lymphocytes # (Manual) 1.02 (1.0-4.8) k/uL Monocytes # (Manual) 1.02 H (0-1.0) k/uL Nucleated RBCs 0 (0-0) /100 WBC Manual Slide Review Performed Sodium 134 L (137-145) mmol/L Potassium 5.1 (3.5-5.1) mmol/L Chloride 104 (98-107) mmol/L Carbon Dioxide 13 L (22-30) mmol/L Anion Gap 17 mmol/L BUN 69 H (7-17) mg/dL Creatinine 4.05 H (0.52-1.04) mg/dL Est GFR (CKD-EPI)AfAm 11 (>60 ml/min/1.73 sqM) Est GFR (CKD-EPI)NonAf 10 (>60 ml/min/1.73 sqM) Glucose 101 H (74-99) mg/dL Plasma Lactic Acid Jae 1.4 (0.7-2.0) mmol/L Calcium 9.6 (8.4-10.2) mg/dL Magnesium 1.6 (1.6-2.3) mg/dL Total Bilirubin 0.5 (0.2-1.3) mg/dL AST 25 (14-36) U/L ALT 13 (4-34) U/L Alkaline Phosphatase 85 (38-126) U/L Total Protein 7.8 (6.3-8.2) g/dL Albumin 4.1 (3.5-5.0) g/dL Urine Color Urine Appearance (Clear) Urine pH (5.0-8.0) Ur Specific [place] (1.001-1.035) Urine Protein (Negative) Urine Glucose (UA) (Negative) Urine Ketones (Negative) Urine Blood (Negative) Urine Nitrite (Negative) Urine Bilirubin (Negative) Urine Urobilinogen (<2.0) mg/dL Ur Leukocyte Esterase (Negative) Urine RBC (0-5) /hpf Urine WBC (0-5) /hpf Urine WBC Clumps (None) /hpf Coronavirus (PCR) (Not Detectd) 10/17/20 10/17/20 Range/Units 15:16 18:00 WBC (3.8-10.6) k/uL RBC (3.80-5.40) m/uL Hgb (11.4-16.0) gm/dL Hct (34.0-46.0) % MCV (80.0-100.0) fL MCH (25.0-35.0) pg MCHC (31.0-37.0) g/dL RDW (11.5-15.5) % Plt Count (150-450) k/uL MPV Neutrophils % (Manual) % Band Neuts % (Manual) % Lymphocytes % (Manual) % Monocytes % (Manual) % Neutrophils # (Manual) (1.3-7.7) k/uL Lymphocytes # (Manual) (1.0-4.8) k/uL Monocytes # (Manual) (0-1.0) k/uL Nucleated RBCs (0-0) /100 WBC Manual Slide Review Sodium (137-145) mmol/L Potassium (3.5-5.1) mmol/L Chloride (98-107) mmol/L Carbon Dioxide (22-30) mmol/L Anion Gap mmol/L BUN (7-17) mg/dL Creatinine (0.52-1.04) mg/dL Est GFR (CKD-EPI)AfAm (>60 ml/min/1.73 sqM) Est GFR (CKD-EPI)NonAf (>60 ml/min/1.73 sqM) Glucose (74-99) mg/dL Plasma Lactic Acid Jae (0.7-2.0) mmol/L Calcium (8.4-10.2) mg/dL Magnesium (1.6-2.3) mg/dL Total Bilirubin (0.2-1.3) mg/dL AST (14-36) U/L ALT (4-34) U/L Alkaline Phosphatase (38-126) U/L Total Protein (6.3-8.2) g/dL Albumin (3.5-5.0) g/dL Urine Color Red Urine Appearance Turbid H (Clear) Urine pH 6.5 (5.0-8.0) Ur Specific [place] 1.017 (1.001-1.035) Urine Protein 2+ H (Negative) Urine Glucose (UA) Negative (Negative) Urine Ketones Negative (Negative) Urine Blood Large H (Negative) Urine Nitrite Negative (Negative) Urine Bilirubin Negative (Negative) Urine Urobilinogen <2.0 (<2.0) mg/dL Ur Leukocyte Esterase Large H (Negative) Urine RBC >182 H (0-5) /hpf Urine WBC >182 H (0-5) /hpf Urine WBC Clumps Many H (None) /hpf Coronavirus (PCR) Not Detected (Not Detectd) Disposition Clinical Impression: Dehydration, Acute kidney injury, UTI (urinary tract infection) Disposition: OTHER INSTITUTION NOT DEFINED Condition: Serious Is patient prescribed a controlled substance at d/c from ED?: No Referrals: Sonny Villar DO [Primary Care Provider] - 1-2 days - Out of Hospital Transfer - Req. Specs Out of Hospital Transfer - Requested Specifics: Other Non-Acute (Transfer to [facility])
[2020-10-17] MEDS ORDERED: ACETAMINOPHEN TAB 325 MG TAB PO STA (17:18)
[2020-10-17] MEDS ORDERED: SODIUM CHLORIDE 0.9% 250 ML IV SCH (17:30)
[2020-10-17 18:20] LABS: Appearance,Urine Turbid (Clear); Bilirubin,Urine Negative (Negative); Blood,Urine Large (Negative); Color,Urine Red; Glucose,Urine (UA) Negative (Negative); Ketones,Urine Negative (Negative); Leukocyte Esterase,Urine Large (Negative); Nitrite,Urine Negative (Negative); PH, Urine 6.5 (5.0-8.0); Protein,Urine 2+ (Negative); RBC,Urine >182 /hpf (0-5); Specific Gravity,Urine 1.017 (1.001-1.035); Urobilinogen,Urine <2.0 mg/dL (<2.0); WBC,Urine >182 /hpf (0-5)
[2020-10-17] MEDS ORDERED: NALOXONE 0.4 MG/ML 1 ML VIAL IV PRN (18:54)
[2020-10-17 19:43] LABS: Appearance,Urine Cloudy (Clear); Bacteria,Urine Rare /hpf; Bilirubin,Urine Negative (Negative); Blood,Urine Large (Negative); Color,Urine Light Red; Glucose,Urine (UA) Negative (Negative); Ketones,Urine Negative (Negative); Leukocyte Esterase,Urine Large (Negative); Nitrite,Urine Negative (Negative); PH, Urine 5.5 (5.0-8.0); Protein,Urine 1+ (Negative); RBC,Urine >182 /hpf (0-5); Specific Gravity,Urine 1.014 (1.001-1.035); Urobilinogen,Urine <2.0 mg/dL (<2.0); WBC,Urine 104 /hpf (0-5)
[2020-10-17 19:44] LABS: Appearance,Urine Cloudy (Clear); Bacteria,Urine Rare /hpf; Bilirubin,Urine Negative (Negative); Blood,Urine Moderate (Negative); Budding Yeast,Urine Rare /hpf; Color,Urine Light Yellow; Glucose,Urine (UA) Negative (Negative); Ketones,Urine Negative (Negative); Leukocyte Esterase,Urine Large (Negative); Mucus,Urine Rare /hpf; Nitrite,Urine Negative (Negative); Protein,Urine 1+ (Negative); RBC,Urine 56 /hpf (0-5); Specific Gravity,Urine 1.016 (1.001-1.035); Urobilinogen,Urine <2.0 mg/dL (<2.0); WBC,Urine >182 /hpf (0-5)
[2020-10-17] MEDS: FLECAINIDE 50 MG TAB PO SCH (21:46)
[2020-10-17] MEDS: ASPIRIN 81 MG PO SCH (21:46)
[2020-10-17] MEDS: METOPROLOL TARTRATE 12.5 MG TAB PO SCH (21:46)
[2020-10-18] MEDS: METOPROLOL TARTRATE 12.5 MG TAB PO SCH ×2 (07:26→20:53)
[2020-10-18] MEDS: FLECAINIDE 50 MG TAB PO SCH ×2 (07:27→20:54)
[2020-10-18] MEDS: SODIUM CHLORIDE 0.9% 1,000 ML IV SCH ×2 (07:28→20:10)
[2020-10-18 09:25] LABS: HCT 27.6 % (37.2-46.3); HGB 9.2 g/dL (12.0-15.0); MCH 31.7 pg (27.0-32.0); MCHC 33.3 g/dL (32.0-37.0); MCV 95.2 fL (80.0-97.0); Mean Platelet Volume 10.4 fL (9.5-12.2); Platelet Count 223 X 10*3/uL (140-440); RDW 14.1 % (11.5-14.5); WBC 28.45 X 10*3/uL (4.50-10.00)
[2020-10-18 10:26] LABS: African American GFR (CKD) 15.8 (60.0-200.0); Albumin 3.6 g/dL (3.80-4.90); Albumin/Globulin Ratio 1.8 (1.60-3.17); Anion Gap 12.5 mmol/L (4.00-12.00); BUN/Creat Ratio 21.61 Ratio (12.00-20.00); Calcium 8.3 mg/dL (8.7-10.3); Carbon Dioxide 12.5 mmol/L (21.6-31.8); Non-African American GFR(CKD) 13.6 (60.0-200.0); Potassium 4.3 mmol/L (3.5-5.5); Total Bilirubin 0.1 mg/dL (0.2-1.2); Total Protein 5.6 g/dL (6.2-8.2)
[2020-10-18 11:02] LABS: Basophils # (A) 0.06 X 10*3/uL (0.00-0.10); Basophils % (A) 0.2 %; Eosinophils # (A) 0.05 X 10*3/uL (0.04-0.35); Eosinophils % (A) 0.2 %; Lymphocytes # (A) 1.12 X 10*3/uL (0.90-5.00); Lymphocytes % (A) 3.9 %; Monocytes # (A) 1.67 X 10*3/uL (0.20-1.00); Monocytes % (A) 5.9 %; Neutrophils % (A) 88.2 %
[2020-10-18] MEDS: ACETAMINOPHEN TAB 325 MG TAB PO PRN ×2 (12:15→20:53)
[2020-10-18 14:05] VITALS: BMI 18.2
[2020-10-18] MEDS: ONDANSETRON 4 MG/2 ML VIAL IVP PRN ×2 (16:30→23:45)
[2020-10-18] MEDS: methocarbamoL 500 MG TAB PO SCH ×2 (16:31→23:45)
--- NOTE | 2020-10-18 16:54 | P.GSHP ---
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 The were initially managed with ureteral stent, but patient continued to have flank pain and stent migration to the proximal ureter. Patient was refered to Dr Adam at [facility], she declined open revesion and instead proceeded with nephroureteral stent placement which were done at [facility]. Post operatively patient developed nausea, but improved and she was subsquently discharged home. At home she continued to have Nausea/vomiting and fatigue. She was also complaining of left flank pain. Denies any fevers or gross hematuria. On presentation her Creat 4 from baseline of 1.4-1.5. She had leucocytosis at 34. Her WBC is down to 28 and her creat is down to 3.1 this am. - Constitutional Constitutional: Reports chills, Reports fatigue, Denies fever - EENT Eyes: denies blurred vision, denies pain Ears, nose, mouth and throat: Denies headache, Denies sore throat - Cardiovascular Cardiovascular: Denies chest pain, Denies shortness of breath - Respiratory Respiratory: Denies cough, Denies 7 - Gastrointestinal Gastrointestinal: Reports nausea, Reports vomiting, Denies abdominal pain - Genitourinary (Female) Genitourinary: Reports flank pain, Denies dysuria, Denies hematuria - Musculoskeletal Musculoskeletal: Denies myalgias - Integumentary Integumentary: Denies pruritus, Denies rash - Neurological Neurological: Denies numbness, Denies weakness - Psychiatric Psychiatric: Denies anxiety, Denies depression - Allergic/Immunologic Allergic/Immunologic: Denies wheezing Past Medical History Past Medical History: Cancer Additional Past Medical History / Comment(s): Bladder cancer with muscle invasion/surgery/urostomy and chemo x2, frequent UTIs, has urostomy, has Rt ureteral stent. Tachybrady syndrome with pacemaker, hx of polio. Constipation. Bruises easily. History of Any Multi-Drug Resistant Organisms: None Reported Past Surgical History: Joint Replacement Additional Past Surgical History / Comment(s): 2013 pacemaker, radical cys tectomy with ileal loop/urostomy, R nephrostomy tube, R ureteral stents, R shoulder fusion with bone from hip donor site. ORIF Lt hip. Removal hardware Rt Shoulder. Past Anesthesia/Blood Transfusion Reactions: Motion Sickness, Postoperative Nausea & Vomiting (PONV) Additional Past Anesthesia/Blood Transfusion Reaction / Comment(s): Pt has received blood in past without reaction. Type of Cardiac Device: Permanent Pacemaker Device Placement Date:: 2013 Past Psychological History: Anxiety, Depression Additional Psychological History / Comment(s): Pt resides with her significant other. She is independent. Smoking Status: Never smoker Past Alcohol Use History: None Reported Additional Past Alcohol Use History / Comment(s): Pt started smoking in 1965, was light smoker 3-7 cigarettes a day. She quit in 2013 but resumed smoking in 2017 - 2018. Past Drug Use History: None Reported Additional Drug Use History / Comment(s): In past had used "Merinol (prescription form of Marijuana) at hs, 2.5 mg. - Past Family History Father History Unknown: Yes Additional Family Medical History / Comment(s): Father in a MVA when pt was young. Mother Family Medical History: Cancer, Diabetes Mellitus Additional Family Medical History / Comment(s): Cervical cancer, rheumatic fever, heart problems. Brother(s) Family Medical History: Cancer Additional Family Medical History / Comment(s): PANCREATIC Medications and Allergies Home Medications Medication Instructions Recorded Confirmed Type Flecainide [Tambocor] 50 mg PO BID@0800,199907/06/17 10/17/20 History L.acidoph,Paracasei, B.lactis 1 tab PO DAILY 01/19/20 10/17/20 History [Probiotic] Multivitamins, Thera [Multivitamin 1 tab PO DAILY 08/20/20 10/17/20 History (formulary)] Aspirin 162 mg PO HS 30 Days #60 chew 08/29/20 10/17/20 Rx Metoprolol Tartrate [Lopressor] 12.5 mg PO BID 10/02/20 10/17/20 History Docusate [Colace] 100 mg PO DAILY PRN cap 10/04/20 10/17/20 Rx traMADol HCl [Ultram] 50 mg PO Q6H PRN #12 tab 10/04/20 10/17/20 Rx Acetaminophen Tab [Tylenol] 1,000 mg PO Q6H PRN 10/17/20 10/17/20 History Allergies Allergy/AdvReac Type Severity Reaction Status Date / Time ciprofloxacin [From Cipro] Allergy Nausea & Verified 10/17/20 18:01 Vomiting hydrocodone [From [place]] Allergy Rash/Hives Verified 10/17/20 18:01 hydromorphone [From Dilaudid] Allergy Vomiting Verified 10/17/20 18:01 morphine Allergy Vomiting Verified 10/17/20 18:01 nitrofurantoin Allergy Swelling Verified 10/17/20 18:01 [From Macrobid] oxycodone Allergy Vomiting Verified 10/17/20 18:01 Penicillins Allergy Rash/Hives Verified 10/17/20 18:01 cetirizine [From Zyrtec] AdvReac Swelling Verified 10/17/20 18:01 codeine AdvReac Vomiting Verified 10/17/20 18:01 ketorolac [From Toradol] AdvReac avoids due Verified 10/17/20 18:01 to kidneys linezolid AdvReac Swelling Verified 10/17/20 18:01 metoclopramide [From Reglan] AdvReac Hallucinati Verified 10/17/20 18:01 ons zolpidem [From Ambien] AdvReac Hallucinati Verified 10/17/20 18:01 ons narcotics AdvReac Vomiting Uncoded 10/17/20 14:16 Surgical - Exam Vital Signs Temp Pulse Resp BP Pulse Ox 99.1 F 89 18 127/73 96 10/17/20 14:12 10/17/20 14:12 10/17/20 14:12 10/17/20 14:12 10/17/20 14:12 - General well developed, well nourished, no distress, no pain - Eyes PERRL, normal ocular movement absent: ptosis, erythema - ENT normal nares, normal mucosa - Neck trachea midline, no venous distension, limited ROM - Respiratory normal expansion, normal respiratory effort - Abdomen Abdomen: soft, non tender - Genitourinary Left CVA tenderness Stoma viable with clear urine bilateral nephrostomy tubes clean with clear yellow urine nephrostomy bag - Psychiatric oriented to time, oriented to person, oriented to place, speech is normal Results - Labs 10/18/20 06:27 10/18/20 06:27 Abnormal Lab Results - Last 24 Hours (Table) 10/17/20 10/17/2010/17/21 Range/Units 18:00 19:03 19:09 WBC (4.50-10.00) X 10*3/uL RBC (4.10-5.20) X 10*6/uL Hgb (12.0-15.0) g/dL Hct (37.2-46.3) % Immature Gran # (0.00-0.04) X 10*3/uL Neutrophils # (1.80-7.70) X 10*3/uL Monocytes # (0.20-1.00) X 10*3/uL Chloride (96-109) mmol/L Carbon Dioxide (21.6-31.8) mmol/L Anion Gap (4.00-12.00) mmol/L BUN (9.0-27.0) mg/dL Creatinine (0.6-1.5) mg/dL Est GFR (CKD-EPI)AfAm (60.0-200.0) Est GFR (CKD-EPI)NonAf (60.0-200.0) BUN/Creatinine Ratio (12.00-20.00) Ratio Calcium (8.7-10.3) mg/dL Total Bilirubin (0.2-1.2) mg/dL Total Protein (6.2-8.2) g/dL Albumin (3.80-4.90) g/dL Urine Appearance Turbid H Cloudy H Cloudy H (Clear) Urine Protein 2+ H 1+ H 1+ H (Negative) Urine Blood Large H Large H Moderate H (Negative) Ur Leukocyte Esterase Large H Large H Large H (Negative) Urine RBC >182 H >182 H 56 H (0-5) /hpf Urine WBC >182 H 104 H >182 H (0-5) /hpf Urine WBC Clumps Many H Occasional H Moderate H (None) /hpf Urine Bacteria Rare H Rare H (None) /hpf Urine Mucus Rare H (None) /hpf Urine Yeast (Budding) Rare H (None) /hpf 10/18/20 10/18/20 Range/Units 06:27 06:27 WBC 28.45 H (4.50-10.00) X 10*3/uL RBC 2.90 L (4.10-5.20) X 10*6/uL Hgb 9.2 L (12.0-15.0) g/dL Hct 27.6 L (37.2-46.3) % Immature Gran # 0.45 H (0.00-0.04) X 10*3/uL Neutrophils # 25.10 H (1.80-7.70) X 10*3/uL Monocytes # 1.67 H (0.20-1.00) X 10*3/uL Chloride 112 H (96-109) mmol/L Carbon Dioxide 12.5 L (21.6-31.8) mmol/L Anion Gap 12.50 H (4.00-12.00) mmol/L BUN 67.0 H (9.0-27.0) mg/dL Creatinine 3.1 H (0.6-1.5) mg/dL Est GFR (CKD-EPI)AfAm 15.8 L (60.0-200.0) Est GFR (CKD-EPI)NonAf 13.6 L (60.0-200.0) BUN/Creatinine Ratio 21.61 H (12.00-20.00) Ratio Calcium 8.3 L (8.7-10.3) mg/dL Total Bilirubin 0.1 L (0.2-1.2) mg/dL Total Protein 5.6 L (6.2-8.2) g/dL Albumin 3.60 L (3.80-4.90) g/dL Urine Appearance (Clear) Urine Protein (Negative) Urine Blood (Negative) Ur Leukocyte Esterase (Negative) Urine RBC (0-5) /hpf Urine WBC (0-5) /hpf Urine WBC Clumps (None) /hpf Urine Bacteria (None) /hpf Urine Mucus (None) /hpf Urine Yeast (Budding) (None) /hpf Microbiology - Last 24 Hours (Table) 10/17/20 18:00 Urine Culture - Preliminary Urine,Voided Diabetes panel 10/18/20 Range/Units 06:27 Sodium 137 (135-145) mmol/L Potassium 4.3 (3.5-5.5) mmol/L Chloride 112 H (96-109) mmol/L Carbon Dioxide 12.5 L (21.6-31.8) mmol/L BUN 67.0 H (9.0-27.0) mg/dL Creatinine 3.1 H (0.6-1.5) mg/dL Glucose 70 (70-110) mg/dL Calcium 8.3 L (8.7-10.3) mg/dL AST 19 (13-35) U/L ALT 12 (8-44) U/L Alkaline Phosphatase 69 (41-126) U/L Total Protein 5.6 L (6.2-8.2) g/dL Albumin 3.60 L (3.80-4.90) g/dL Calcium panel 10/18/20 Range/Units 06:27 Calcium 8.3 L (8.7-10.3) mg/dL Albumin 3.60 L (3.80-4.90) g/dL Pituitary panel 10/18/20 Range/Units 06:27 Sodium 137 (135-145) mmol/L Potassium 4.3 (3.5-5.5) mmol/L Chloride 112 H (96-109) mmol/L Carbon Dioxide 12.5 L (21.6-31.8) mmol/L BUN 67.0 H (9.0-27.0) mg/dL Creatinine 3.1 H (0.6-1.5) mg/dL Glucose 70 (70-110) mg/dL Calcium 8.3 L (8.7-10.3) mg/dL Adrenal panel 10/18/20 Range/Units 06:27 Sodium 137 (135-145) mmol/L Potassium 4.3 (3.5-5.5) mmol/L Chloride 112 H (96-109) mmol/L Carbon Dioxide 12.5 L (21.6-31.8) mmol/L BUN 67.0 H (9.0-27.0) mg/dL Creatinine 3.1 H (0.6-1.5) mg/dL Glucose 70 (70-110) mg/dL Calcium 8.3 L (8.7-10.3) mg/dL Total Bilirubin 0.1 L (0.2-1.2) mg/dL AST 19 (13-35) U/L ALT 12 (8-44) U/L Alkaline Phosphatase 69 (41-126) U/L Total Protein 5.6 L (6.2-8.2) g/dL Albumin 3.60 L (3.80-4.90) g/dL Assessment and Plan Assessment: Ms Barker is a 80-year-old female patient of Dr Alexis with hx of bladder cancer S/P radical prostatecomy and ileal conduit, she developed strictures at the u reteral-ileal conduit anastomosis site. The were initially managed with ureteral stent, but patient continued to have flank pain and stent migration to the proximal ureter. She underwent nephroureteral stent placement which were done at [facility]. She presents to the ED with Nausea/vomiting and fatigue. On presentation her Creat 4 from baseline of 1.4-1.5. She had leucocytosis at 34. Her WBC is down to 28 and her creat is down to 3.1 this am. 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 Her KELI is most likely secondary dehydration, -continue with IVF, will repeat BMP in am -Continue ceftrixone, will await final urine culture -Will keep bilateral nephrostomy tube to drainage, for maximal renal drainage. -Consult medicine for medical managment
[2020-10-18] MEDS: PANTOPRAZOLE 40 MG/10 ML VIAL IVP SCH (17:34)
[2020-10-18] MEDS: ASPIRIN 81 MG PO SCH (20:53)
[2020-10-19] MEDS: FLECAINIDE 50 MG TAB PO SCH ×2 (09:19→20:59)
[2020-10-19] MEDS: methocarbamoL 500 MG TAB PO SCH ×2 (09:20→16:55)
[2020-10-19] MEDS: PANTOPRAZOLE 40 MG/10 ML VIAL IVP SCH (09:21)
[2020-10-19] MEDS: METOPROLOL TARTRATE 12.5 MG TAB PO SCH ×2 (09:23→20:59)
[2020-10-19 10:38] LABS: African American GFR (CKD) 26.8 (60.0-200.0); Anion Gap 9.6 mmol/L (4.00-12.00); Calcium 8.3 mg/dL (8.7-10.3); Carbon Dioxide 13.4 mmol/L (21.6-31.8); Non-African American GFR(CKD) 23.2 (60.0-200.0); Potassium 3.8 mmol/L (3.5-5.5)
[2020-10-19] MEDS: ONDANSETRON 4 MG/2 ML VIAL IVP PRN (16:55)
--- NOTE | 2020-10-19 16:59 | P.CONS ---
History of Present Illness - Reason for Consult Consult date: 10/19/20 Medical management nicotine dependence,dehydration, acute renal failure Requesting physician: Demetrius Wade - Chief Complaint fever,N/V s/p bilat. nephrosotmy tubes - History of Present Illness This is a pleasant 80-year-old female with history of bilateral hydronephrosis, status post bilateral ureteral stent placements [facility] postop day #2, recent acute UTI with enterococcus faecalis and Staphylococcus epidermidis- completed daptomycin outpatient IV therapy, history of bladder cancer, status post cystectomy and ileal loop, chronic kidney disease presented to the ER nausea ,vomiting, and low-grade fevers, reporting minimal pain at urostomy tube sites.On admission, temperature 99.1, currently afebrile with T-max of 99.6, WBC 34. down to 28.45, yesterday. BUN 67, Creatinine had jumped up to 4.05, baseline is around 1.9, currently down to 2. Reported negative for nitrates, large leukocyte esterase, greater than 182 WBCs, many WBC clumps, rare bact eria.Rocephin initiated , but now culture reporting group D enterococcus and will need to further adjust antibiotics. ER had initially arranged for transfer back to [facility], patient and her daughter declined transfer after transfer arrangements were made. Review of Systems ROS Statement: Those systems with pertinent positive or pertinent negative responses have been documented in the HPI. ROS Other: All systems not noted in ROS Statement are negative. Past Medical History Past Medical History: Cancer Additional Past Medical History / Comment(s): Bladder cancer with muscle invasion/surgery/urostomy and chemo x2, frequent UTIs, has urostomy, has Rt ureteral stent. Tachybrady syndrome with pacemaker, hx of polio. Constipation. Bruises easily. History of Any Multi-Drug Resistant Organisms: None Reported Past Surgical History: Joint Replacement Additional Past Surgical History / Comment(s): 2013 pacemaker, radical cystectomy with ileal loop/urostomy, R nephrostomy tube, R ureteral stents, R shoulder fusion with bone from hip donor site. ORIF Lt hip. Removal hardware Rt Shoulder. Past Anesthesia/Blood Transfusion Reactions: Motion Sickness, Postoperative Nausea & Vomiting (PONV) Additional Past Anesthesia/Blood Transfusion Reaction / Comm: Pt has received blood in past without reaction. Type of Cardiac Device: Permanent Pacemaker Device Placement Date:: 2013 Past Psychological History: Anxiety, Depression Additional Psychological History / Comment(s): Pt resides with her significant other. She is independent. Smoking Status: Never smoker Past Alcohol Use History: None Reported Additional Past Alcohol Use History / Comment(s): Pt started smoking in 1965, was light smoker 3-7 cigarettes a day. She quit in 2013 but resumed smoking in 2017 - 2018. Past Drug Use History: None Reported Additional Drug Use History / Comment(s): In past had used "Merinol (prescription form of Marijuana) at hs, 2.5 mg. - Past Family History Father History Unknown: Yes Additional Family Medical History / Comment(s): Father in a MVA when pt was young. Mother Family Medical History: Cancer, Diabetes Mellitus Additional Family Medical History / Comment(s): Cervical cancer, rheumatic fever, heart problems. Brother(s) Family Medical History: Cancer Additional Family Medical History / Comment(s): PANCREATIC Medications and Allergies Home Medications Medication Instructions Recorded Confirmed Type Flecainide [Tambocor] 50 mg PO BID@0800,199907/06/17 10/17/20 History L.acidoph,Paracasei, B.lactis 1 tab PO DAILY 01/19/20 10/17/20 History [Probiotic] Multivitamins, Thera [Multivitamin 1 tab PO DAILY 08/20/20 10/17/20 History (formulary)] Aspirin 162 mg PO HS 30 Days #60 chew 08/29/20 10/17/20 Rx Metoprolol Tartrate [Lopressor] 12.5 mg PO BID 10/02/20 10/17/20 History Docusate [Colace] 100 mg PO DAILY PRN cap 10/04/20 10/17/20 Rx traMADol HCl [Ultram] 50 mg PO Q6H PRN #12 tab 10/04/20 10/17/20 Rx Acetaminophen Tab [Tylenol] 1,000 mg PO Q6H PRN 10/17/20 10/17/20 History Allergies Allergy/AdvReac Type Severity Reaction Status Date / Time ciprofloxacin [From Cipro] Allergy Nausea & Verified 10/17/20 18:01 Vomiting hydrocodone [From [place]] Allergy Rash/Hives Verified 10/17/20 18:01 hydromorphone [From Dilaudid] Allergy Vomiting Verified 10/17/20 18:01 morphine Allergy Vomiting Verified 10/17/20 18:01 nitrofurantoin Allergy Swelling Verified 10/17/20 18:01 [From Macrobid] oxycodone Allergy Vomiting Verified 10/17/20 18:01 Penicillins Allergy Rash/Hives Verified 10/17/20 18:01 cetirizine [From Zyrtec] AdvReac Swelling Verified 10/17/20 18:01 codeine AdvReac Vomiting Verified 10/17/20 18:01 ketorolac [From Toradol] AdvReac avoids due Verified 10/17/20 18:01 to kidneys linezolid AdvReac Swelling Verified 10/17/20 18:01 metoclopramide [From Reglan] AdvReac Hallucinati Verified 10/17/20 18:01 ons zolpidem [From Ambien] AdvReac Hallucinati Verified 10/17/20 18:01 ons narcotics AdvReac Vomiting Uncoded 10/17/20 14:16 Physical Exam Vitals: Vital Signs Temp Pulse Resp BP Pulse Ox 10/19/20 07:37 98.8 F 58 L 20 163/68 98 10/19/20 00:53 98.3 F 65 13 94/55 98 10/18/20 19:39 13 10/18/20 18:56 99.6 F 67 17 139/67 98 10/18/20 14:10 98.2 F 88 17 165/69 99 Intake and Output 10/18/20 10/19/20 10/19/20 22:59 06:59 14:59 Output Total 790 400 Balance -790 -400 Output: Drainage 100 Right 100 Urine 690 400 Other: Voiding Method Ileal Conduit (Right) PHYSICAL EXAM: VITAL SIGNS: As above GENERAL: Sitting up in bed, no acute distress HEENT: Conjunctivae normal. eyes normal. NECK: No JVD. No thyroid enlargement. No LNs CARDIOVASCULAR: S1, S2 regular. No murmur RESPIRATION: Breath sounds diminished in the bases. No rhonchi or crackles. No bronchial breathing. ABDOMEN: Soft, nondistended, mild suprapubic, right lower quadrant tenderness. Urostomy bag with clear urine.bilateral nephrostomy tubes dressing clean dry and intact .No guarding. no masses palpable. No ascites, No hepatosplenomegaly.Bowel sounds heard. LEGS: No edema. no swelling. PSYCHIATRY: Alert and oriented X3, mood and affect normal. NERVOUS SYSTEM: Cranial N 2-12 grossly normal. Moves all 4 limbs. No focal deficits. Strength and sensation grossly intact.. Skin: Warm and dry, no rash Lymphatic system. No LN neck axilla. Microbiology 10/17/20 18:00 Urine,Voided Urine Culture - Preliminary Group D Enterococcus 10/17/20 15:07 Blood Blood Culture - Preliminary No Growth after 24 hours Results CBC & Chem 7: 10/18/20 06:27 10/19/20 06:16 Labs: Abnormal Lab Results - Last 24 Hours (Table) 10/18/20 10/18/20 Range/Units 06:27 06:27 WBC 28.45 H (4.50-10.00) X 10*3/uL RBC 2.90 L (4.10-5.20) X 10*6/uL Hgb 9.2 L (12.0-15.0) g/dL Hct 27.6 L (37.2-46.3) % Immature Gran # 0.45 H (0.00-0.04) X 10*3/uL Neutrophils # 25.10 H (1.80-7.70) X 10*3/uL Monocytes # 1.67 H (0.20-1.00) X 10*3/uL Chloride 112 H (96-109) mmol/L Carbon Dioxide 12.5 L (21.6-31.8) mmol/L Anion Gap 12.50 H (4.00-12.00) mmol/L BUN 67.0 H (9.0-27.0) mg/dL Creatinine 3.1 H (0.6-1.5) mg/dL Est GFR (CKD-EPI)AfAm 15.8 L (60.0-200.0) Est GFR (CKD-EPI)NonAf 13.6 L (60.0-200.0) BUN/Creatinine Ratio 21.61 H (12.00-20.00) Ratio Calcium 8.3 L (8.7-10.3) mg/dL Total Bilirubin 0.1 L (0.2-1.2) mg/dL Total Protein 5.6 L (6.2-8.2) g/dL Albumin 3.60 L (3.80-4.90) g/dL Microbiology - Last 24 Hours (Table) 10/17/20 18:00 Urine Culture - Preliminary Urine,Voided Group D Enterococcus 10/17/20 15:07 Blood Culture - Preliminary Blood No Growth after 24 hours Assessment and Plan Assessment: Sepsis with Nausea vomiting fevers, secondary to recent nephroureteral stent placement at [facility] recently, and acute UTI Acute UTI, cultures reporting group D enterococcus Leukocytosis secondary to the above Dehydration secondary to the above Acute renal failure secondary to dehydration History of Recurrent severe right-sided hydronephrosis, stable moderate to severe left-sided hydronephrosis despite ureteral stent as reported per CT History of Bilateral hydronephrosis status post bilateral ureteral stent plac ement-recent right-sided stent placement Hx of urinary tract infection with enterococcus faecalis as well as Staphylococcus epidermidis, completed daptomycin regimen outpatient. History of bladder cancer status post cystectomy and ileal loop Chronic kidney disease, stage IV Multiple ALLERGIES Plan: Continue on current medication regime ,monitoring and symptomatic treatment. ID consulted given ,multiple ALLERGIES. Antibiotics adjusted to Daptomycin. Diet advanced. PPI added for GI prophylaxis. Thank you Dr. Wade for consult. The impression and plan of care has been dictated as directed. : I performed a history and examination of this patient, discussed the same with the dictator. I agree with the dictator's note ,documented as a scribe. Any additional findings or plans will be noted.
--- NOTE | 2020-10-19 17:09 | P.PN ---
Subjective Progress Note Date: 10/19/20 No acute overnight events, flank pain is improving, her creatinine is trending down, labs this am showed creat of 2, her baseline is 1.5-1.8. Tolerating a diet, denies any nausea/vomiting Objective - Vital Signs Vital signs: Vital Signs Temp 98.5 F 10/19/20 14:00 Pulse 87 10/19/20 14:00 Resp 16 10/19/20 14:00 BP 111/61 10/19/20 14:00 Pulse Ox 98 10/19/20 14:00 Intake & Output 10/18/20 10/19/20 10/19/20 18:59 06:59 18:59 Output Total 801 324 5426 Balance -390 -800 -1075 Weight 54.431 kg Output: Drainage 100 775 Left 550 Right 100 225 Urine 390 700 300 Other: Voiding Method Ileal Conduit (Right) Ileal Conduit (Right) Ileal Conduit (Right) - Constitutional General appearance: Present: no acute distress - Neck Neck: Present: normal ROM - Gastrointestinal General gastrointestinal: Present: soft. Absent: distended, rigid - Psychiatric Psychiatric: Present: A&O x's 3 - Labs CBC & Chem 7: 10/18/20 06:27 10/19/20 06:16 Labs: Abnormal Lab Results - Last 24 Hours (Table) 10/19/20 Range/Units 06:16 Chloride 115 H (96-109) mmol/L Carbon Dioxide 13.4 L (21.6-31.8) mmol/L BUN 52.0 H (9.0-27.0) mg/dL Creatinine 2.0 H (0.6-1.5) mg/dL Est GFR (CKD-EPI)AfAm 26.8 L (60.0-200.0) Est GFR (CKD-EPI)NonAf 23.2 L (60.0-200.0) BUN/Creatinine Ratio 26.00 H (12.00-20.00) Ratio Calcium 8.3 L (8.7-10.3) mg/dL Microbiology - Last 24 Hours (Table) 10/17/20 18:00 Urine Culture - Preliminary Urine,Voided Group D Enterococcus 10/17/20 15:07 Blood Culture - Preliminary Blood No Growth after 24 hours Assessment and Plan Assessment: Ms Barker is a 80-year-old female patient of Dr Alexis with hx of bladder cancer S/P radical prostatecomy and ileal conduit, 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 The were initially managed with ureteral stent, but patient continued to have flank pain and stent migration to the proximal ureter. She underwent nephroureteral stent placement which were done at [facility]. She presents to the ED with Nausea/vomiting and fatigue. On presentation her Creat 4 from baseline of 1.4-1.5. . creat is down to 2 this am -continue with IVF, will repeat BMP in am - will await final urine culture, she is currently on daptomycin -Will keep bilateral nephrostomy tube to drainage, for maximal renal drainage. -ID consult for her UTI,
[2020-10-19] MEDS: SODIUM CHLORIDE 0.9% 1,000 ML IV SCH ×2 (19:17→21:07)
[2020-10-19] MEDS: ASPIRIN 81 MG PO SCH (20:59)
[2020-10-19] MEDS: ACETAMINOPHEN TAB 325 MG TAB PO PRN (20:59)
[2020-10-19 21:28] LABS: Basophils % (A) 0 %; Eosinophils # (A) 0.3 k/uL (0-0.7); Eosinophils % (A) 2 %; HCT 27.4 % (34.0-46.0); Lymphocytes # (A) 1.4 k/uL (1.0-4.8); Lymphocytes % (A) 8 %; MCHC 32.2 g/dL (31.0-37.0); MCV 93.3 fL (80.0-100.0); Mean Platelet Volume 7.6; Monocytes # (A) 0.7 k/uL (0-1.0); Monocytes % (A) 4 %; Neutrophils # (A) 14.9 k/uL (1.3-7.7); Neutrophils % (A) 85 %; Platelet Count 259 k/uL (150-450); RBC 2.94 m/uL (3.80-5.40); RDW 14.3 % (11.5-15.5); WBC 17.5 k/uL (3.8-10.6)
[2020-10-19 21:41] LABS: HGB 8.8 gm/dL (11.4-16.0)
[2020-10-20] MEDS: ONDANSETRON 4 MG/2 ML VIAL IVP PRN (00:47)
[2020-10-20] MEDS: HEPARIN SODIUM,PORCINE 5,000 UNIT/ML 1 ML VIAL SQ SCH ×2 (00:47→07:54)
[2020-10-20] MEDS: methocarbamoL 500 MG TAB PO SCH ×2 (00:48→07:54)
[2020-10-20 07:26] VITALS: BP 145/76; PULSE 75; RESP 16; TEMP 98.1
[2020-10-20] MEDS: PANTOPRAZOLE 40 MG/10 ML VIAL IVP SCH (07:53)
[2020-10-20] MEDS: FLECAINIDE 50 MG TAB PO SCH (07:54)
--- NOTE | 2020-10-20 09:26 | CONS ---
CONSULTATION DATE OF SERVICE: 10/19/2020 REASON FOR CONSULTATION: Complicated urinary tract infection and antibiotic allergies. HISTORY OF PRESENT ILLNESS: The patient is a 80-year-old female with a past medical history significant for bladder cancer in this patient status post radical cystectomy and ileal conduit. The patient subsequently developed strictures to the ureteral ileal conduit with resultant hydronephrosis. Patient did have persistent pain and the patient was subsequently referred to urologist at [facility] in this patient who is status post bilateral nephrostomy tube placement. The patient was subsequently discharged home. However, the patient presented to [facility] on the for nausea, left flank pain. The patient described the pain to more of a dull aching about 5 to 6/10 and no radiation. The patient has been nauseated, but no vomiting. The patient mentioned slight decreased urine output from the right nephrostomy tube compared to the left; however, no cloudy urine or any hematuria. Denies high grade fever on presentation to the hospital. The patient was running a low-grade fever of 99.1. The patient did have a white count of 34, 000 repeat was 28 and now showing 17.5. The patient did have a positive UA from the urostomy as well as from nephrostomy while the cultures are now showing Enterococcus. The patient did have multiple antibiotic allergies. Infectious Disease was consulted today for further management of antibiotics. REVIEW OF SYSTEMS: Positive points have been mentioned in HPI. Rest of the systems are negative. PAST MEDICAL HISTORY: Significant for bladder cancer, history of recurrent UTI, tachybrady syndrome. PAST SURGICAL HISTORY: Radical cystectomy with ileal conduit, bilateral nephrostomy tube recently, right shoulder fusion, ORIF left hip and permanent pacemaker placement. SOCIAL HISTORY: Denies smoking or drinking or drug use. FAMILY HISTORY: No pertinent findings noticed. ALLERGIES: Allergies to multiple medications, list on the chart. MEDICATIONS: Medications currently include the patient is on Tylenol, aspirin, heparin, Robaxin, Lopressor Narcan, Zofran, Protonix, and Rocephin. PHYSICAL EXAMINATION: Her blood pressure is 119/70 with a pulse of 80, temperature 98.2. She is 97% on room air. General description is an elderly female lying in bed in no distress. No tachypnea or accessory muscle of respiration use. HEENT: Examination shows slight pallor. No scleral icterus. Oral mucous membrane is dry. No pharyngeal erythema or thrush. NECK: Trachea central. No thyromegaly. LUNGS: Unlabored breathing and is clear to auscultation anteriorly. HEART: S1, S2. Regular rate and rhythm. ABDOMEN: Soft, no tenderness. No guarding. No rigidity. No organomegaly. EXTREMITIES: No edema of feet. SKIN EXAMINATION: No rash or mass palpable. NEUROLOGICAL: The patient is awake, alert, oriented x3. Mood and affect normal. LABS: Hemoglobin 8.8, white count 17.5, admission white count 34. BUN of 52, creatinine 2.0. Urine is positive. DIAGNOSTIC IMPRESSION: 1. Patient with a complicated urinary tract infection in this patient who did have bladder cancer with ureteral obstruction requiring bilateral nephrostomy tube placement in hospital elevated white count as well as elevated kidney function with urine now showing Enterococcus. 2. Patient did have multiple antibiotic allergies, limited number of antibiotics safe to use. 3. Renal insufficiency and high risk of nephrotoxicity from vancomycin. PLAN: 1. Patient started on daptomycin 300 mg q.48 hours, dose adjusted with kidney function. 2. Discontinue Rocephin. 3. The patient may need a Midline for outpatient IV antibiotic therapy. Thank you for this consultation. Will follow this patient along with you. MMODL / IJN: [id number] /
[2020-10-20 09:37] LABS: Basophils # (A) 0.03 X 10*3/uL (0.00-0.10); Basophils % (A) 0.2 %; Eosinophils # (A) 0.31 X 10*3/uL (0.04-0.35); Eosinophils % (A) 2.2 %; HCT 26.4 % (37.2-46.3); HGB 8.5 g/dL (12.0-15.0); Lymphocytes # (A) 1.67 X 10*3/uL (0.90-5.00); Lymphocytes % (A) 11.6 %; MCH 30.9 pg (27.0-32.0); MCHC 32.2 g/dL (32.0-37.0); Monocytes # (A) 1.24 X 10*3/uL (0.20-1.00); Monocytes % (A) 8.6 %; Neutrophils # (A) 10.97 X 10*3/uL (1.80-7.70); Neutrophils % (A) 76.1 %; Platelet Count 244 X 10*3/uL (140-440); RBC 2.75 X 10*6/uL (4.10-5.20); RDW 14.7 % (11.5-14.5)
[2020-10-20] MEDS: METOPROLOL TARTRATE 12.5 MG TAB PO SCH (09:42)
[2020-10-20] MEDS: SODIUM CHLORIDE 0.9% 1,000 ML IV SCH (10:46)
[2020-10-20 10:57] LABS: African American GFR (CKD) 35.2 (60.0-200.0); BUN/Creat Ratio 26.25 Ratio (12.00-20.00); Calcium 8.6 mg/dL (8.7-10.3); Non-African American GFR(CKD) 30.3 (60.0-200.0); Potassium 3.5 mmol/L (3.5-5.5)
--- NOTE | 2020-10-20 12:18 | P.PN ---
Subjective Progress Note Date: 10/20/20 This is a pleasant 80-year-old female with history of bilateral hydronephrosis, status post bilateral ureteral stent placements [facility] postop day #2, recent acute UTI with enterococcus faecalis and Staphylococcus epidermidis- completed daptomycin outpatient IV therapy, history of bladder cancer, status post cystectomy and ileal loop, chronic kidney disease presented to the ER nausea ,vomiting, and low-grade fevers, reporting minimal pain at nephrostomy tube sites.On admission, temperature 99.1, currently afebrile with T-max of 99.6, WBC 34. down to 28.45, yesterday. BUN 67, Creatinine had jumped up to 4.05, baseline is around 1.9, currently down to 2. Reported negative for nitrates, large leukocyte esterase, greater than 182 WBCs, many WBC clumps, rare bacteria.Rocephin initiated , but now culture reporting group D enterococcus and will need to further adjust antibiotics. ER had initially arranged for transfer back to [facility], patient and her daughter declined transfer after transfer arrangements were made. 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 Urine culture reporting group D enterococcus, antibiotics adjusted to daptomycin in a patient with multiple ALLERGIES. Maintained on IV fluid hydration .BMP pending.Doing well this morning, tolerated diet with no nausea vomiting or diarrhea. Denies abdominal pain. Denies pain at the site of nephrostomy tubes. Afebrile with continued improvement in WBC, down to 14.4. HIDA signs stable, maintaining O2 sats in the 90s on room air. Objective - Vital Signs Vital signs: Vital Signs Temp 98.1 F 10/20/20 07:25 Pulse 75 10/20/20 07:25 Resp 16 10/20/20 07:25 BP 145/76 10/20/20 07:25 Pulse Ox 97 10/20/20 07:25 Intake & Output 10/19/20 10/20/20 10/20/20 18:59 06:59 18:59 Intake Total 950 236 Output Total 1075 650 Balance -125 -650 236 Intake: Intake, IV Titration 950 Amount Sodium Chloride 0.9% 1, 900 000 ml @ 75 mls/hr IV . [id number] [facility] Rx#:[id number] cefTRIAXone 2 gm In 50 Sodium Chloride 0.9% 50 ml @ 100 mls/hr IVPB Q24HR [facility] Rx#:[id number] Oral 236 Output: Drainage 775 200 Left 550 Right 225 200 Urine 300 450 Other: Voiding Method Ileal Conduit (Right) Ileal Conduit (Right) - Exam PHYSICAL EXAM: VITAL SIGNS: As above GENERAL: Alert and oriented 3, Sitting up in bed, no acute distress HEENT: Conjunctivae normal. eyes normal. Oral mucosa moist. NECK: Supple, No JVD. CARDIOVASCULAR: S1, S2 regular. No murmur RESPIRATION: Unlabored, bilateral bases diminished . ABDOMEN: Soft, nondistended, nontender. Urostomy bag present.bilateral nephrostomy tubes dressing clean dry and intact .No guarding. no masses palpable. Positive bowel sounds. LEGS: No edema. no swelling. NERVOUS SYSTEM: Cranial N 2-12 grossly normal. Moves all 4 limbs. No focal deficits. Strength and sensation grossly intact. Skin: Warm and dry, no rash. - Labs CBC & Chem 7: 10/20/20 06:11 10/19/20 21:20 Labs: Abnormal Lab Results - Last 24 Hours (Table) 10/19/20 10/20/20 Range/Units 21:20 06:11 WBC 17.5 H 14.40 H (3.8-10.6) k/uL RBC 2.94 L 2.75 L (3.80-5.40) m/uL Hgb 8.8 L D 8.5 L (11.4-16.0) gm/dL Hct 27.4 L 26.4 L (34.0-46.0) % RDW 14.7 H (11.5-14.5) % Immature Gran # 0.18 H (0.00-0.04) X 10*3/uL Neutrophils # 14.9 H 10.97 H (1.3-7.7) k/uL Monocytes # 1.24 H (0.20-1.00) X 10*3/uL Microbiology - Last 24 Hours (Table) 10/17/20 18:00 Urine Culture - Final Urine,Voided Enterococcus faecalis 10/17/20 15:07 Blood Culture - Preliminary Blood No Growth after 48 hours Assessment and Plan Assessment: Sepsis with Nausea vomiting fevers, secondary to recent nephroureteral stent placement at [facility] recently, and complicated acute UTI Acute UTI, cultures reporting group D enterococcus Leukocytosis secondary to the above Dehydration secondary to the above Acute renal failure secondary to dehydration History of Recurrent severe right-sided hydronephrosis, stable moderate to severe left-sided hydronephrosis despite ureteral stent as reported per CT History of Bilateral hydronephrosis status post bilateral ureteral stent placement-recent right-sided stent placement Hx of urinary tract infection with enterococcus faecalis as well as Staphylococcus epidermidis, completed daptomycin regimen outpatient. History of bladder cancer status post cystectomy and ileal loop Chronic kidney disease, stage IV Multiple ALLERGIES Plan: Continue on current medication regime ,monitoring and symptomatic treatment. BMP pending. IV Antibiotics-Daptomycin as per ID. Midline placement for outpatient IV antibiotics. Increase ambulation as tolerated. PT. Discharge planning in progress for return home today after midline placement and arrangement of outpatient IV antibiotics. Follow with Dr. Villar in 3 days. The impression and plan of care has been dictated as directed. : I performed a history and examination of this patient, discussed the same with the dictator. I agree with the dictator's note ,documented as a scribe. Any additional findings or plans will be noted.
[2020-10-20 12:55] LABS: African American GFR (CKD) 37 (>60 ml/min/1.73 sqM); Anion Gap 8 mmol/L; Blood Urea Nitrogen 36 mg/dL (7-17); Calcium 8.6 mg/dL (8.4-10.2); Carbon Dioxide 15 mmol/L (22-30); Chloride 115 mmol/L (98-107); Glucose 105 mg/dL (74-99); Non-African American GFR(CKD) 32 (>60 ml/min/1.73 sqM); Potassium 3.8 mmol/L (3.5-5.1); Sodium 138 mmol/L (137-145)
--- NOTE | 2020-10-20 13:53 | PN ---
PROGRESS NOTE DATE OF SERVICE: 10/20/2020 REASON FOR FOLLOWUP: An Enterococcus faecalis urinary tract infection with multiple antibiotic allergies. INTERVAL HISTORY: The patient is currently afebrile. The patient is feeling better. She is breathing comfortably. The patient denies having any chest pain or cough. No abdominal pain or diarrhea. PHYSICAL EXAMINATION: Blood pressure 145/76, pulse of 75, temperature 98.1. She is 97% on room air. General description is an elderly female lying in bed in no distress. RESPIRATORY SYSTEM: Unlabored breathing, clear to auscultation anteriorly. HEART: S1, S2. Regular rate and rhythm. ABDOMEN: Soft, no tenderness. LABS: Hemoglobin 8.5, white count 14.40, creatinine 1.54. DIAGNOSTIC IMPRESSION AND PLAN: Patient with complicated urinary tract infection. The patient with multiple antibiotic allergies. Currently on daptomycin with overall improvement. Finish therapy with daptomycin for a total of 2 weeks. Currently on q.48 hour dose, which may be adjusted to daily if the kidney function continue to improve. Discussed with the pharmacy. MMODL / IJN: [id number] /
--- NOTE | 2020-10-20 18:24 | P.DS ---
Providers Date of admission: 10/17/20 19:05 Attending physician: Demetrius Wade MD Consults: 10/18/20 13:50 Consult Physician Routine Consulting Provider: Sonny Villar Consult Reason/Comments: medical Do you want consulting provider notified?: Yes 10/19/20 13:00 Consult Physician Routine Consulting Provider: Alicia Ferrara Consult Reason/Comments: UTI Do you want consulting provider notified?: Yes 10/19/20 16:40 Consult Physician Routine Consulting Provider: Alicia Ferrara Consult Reason/Comments: Rec. nephroureteral stents placement,UTI with Do you want consulting provider notified?: Yes Primary care physician: Sonny Villar [facility] Course: Ms Barker is a 80-year-old female patient of Dr Alexis with hx of bladder cancer, 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 She underwent nephroureteral stent placement which were done at [facility]. She presents to the ED with Nausea/vomiting and fatigue post procedure. On presentation her Creat 4 from baseline of 1.4-1.5. She had leucocytosis at 34. She was admitted to the floor, on October 17. She was initially started on ceftriaxone. Urine and blood cultures were obtained. Urine culture grew Enterococcus faecalis. And she was transitioned to daptomycin. Infectious disease was consulted. Her culture was finalized on October 20, and she was discharged home with daptomycin. Her creatinine improved to 2 with hydration, her white count continued to trend down during her admission. She was discharged home on October 20 at time of discharge she was tolerating a diet, ambulating, pain was controlled and she was hemodynamically stable Patient Condition at Discharge: Serious Plan - Discharge Summary New Discharge Prescriptions: New Acetaminophen Tab [Tylenol] 650 mg PO Q6HR PRN tab PRN Reason: Mild Pain Or Fever > 100.5 Continue Flecainide [Tambocor] 50 mg PO BID@0800,2000 L.acidoph,Paracasei, B.lactis [Probiotic] 1 tab PO DAILY Multivitamins, Thera [Multivitamin (formulary)] 1 tab PO DAILY Aspirin 162 mg PO HS 30 Days #60 chew Metoprolol Tartrate [Lopressor] 12.5 mg PO BID Docusate [Colace] 100 mg PO DAILY PRN cap PRN Reason: Constipation traMADol HCl [Ultram] 50 mg PO Q6H PRN #12 tab PRN Reason: Pain Discontinued Acetaminophen Tab [Tylenol] 1,000 mg PO Q6H PRN PRN Reason: Pain Discharge Medication List Flecainide [Tambocor] 50 mg PO BID@0800,199907/06/17 [History] L.acidoph,Paracasei, B.lactis [Probiotic] 1 tab PO DAILY 01/19/20 [History] Multivitamins, Thera [Multivitamin (formulary)] 1 tab PO DAILY 08/20/20 [History] Aspirin 162 mg PO HS 30 Days #60 chew 08/29/20 [Rx] Metoprolol Tartrate [Lopressor] 12.5 mg PO BID 10/02/20 [History] Docusate [Colace] 100 mg PO DAILY PRN cap 10/04/20 [Rx] traMADol HCl [Ultram] 50 mg PO Q6H PRN #12 tab 10/04/20 [Rx] Acetaminophen Tab [Tylenol] 650 mg PO Q6HR PRN tab 10/20/20 [Rx] Follow up Appointment(s)/Referral(s): Sonny Villar DO [Primary Care Provider] - 10/25/20 11:30 am (Appointment set with Yohana) Adams CANTU [NON-STAFF] - 10/21/20 9:00 am (First appointment will be at 9:00a.m. They will schedule you for a later time at your appointment tomorrow for the rest of your visits. ) Fei Alexis MD [STAFF PHYSICIAN] - 1 Week (Unable to reach office at time of discharge please call to set up a follow up appointment) Patient Instructions/Handouts: Kidney Infection (DC), Nephrostomy Tube Care (DC), How to Care for Your Midline Catheter (DC)
== END 2020-10-20 14:35 | disposition home or self-care (01) | DRG 862 ==
LOC: EC 14:08 → 4SSUR 19:05
PROVIDERS: ADMIT Urology; ATTEND Urology
PROC: 05HY33Z Insertion of Infusion Device into Upper Vein, Percutaneous Approach (ICD-10-PCS; principal; 2020-10-20 11:10)
DX: T81.40XA Infection following a procedure, unspecified, initial encounter (principal); A41.81 Sepsis due to Enterococcus; N18.4 Chronic kidney disease, stage 4 (severe); N17.9 Acute kidney failure, unspecified; N13.6 Pyonephrosis; F41.9 Anxiety disorder, unspecified; Z20.822 Contact with and (suspected) exposure to COVID-19; F32.9 Major depressive disorder, single episode, unspecified; F17.200 Nicotine dependence, unspecified, uncomplicated; E86.0 Dehydration; Z95.0 Presence of cardiac pacemaker; Z90.6 Acquired absence of other parts of urinary tract; Z88.1 Allergy status to other antibiotic agents; Z87.440 Personal history of urinary (tract) infections; Z86.12 Personal history of poliomyelitis; Z85.51 Personal history of malignant neoplasm of bladder; Z83.3 Family history of diabetes mellitus; Z80.49 Family history of malignant neoplasm of other genital organs; Z79.899 Other long term (current) drug therapy; Z79.82 Long term (current) use of aspirin
CPT/HCPCS: 36410; 36415; 74018; 76937; 80048; 80053; 81001; 83605; 83735; 85025; 87040; 87077; 87086; 87186; 87635; 96361; 96374; 96376; 99285

== ENCOUNTER 2020-10-29 08:28 | Emergency (ER) | payer MEDICARE, BC ==
[2020-10-29 08:37] VITALS: TEMP 97.9
[2020-10-29] MEDS ORDERED: ONDANSETRON 4 MG/2 ML VIAL IVP STA (09:05)
[2020-10-29] MEDS ORDERED: FAMOTIDINE 20 MG/2 ML VIAL IV STA (09:05)
[2020-10-29] MEDS ORDERED: methocarbamoL 500 MG TAB PO STA (09:05)
--- NOTE | 2020-10-29 09:08 | ED ---
General Adult HPI - General Chief complaint: Recheck/Abnormal Lab/Rx Stated complaint: kidney pain Time Seen by Provider: 10/29/20 08:38 Source: patient, family, RN notes reviewed Mode of arrival: ambulatory Limitations: no limitations - History of Present Illness Initial comments: Patient is a pleasant 80-year-old female presenting to the emergency Department with complaints of bilateral posterior flank pain. Patient did have nephrostomy tubes placed a couple of weeks ago. Patient states they're still draining. Patient is also having some drainage from the site itself. Patient is also still passing urine through the urostomy site. Patient does have history of previous bladder carcinoma however did not want reconstruction. Patient states discomfort is waxing and waning however currently somewhat severe rated 8/10. Patient is having fatigue and not getting out of bed. - Related Data Home Medications Medication Instructions Recorded Confirmed Flecainide [Tambocor] 50 mg PO BID 07/06/17 10/29/20 L.acidoph,Paracasei, B.lactis 1 tab PO DAILY 01/19/20 10/29/20 [Probiotic] Multivitamins, Thera [Multivitamin 1 tab PO DAILY 08/20/20 10/29/20 (formulary)] Metoprolol Tartrate [Lopressor] 12.5 mg PO BID 10/02/20 10/29/20 Methocarbamol [Robaxin-750] 750 mg PO TID PRN 10/29/20 10/29/20 Ondansetron HCl [Zofran] 4 mg PO Q8H PRN 10/29/20 10/29/20 Previous Rx's Medication Instructions Recorded Aspirin 162 mg PO HS 30 Days #60 chew 08/29/20 Docusate [Colace] 100 mg PO DAILY PRN cap 10/04/20 traMADol HCl [Ultram] 50 mg PO Q6H PRN #12 tab 10/04/20 Acetaminophen Tab [Tylenol] 650 mg PO Q6HR PRN tab 10/20/20 Allergies Allergy/AdvReac Type Severity Reaction Status Date / Time ciprofloxacin [From Cipro] Allergy Nausea & Verified 10/29/20 10:27 Vomiting hydrocodone [From [place]] Allergy Rash/Hives Verified 10/29/20 10:27 hydromorphone [From Dilaudid] Allergy Vomiting Verified 10/29/20 10:27 morphine Allergy Vomiting Verified 10/29/20 10:27 nitrofurantoin Allergy Swelling Verified 10/29/20 10:27 [From Macrobid] oxycodone Allergy Vomiting Verified 10/29/20 10:27 Penicillins Allergy Rash/Hives Verified 10/29/20 10:27 cetirizine [From Zyrtec] AdvReac Swelling Verified 10/29/20 10:27 codeine AdvReac Vomiting Verified 10/29/20 10:27 ketorolac [From Toradol] AdvReac avoids due Verified 10/29/20 10:27 to kidneys linezolid AdvReac Swelling Verified 10/29/20 10:27 metoclopramide [From Reglan] AdvReac Hallucinati Verified 10/29/20 10:27 ons zolpidem [From Ambien] AdvReac Hallucinati Verified 10/29/20 10:27 ons narcotics AdvReac Vomiting Uncoded 10/29/20 10:27 Review of Systems ROS Statement: Those systems with pertinent positive or pertinent negative responses have been documented in the HPI. ROS Other: All systems not noted in ROS Statement are negative. Constitutional: Denies: fever Eyes: Denies: eye pain ENT: Denies: ear pain Respiratory: Denies: cough Cardiovascular: Denies: chest pain Endocrine: Reports: fatigue Gastrointestinal: Reports: as per HPI Genitourinary: Reports: as per HPI Musculoskeletal: Reports: as per HPI Skin: Denies: rash Neurological: Denies: weakness Past Medical History Past Medical History: Cancer Additional Past Medical History / Comment(s): Bladder cancer with muscle invasion/surgery/urostomy and chemo x2, frequent UTIs, has urostomy, has Rt ureteral stent. Tachybrady syndrome with pacemaker, hx of polio. Constipation. Bruises easily. History of Any Multi-Drug Resistant Organisms: None Reported Past Surgical History: Joint Replacement Additional Past Surgical History / Comment(s): 2013 pacemaker, radical c ystectomy with ileal loop/urostomy, R nephrostomy tube, R ureteral stents, R shoulder fusion with bone from hip donor site. ORIF Lt hip. Removal hardware Rt Shoulder. Past Anesthesia/Blood Transfusion Reactions: Motion Sickness, Postoperative Nausea & Vomiting (PONV) Additional Past Anesthesia/Blood Transfusion Reaction / Comment(s): Pt has recei sidney blood in past without reaction. Type of Cardiac Device: Permanent Pacemaker Device Placement Date:: 2013 Past Psychological History: Anxiety, Depression Smoking Status: Current some day smoker Past Alcohol Use History: None Reported Past Drug Use History: None Reported - Past Family History Father History Unknown: Yes Additional Family Medical History / Comment(s): Father in a MVA when pt was young. Mother Family Medical History: Cancer, Diabetes Mellitus Additional Family Medical History / Comment(s): Cervical cancer, rheumatic fever, heart problems. Brother(s) Family Medical History: Cancer Additional Family Medical History / Comment(s): PANCREATIC General Exam Limitations: no limitations General appearance: alert, in no apparent distress Head exam: Present: normocephalic Eye exam: Present: normal appearance Respiratory exam: Present: normal lung sounds bilaterally Cardiovascular Exam: Present: regular rate, normal rhythm GI/Abdominal exam: Present: soft, other (Urostomy site intact). Absent: tenderness Extremities exam: Present: normal inspection Back exam: Present: CVA tenderness (R), CVA tenderness (L), other (Bilateral nephrostomy tubes with mild yellow drainage.) Neurological exam: Present: alert Psychiatric exam: Present: normal affect, normal mood Skin exam: Present: normal color Course Vital Signs 10/29/20 10/29/20 08:34 10:47 Temperature 97.9 F Pulse Rate 89 61 Respiratory 20 16 Rate Blood Pressure 119/60 114/63 O2 Sat by Pulse 96 96 Oximetry EKG Findings - EKG Comments: EKG Findings:: Scotty rhythm with a rate of 65. IL 424. QRS 108. QT 428. QTC 445. Normal axis. Incomplete right bundle-branch block. Septal Q waves. No acute ST change. Medical Decision Making - Medical Decision Making Patient reevaluated and feeling better. Patient states discomfort is tolerable at this time. Case was discussed in detail with Dr. Henry who is familiar with this patient. He states nothing different to do on a urology point. He is comfortable with discharge of patient. Patient and family updated. Patient does prefer to be discharged and family is okay with this. - Lab Data Result diagrams: 10/29/20 09:23 10/29/20 09:23 Lab Results 10/29/20 10/29/20 10/29/20 Range/Units 09:23 09:23 09:23 WBC 10.9 H (3.8-10.6) k/uL RBC 3.04 L (3.80-5.40) m/uL Hgb 9.4 L (11.4-16.0) gm/dL Hct 28.4 L (34.0-46.0) % MCV 93.6 (80.0-100.0) fL MCH 31.0 (25.0-35.0) pg MCHC 33.1 (31.0-37.0) g/dL RDW 13.6 (11.5-15.5) % Plt Count 514 H (150-450) k/uL MPV 7.1 Neutrophils % 74 % Lymphocytes % 13 % Monocytes % 7 % Eosinophils % 4 % Basophils % 1 % Neutrophils # 8.1 H (1.3-7.7) k/uL Lymphocytes # 1.4 (1.0-4.8) k/uL Monocytes # 0.8 (0-1.0) k/uL Eosinophils # 0.4 (0-0.7) k/uL Basophils # 0.1 (0-0.2) k/uL PT 10.5 (9.0-12.0) sec INR 1.0 (<1.2) APTT 23.6 (22.0-30.0) sec Sodium (137-145) mmol/L Potassium (3.5-5.1) mmol/L Chloride (98-107) mmol/L Carbon Dioxide (22-30) mmol/L Anion Gap mmol/L BUN (7-17) mg/dL Creatinine (0.52-1.04) mg/dL Est GFR (CKD-EPI)AfAm (>60 ml/min/1.73 sqM) Est GFR (CKD-EPI)NonAf (>60 ml/min/1.73 sqM) Glucose (74-99) mg/dL Plasma Lactic Acid Jae (0.7-2.0) mmol/L Calcium (8.4-10.2) mg/dL Total Bilirubin (0.2-1.3) mg/dL AST (14-36) U/L ALT (4-34) U/L Alkaline Phosphatase (38-126) U/L Total Protein (6.3-8.2) g/dL Albumin (3.5-5.0) g/dL Urine Color Yellow Urine Appearance Cloudy H (Clear) Urine pH 7.0 (5.0-8.0) Ur Specific [place] 1.010 (1.001-1.035) Urine Protein 1+ H (Negative) Urine Glucose (UA) Negative (Negative) Urine Ketones Negative (Negative) Urine Blood Small H (Negative) Urine Nitrite Positive H (Negative) Urine Bilirubin Negative (Negative) Urine Urobilinogen <2.0 (<2.0) mg/dL Ur Leukocyte Esterase Large H (Negative) Urine RBC 27 H (0-5) /hpf Urine WBC >182 H (0-5) /hpf Urine WBC Clumps Rare H (None) /hpf Urine Bacteria Rare H (None) /hpf 10/29/20 10/29/20 Range/Units 09:23 09:23 WBC (3.8-10.6) k/uL RBC (3.80-5.40) m/uL Hgb (11.4-16.0) gm/dL Hct (34.0-46.0) % MCV (80.0-100.0) fL MCH (25.0-35.0) pg MCHC (31.0-37.0) g/dL RDW (11.5-15.5) % Plt Count (150-450) k/uL MPV Neutrophils % % Lymphocytes % % Monocytes % % Eosinophils % % Basophils % % Neutrophils # (1.3-7.7) k/uL Lymphocytes # (1.0-4.8) k/uL Monocytes # (0-1.0) k/uL Eosinophils # (0-0.7) k/uL Basophils # (0-0.2) k/uL PT (9.0-12.0) sec INR (<1.2) APTT (22.0-30.0) sec Sodium 135 L (137-145) mmol/L Potassium 5.0 (3.5-5.1) mmol/L Chloride 105 (98-107) mmol/L Carbon Dioxide 18 L (22-30) mmol/L Anion Gap 12 mmol/L BUN 35 H (7-17) mg/dL Creatinine 1.47 H (0.52-1.04) mg/dL Est GFR (CKD-EPI)AfAm 39 (>60 ml/min/1.73 sqM) Est GFR (CKD-EPI)NonAf 34 (>60 ml/min/1.73 sqM) Glucose 100 H (74-99) mg/dL Plasma Lactic Acid Jae 0.9 (0.7-2.0) mmol/L Calcium 9.9 (8.4-10.2) mg/dL Total Bilirubin 0.5 (0.2-1.3) mg/dL AST 26 (14-36) U/L ALT 18 (4-34) U/L Alkaline Phosphatase 72 (38-126) U/L Total Protein 7.1 (6.3-8.2) g/dL Albumin 3.4 L (3.5-5.0) g/dL Urine Color Urine Appearance (Clear) Urine pH (5.0-8.0) Ur Specific [place] (1.001-1.035) Urine Protein (Negative) Urine Glucose (UA) (Negative) Urine Ketones (Negative) Urine Blood (Negative) Urine Nitrite (Negative) Urine Bilirubin (Negative) Urine Urobilinogen (<2.0) mg/dL Ur Leukocyte Esterase (Negative) Urine RBC (0-5) /hpf Urine WBC (0-5) /hpf Urine WBC Clumps (None) /hpf Urine Bacteria (None) /hpf Disposition Clinical Impression: UTI (urinary tract infection), Weakness Disposition: HOME SELF-CARE Condition: Stable Instructions (If sedation given, give patient instructions): Urinary Tract Infection in Women (ED), Fatigue (ED) Additional Instructions: Please follow-up with Dr. Henry next week as planned. Please also follow-up with your primary care physician in the next day or 2 for recheck. Return for unable take care of your self, fevers, worsening symptoms or other concerns. Continue daptomycin as planned. Is patient prescribed a controlled substance at d/c from ED?: No Referrals: Sonny Villar DO [Primary Care Provider] - 1-2 days Time of Disposition: 11:13
[2020-10-29] MEDS ORDERED: SODIUM CHLORIDE 0.9% 1,000 ML IV SCH (09:15)
[2020-10-29 09:38] LABS: Basophils # (A) 0.1 k/uL (0-0.2); Basophils % (A) 1 %; Eosinophils # (A) 0.4 k/uL (0-0.7); Eosinophils % (A) 4 %; HCT 28.4 % (34.0-46.0); HGB 9.4 gm/dL (11.4-16.0); Lymphocytes # (A) 1.4 k/uL (1.0-4.8); Lymphocytes % (A) 13 %; MCHC 33.1 g/dL (31.0-37.0); MCV 93.6 fL (80.0-100.0); Mean Platelet Volume 7.1; Monocytes # (A) 0.8 k/uL (0-1.0); Monocytes % (A) 7 %; Neutrophils # (A) 8.1 k/uL (1.3-7.7); Neutrophils % (A) 74 %; Platelet Count 514 k/uL (150-450); RBC 3.04 m/uL (3.80-5.40); RDW 13.6 % (11.5-15.5); WBC 10.9 k/uL (3.8-10.6)
[2020-10-29 09:46] LABS: Partial Thromboplastin Time 23.6 sec (22.0-30.0); Prothrombin Time 10.5 sec (9.0-12.0)
[2020-10-29 09:49] LABS: Appearance,Urine Cloudy (Clear); Bacteria,Urine Rare /hpf; Bilirubin,Urine Negative (Negative); Blood,Urine Small (Negative); Color,Urine Yellow; Glucose,Urine (UA) Negative (Negative); Ketones,Urine Negative (Negative); Leukocyte Esterase,Urine Large (Negative); Nitrite,Urine Positive (Negative); Protein,Urine 1+ (Negative); RBC,Urine 27 /hpf (0-5); Urobilinogen,Urine <2.0 mg/dL (<2.0); WBC,Urine >182 /hpf (0-5)
[2020-10-29 09:52] LABS: Albumin 3.4 g/dL (3.5-5.0); Calcium 9.9 mg/dL (8.4-10.2); Total Bilirubin 0.5 mg/dL (0.2-1.3); Total Protein 7.1 g/dL (6.3-8.2)
[2020-10-29 10:47] VITALS: BP 114/63; PULSE 61; RESP 16
--- NOTE | 2020-10-29 10:48 | XR ---
EXAMINATION TYPE: XR abdomen 1V DATE OF EXAM: 10/29/2020 10:15 AM CLINICAL HISTORY: History of bladder cancer with weakness and pain since bilateral nephrostomies TECHNIQUE: Two Upright KUB images of the abdomen are obtained. COMPARISON: Abdominal x-ray October 17, 2020. CT abdomen and pelvis October 02, 2020. FINDINGS: Gas seen in nondistended stomach. Gas seen in nondistended small and large bowel loops in t he lower abdomen and pelvis. Bilateral double-J ureter stents redemonstrated extending to right pelvi s ileal conduit. Stable bilateral percutaneous nephrostomy catheters. Surgical clips bilateral pelvis redemonstrated. Lung bases remain clear. No free air. Metallic hardware from left hip surgery redemo nstrated. IMPRESSION: Overall nonobstructive bowel gas pattern. No significant change from most recent x-ray.
== END 2020-10-29 13:12 | disposition home or self-care (01) ==
LOC: EC 08:28
DX: N39.0 Urinary tract infection, site not specified (principal); R53.1 Weakness; Z79.899 Other long term (current) drug therapy; Z88.1 Allergy status to other antibiotic agents; Z88.5 Allergy status to narcotic agent; Z88.0 Allergy status to penicillin; Z88.8 Allergy status to other drugs, medicaments and biological substances; Z95.0 Presence of cardiac pacemaker; Z85.51 Personal history of malignant neoplasm of bladder
CPT/HCPCS: 36415; 93005; 80053; 83605; 85025; 85610; 85730; 81001; 87040; 87086; 74018; 99284; 96365; 96375 ×2; 96361 ×3; J2405; J0878

== ENCOUNTER → 2020-11-20 | Outpatient (CLI) | payer MEDICARE, BC ==
[2020-11-20 18:17] LABS: HCT 32.2 % (37.2-46.3); MCH 29.7 pg (27.0-32.0); MCHC 31.1 g/dL (32.0-37.0); MCV 95.5 fL (80.0-97.0); Mean Platelet Volume 10.9 fL (9.5-12.2); Platelet Count 380 X 10*3/uL (140-440); RBC 3.37 X 10*6/uL (4.10-5.20); RDW 13.5 % (11.5-14.5); WBC 13.56 X 10*3/uL (4.50-10.00)
[2020-11-20 19:23] LABS: African American GFR (CKD) 35.2 (60.0-200.0); Anion Gap 12.5 mmol/L (4.00-12.00); BUN/Creat Ratio 34.38 Ratio (12.00-20.00); Calcium 10.2 mg/dL (8.7-10.3); Carbon Dioxide 19.5 mmol/L (21.6-31.8); Non-African American GFR(CKD) 30.3 (60.0-200.0); Potassium 4.8 mmol/L (3.5-5.5)
== END | disposition home or self-care (01) ==
LOC: LABWHC1 10:45
PROVIDERS: ATTEND Urology
DX: N13.30 Unspecified hydronephrosis (principal)
CPT/HCPCS: 36415; 80048; 85027

== ENCOUNTER → 2020-12-22 | Outpatient (CLI) | payer MEDICARE, BC ==
--- NOTE | 2020-12-22 16:06 | PE ---
Nuclear medicine PET/CT HISTORY: Bladder carcinoma, C 67.8 subsequent Patient received 8.2 mCi F-18 FDG intravenously in delayed scanning was performed from skull base to the mid thighs. Localization and attenuation correction CT scan was performed. Correlation to prior CT scan 10/02/2020, prior nuclear medicine PET/CT 12/17/2019 Chest and neck: There is no evident cervical or supraclavicular adenopathy. No mediastinal, axillary, or hilar adenopathy. There is no suspicious uptake present. No pleural or pericardial effusion, no e vident lung mass. ABDOMEN: There is no evident retroperitoneal adenopathy. No liver mass. There are bilateral percutane ous tubes noted which show medial access to the renal collecting systems, ureteral extension is into a loop in the right lower quadrant, there is an ostomy present. There is a soft tissue area present a long the left psoas muscle extending to the iliac fossa on the left measuring approximately 2.4 cm in AP dimension by 2.5 cm in transverse dimension, intense uptake is present in this appears to extend from the level of the left percutaneous tubing posterior to the left kidney may represent a urinoma. Postop changes are noted in the pelvis. Patient is status post cystectomy. There is no evident pelvic adenopathy. Osseous structures show postop change to the left hip, there is streak artifact present which could l imit evaluation. No suspicious uptake. 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 No other suspicious uptake.
== END | disposition home or self-care (01) ==
LOC: RADPETMAIN 09:02
PROVIDERS: ATTEND Internal Medicine Hematology & Oncology
DX: C67.8 Malignant neoplasm of overlapping sites of bladder (principal)
CPT/HCPCS: 78815; A9552

== ENCOUNTER 2021-04-27 15:17 | Emergency (ER) | payer MEDICARE, BC ==
[2021-04-27] MEDS ORDERED: SODIUM CHLORIDE 0.9% 1,000 ML IV STA (15:59)
--- NOTE | 2021-04-27 16:06 | ED ---
General Adult HPI - General Chief complaint: Urogenital Stated complaint: Kidney problems Time Seen by Provider: 04/27/21 15:26 Source: patient Mode of arrival: ambulatory Limitations: no limitations - History of Present Illness Initial comments: 80-year-old female with a past medical history of bladder cancer with cystectomy and bilateral nephrostomy tubes presents to the emergency room for a chief complaint of dark urine. The patient reports that the nephrostomy tube on the left side is having a darker urine. They also state they believe they see mucus in the tube and a urine. Daughter and patient report that the nephrostomy bag had turned purple and it has never done that before. Patient has not had any fevers. Does admit to low abdominal and low back pain however this has been persistent since she had nephrostomy tubes placed. Patient sees Dr. Adam from [facility].Patient has no other complaints at this time including shortness of breath, chest pain, nausea or vomiting, headache, or visual changes. - Related Data Home Medications Medication Instructions Recorded Confirmed Flecainide [Tambocor] 50 mg PO BID 07/06/17 04/27/21 Metoprolol Tartrate [Lopressor] 12.5 mg PO HS 10/02/20 04/27/21 Aspirin EC [Ecotrin Low Dose] 162 mg PO HS 04/27/21 04/27/21 Multivit with Calcium,Iron,Min 1 tab PO DAILY 04/27/21 04/27/21 [Women's Multivitamin] Previous Rx's Medication Instructions Recorded Levofloxacin [Levaquin] 750 mg PO DAILY 5 Days #5 tab 04/27/21 Allergies Allergy/AdvReac Type Severity Reaction Status Date / Time cetirizine [From Zyrtec] Allergy Anaphylaxis Verified 04/27/21 17:11 hydrocodone [From [place]] Allergy Itching/Vom Verified 04/27/21 17:11 iting nitrofurantoin Allergy Anaphylaxis Verified 04/27/21 17:11 [From Macrobid] Penicillins Allergy Rash/Hives Verified 04/27/21 17:11 tramadol Allergy Anaphylaxis Verified 04/27/21 17:11 ciprofloxacin [From Cipro] AdvReac Vomiting Verified 04/27/21 17:11 codeine AdvReac Vomiting Verified 04/27/21 17:11 hydromorphone [From Dilaudid] AdvReac Vomiting Verified 04/27/21 17:11 ketorolac [From Toradol] AdvReac avoids due Verified 04/27/21 17:11 to kidneys linezolid AdvReac Anaphylaxis Verified 04/27/21 17:11 /Vomiting metoclopramide [From Reglan] AdvReac Hallucinati Verified 04/27/21 17:11 ons morphine AdvReac Vomiting Verified 04/27/21 17:11 oxycodone AdvReac Vomiting Verified 04/27/21 17:11 zolpidem [From Ambien] AdvReac Hallucinati Verified 04/27/21 17:11 ons narcotics AdvReac Vomiting Uncoded 04/27/21 17:11 Review of Systems ROS Statement: Those systems with pertinent positive or pertinent negative responses have been documented in the HPI. ROS Other: All systems not noted in ROS Statement are negative. Past Medical History Past Medical History: Cancer Additional Past Medical History / Comment(s): Bladder cancer with muscle invasion/surgery/urostomy and chemo x2, frequent UTIs, has urostomy, has Rt ureteral stent. Tachybrady syndrome with pacemaker, hx of polio. Constipation. Bruises easily. History of Any Multi-Drug Resistant Organisms: None Reported Past Surgical History: Joint Replacement Additional Past Surgical History / Comment(s): 2013 pacemaker, radical cystectomy with ileal loop/urostomy, R nephrostomy tube, R ureteral stents, R sh [place]ulder fusion with bone from hip donor site. ORIF Lt hip. Removal hardware Rt Shoulder. Past Anesthesia/Blood Transfusion Reactions: Motion Sickness, Postoperative Nausea & Vomiting (PONV) Additional Past Anesthesia/Blood Transfusion Reaction / Comment(s): Pt has received blood in past without reaction. Type of Cardiac Device: Permanent Pacemaker Device Placement Date:: 2013 Past Psychological History: Anxiety, Depression Smoking Status: Current some day smoker Past Alcohol Use History: None Reported Past Drug Use History: None Reported - Past Family History Father History Unknown: Yes Additional Family Medical History / Comment(s): Father in a MVA when pt was young. Mother Family Medical History: Cancer, Diabetes Mellitus Additional Family Medical History / Comment(s): Cervical cancer, rheumatic fever, heart problems. Brother(s) Family Medical History: Cancer Additional Family Medical History / Comment(s): PANCREATIC General Exam Limitations: no limitations General appearance: alert Head exam: Present: atraumatic Eye exam: Present: normal appearance, PERRL, EOMI. Absent: scleral icterus ENT exam: Present: normal exam, mucous membranes moist Neck exam: Present: normal inspection, full ROM. Absent: tenderness Respiratory exam: Present: normal lung sounds bilaterally. Absent: respiratory distress, wheezes Cardiovascular Exam: Present: regular rate, normal rhythm, normal heart sounds GI/Abdominal exam: Present: soft, normal bowel sounds, other (Nephrostomy tubes noted). Absent: distended, tenderness Course Vital Signs 04/27/21 04/27/21 15:21 18:39 Temperature 98.0 F 97.4 F L Pulse Rate 83 70 Respiratory 16 18 Rate Blood Pressure 180/82 137/79 O2 Sat by Pulse 96 98 Oximetry Medical Decision Making - Medical Decision Making Vitals are stable. CBC CMP are unremarkable. Urinalysis does show 135 white blood cells with positive nitrites. I did offer to call patient's urologist from [facility] however at this time they do not want to wait for rest to call them. At this time I would recommend treating for pyelonephritis given that patient has had odor changes with the urine as well as darkened urine and a positive nitrite. We will definitely culture the urine as well. I did recommend treating with either Bactrim or Keflex however as patient has not had these before and has multiple adverse reactions to antibiotics she wants to stick with something she knows as a cause nausea. She prefers Levaquin. I did discuss the black box warnings of this and she is aware. They will follow-up on Friday. They will return here for any worsening symptoms. - Lab Data Result diagrams: 04/27/21 16:26 04/27/21 16:26 Lab Results 04/27/21 04/27/21 04/27/21 Range/Units 16:26 16:26 16:26 WBC 9.4 (3.8-10.6) k/uL RBC 4.45 (3.80-5.40) m/uL Hgb 13.2 (11.4-16.0) gm/dL Hct 39.9 (34.0-46.0) % MCV 89.8 (80.0-100.0) fL MCH 29.7 (25.0-35.0) pg MCHC 33.1 (31.0-37.0) g/dL RDW 15.1 (11.5-15.5) % Plt Count 234 (150-450) k/uL MPV 7.9 Neutrophils % 63 % Lymphocytes % 25 % Monocytes % 6 % Eosinophils % 4 % Basophils % 1 % Neutrophils # 5.9 (1.3-7.7) k/uL Lymphocytes # 2.3 (1.0-4.8) k/uL Monocytes # 0.5 (0-1.0) k/uL Eosinophils # 0.4 (0-0.7) k/uL Basophils # 0.1 (0-0.2) k/uL Sodium 139 (137-145) mmol/L Potassium 3.8 (3.5-5.1) mmol/L Chloride 107 (98-107) mmol/L Carbon Dioxide 22 (22-30) mmol/L Anion Gap 10 mmol/L BUN 37 H (7-17) mg/dL Creatinine 1.36 H (0.52-1.04) mg/dL Est GFR (CKD-EPI)AfAm 43 (>60 ml/min/1.73 sqM) Est GFR (CKD-EPI)NonAf 37 (>60 ml/min/1.73 sqM) Glucose 94 (74-99) mg/dL Plasma Lactic Acid Jae (0.7-2.0) mmol/L Calcium 9.8 (8.4-10.2) mg/dL Magnesium 2.0 (1.6-2.3) mg/dL Total Bilirubin 0.2 (0.2-1.3) mg/dL AST 24 (14-36) U/L ALT 12 (4-34) U/L Alkaline Phosphatase 97 (38-126) U/L Total Protein 7.3 (6.3-8.2) g/dL Albumin 4.3 (3.5-5.0) g/dL Amylase 78 (30-110) U/L Lipase 203 (23-300) U/L Urine Color Light Yellow Urine Appearance Turbid H (Clear) Urine pH 7.0 (5.0-8.0) Ur Specific [place] 1.007 (1.001-1.035) Urine Protein 1+ H (Negative) Urine Glucose (UA) Negative (Negative) Urine Ketones Negative (Negative) Urine Blood Small H (Negative) Urine Nitrite Positive H (Negative) Urine Bilirubin Negative (Negative) Urine Urobilinogen <2.0 (<2.0) mg/dL Ur Leukocyte Esterase Large H (Negative) Urine RBC 33 H (0-5) /hpf Urine WBC 135 H (0-5) /hpf Urine WBC Clumps Many H (None) /hpf Ur Squamous Epith Cells 1 (0-4) /hpf Urine Bacteria Many H (None) /hpf Urine Mucus Rare H (None) /hpf 04/27/21 Range/Units 16:26 WBC (3.8-10.6) k/uL RBC (3.80-5.40) m/uL Hgb (11.4-16.0) gm/dL Hct (34.0-46.0) % MCV (80.0-100.0) fL MCH (25.0-35.0) pg MCHC (31.0-37.0) g/dL RDW (11.5-15.5) % Plt Count (150-450) k/uL MPV Neutrophils % % Lymphocytes % % Monocytes % % Eosinophils % % Basophils % % Neutrophils # (1.3-7.7) k/uL Lymphocytes # (1.0-4.8) k/uL Monocytes # (0-1.0) k/uL Eosinophils # (0-0.7) k/uL Basophils # (0-0.2) k/uL Sodium (137-145) mmol/L Potassium (3.5-5.1) mmol/L Chloride (98-107) mmol/L Carbon Dioxide (22-30) mmol/L Anion Gap mmol/L BUN (7-17) mg/dL Creatinine (0.52-1.04) mg/dL Est GFR (CKD-EPI)AfAm (>60 ml/min/1.73 sqM) Est GFR (CKD-EPI)NonAf (>60 ml/min/1.73 sqM) Glucose (74-99) mg/dL Plasma Lactic Acid Jae 0.7 (0.7-2.0) mmol/L Calcium (8.4-10.2) mg/dL Magnesium (1.6-2.3) mg/dL Total Bilirubin (0.2-1.3) mg/dL AST (14-36) U/L ALT (4-34) U/L Alkaline Phosphatase (38-126) U/L Total Protein (6.3-8.2) g/dL Albumin (3.5-5.0) g/dL Amylase (30-110) U/L Lipase (23-300) U/L Urine Color Urine Appearance (Clear) Urine pH (5.0-8.0) Ur Specific [place] (1.001-1.035) Urine Protein (Negative) Urine Glucose (UA) (Negative) Urine Ketones (Negative) Urine Blood (Negative) Urine Nitrite (Negative) Urine Bilirubin (Negative) Urine Urobilinogen (<2.0) mg/dL Ur Leukocyte Esterase (Negative) Urine RBC (0-5) /hpf Urine WBC (0-5) /hpf Urine WBC Clumps (None) /hpf Ur Squamous Epith Cells (0-4) /hpf Urine Bacteria (None) /hpf Urine Mucus (None) /hpf Disposition Clinical Impression: Pyelonephritis Disposition: HOME SELF-CARE Condition: Good Instructions (If sedation given, give patient instructions): Kidney Infection (ED) Additional Instructions: Drink plenty of fluids. Take antibiotics as directed. Follow-up with your doctor on Friday. If you have any worsening symptoms prior to that return to the emergency room. Prescriptions: Levofloxacin [Levaquin] 750 mg PO DAILY 5 Days #5 tab Is patient prescribed a controlled substance at d/c from ED?: No Referrals: Sonny Villar DO [Primary Care Provider] - 1-2 days Time of Disposition: 18:47
[2021-04-27 16:37] LABS: Basophils # (A) 0.1 k/uL (0-0.2); Basophils % (A) 1 %; Eosinophils # (A) 0.4 k/uL (0-0.7); Eosinophils % (A) 4 %; HCT 39.9 % (34.0-46.0); HGB 13.2 gm/dL (11.4-16.0); Lymphocytes # (A) 2.3 k/uL (1.0-4.8); Lymphocytes % (A) 25 %; MCH 29.7 pg (25.0-35.0); MCHC 33.1 g/dL (31.0-37.0); MCV 89.8 fL (80.0-100.0); Mean Platelet Volume 7.9; Monocytes # (A) 0.5 k/uL (0-1.0); Monocytes % (A) 6 %; Neutrophils # (A) 5.9 k/uL (1.3-7.7); Neutrophils % (A) 63 %; Platelet Count 234 k/uL (150-450); RBC 4.45 m/uL (3.80-5.40); RDW 15.1 % (11.5-15.5); WBC 9.4 k/uL (3.8-10.6)
[2021-04-27 16:45] LABS: Albumin 4.3 g/dL (3.5-5.0); Calcium 9.8 mg/dL (8.4-10.2); Potassium 3.8 mmol/L (3.5-5.1); Total Bilirubin 0.2 mg/dL (0.2-1.3); Total Protein 7.3 g/dL (6.3-8.2)
[2021-04-27 17:46] LABS: Appearance,Urine Turbid (Clear); Bacteria,Urine Many /hpf; Bilirubin,Urine Negative (Negative); Blood,Urine Small (Negative); Color,Urine Light Yellow; Glucose,Urine (UA) Negative (Negative); Ketones,Urine Negative (Negative); Leukocyte Esterase,Urine Large (Negative); Mucus,Urine Rare /hpf; Nitrite,Urine Positive (Negative); Protein,Urine 1+ (Negative); RBC,Urine 33 /hpf (0-5); Specific Gravity,Urine 1.007 (1.001-1.035); Squamous Epithelial Cell,Urine 1 /hpf (0-4); Urobilinogen,Urine <2.0 mg/dL (<2.0); WBC,Urine 135 /hpf (0-5)
[2021-04-27 18:40] VITALS: BP 137/79; PULSE 70; RESP 18; TEMP 97.4
[2021-04-27] MEDS ORDERED: cefTRIAXone IN SWFI 1,000 MG/10 ML SYRINGE IVP STA (18:43)
[2021-04-27] MEDS ORDERED: cefTRIAXone 1,000 MG VIAL (IM USE) IM STA (18:44)
== END 2021-04-27 19:02 | disposition home or self-care (01) ==
LOC: EC 15:17
DX: N12 Tubulo-interstitial nephritis, not specified as acute or chronic (principal); F32.9 Major depressive disorder, single episode, unspecified; F41.9 Anxiety disorder, unspecified; F17.200 Nicotine dependence, unspecified, uncomplicated; Z79.82 Long term (current) use of aspirin; Z85.51 Personal history of malignant neoplasm of bladder; Z87.440 Personal history of urinary (tract) infections; Z88.0 Allergy status to penicillin; Z88.1 Allergy status to other antibiotic agents; Z88.5 Allergy status to narcotic agent; Z88.8 Allergy status to other drugs, medicaments and biological substances
CPT/HCPCS: 99284 ×2; 96360 ×2; 96372 ×2; 36415; 80053; 82150; 83605; 83690; 83735; 85025; 81001; 87040; 87070; 87086; 87205; 87077; 87186; J0696

== ENCOUNTER 2021-05-05 12:14 | Inpatient (IN) | payer MEDICARE, BC ==
[2021-05-05 13:39] LABS: Basophils % (A) 1 %; Eosinophils # (A) 0.3 k/uL (0-0.7); Eosinophils % (A) 4 %; HCT 38.5 % (34.0-46.0); HGB 12.7 gm/dL (11.4-16.0); Lymphocytes # (A) 1.9 k/uL (1.0-4.8); Lymphocytes % (A) 26 %; MCH 30.1 pg (25.0-35.0); MCHC 32.9 g/dL (31.0-37.0); MCV 91.5 fL (80.0-100.0); Mean Platelet Volume 7.2; Monocytes # (A) 0.6 k/uL (0-1.0); Monocytes % (A) 8 %; Neutrophils # (A) 4.2 k/uL (1.3-7.7); Neutrophils % (A) 58 %; Platelet Count 233 k/uL (150-450); RBC 4.21 m/uL (3.80-5.40); RDW 15.6 % (11.5-15.5); WBC 7.3 k/uL (3.8-10.6)
[2021-05-05 13:50] LABS: Albumin 4.1 g/dL (3.5-5.0); Calcium 9.8 mg/dL (8.4-10.2); Magnesium 1.9 mg/dL (1.6-2.3); Potassium 4.1 mmol/L (3.5-5.1); Total Bilirubin 0.4 mg/dL (0.2-1.3)
--- NOTE | 2021-05-05 13:50 | ED ---
General Adult HPI - General Chief complaint: Recheck/Abnormal Lab/Rx Stated complaint: nephrostomy not draining Time Seen by Provider: 05/05/21 12:45 Source: patient, family, RN notes reviewed, old records reviewed Mode of arrival: ambulatory Limitations: no limitations - History of Present Illness Initial comments: 80-year-old female history of bladder CA status post resection with urostomy and bilateral nephrostomy tubes. Patient is presenting with decreased urine output from the left nephrostomy tube over the past 3 days. She was diagnosed with UTI and has been on Levaquin. No fever. She has been eating and drinking well. - Related Data Home Medications Medication Instructions Recorded Confirmed Flecainide [Tambocor] 50 mg PO BID 07/06/17 04/27/21 Metoprolol Tartrate [Lopressor] 12.5 mg PO HS 10/02/20 04/27/21 Aspirin EC [Ecotrin Low Dose] 162 mg PO HS 04/27/21 04/27/21 Multivit with Calcium,Iron,Min 1 tab PO DAILY 04/27/21 04/27/21 [Women's Multivitamin] Previous Rx's Medication Instructions Recorded Levofloxacin [Levaquin] 750 mg PO DAILY 5 Days #5 tab 04/27/21 Allergies Allergy/AdvReac Type Severity Reaction Status Date / Time cetirizine [From Zyrtec] Allergy Anaphylaxis Verified 05/05/21 12:33 hydrocodone [From [place]] Allergy Itching/Vom Verified 05/05/21 12:33 iting nitrofurantoin Allergy Anaphylaxis Verified 05/05/21 12:33 [From Macrobid] Penicillins Allergy Rash/Hives Verified 05/05/21 12:33 tramadol Allergy Anaphylaxis Verified 05/05/21 12:33 ciprofloxacin [From Cipro] AdvReac Vomiting Verified 05/05/21 12:33 codeine AdvReac Vomiting Verified 05/05/21 12:33 hydromorphone [From Dilaudid] AdvReac Vomiting Verified 05/05/21 12:33 ketorolac [From Toradol] AdvReac avoids due Verified 05/05/21 12:33 to kidneys linezolid AdvReac Anaphylaxis Verified 05/05/21 12:33 /Vomiting metoclopramide [From Reglan] AdvReac Hallucinati Verified 05/05/21 12:33 ons morphine AdvReac Vomiting Verified 05/05/21 12:33 oxycodone AdvReac Vomiting Verified 05/05/21 12:33 zolpidem [From Ambien] AdvReac Hallucinati Verified 05/05/21 12:33 ons narcotics AdvReac Vomiting Uncoded 05/05/21 12:33 Review of Systems ROS Statement: Those systems with pertinent positive or pertinent negative responses have been documented in the HPI. ROS Other: All systems not noted in ROS Statement are negative. Past Medical History Past Medical History: Cancer Additional Past Medical History / Comment(s): Bladder cancer with muscle invasion/surgery/urostomy and chemo x2, frequent UTIs, has urostomy, has Rt ureteral stent. Tachybrady syndrome with pacemaker, hx of polio. Constipation. Bruises easily. History of Any Multi-Drug Resistant Organisms: None Reported Past Surgical History: Joint Replacement Additional Past Surgical History / Comment(s): 2013 pacemaker, radical cystectomy with ileal loop/urostomy, R nephrostomy tube, R ureteral stents, R shoulder fusion with bone from hip donor site. ORIF Lt hip. Removal hardware Rt Shoulder. Past Anesthesia/Blood Transfusion Reactions: Motion Sickness, Postoperative Nausea & Vomiting (PONV) Additional Past Anesthesia/Blood Transfusion Reaction / Comment(s): Pt has received blood in past without reaction. Type of Cardiac Device: Permanent Pacemaker Device Placement Date:: 2013 Past Psychological History: Anxiety, Depression Smoking Status: Current some day smoker Past Alcohol Use History: None Reported Past Drug Use History: None Reported - Past Family History Father History Unknown: Yes Additional Family Medical History / Comment(s): Father in a MVA when pt was young. Mother Family Medical History: Cancer, Diabetes Mellitus Additional Family Medical History / Comment(s): Cervical cancer, rheumatic fever, heart problems. Brother(s) Family Medical History: Cancer Additional Family Medical History / Comment(s): PANCREATIC General Exam Limitations: no limitations General appearance: alert, in no apparent distress Head exam: Present: atraumatic, normocephalic Eye exam: Present: normal appearance, PERRL ENT exam: Present: normal exam Neck exam: Present: normal inspection. Absent: tenderness, meningismus Respiratory exam: Present: normal lung sounds bilaterally. Absent: respiratory distress, wheezes Cardiovascular Exam: Present: regular rate, normal rhythm GI/Abdominal exam: Present: soft. Absent: distended, tenderness Extremities exam: Present: normal inspection, normal capillary refill. Absent: pedal edema Back exam: Present: other (Bilateral nephrostomy tubes, left has some minimal purulence,No cellulitis) Neurological exam: Present: alert, oriented X3, CN II-XII intact. Absent: motor sensory deficit Psychiatric exam: Present: normal affect, normal mood Course Vital Signs 05/05/21 12:33 Temperature 98.2 F Pulse Rate 69 Respiratory 18 Rate Blood Pressure 135/74 O2 Sat by Pulse 96 Oximetry - Reevaluation(s) Reevaluation #1: 05/05/21 13:[address] Flynn who does recommend flushing the nephrostomy tube. This was unsuccessful. Medical Decision Making - Medical Decision Making 80-year-old female with occluded left nephrostomy tube. Tube was unable to be flushed. She is currently being treated for UTI on Levaquin. She will be continued on oral antibiotics. She will be admitted for consultation both with urology and interventional radiology. Case discussed with Dr. Palmer who will admit. - Lab Data Result diagrams: 05/05/21 13:27 05/05/21 13:27 Lab Results 05/05/21 05/05/21 05/05/21 Range/Units 13:27 13:27 13:27 WBC 7.3 (3.8-10.6) k/uL RBC 4.21 (3.80-5.40) m/uL Hgb 12.7 (11.4-16.0) gm/dL Hct 38.5 (34.0-46.0) % MCV 91.5 (80.0-100.0) fL MCH 30.1 (25.0-35.0) pg MCHC 32.9 (31.0-37.0) g/dL RDW 15.6 H (11.5-15.5) % Plt Count 233 (150-450) k/uL MPV 7.2 Neutrophils % 58 % Lymphocytes % 26 % Monocytes % 8 % Eosinophils % 4 % Basophils % 1 % Neutrophils # 4.2 (1.3-7.7) k/uL Lymphocytes # 1.9 (1.0-4.8) k/uL Monocytes # 0.6 (0-1.0) k/uL Eosinophils # 0.3 (0-0.7) k/uL Basophils # 0.0 (0-0.2) k/uL Sodium 140 (137-145) mmol/L Potassium 4.1 (3.5-5.1) mmol/L Chloride 107 (98-107) mmol/L Carbon Dioxide 26 (22-30) mmol/L Anion Gap 7 mmol/L BUN 34 H (7-17) mg/dL Creatinine 1.54 H (0.52-1.04) mg/dL Est GFR (CKD-EPI)AfAm 37 (>60 ml/min/1.73 sqM) Est GFR (CKD-EPI)NonAf 32 (>60 ml/min/1.73 sqM) Glucose 104 H (74-99) mg/dL Plasma Lactic Acid Jae 0.8 (0.7-2.0) mmol/L Calcium 9.8 (8.4-10.2) mg/dL Magnesium 1.9 (1.6-2.3) mg/dL Total Bilirubin 0.4 (0.2-1.3) mg/dL AST 23 (14-36) U/L ALT 11 (4-34) U/L Alkaline Phosphatase 80 (38-126) U/L Total Protein 7.0 (6.3-8.2) g/dL Albumin 4.1 (3.5-5.0) g/dL Disposition Clinical Impression: Acute kidney injury, UTI (urinary tract infection), Obstruction of nephrostomy tube Disposition: ADMITTED IP TO THIS [facility] Condition: Stable Is patient prescribed a controlled substance at d/c from ED?: No Referrals: Sonny Villar DO [Primary Care Provider] - 1-2 days Decision to Admit Reason: Admit from EC Decision Date: 05/05/21 Decision Time: 14:15
[2021-05-05] MEDS ORDERED: NALOXONE 0.4 MG/ML 1 ML VIAL IV PRN (14:08)
[2021-05-05] MEDS: SODIUM CHLORIDE 0.9% 1,000 ML IV SCH (16:14)
[2021-05-05 16:49] LABS: Appearance,Urine Cloudy (Clear); Bacteria,Urine Occasional /hpf; Bilirubin,Urine Negative (Negative); Blood,Urine Small (Negative); Budding Yeast,Urine Occasional /hpf; Color,Urine Yellow; Glucose,Urine (UA) Negative (Negative); Hyaline Casts,Urine 1 /lpf (0-2); Ketones,Urine Negative (Negative); Leukocyte Esterase,Urine Large (Negative); Mucus,Urine Rare /hpf; Nitrite,Urine Negative (Negative); PH, Urine 5.5 (5.0-8.0); Protein,Urine 1+ (Negative); RBC,Urine 12 /hpf (0-5); Specific Gravity,Urine 1.012 (1.001-1.035); Squamous Epithelial Cell,Urine <1 /hpf (0-4); Urobilinogen,Urine <2.0 mg/dL (<2.0); WBC,Urine 75 /hpf (0-5)
[2021-05-05 17:30] VITALS: RESP 16
[2021-05-05] MEDS: FLECAINIDE 50 MG TAB PO SCH (20:53)
[2021-05-05] MEDS ORDERED: ASPIRIN 81 MG PO SCH (21:00)
[2021-05-05] MEDS ORDERED: METOPROLOL TARTRATE 12.5 MG TAB PO SCH (21:00)
[2021-05-06 05:20] VITALS: TEMP 98.1
[2021-05-06 07:06] LABS: Basophils % (A) 1 %; Eosinophils # (A) 0.4 k/uL (0-0.7); Eosinophils % (A) 7 %; HCT 35.5 % (34.0-46.0); HGB 12.3 gm/dL (11.4-16.0); Lymphocytes # (A) 2.1 k/uL (1.0-4.8); Lymphocytes % (A) 35 %; MCHC 34.5 g/dL (31.0-37.0); MCV 89.6 fL (80.0-100.0); Mean Platelet Volume 7.6; Monocytes # (A) 0.5 k/uL (0-1.0); Monocytes % (A) 8 %; Neutrophils # (A) 2.8 k/uL (1.3-7.7); Neutrophils % (A) 47 %; Platelet Count 211 k/uL (150-450); RBC 3.96 m/uL (3.80-5.40); RDW 15.3 % (11.5-15.5); WBC 6.1 k/uL (3.8-10.6)
[2021-05-06] MEDS: LEVOFLOXACIN 250 MG TAB PO SCH ×2 (08:36→12:44)
[2021-05-06] MEDS: FLECAINIDE 50 MG TAB PO SCH (08:36)
[2021-05-06] MEDS ORDERED: MULTIVITAMINS, THERA 1 EACH TAB PO SCH (09:00)
[2021-05-06] MEDS ORDERED: LEVOFLOXACIN 500 MG TAB PO SCH (09:00)
[2021-05-06 09:35] LABS: Anion Gap 4.3 mmol/L (4.00-12.00); BUN/Creat Ratio 25.33 Ratio (12.00-20.00); Calcium 9.2 mg/dL (8.7-10.3); Carbon Dioxide 21.7 mmol/L (21.6-31.8); Non-African American GFR(CKD) 32.8 (60.0-200.0); Potassium 4.7 mmol/L (3.5-5.5)
--- NOTE | 2021-05-06 11:01 | P.GSCN ---
History of Present Illness Consult date: 05/06/21 Reason for Consult: Occluded nephrostomy tube Requesting physician: Janice Palmer History of present illness: The patient is a 80 yo female with a history of bladder cancer She underwent a cystectomy with ileal loop in 2018 in [place] and is now followed by Dr Alexis. She developed bilateral ureteral strictures requring nephostomy tubes and antegrade ureteral stents. She has had multiple hospital admission for abdominal and flank pain. In October 2020 she underwent placement of bilateral nephroureteral stents. The stents were last changed approximately 1 month ago. She is now admitted because of no urine output per the left nephrostomy tube. Review of Systems - Constitutional Denies chills, Denies fever - Gastrointestinal Denies abdominal pain, Denies nausea, Denies vomiting - Genitourinary Genitourinary: Denies flank pain, Denies hematuria Past Medical History Past Medical History: Cancer Additional Past Medical History / Comment(s): Bladder cancer with muscle invasion/surgery/urostomy and chemo x2, frequent UTIs, has urostomy, has Rt ureteral stent. Tachybrady syndrome with pacemaker, hx of polio. Constipation. Bruises easily. B/L nephrostomy tubes History of Any Multi-Drug Resistant Organisms: None Reported Past Surgical History: Joint Replacement Additional Past Surgical History / Comment(s): 2013 pacemaker, radical cystect viridiana with ileal loop/urostomy, R nephrostomy tube, L nephrostomy tube, R ureteral stents, R shoulder fusion with bone from hip donor site. ORIF Lt hip. Removal hardware Rt Shoulder. Past Anesthesia/Blood Transfusion Reactions: Motion Sickness, Postoperative Nausea & Vomiting (PONV) Additional Past Anesthesia/Blood Transfusion Reaction / Comm: Pt has received blood in past without reaction. Type of Cardiac Device: Permanent Pacemaker Device Placement Date:: 2013 Past Psychological History: Anxiety, Depression Additional Psychological History / Comment(s): Pt resides with her son other. She is independent. Smoking Status: Current some day smoker Past Alcohol Use History: None Reported Additional Past Alcohol Use History / Comment(s): Pt started smoking in 1965, was light smoker 3-7 cigarettes a day. She quit in 2013 but resumed smoking in 2017 - 2018. Past Drug Use History: None Reported Additional Drug Use History / Comment(s): In past had used "Marinol" at hs, 2.5 mg. - Past Family History Father History Unknown: Yes Additional Family Medical History / Comment(s): Father in a MVA when pt was young. Mother Family Medical History: Cancer, Diabetes Mellitus Additional Family Medical History / Comment(s): Cervical cancer, rheumatic fever, heart problems. Brother(s) Family Medical History: Cancer Additional Family Medical History / Comment(s): PANCREATIC Medications and Allergies Home Medications Medication Instructions Recorded Confirmed Type Flecainide [Tambocor] 50 mg PO BID 07/06/17 05/05/21 History Metoprolol Tartrate [Lopressor] 12.5 mg PO HS 10/02/20 05/05/21 History Aspirin EC [Ecotrin Low Dose] 162 mg PO HS 04/27/21 05/05/21 History Multivit with Calcium,Iron,Min 1 tab PO DAILY 04/27/21 05/05/21 History [Women's Multivitamin] Ondansetron Odt [Zofran ODT] 4 mg PO Q6H PRN 05/05/21 05/05/21 History levoFLOXacin 500 mg PO DAILY 05/05/21 05/05/21 History Allergies Allergy/AdvReac Type Severity Reaction Status Date / Time cetirizine [From Zyrtec] Allergy Anaphylaxis Verified 05/05/21 14:58 hydrocodone [From [place]] Allergy Itching/Vom Verified 05/05/21 14:58 iting nitrofurantoin Allergy Anaphylaxis Verified 05/05/21 14:58 [From Macrobid] Penicillins Allergy Rash/Hives Verified 05/05/21 14:58 tramadol Allergy Anaphylaxis Verified 05/05/21 14:58 ciprofloxacin [From Cipro] AdvReac Vomiting Verified 05/05/21 14:58 codeine AdvReac Vomiting Verified 05/05/21 14:58 hydromorphone [From Dilaudid] AdvReac Vomiting Verified 05/05/21 14:58 ketorolac [From Toradol] AdvReac avoids due Verified 05/05/21 14:58 to kidneys linezolid AdvReac Anaphylaxis Verified 05/05/21 14:58 /Vomiting metoclopramide [From Reglan] AdvReac Hallucinati Verified 05/05/21 14:58 ons morphine AdvReac Vomiting Verified 05/05/21 14:58 oxycodone AdvReac Vomiting Verified 05/05/21 14:58 zolpidem [From Ambien] AdvReac Hallucinati Verified 05/05/21 14:58 ons narcotics AdvReac Vomiting Uncoded 05/05/21 12:33 Surgical - Exam Vital Signs Temp Pulse Resp BP Pulse Ox 98.2 F 69 18 135/74 96 05/05/21 12:33 05/05/21 12:33 05/05/21 12:33 05/05/21 12:33 05/05/21 12:33 - General well developed, well nourished, no distress - Respiratory normal respiratory effort - Abdomen Soft, non-distended, non-tender. Nephrostomy tubes intact. - Psychiatric oriented to time, oriented to person, oriented to place, speech is normal, memory intact Results - Labs 05/06/21 06:04 05/06/21 06:04 Abnormal Lab Results - Last 24 Hours (Table) 05/05/21 05/05/21 05/05/21 Range/Units 13:27 13:27 15:28 RDW 15.6 H (11.5-15.5) % BUN 34 H (7-17) mg/dL Creatinine 1.54 H (0.52-1.04) mg/dL Glucose 104 H (74-99) mg/dL Urine Appearance Cloudy H (Clear) Urine Protein 1+ H (Negative) Urine Blood Small H (Negative) Ur Leukocyte Esterase Large H (Negative) Urine RBC 12 H (0-5) /hpf Urine WBC 75 H (0-5) /hpf Urine WBC Clumps Few H (None) /hpf Urine Bacteria Occasional H (None) /hpf Urine Mucus Rare H (None) /hpf Urine Yeast (Budding) Occasional H (None) /hpf Microbiology - Last 24 Hours (Table) 05/05/21 15:28 Urine Culture - Preliminary Urine,Clean Catch Diabetes panel 05/05/21 Range/Units 13:27 Sodium 140 (137-145) mmol/L Potassium 4.1 (3.5-5.1) mmol/L Chloride 107 (98-107) mmol/L Carbon Dioxide 26 (22-30) mmol/L BUN 34 H (7-17) mg/dL Creatinine 1.54 H (0.52-1.04) mg/dL Glucose 104 H (74-99) mg/dL Calcium 9.8 (8.4-10.2) mg/dL AST 23 (14-36) U/L ALT 11 (4-34) U/L Alkaline Phosphatase 80 (38-126) U/L Total Protein 7.0 (6.3-8.2) g/dL Albumin 4.1 (3.5-5.0) g/dL Calcium panel 05/05/21 Range/Units 13:27 Calcium 9.8 (8.4-10.2) mg/dL Albumin 4.1 (3.5-5.0) g/dL Pituitary panel 05/05/21 Range/Units 13:27 Sodium 140 (137-145) mmol/L Potassium 4.1 (3.5-5.1) mmol/L Chloride 107 (98-107) mmol/L Carbon Dioxide 26 (22-30) mmol/L BUN 34 H (7-17) mg/dL Creatinine 1.54 H (0.52-1.04) mg/dL Glucose 104 H (74-99) mg/dL Calcium 9.8 (8.4-10.2) mg/dL Adrenal panel 05/05/21 Range/Units 13:27 Sodium 140 (137-145) mmol/L Potassium 4.1 (3.5-5.1) mmol/L Chloride 107 (98-107) mmol/L Carbon Dioxide 26 (22-30) mmol/L BUN 34 H (7-17) mg/dL Creatinine 1.54 H (0.52-1.04) mg/dL Glucose 104 H (74-99) mg/dL Calcium 9.8 (8.4-10.2) mg/dL Total Bilirubin 0.4 (0.2-1.3) mg/dL AST 23 (14-36) U/L ALT 11 (4-34) U/L Alkaline Phosphatase 80 (38-126) U/L Total Protein 7.0 (6.3-8.2) g/dL Albumin 4.1 (3.5-5.0) g/dL - Imaging Abdominal x-ray: report reviewed, image reviewed Assessment and Plan (1) Hydronephrosis with ureteral stricture, not elsewhere classified Current Visit: Yes Status: Acute Code(s): N13.1 - HYDRONEPHROSIS W URETERAL STRICTURE, NEC SNOMED Code(s): 29159229 Plan: I irrigated the left nephrostomy tube. The tube was obstructed but with increased pressure I was able to flush the tube. It then irrigated freely. I am hopeful that the tubal now drained satisfactorily. An abdominal x-ray will be obtained to confirm proper tube placement. If the tube continues not to drain, nephrostomy tube change by Interventional Radiology will be required. Time with Patient: Greater than 30
[2021-05-06 13:58] VITALS: BP 97/60; PULSE 74
--- NOTE | 2021-05-06 14:41 | XR ---
EXAMINATION TYPE: XR abdomen 1V DATE OF EXAM: 05/06/2021 COMPARISON: 10/29/2020 HISTORY: Flank pain TECHNIQUE: 2 views FINDINGS: There is no sign of intestinal obstruction or pneumoperitoneum. Fecal pattern is normal. Th ere are bilateral nephrostomy tubes. There are numerous surgical clips in the pelvis. There is left h ip prosthesis. Lung bases are clear. IMPRESSION: Bilateral nephrostomy tubes and ureteral stents. Nonacute abdomen. No change compared to old exam. Tubing in the same position as old exam.
[2021-05-06] MEDS: SODIUM CHLORIDE 0.9% 1,000 ML IV SCH (16:12)
--- NOTE | 2021-05-06 17:31 | P.HPIM ---
History of Present Illness H&P Date: 05/05/21 Chief Complaint: Nephrostomy tube malfunction Patient is a 80-year-old female with a known history of bladder cancer with muscle invasion status post surgery and urine stream bag placement bilaterally and chemotherapy, frequent urinary tract infections, tachybradycardia syndrome with pacemaker history, history of polio, anxiety/depression and currently some day smoker presents to ER with complaints of decreased urine output from the left nephrostomy tube for the past 3 days. Patient was seen in the ER and tube was adjusted and sent home. After going home she started having problem with the nephrostomy tube again, patient presented to ER for evolution. Patient was recently that is with urinary tract infection and his antibodies in the form of Levaquin. Patient denied any fever or chills he had no nausea vomiting or abdominal pain or diarrhea. No cough or sputum production. Recently Showed Citrobacter species in the urine cultures. Laboratory data showed diabetes on 0.3 hemoglobin 12.7 and platelets 233 Sodium 144.1 chloride 107 BUN 34 and creatinine 1.54 Urinalysis showed cloudy with 1+ protein and small blood, large leukocyte esterase, RBCs: WBC is 25 Review of Systems Constitutional: Patient denies any fever or chills . No generalized weakness or weight loss. Abdomen: Patient denied nausea vomiting and diarrhea and abdominal pain. Cardiovascular: Patient denies any chest pain or short of breath no palpitations. Respiratory: patient denied any cough is from production. No shortness of breath Neurologic: Patient denied any numbness or tingling headache. Musculoskeletal: Patient denies any complaints of joint swelling or deformity. Skin: Negative Psychiatric: Negative Endocrine: No heat or cold intolerance. No recent weight gain. Genitourinary: No dysuria or hematuria. All other 14 point ROS negative except the above Past Medical History Past Medical History: Cancer Additional Past Medical History / Comment(s): Bladder cancer with muscle invasion/surgery/urostomy and chemo x2, frequent UTIs, has urostomy, has Rt ureteral stent. Tachybrady syndrome with pacemaker, hx of polio. Constipation. Bruises easily. B/L nephrostomy tubes History of Any Multi-Drug Resistant Organisms: None Reported Past Surgical History: Joint Replacement Additional Past Surgical History / Comment(s): 2013 pacemaker, radical cystectomy with ileal loop/urostomy, R nephrostomy tube, L nephrostomy tube, R ureteral stents, R shoulder fusion with bone from hip donor site. ORIF Lt hip. Removal hardware Rt Shoulder. Past Anesthesia/Blood Transfusion Reactions: Motion Sickness, Postoperative Nausea & Vomiting (PONV) Additional Past Anesthesia/Blood Transfusion Reaction / Comment(s): Pt has received blood in past without reaction. Type of Cardiac Device: Permanent Pacemaker Device Placement Date:: 2013 Past Psychological History: Anxiety, Depression Additional Psychological History / Comment(s): Pt resides with her son other. She is independent. Smoking Status: Current some day smoker Past Alcohol Use History: None Reported Additional Past Alcohol Use History / Comment(s): Pt started smoking in 1965, was light smoker 3-7 cigarettes a day. She quit in 2013 but resumed smoking in 2017 - 2018. Past Drug Use History: None Reported Additional Drug Use History / Comment(s): In past had used "Marinol" at hs, 2.5 mg. - Past Family History Father History Unknown: Yes Additional Family Medical History / Comment(s): Father in a MVA when pt was young. Mother Family Medical History: Cancer, Diabetes Mellitus Additional Family Medical History / Comment(s): Cervical cancer, rheumatic fever, heart problems. Brother(s) Family Medical History: Cancer Additional Family Medical History / Comment(s): PANCREATIC Medications and Allergies Home Medications Medication Instructions Recorded Confirmed Type Flecainide [Tambocor] 50 mg PO BID 07/06/17 05/05/21 History Metoprolol Tartrate [Lopressor] 12.5 mg PO HS 10/02/20 05/05/21 History Aspirin EC [Ecotrin Low Dose] 162 mg PO HS 04/27/21 05/05/21 History Multivit with Calcium,Iron,Min 1 tab PO DAILY 04/27/21 05/05/21 History [Women's Multivitamin] Ondansetron Odt [Zofran ODT] 4 mg PO Q6H PRN 05/05/21 05/05/21 History levoFLOXacin 500 mg PO DAILY 05/05/21 05/05/21 History Allergies Allergy/AdvReac Type Severity Reaction Status Date / Time cetirizine [From Zyrtec] Allergy Anaphylaxis Verified 05/05/21 14:58 hydrocodone [From [place]] Allergy Itching/Vom Verified 05/05/21 14:58 iting nitrofurantoin Allergy Anaphylaxis Verified 05/05/21 14:58 [From Macrobid] Penicillins Allergy Rash/Hives Verified 05/05/21 14:58 tramadol Allergy Anaphylaxis Verified 05/05/21 14:58 ciprofloxacin [From Cipro] AdvReac Vomiting Verified 05/05/21 14:58 codeine AdvReac Vomiting Verified 05/05/21 14:58 hydromorphone [From Dilaudid] AdvReac Vomiting Verified 05/05/21 14:58 ketorolac [From Toradol] AdvReac avoids due Verified 05/05/21 14:58 to kidneys linezolid AdvReac Anaphylaxis Verified 05/05/21 14:58 /Vomiting metoclopramide [From Reglan] AdvReac Hallucinati Verified 05/05/21 14:58 ons morphine AdvReac Vomiting Verified 05/05/21 14:58 oxycodone AdvReac Vomiting Verified 05/05/21 14:58 zolpidem [From Ambien] AdvReac Hallucinati Verified 05/05/21 14:58 ons narcotics AdvReac Vomiting Uncoded 05/05/21 12:33 Physical Exam Vitals: Vital Signs Temp Pulse Pulse Resp BP BP Pulse Ox 05/05/21 16:18 98.4 F 76 18 138/70 98 05/05/21 14:47 98.5 F 75 16 134/75 97 05/05/21 12:33 98.2 F 69 18 135/74 96 Intake and Output 05/05/21 05/05/21 05/05/21 06:59 14:59 22:59 Other: Weight 54.431 kg PHYSICAL EXAMINATION: Patient is lying in the bed comfortably, no acute distress, awake alert and oriented.. HEENT: Normocephalic. Neck is supple. Pupils reactive. Nostrils clear. Oral cavity is moist. Neck reveals no JVD, carotid bruits, or thyromegaly. CHEST EXAMINATION: Trachea is central. Symmetrical expansion. Lung hayes clear to auscultation and percussion. CARDIAC: Normal S1, S2 with no gallops. No murmurs ABDOMEN: Soft. Bowel sounds normal. No organomegaly. No abdominal bruits. Bilateral nephrectomy tubes in place. Extremities: reveal no edema. No clubbing or cyanosis Neurologically awake, alert, oriented x3 with well-coordinated movements. No focal deficits noted Skin: No rash or skin lesions. Psychiatric: Coperative. Nonsuicidal Musculoskeletal: No joint swelling or deformity. Normal range of motion. Results CBC & Chem 7: 05/06/21 06:04 05/06/21 06:04 Labs: Abnormal Lab Results - Last 24 Hours (Table) 05/05/21 05/05/21 05/05/21 Range/Units 13:27 13:27 15:28 RDW 15.6 H (11.5-15.5) % BUN 34 H (7-17) mg/dL Creatinine 1.54 H (0.52-1.04) mg/dL Glucose 104 H (74-99) mg/dL Urine Appearance Cloudy H (Clear) Urine Protein 1+ H (Negative) Urine Blood Small H (Negative) Ur Leukocyte Esterase Large H (Negative) Urine RBC 12 H (0-5) /hpf Urine WBC 75 H (0-5) /hpf Urine WBC Clumps Few H (None) /hpf Urine Bacteria Occasional H (None) /hpf Urine Mucus Rare H (None) /hpf Urine Yeast (Budding) Occasional H (None) /hpf Thrombosis Risk Factor Assmnt - DVT/VTE Prophylaxis DVT/VTE Prophylaxis: Pharmacologic Prophylaxis ordered Assessment and Plan Assessment: Left nephrostomy tube malfunction with decreased urine output. Acute urinary tract infection History of bladder cancer with muscle invasion status post surgery, urostomy and chemotherapy Tachybradycardia syndrome with history of pacemaker placement History of polio Anxiety/depression DVT prophylaxis with heparin subcu Plan: Patient will be continued on IV hydration and antibiotics in the form of Levaquin as per previous culture report. Follow-up urine culture report and continue with home medications and pain management. Urology was consulted for evolution of the left nephrostomy tube. Continue to follow closely.
== END 2021-05-06 16:12 | disposition home or self-care (01) | DRG 699 ==
LOC: EC 12:14 → 5NMEDONC 14:08
PROVIDERS: ADMIT Hospitalist; ATTEND Hospitalist
PROC: 3C1ZX8Z Irrigation of Indwelling Device using Irrigating Substance, External Approach (ICD-10-PCS; principal; 2021-05-05)
DX: T83.092A Other mechanical complication of nephrostomy catheter, initial encounter (principal); N17.9 Acute kidney failure, unspecified; N13.6 Pyonephrosis; F41.9 Anxiety disorder, unspecified; F17.210 Nicotine dependence, cigarettes, uncomplicated; F32.9 Major depressive disorder, single episode, unspecified; Y73.2 Prosthetic and other implants, materials and accessory gastroenterology and urology devices associated with adverse incidents; Z79.899 Other long term (current) drug therapy; Z85.51 Personal history of malignant neoplasm of bladder; Z86.12 Personal history of poliomyelitis; Z86.79 Personal history of other diseases of the circulatory system; Z92.21 Personal history of antineoplastic chemotherapy; Z87.440 Personal history of urinary (tract) infections; Z95.0 Presence of cardiac pacemaker; Z88.0 Allergy status to penicillin; Z88.1 Allergy status to other antibiotic agents; Z88.5 Allergy status to narcotic agent
CPT/HCPCS: 36415; 74018; 80048; 80053; 81001; 83605; 83735; 85025; 87040; 87077; 87086; 87186; 99284

== ENCOUNTER 2021-05-22 10:11 | Day surgery (SDC) | payer MEDICARE, BC ==
[2021-05-21 12:01] VITALS: BMI 18.0
[2021-05-22] MEDS ORDERED: GENTAMICIN 80 MG in SODIUM CHLORIDE 0.9% 100 ML IVPB ONE (10:21)
[2021-05-22] MEDS ORDERED: SODIUM CHLORIDE 0.9% 500 ML 500 ML IV ONE (10:45)
[2021-05-22 11:06] VITALS: RESP 18; TEMP 98.4
[2021-05-22] MEDS ORDERED: fentaNYL (PF) 50 MCG/ML 2 ML AMP IV ONE (12:00)
[2021-05-22] MEDS ORDERED: LIDOCAINE 1% INJ 10MG/ML (20 ML MDV) SQ ONE (12:05)
[2021-05-22] MEDS ORDERED: IOPAMIDOL-250 100ML BTL IV ONE (12:20)
[2021-05-22 13:38] VITALS: BP 174/79; PULSE 87
--- NOTE | 2021-05-22 13:40 | IR ---
EXAMINATION TYPE: IR angio renal BILAT DATE OF EXAM: 05/22/2021 COMPARISON: NONE HISTORY: Bilateral nephroureteral tube. FINDINGS: Approximately 2.4 minutes of fluoroscopy was utilized. Approximately 58 images submitted. Request was for bilateral nephrostomy tube exchange. The patient has pre-existing nephroureteral tube s which was placed in outside institution and are not carried at this institution. A nephrostogram wa s performed demonstrating bilateral prominence of the ureters and collecting system. Case was discussed with referring clinician notified them that we did not have nephroureteral tubes. The referring clinician recommend the patient be seen in the office and pre-existing tubes should be exchanged at the institution that placed nephroureteral tubes. IMPRESSION: 1. Suspect bilateral hydronephrosis and hydroureter. Concern that the left-sided distal cope loop of the nephroureteral tube is occluded. The right tube may be patent. See above.
== END 2021-05-22 13:56 | disposition home or self-care (01) ==
LOC: OR 10:11
PROVIDERS: ATTEND Radiology Diagnostic Radiology
DX: N13.4 Hydroureter (principal)
CPT/HCPCS: 50435; C1769; J2001; J3010; J1580; Q9966

== ENCOUNTER 2021-07-23 09:25 | Inpatient (IN) | payer MEDICARE, BC ==
[2021-07-23] MEDS ORDERED: SODIUM CHLORIDE 0.9% 1,000 ML IV STA (10:49)
[2021-07-23 11:29] LABS: Basophils % (A) 0 %; Eosinophils % (A) 0 %; HCT 42.6 % (34.0-46.0); HGB 14.1 gm/dL (11.4-16.0); Lymphocytes # (A) 1.5 k/uL (1.0-4.8); Lymphocytes % (A) 25 %; MCH 30.4 pg (25.0-35.0); MCHC 33.2 g/dL (31.0-37.0); MCV 91.7 fL (80.0-100.0); Mean Platelet Volume 8.4; Monocytes # (A) 0.6 k/uL (0-1.0); Monocytes % (A) 10 %; Neutrophils # (A) 3.6 k/uL (1.3-7.7); Neutrophils % (A) 61 %; Platelet Count 176 k/uL (150-450); RBC 4.65 m/uL (3.80-5.40); WBC 5.9 k/uL (3.8-10.6)
--- NOTE | 2021-07-23 11:44 | XR ---
EXAMINATION TYPE: XR chest 2V DATE OF EXAM: 07/23/2021 COMPARISON: CXR 02/11/2019. PET/CT December 22, 2020. HISTORY: Dizziness and weakness. History of bladder cancer. TECHNIQUE: Frontal and lateral views of the chest are obtained. FINDINGS: There is mild to moderate chronic parenchymal changes without suspicious focal air space o pacity, pleural effusion, or pneumothorax seen. The cardiac silhouette size is stable and within nor mal limits. Dual-lead pacemaker redemonstrated. The osseous structures are demineralized. Ossific fu crystal and right glenohumeral joint redemonstrated. Interval removal of metallic screws. IMPRESSION: Chronic changes without acute pulmonary process.
--- NOTE | 2021-07-23 11:49 | ED ---
General Adult HPI - General Chief complaint: Weakness Stated complaint: dizzy, weakness Time Seen by Provider: 07/23/21 10:39 Source: patient, family, RN notes reviewed Mode of arrival: wheelchair Limitations: no limitations - History of Present Illness Initial comments: 80-year-old female with a past medical history of bladder cancer with urostomy and bilateral nephrostomy, frequent UTIs presents to the emergency room for a chief complaint of weakness. Daughter reports that a week ago patient had sided chest pain and left arm pain. States his only lasted momentarily and has not recurred in the last week. However since that time patient has been very weak and not getting out of bed. States she hasn't been eating or drinking appropriately. States she has been lightheaded when trying to get up and walk. Patient has no other complaints at this time including shortness of breath, chest pain, abdominal pain, nausea or vomiting, headache, or visual changes. - Related Data Home Medications Medication Instructions Recorded Confirmed Flecainide [Tambocor] 50 mg PO BID 07/06/17 07/23/21 Metoprolol Tartrate [Lopressor] 12.5 mg PO HS 10/02/20 07/23/21 Aspirin EC [Ecotrin Low Dose] 162 mg PO HS 04/27/21 07/23/21 Allergies Allergy/AdvReac Type Severity Reaction Status Date / Time cetirizine [From Zyrtec] Allergy Anaphylaxis Verified 07/23/21 11:25 hydrocodone [From [place]] Allergy Itching/Vom Verified 07/23/21 11:25 iting levofloxacin [From Levaquin] Allergy Swelling Verified 07/23/21 11:25 nitrofurantoin Allergy Anaphylaxis Verified 07/23/21 11:25 [From Macrobid] Penicillins Allergy Rash/Hives Verified 07/23/21 11:25 tramadol Allergy Anaphylaxis Verified 07/23/21 11:25 ciprofloxacin [From Cipro] AdvReac Vomiting Verified 07/23/21 11:25 codeine AdvReac Vomiting Verified 07/23/21 11:25 hydromorphone [From Dilaudid] AdvReac Vomiting Verified 07/23/21 11:25 ketorolac [From Toradol] AdvReac avoids due Verified 07/23/21 11:25 to kidneys linezolid AdvReac Anaphylaxis Verified 07/23/21 11:25 /Vomiting metoclopramide [From Reglan] AdvReac Hallucinati Verified 07/23/21 11:25 ons morphine AdvReac Vomiting Verified 07/23/21 11:25 oxycodone AdvReac Vomiting Verified 07/23/21 11:25 zolpidem [From Ambien] AdvReac Hallucinati Verified 07/23/21 11:25 ons narcotics AdvReac Vomiting Uncoded 07/23/21 10:16 Review of Systems ROS Statement: Those systems with pertinent positive or pertinent negative responses have been documented in the HPI. ROS Other: All systems not noted in ROS Statement are negative. Past Medical History Past Medical History: Cancer Additional Past Medical History / Comment(s): Bladder cancer with muscle invasion/surgery/urostomy and chemo X2, frequent UTIs, has urostomy, has right ureteral stent. Tachybrady syndrome with pacemaker, hx of polio, constipation, bruises easily, bilateral nephrostomy tubes. History of Any Multi-Drug Resistant Organisms: None Reported Past Surgical History: Orthopedic Surgery Additional Past Surgical History / Comment(s): 2013 pacemaker, radical cystectomy with ileal loop/urostomy, bilateral nephrostomy tubes, right ureteral stents, right shoulder fusion with bone from hip donor site, ORIF leftt hip, removal of hardware from right shoulder. Past Anesthesia/Blood Transfusion Reactions: No Reported Reaction, Motion Sickness, Postoperative Nausea & Vomiting (PONV) Additional Past Anesthesia/Blood Transfusion Reaction / Comment(s): Pt has received blood in past without reaction. Type of Cardiac Device: Permanent Pacemaker Device Placement Date:: 2013 Past Psychological History: Anxiety, Depression Smoking Status: Current some day smoker Past Alcohol Use History: None Reported Past Drug Use History: None Reported - Past Family History Father History Unknown: Yes Additional Family Medical History / Comment(s): Father in a MVA when pt was young. Mother Family Medical History: Cancer, Diabetes Mellitus Additional Family Medical History / Comment(s): Cervical cancer, rheumatic fever, heart problems. Brother(s) Family Medical History: Cancer Additional Family Medical History / Comment(s): PANCREATIC CANCER. General Exam Limitations: no limitations General appearance: alert, in no apparent distress Head exam: Present: atraumatic Eye exam: Present: normal appearance, PERRL, EOMI. Absent: scleral icterus, conjunctival injection ENT exam: Present: normal exam, mucous membranes moist Neck exam: Present: normal inspection, full ROM. Absent: tenderness Respiratory exam: Present: normal lung sounds bilaterally. Absent: respiratory distress, wheezes Cardiovascular Exam: Present: regular rate, normal rhythm, normal heart sounds GI/Abdominal exam: Present: soft, normal bowel sounds. Absent: distended, tenderness Neurological exam: Present: alert Course Vital Signs 07/23/21 07/23/21 10:12 14:06 Temperature 97.4 F L Pulse Rate 98 65 Respiratory 18 18 Rate Blood Pressure 87/62 144/71 O2 Sat by Pulse 95 97 Oximetry Medical Decision Making - Medical Decision Making Patient initially presents hypotensive however this did resolve after fluids. CBC unremarkable. CMP does show chronic kidney disease. Slightly low glucose at 67, patient given food. Urinalysis does show evidence of infection. covid 19 negative. We did attempt and the patient and she was unable even with assistance. Daughter is very uncomfortable with patient going home. Case was discussed with Dr. Villar. He does agree to admit patient. Recommend starting patient on Rocephin and called the consulting urology. Believes she sees Dr. Flynn and daughter does confirm this. - Lab Data Result diagrams: 07/23/21 11:05 07/23/21 12:15 Lab Results 07/23/21 07/23/21 07/23/21 Range/Units 11:05 11:05 11:05 WBC 5.9 (3.8-10.6) k/uL RBC 4.65 (3.80-5.40) m/uL Hgb 14.1 (11.4-16.0) gm/dL Hct 42.6 (34.0-46.0) % MCV 91.7 (80.0-100.0) fL MCH 30.4 (25.0-35.0) pg MCHC 33.2 (31.0-37.0) g/dL RDW 14.0 (11.5-15.5) % Plt Count 176 (150-450) k/uL MPV 8.4 Neutrophils % 61 % Lymphocytes % 25 % Monocytes % 10 % Eosinophils % 0 % Basophils % 0 % Neutrophils # 3.6 (1.3-7.7) k/uL Lymphocytes # 1.5 (1.0-4.8) k/uL Monocytes # 0.6 (0-1.0) k/uL Eosinophils # 0.0 (0-0.7) k/uL Basophils # 0.0 (0-0.2) k/uL Manual Slide Review Performed RBC Morphology Normal PT 9.5 (9.0-12.0) sec INR 0.9 (<1.2) APTT 25.2 (22.0-30.0) sec Sodium (137-145) mmol/L Potassium (3.5-5.1) mmol/L Chloride (98-107) mmol/L Carbon Dioxide (22-30) mmol/L Anion Gap mmol/L BUN (7-17) mg/dL Creatinine (0.52-1.04) mg/dL Est GFR (CKD-EPI)AfAm (>60 ml/min/1.73 sqM) Est GFR (CKD-EPI)NonAf (>60 ml/min/1.73 sqM) Glucose (74-99) mg/dL Plasma Lactic Acid Jae 1.7 (0.7-2.0) mmol/L Calcium (8.4-10.2) mg/dL Magnesium (1.6-2.3) mg/dL Total Bilirubin (0.2-1.3) mg/dL AST (14-36) U/L ALT (4-34) U/L Alkaline Phosphatase (38-126) U/L Troponin I (0.000-0.034) ng/mL Total Protein (6.3-8.2) g/dL Albumin (3.5-5.0) g/dL Urine Color Urine Appearance (Clear) Urine pH (5.0-8.0) Ur Specific [place] (1.001-1.035) Urine Protein (Negative) Urine Glucose (UA) (Negative) Urine Ketones (Negative) Urine Blood (Negative) Urine Nitrite (Negative) Urine Bilirubin (Negative) Urine Urobilinogen (<2.0) mg/dL Ur Leukocyte Esterase (Negative) Urine RBC (0-5) /hpf Urine WBC (0-5) /hpf Urine WBC Clumps (None) /hpf Ur Squamous Epith Cells (0-4) /hpf Amorphous Sediment (None) /hpf Urine Bacteria (None) /hpf Urine Mucus (None) /hpf Coronavirus (PCR) (Not Detectd) 07/23/21 07/23/2121 Range/Units 11:39 11:53 12:15 WBC (3.8-10.6) k/uL RBC (3.80-5.40) m/uL Hgb (11.4-16.0) gm/dL Hct (34.0-46.0) % MCV (80.0-100.0) fL MCH (25.0-35.0) pg MCHC (31.0-37.0) g/dL RDW (11.5-15.5) % Plt Count (150-450) k/uL MPV Neutrophils % % Lymphocytes % % Monocytes % % Eosinophils % % Basophils % % Neutrophils # (1.3-7.7) k/uL Lymphocytes # (1.0-4.8) k/uL Monocytes # (0-1.0) k/uL Eosinophils # (0-0.7) k/uL Basophils # (0-0.2) k/uL Manual Slide Review RBC Morphology PT (9.0-12.0) sec INR (<1.2) APTT (22.0-30.0) sec Sodium (137-145) mmol/L Potassium (3.5-5.1) mmol/L Chloride (98-107) mmol/L Carbon Dioxide (22-30) mmol/L Anion Gap mmol/L BUN (7-17) mg/dL Creatinine (0.52-1.04) mg/dL Est GFR (CKD-EPI)AfAm (>60 ml/min/1.73 sqM) Est GFR (CKD-EPI)NonAf (>60 ml/min/1.73 sqM) Glucose (74-99) mg/dL Plasma Lactic Acid Jae (0.7-2.0) mmol/L Calcium (8.4-10.2) mg/dL Magnesium (1.6-2.3) mg/dL Total Bilirubin (0.2-1.3) mg/dL AST (14-36) U/L ALT (4-34) U/L Alkaline Phosphatase (38-126) U/L Troponin I 0.024 (0.000-0.034) ng/mL Total Protein (6.3-8.2) g/dL Albumin (3.5-5.0) g/dL Urine Color Yellow Urine Appearance Cloudy H (Clear) Urine pH 5.5 (5.0-8.0) Ur Specific [place] 1.016 (1.001-1.035) Urine Protein 1+ H (Negative) Urine Glucose (UA) Negative (Negative) Urine Ketones Trace H (Negative) Urine Blood Moderate H (Negative) Urine Nitrite Negative (Negative) Urine Bilirubin Negative (Negative) Urine Urobilinogen <2.0 (<2.0) mg/dL Ur Leukocyte Esterase Large H (Negative) Urine RBC 107 H (0-5) /hpf Urine WBC 56 H (0-5) /hpf Urine WBC Clumps Occasional H (None) /hpf Ur Squamous Epith Cells <1 (0-4) /hpf Amorphous Sediment Few H (None) /hpf Urine Bacteria Rare H (None) /hpf Urine Mucus Rare H (None) /hpf Coronavirus (PCR) Not Detected (Not Detectd) 07/23/21 Range/Units 12:15 WBC (3.8-10.6) k/uL RBC (3.80-5.40) m/uL Hgb (11.4-16.0) gm/dL Hct (34.0-46.0) % MCV (80.0-100.0) fL MCH (25.0-35.0) pg MCHC (31.0-37.0) g/dL RDW (11.5-15.5) % Plt Count (150-450) k/uL MPV Neutrophils % % Lymphocytes % % Monocytes % % Eosinophils % % Basophils % % Neutrophils # (1.3-7.7) k/uL Lymphocytes # (1.0-4.8) k/uL Monocytes # (0-1.0) k/uL Eosinophils # (0-0.7) k/uL Basophils # (0-0.2) k/uL Manual Slide Review RBC Morphology PT (9.0-12.0) sec INR (<1.2) APTT (22.0-30.0) sec Sodium 134 L (137-145) mmol/L Potassium 4.6 (3.5-5.1) mmol/L Chloride 105 (98-107) mmol/L Carbon Dioxide 16 L (22-30) mmol/L Anion Gap 13 mmol/L BUN 40 H (7-17) mg/dL Creatinine 1.51 H (0.52-1.04) mg/dL Est GFR (CKD-EPI)AfAm 38 (>60 ml/min/1.73 sqM) Est GFR (CKD-EPI)NonAf 33 (>60 ml/min/1.73 sqM) Glucose 67 L (74-99) mg/dL Plasma Lactic Acid Jae (0.7-2.0) mmol/L Calcium 8.8 (8.4-10.2) mg/dL Magnesium 1.9 (1.6-2.3) mg/dL Total Bilirubin 0.6 (0.2-1.3) mg/dL AST 37 H (14-36) U/L ALT 13 (4-34) U/L Alkaline Phosphatase 54 (38-126) U/L Troponin I (0.000-0.034) ng/mL Total Protein 6.7 (6.3-8.2) g/dL Albumin 3.7 (3.5-5.0) g/dL Urine Color Urine Appearance (Clear) Urine pH (5.0-8.0) Ur Specific [place] (1.001-1.035) Urine Protein (Negative) Urine Glucose (UA) (Negative) Urine Ketones (Negative) Urine Blood (Negative) Urine Nitrite (Negative) Urine Bilirubin (Negative) Urine Urobilinogen (<2.0) mg/dL Ur Leukocyte Esterase (Negative) Urine RBC (0-5) /hpf Urine WBC (0-5) /hpf Urine WBC Clumps (None) /hpf Ur Squamous Epith Cells (0-4) /hpf Amorphous Sediment (None) /hpf Urine Bacteria (None) /hpf Urine Mucus (None) /hpf Coronavirus (PCR) (Not Detectd) Disposition Clinical Impression: Weakness, UTI (urinary tract infection) Disposition: ADMITTED IP TO THIS HOSP Is patient prescribed a controlled substance at d/c from ED?: No Referrals: Sonny Villar DO [Primary Care Provider] - 1-2 days Time of Disposition: 14:48
[2021-07-23 12:07] LABS: INR 0.9 (<1.2); Partial Thromboplastin Time 25.2 sec (22.0-30.0); Prothrombin Time 9.5 sec (9.0-12.0)
[2021-07-23 12:19] LABS: Amorphous Sediment,Urine Few /hpf; Appearance,Urine Cloudy (Clear); Bacteria,Urine Rare /hpf; Bilirubin,Urine Negative (Negative); Blood,Urine Moderate (Negative); Color,Urine Yellow; Glucose,Urine (UA) Negative (Negative); Ketones,Urine Trace (Negative); Leukocyte Esterase,Urine Large (Negative); Mucus,Urine Rare /hpf; Nitrite,Urine Negative (Negative); PH, Urine 5.5 (5.0-8.0); Protein,Urine 1+ (Negative); RBC,Urine 107 /hpf (0-5); Specific Gravity,Urine 1.016 (1.001-1.035); Squamous Epithelial Cell,Urine <1 /hpf (0-4); Urobilinogen,Urine <2.0 mg/dL (<2.0); WBC,Urine 56 /hpf (0-5)
[2021-07-23 12:36] LABS: Albumin 3.7 g/dL (3.5-5.0); Calcium 8.8 mg/dL (8.4-10.2); Magnesium 1.9 mg/dL (1.6-2.3); Potassium 4.6 mmol/L (3.5-5.1); Total Bilirubin 0.6 mg/dL (0.2-1.3); Total Protein 6.7 g/dL (6.3-8.2)
[2021-07-23] MEDS ORDERED: NALOXONE 0.4 MG/ML 1 ML VIAL IV PRN (14:48)
[2021-07-23] MEDS ORDERED: cefTRIAXone IN SWFI 1,000 MG/10 ML SYRINGE IVP STA (14:49)
[2021-07-23] MEDS ORDERED: DEXTROSE 50% SYRINGE 50 ML IVP STA (14:57)
[2021-07-23] MEDS: SODIUM CHLORIDE 0.9% 1,000 ML IV SCH (15:17)
[2021-07-23] MEDS: ASPIRIN 81 MG PO SCH (21:26)
[2021-07-23] MEDS: METOPROLOL TARTRATE 12.5 MG TAB PO SCH (21:26)
[2021-07-23] MEDS: FLECAINIDE 50 MG TAB PO SCH (22:52)
[2021-07-24] MEDS: ACETAMINOPHEN TAB 325 MG TAB PO PRN (05:13)
[2021-07-24] MEDS: FLECAINIDE 50 MG TAB PO SCH ×2 (08:23→20:51)
[2021-07-24] MEDS: SODIUM CHLORIDE 0.9% 1,000 ML IV SCH (08:37)
[2021-07-24] MEDS ORDERED: cefTRIAXone IN SWFI 1,000 MG/10 ML SYRINGE IVP SCH (09:00)
[2021-07-24 10:59] VITALS: BMI 18.2
[2021-07-24] MEDS: PANTOPRAZOLE 40 MG/10 ML VIAL IVP SCH (11:37)
--- NOTE | 2021-07-24 16:58 | P.GSCN ---
History of Present Illness Consult date: 07/24/21 Reason for Consult: Weakness, possible UTI Requesting physician: Sonny Villar History of present illness: The patient is a 80 yo female with a history of bladder cancer She underwent a cystectomy with ileal loop in 2017 in [place] and developed bilateral ureteral strictures requring nephostomy tubes and antegrade ureteral stents. She has had multiple hospital admissions for abdominal and flank pain. In October 2020 she underwent placement of bilateral nephroureteral stents. The stents were exchanged for bilateral nephrostomy tubes on 05/28/2021. She is now readmitted due to recent weakness. Review of Systems - Constitutional Reports weakness, Denies chills, Denies fever - Gastrointestinal Denies abdominal pain, Denies nausea, Denies vomiting - Genitourinary Genitourinary: Denies hematuria Past Medical History Past Medical History: Cancer Additional Past Medical History / Comment(s): Bladder cancer with muscle invasion/surgery/urostomy and chemo X2, frequent UTIs, has urostomy, has right ureteral stent. Tachybrady syndrome with pacemaker, hx of polio, constipation, bruises easily, bilateral nephrostomy tubes. History of Any Multi-Drug Resistant Organisms: None Reported Past Surgical History: Orthopedic Surgery Additional Past Surgical History / Comment(s): 2013 pacemaker, radical cystectomy with ileal loop/urostomy, bilateral nephrostomy tubes, right ureteral stents, right shoulder fusion with bone from hip donor site, ORIF leftt hip, removal of hardware from right shoulder. Past Anesthesia/Blood Transfusion Reactions: No Reported Reaction, Motion Sickness, Postoperative Nausea & Vomiting (PONV) Additional Past Anesthesia/Blood Transfusion Reaction / Comm: Pt has received blood in past without reaction. Type of Cardiac Device: Permanent Pacemaker Device Placement Date:: 2013 Past Psychological History: Anxiety, Depression Additional Psychological History / Comment(s): Pt resides with her son other. She is independent. Smoking Status: Former smoker Past Alcohol Use History: None Reported Additional Past Alcohol Use History / Comment(s): Started smoking in 1965, was light smoker, 3-7 cigarettes a day, quit in 2013 but resumed smoking in 2017- 2018. Past Drug Use History: None Reported Additional Drug Use History / Comment(s): In past had used "Marinol" at hs, 2.5 mg. - Past Family History Father History Unknown: Yes Additional Family Medical History / Comment(s): Father in a MVA when pt was young. Mother Family Medical History: Cancer, Diabetes Mellitus Additional Family Medical History / Comment(s): Cervical cancer, rheumatic fever, heart problems. Brother(s) Family Medical History: Cancer Additional Family Medical History / Comment(s): PANCREATIC CANCER. Medications and Allergies Home Medications Medication Instructions Recorded Confirmed Type Flecainide [Tambocor] 50 mg PO BID 07/06/17 07/23/21 History Metoprolol Tartrate [Lopressor] 12.5 mg PO HS 10/02/20 07/23/21 History Aspirin EC [Ecotrin Low Dose] 162 mg PO HS 04/27/21 07/23/21 History Allergies Allergy/AdvReac Type Severity Reaction Status Date / Time cetirizine [From Zyrtec] Allergy Anaphylaxis Verified 07/23/21 11:25 hydrocodone [From [place]] Allergy Itching/Vom Verified 07/23/21 11:25 iting levofloxacin [From Levaquin] Allergy Swelling Verified 07/23/21 11:25 nitrofurantoin Allergy Anaphylaxis Verified 07/23/21 11:25 [From Macrobid] Penicillins Allergy Rash/Hives Verified 07/23/21 11:25 tramadol Allergy Anaphylaxis Verified 07/23/21 11:25 ciprofloxacin [From Cipro] AdvReac Vomiting Verified 07/23/21 11:25 codeine AdvReac Vomiting Verified 07/23/21 11:25 hydromorphone [From Dilaudid] AdvReac Vomiting Verified 07/23/21 11:25 ketorolac [From Toradol] AdvReac avoids due Verified 07/23/21 11:25 to kidneys linezolid AdvReac Anaphylaxis Verified 07/23/21 11:25 /Vomiting metoclopramide [From Reglan] AdvReac Hallucinati Verified 07/23/21 11:25 ons morphine AdvReac Vomiting Verified 07/23/21 11:25 oxycodone AdvReac Vomiting Verified 07/23/21 11:25 zolpidem [From Ambien] AdvReac Hallucinati Verified 07/23/21 11:25 ons narcotics AdvReac Vomiting Uncoded 07/23/21 10:16 Surgical - Exam Vital Signs Temp Pulse Resp BP Pulse Ox 97.4 F L 98 18 87/62 95 07/23/21 10:12 07/23/21 10:12 07/23/21 10:12 07/23/21 10:12 07/23/21 10:12 - General well developed, well nourished, no distress - Respiratory normal respiratory effort - Abdomen Soft, non-distended, non-tender, no masses. The nephrostomy tubes are patent and draining urine which is slightly dark in color. - Psychiatric oriented to time, oriented to person, oriented to place, speech is normal, memory intact Results - Labs 07/23/21 11:05 07/23/21 12:15 Abnormal Lab Results - Last 24 Hours (Table) 07/23/21 07/23/21 Range/Units 11:39 12:15 Sodium 134 L (137-145) mmol/L Carbon Dioxide 16 L (22-30) mmol/L BUN 40 H (7-17) mg/dL Creatinine 1.51 H (0.52-1.04) mg/dL Glucose 67 L (74-99) mg/dL AST 37 H (14-36) U/L Urine Appearance Cloudy H (Clear) Urine Protein 1+ H (Negative) Urine Ketones Trace H (Negative) Urine Blood Moderate H (Negative) Ur Leukocyte Esterase Large H (Negative) Urine RBC 107 H (0-5) /hpf Urine WBC 56 H (0-5) /hpf Urine WBC Clumps Occasional H (None) /hpf Amorphous Sediment Few H (None) /hpf Urine Bacteria Rare H (None) /hpf Urine Mucus Rare H (None) /hpf Microbiology - Last 24 Hours (Table) 07/23/21 11:39 Urine Culture - Preliminary Urine,Clean Catch Diabetes panel 07/23/21 Range/Units 12:15 Sodium 134 L (137-145) mmol/L Potassium 4.6 (3.5-5.1) mmol/L Chloride 105 (98-107) mmol/L Carbon Dioxide 16 L (22-30) mmol/L BUN 40 H (7-17) mg/dL Creatinine 1.51 H (0.52-1.04) mg/dL Glucose 67 L (74-99) mg/dL Calcium 8.8 (8.4-10.2) mg/dL AST 37 H (14-36) U/L ALT 13 (4-34) U/L Alkaline Phosphatase 54 (38-126) U/L Total Protein 6.7 (6.3-8.2) g/dL Albumin 3.7 (3.5-5.0) g/dL Calcium panel 07/23/21 Range/Units 12:15 Calcium 8.8 (8.4-10.2) mg/dL Albumin 3.7 (3.5-5.0) g/dL Pituitary panel 07/23/21 Range/Units 12:15 Sodium 134 L (137-145) mmol/L Potassium 4.6 (3.5-5.1) mmol/L Chloride 105 (98-107) mmol/L Carbon Dioxide 16 L (22-30) mmol/L BUN 40 H (7-17) mg/dL Creatinine 1.51 H (0.52-1.04) mg/dL Glucose 67 L (74-99) mg/dL Calcium 8.8 (8.4-10.2) mg/dL Adrenal panel 07/23/21 Range/Units 12:15 Sodium 134 L (137-145) mmol/L Potassium 4.6 (3.5-5.1) mmol/L Chloride 105 (98-107) mmol/L Carbon Dioxide 16 L (22-30) mmol/L BUN 40 H (7-17) mg/dL Creatinine 1.51 H (0.52-1.04) mg/dL Glucose 67 L (74-99) mg/dL Calcium 8.8 (8.4-10.2) mg/dL Total Bilirubin 0.6 (0.2-1.3) mg/dL AST 37 H (14-36) U/L ALT 13 (4-34) U/L Alkaline Phosphatase 54 (38-126) U/L Total Protein 6.7 (6.3-8.2) g/dL Albumin 3.7 (3.5-5.0) g/dL Assessment and Plan (1) Hydronephrosis with ureteral stricture, not elsewhere classified Current Visit: No Status: Acute Code(s): N13.1 - HYDRONEPHROSIS W URETERAL STRICTURE, NEC SNOMED Code(s): 48315164 Plan: Urinalysis is suggestive of infection, though the specimen was obtained from a nephrostomy tube and may simply represent colonization. It is impossible to determine whether this is the cause of her recent weakness. It would certainly be reasonable to treat her with IV hydration and broad-spectrum antibiotics, pending the urine culture result. She is currently receiving ceftriaxone, and is not due for nephrostomy tube change until early September. Time with Patient: Greater than 30
[2021-07-24] MEDS: ASPIRIN 81 MG PO SCH (20:51)
[2021-07-24] MEDS: METOPROLOL TARTRATE 12.5 MG TAB PO SCH (20:51)
[2021-07-25] MEDS: SODIUM CHLORIDE 0.9% 1,000 ML IV SCH ×3 (04:28→19:45)
[2021-07-25] MEDS: FLECAINIDE 50 MG TAB PO SCH ×2 (07:41→21:15)
[2021-07-25] MEDS: PANTOPRAZOLE 40 MG/10 ML VIAL IVP SCH (07:41)
[2021-07-25 10:00] LABS: African American GFR (CKD) 62.1 (60.0-200.0); Anion Gap 11.2 mmol/L (10.00-18.00); BUN/Creat Ratio 17.3 Ratio (12.00-20.00); Blood Urea Nitrogen 17.3 mg/dL (9.0-27.0); Calcium 7.9 mg/dL (8.7-10.3); Carbon Dioxide 14.8 mmol/L (20.0-27.5); Non-African American GFR(CKD) 53.5 (60.0-200.0); Potassium 3.8 mmol/L (3.5-5.5)
--- NOTE | 2021-07-25 13:43 | P.CN ---
Psychiatric Consult - . Consult date: 07/25/21 Consult:: 07/25/21 13:41 IDENTIFYING DATA: This patient is a [id number] female with significant history of bladder cancer, status post cystectomy and nephrostomy and ureteral stent placements. HISTORY OF PRESENT ILLNESS: The patient presented to the hospital on 07/23/21, brought into the hospital due to complaints of generalized weakness. The patient does have significant history of frequent urinary tract infections. She has been also noted by her family to be not eating or drinking appropriately. Urinalysis was suggestive infection that this time the cause for the patient's weakness is uncertain. She is currently receiving ceftriaxone and is not due for nephrostomy tube change until September. Psychiatry has been consulted for evaluation of the patient's capacity for medical decision-making. As per disc ussion with the patient's nurse, the patient has been refusing inpatient rehabilitation. Present at the patient's bedside as the patient's daughter Darcie Fajardo. The patient is agreeable to having her daughter present during the psychiatric evaluation and to provide collateral information. The patient's daughter reports that the patient has been having significant issues regarding her memory during this admission. The patient is a limited historian at times and is unable to recall the events of yesterday. However, the patient is currently alert and oriented in all spheres. The patient's daughter reports that the patient is currently not at her baseline as she is displaying poor appetite and is not as spontaneous as she normally is. The patient's daughter does acknowledge that this is likely secondary to her urinary tract infection. She reports that home, the patient does not display significant memory issues. She reports that the patient has not disclosed any objects that she is aware of or has gotten lost. However, the patient typically stays at home and only goes out when she is accompanied by family or friends. In regards to psychiatric history, the patient and daughter do not report any significant psychiatric pathology aside from anxiety. The patient was presented treated with Lexapro prescribed by her primary care physician for anxiety. They both deny any significant history of depression, bipolar disorder, or psychosis. Currently, the patient is not reporting any significant psychiatric pathology at this time. She is reporting no symptoms of anhedonia, sleep disturbance, suicidal ideation or homicidal ideation. There is concern that the patient has poor appetite at this time. In regards to the capacity to make medical decisions, the patient was noted to be refusing inpatient rehabilitation. However, the patient states that she is agreeable to rehabilitation but would like to do this at home. She is requesting that she received at home because it is more convenient for her and so that she may be in a place that is more familiar to her and less intrusive. She understands that if rehabilitation does not occur that she risks further deterioration in her physical and possible mental condition. PAST PSYCHIATRIC HISTORY: The patient has a history of anxiety. She has previously been prescribed Lexapro. She has no psychiatric outpatient care at this time. She reports no prior attempts at suicide. She has never been in an inpatient psychiatric facility. PAST MEDICAL HISTORY: Past Medical History: Cancer Additional Past Medical History / Comment(s): Bladder cancer with muscle invasion/surgery/urostomy and chemo X2, frequent UTIs, has urostomy, has right ureteral stent. Tachybrady syndrome with pacemaker, hx of polio, constipation, bruises easily, bilateral nephrostomy tubes. History of Any Multi-Drug Resistant Organisms: None Reported Past Surgical History: Orthopedic Surgery Additional Past Surgical History / Comment(s): 2013 pacemaker, radical cystectomy with ileal loop/urostomy, bilateral nephrostomy tubes, right ureteral stents, right shoulder fusion with bone from hip donor site, ORIF leftt hip, removal of hardware from right shoulder. Past Anesthesia/Blood Transfusion Reactions: No Reported Reaction, Motion Sickness, Postoperative Nausea & Vomiting (PONV) Additional Past Anesthesia/Blood Transfusion Reaction / Comm: Pt has received blood in past without reaction. Type of Cardiac Device: Permanent Pacemaker Device Placement Date:: 2013 Past Psychological History: Anxiety, Depression Additional Psychological History / Comment(s): Pt resides with her son other. She is independent. Smoking Status: Former smoker Past Alcohol Use History: None Reported Additional Past Alcohol Use History / Comment(s): Started smoking in 1965, was light smoker, 3-7 cigarettes a day, quit in 2013 but resumed smoking in 2017- 2018. Past Drug Use History: None Reported Additional Drug Use History / Comment(s): In past had used "Marinol" at hs, 2.5 mg. ALLERGIES: as per EMR. CHEMICAL DEPENDENCY HISTORY: Patient and patient's daughter deny any significant chemical dependency history. FAMILY PSYCHIATRIC/SUBSTANCE USE HISTORY: Patient and patient's daughter deny any family psychiatric history or substance abuse history. SOCIAL HISTORY: Patient is currently . MENTAL STATUS EXAM: General Appearance: Patient appears to be stated age is alert, pleasant, and cooperative. Patient appears to have good hygiene and grooming wearing hospital gown with fair eye contact. Behavior: Patient is calmly lying in bed without any agitated behavior. Speech: Patient's speech is fluent and nonpressured. Mood/Affect: Patient reports their mood is "doing all right", affect is congruent, pleasant, and at times bright. Suicidality/Homicidality: Patient denies having any suicidal or homicidal ideation intent or plan. Perceptions: Patient denies any visual hallucinations and denies any auditory hallucinations Though content/process: There is no evidence of any delusional thought content and thought process is linear and goal-directed. Memory and concentration: AOX3, grossly intact for the purposes of this session. Can spell "WORLD" backwards. Three word recall was successful. Judgment and insight: Fair IMPRESSIONS: Urinary tract infection History of anxiety PLAN: -At this time patient DOES NOT meet criteria for inpatient psychiatric admission. -Patient DOES have decision making capacity at this time and is able to reason through and communicate/appreciate the risks, benefits and alternatives to treatment. The patient is currently experiencing some fluctuation in cognition as discussed with the patient's daughter which is likely secondary to urinary tract infection. She does identify her daughter Darcie Fajardo as a medical surrogate decision maker should she be unable to make decisions for herself. The patient acknowledges that she does require rehabilitation however would like to do rehab at home. Furthermore, the patient is currently alert and oriented in all spheres and is not presenting with any psychosis or altered mental status at this time. -Delirium precautions recommended with patient including - avoiding use of narcotics and POLICY ADVISER sedatives, limit anticholinergic medications when possible, frequent re-orientation, minimize use of restraints, open window shades during the day and close them at night -Would recommend the following medication changes/additions: No medication recommendations are made at this time. -Psychiatry will sign off at this point, please contact with any questions. 07/25/21 13:43
[2021-07-25] MEDS: ACETAMINOPHEN TAB 325 MG TAB PO PRN (21:15)
[2021-07-25] MEDS: ASPIRIN 81 MG PO SCH (21:15)
[2021-07-25] MEDS: METOPROLOL TARTRATE 12.5 MG TAB PO SCH (21:15)
--- NOTE | 2021-07-25 21:51 | P.HPIM ---
History of Present Illness H&P Date: 07/24/21 80-year-old female with a past medical history of bladder cancer with urostomy and bilateral nephrostomy, frequent UTIs addmitted from the emergency room for a chief complaint of weakness. Daughter reports that a week ago patient had sided chest pain and left arm pain. States his only lasted momentarily and has not recurred in the last week. However since that time patient has been very weak and not getting out of bed. States she hasn't been eating or drinking appropriately. States she has been lightheaded when trying to get up and walk. Patient has no other complaints at this time including shortness of breath, chest pain, abdominal pain, nausea or vomiting, headache, or visual changes. Review of Systems GENERAL: Patient admits too fever and chills. EYES: Denies blurred vision. Denies vision changes. Denies eye pain. EARS, NOSE, MOUTH, & THROAT: Denies headache. Denies sore throat. Denies ear pain. RESPIRATORY: Denies cough. Denies shortness of breath. Denies sputum production. Denies hemoptysis. CARDIOVASCULAR: Denies chest pain or pressure. Denies palpitations. Denies arrhythmias. GASTROINTESTINAL: Denies abdominal pain. Denies diarrhea. Denies constipation. Denies nausea. Denies vomiting. Denies heartburn. Denies blood in the stool. GENITOURINARY: Admits to triple urostomy tubes MUSCULOSKELETAL: Denies myalgias. Denies joint swelling. Denies decreased range of motion beyond patients baseline. INTEGUMENTARY: Denies pruitis. Denies rash. PSYCHIATRIC: positive depression ENDOCRINE: Denies weight change. Denies polydipsia. Denies polyuria. HEMATOLOGIC: Denies bleeding disorders. Past Medical History Past Medical History: Cancer Additional Past Medical History / Comment(s): Bladder cancer with muscle invasion/surgery/urostomy and chemo X2, frequent UTIs, has urostomy, has right ureteral stent. Tachybrady syndrome with pacemaker, hx of polio, constipation, bruises easily, bilateral nephrostomy tubes. History of Any Multi-Drug Resistant Organisms: None Reported Past Surgical History: Orthopedic Surgery Additional Past Surgical History / Comment(s): 2013 pacemaker, radical cystectomy with ileal loop/urostomy, bilateral nephrostomy tubes, right ureteral stents, right shoulder fusion with bone from hip donor site, ORIF leftt hip, removal of hardware from right shoulder. Past Anesthesia/Blood Transfusion Reactions: No Reported Reaction, Motion Sickness, Postoperative Nausea & Vomiting (PONV) Additional Past Anesthesia/Blood Transfusion Reaction / Comment(s): Pt has received blood in past without reaction. Type of Cardiac Device: Permanent Pacemaker Device Placement Date:: 2013 Past Psychological History: Anxiety, Depression Additional Psychological History / Comment(s): Pt resides with her son other. Sh e is independent. Smoking Status: Former smoker Past Alcohol Use History: None Reported Additional Past Alcohol Use History / Comment(s): Started smoking in 1965, was light smoker, 3-7 cigarettes a day, quit in 2013 but resumed smoking in 2017- 2018. Past Drug Use History: None Reported Additional Drug Use History / Comment(s): In past had used "Marinol" at hs, 2.5 mg. - Past Family History Father History Unknown: Yes Additional Family Medical History / Comment(s): Father in a MVA when pt was young. Mother Family Medical History: Cancer, Diabetes Mellitus Additional Family Medical History / Comment(s): Cervical cancer, rheumatic fever, heart problems. Brother(s) Family Medical History: Cancer Additional Family Medical History / Comment(s): PANCREATIC CANCER. Medications and Allergies Home Medications Medication Instructions Recorded Confirmed Type Flecainide [Tambocor] 50 mg PO BID 07/06/17 07/23/21 History Metoprolol Tartrate [Lopressor] 12.5 mg PO HS 10/02/20 07/23/21 History Aspirin EC [Ecotrin Low Dose] 162 mg PO HS 04/27/21 07/23/21 History Allergies Allergy/AdvReac Type Severity Reaction Status Date / Time cetirizine [From Zyrtec] Allergy Anaphylaxis Verified 07/23/21 11:25 hydrocodone [From [place]] Allergy Itching/Vom Verified 07/23/21 11:25 iting levofloxacin [From Levaquin] Allergy Swelling Verified 07/23/21 11:25 nitrofurantoin Allergy Anaphylaxis Verified 07/23/21 11:25 [From Macrobid] Penicillins Allergy Rash/Hives Verified 07/23/21 11:25 tramadol Allergy Anaphylaxis Verified 07/23/21 11:25 ciprofloxacin [From Cipro] AdvReac Vomiting Verified 07/23/21 11:25 codeine AdvReac Vomiting Verified 07/23/21 11:25 hydromorphone [From Dilaudid] AdvReac Vomiting Verified 07/23/21 11:25 ketorolac [From Toradol] AdvReac avoids due Verified 07/23/21 11:25 to kidneys linezolid AdvReac Anaphylaxis Verified 07/23/21 11:25 /Vomiting metoclopramide [From Reglan] AdvReac Hallucinati Verified 07/23/21 11:25 ons morphine AdvReac Vomiting Verified 07/23/21 11:25 oxycodone AdvReac Vomiting Verified 07/23/21 11:25 zolpidem [From Ambien] AdvReac Hallucinati Verified 07/23/21 11:25 ons narcotics AdvReac Vomiting Uncoded 07/23/21 10:16 Physical Exam Osteopathic Statement: *. No significant issues noted on an osteopathic structural exam other than those noted in the History and Physical/Consult. Vitals: Vital Signs Temp Pulse Pulse Resp BP Pulse Ox 07/24/21 12:22 98.1 F 71 16 108/66 96 07/24/21 04:37 100.7 F H 68 20 118/67 93 L 07/24/21 00:52 98.8 F Intake and Output 07/24/21 07/24/21 07/25/21 14:59 22:59 06:59 Output Total 700 Balance -700 Output: Drainage 700 Left Back 350 Right Back 350 Other: # Bowel Movements 0 Weight 54.431 kg GENERAL: This is a 80-year-old in no apparent distress at the time of examination. Pleasant and cooperative. HEENT: Head is atraumatic, normocephalic. Pupils are equal, round, and reactive to light. Sclerae anicteric. Conjunctivae are clear. Mucus membranes of the mouth are moist. Neck is supple. RESPIRATORY: Clear to auscultation. CARDIOVASCULAR: Regular rate and rhythm. GASTROINTESTINAL: No distention noted. Abdomen soft and round. Triple INTEGUMENTARY: No cyanosis. No jaundice. No rashes noted. No cellulitis noted. EXTREMITIES: 2+ peripheral pulses. No evidence of peripheral edema. No calf tenderness noted. NEUROLOGIC: Cranial nerves II-XII intact. PSYCHIATRIC: Awake, alert, and oriented X 2 Results CBC & Chem 7: 07/23/21 11:05 07/25/21 05:58 Labs: Microbiology - Last 24 Hours (Table) 07/23/21 11:39 Urine Culture - Preliminary Urine,Clean Catch Gram Neg Bacilli 07/23/21 15:20 Blood Culture - Preliminary Blood No Growth after 24 hours 07/23/21 15:20 Blood Culture - Preliminary Blood No Growth after 24 hours Thrombosis Risk Factor Assmnt - Choose All That Apply Any of the Below Risk Factors Present?: No Other Risk Factors: Yes Each Risk Factor Represents 3 Points: Age 75 years or older Thrombosis Risk Factor Assessment Total Risk Factor Score: 3 Thrombosis Risk Factor Assessment Level: Moderate Risk Assessment and Plan (1) UTI (urinary tract infection) Current Visit: Yes Status: Acute Code(s): N39.0 - URINARY TRACT INFECTION, SITE NOT SPECIFIED SNOMED Code(s): 88147824 (2) Weakness Current Visit: Yes Status: Acute Code(s): R53.1 - WEAKNESS SNOMED Code(s): 29214612 (3) Dehydration Current Visit: No Status: Acute Code(s): E86.0 - DEHYDRATION SNOMED Code(s): 98580725 Plan: Admit patient with urological consultation IV hydration and IV antibiotics and possible placement.
[2021-07-26] MEDS: FLECAINIDE 50 MG TAB PO SCH ×2 (10:28→21:40)
[2021-07-26] MEDS: PANTOPRAZOLE 40 MG TABLET PO SCH (10:29)
[2021-07-26] MEDS: SODIUM CHLORIDE 0.9% 1,000 ML IV SCH (11:30)
--- NOTE | 2021-07-26 12:15 | P.PN ---
Progress Note - Text Progress Note Date: 07/26/21 The patient is currently afebrile but had a fever of 101.7 overnight. She has no appetite. Preliminary urine culture shows gram-negative bacilli. Blood cultures show staph epidermidis. It is unclear which is the source of the fever. The nephrostomy tubes continue to drain well, but she may benefit from nephrostomy tube change during this hospitalization. Interventional Radiology has been consulted for this reason.
--- NOTE | 2021-07-26 16:37 | PN ---
PROGRESS NOTE DATE OF SERVICE: 07/26/2021 This 80-year-old woman who was admitted with bladder cancer had urostomy and bilateral nephrostomy tubes also. The patient has frequent UTIs. The patient is being closely monitored at this time. The patient was admitted for further evaluation and treatment. Dr. Flynn has seen the patient and recommended possible interchange of nephrostomy tubes during the hospitalization. Patient is running fever. The cultures have to be finalized. The patient is unable to take antibiotics. No chest pain. No palpitations. No fever. PHYSICAL EXAMINATION: Alert and oriented x3. Pulse 71, blood pressure 133/72, respiration 18, temperature 97.9, T-max 101.7, pulse ox 94% on room air. HEENT: Conjunctivae normal. NECK: No jugular venous distention. CARDIOVASCULAR: S1, S2 muffled. RESPIRATION: Breath sounds diminished at the bases. No rhonchi. No crackles. ABDOMEN: Soft. NERVOUS SYSTEM: No focal deficit. Nephrostomy tube present. LABS: Sodium 133. UA noted. ASSESSMENT: 1. Acute urinary tract infection with possible sepsis with Gram-negative bacilli, present on admission. 2. Staphylococcus epidermidis from the blood cultures, possibly a contaminant. 3. Bilateral nephrostomy tubes, status post bladder cancer. 4. Mild hyponatremia. 5. Increased creatinine with acute renal failure and acute kidney injury. 6. History of bladder cancer with muscle invasion, status post surgery and chemo. 7. History of tachy-shyanne syndrome. 8. History of pacemaker. 9. History of polio. 10.History of constipation. 11.History of anxiety, depression. 12.Mild protein-calorie malnutrition. BMI 18.9. 13.FULL CODE. RECOMMENDATIONS AND DISCUSSION: In this 80-year-old woman who presented with multiple complex medical issues, we will monitor the patient closely, continue the current medications, continue with symptomatic treatment. Closely follow with Urology. Further recommendations to follow. MMODL / IJN: [id number] /
[2021-07-26] MEDS: ASPIRIN 81 MG PO SCH (21:39)
[2021-07-26] MEDS: METOPROLOL TARTRATE 12.5 MG TAB PO SCH (21:39)
[2021-07-26] MEDS: HEPARIN SODIUM,PORCINE/PF 5,000 UNIT/0.5 ML SYRINGE SQ SCH ×2 (21:40→21:44)
[2021-07-27] MEDS: SODIUM CHLORIDE 0.9% 1,000 ML IV SCH ×3 (06:23→19:41)
[2021-07-27 07:25] LABS: Basophils % (A) 0 %; Eosinophils # (A) 0.1 k/uL (0-0.7); Eosinophils % (A) 2 %; HCT 33.6 % (34.0-46.0); HGB 11.4 gm/dL (11.4-16.0); Lymphocytes # (A) 1.4 k/uL (1.0-4.8); Lymphocytes % (A) 29 %; MCH 30.1 pg (25.0-35.0); MCHC 33.9 g/dL (31.0-37.0); MCV 88.9 fL (80.0-100.0); Monocytes # (A) 0.4 k/uL (0-1.0); Monocytes % (A) 9 %; Neutrophils # (A) 2.6 k/uL (1.3-7.7); Neutrophils % (A) 56 %; Platelet Count 179 k/uL (150-450); RBC 3.78 m/uL (3.80-5.40); RDW 13.7 % (11.5-15.5); WBC 4.7 k/uL (3.8-10.6)
[2021-07-27] MEDS ORDERED: PANTOPRAZOLE 40 MG TABLET PO SCH (07:30)
[2021-07-27] MEDS: FLECAINIDE 50 MG TAB PO SCH ×2 (09:29→21:11)
[2021-07-27] MEDS: PANTOPRAZOLE 40 MG TABLET PO SCH (09:29)
[2021-07-27] MEDS: HEPARIN SODIUM,PORCINE/PF 5,000 UNIT/0.5 ML SYRINGE SQ SCH ×2 (09:29→21:11)
[2021-07-27 10:44] LABS: African American GFR (CKD) 62.1 (60.0-200.0); Anion Gap 9.6 mmol/L (10.00-18.00); BUN/Creat Ratio 13.4 Ratio (12.00-20.00); Blood Urea Nitrogen 13.4 mg/dL (9.0-27.0); Calcium 8.2 mg/dL (8.7-10.3); Carbon Dioxide 19.4 mmol/L (20.0-27.5); Non-African American GFR(CKD) 53.5 (60.0-200.0); Potassium 3.7 mmol/L (3.5-5.5)
--- NOTE | 2021-07-27 18:58 | PN ---
PROGRESS NOTE I am covering for Dr. Villar. DATE OF SERVICE: 07/27/2021 This 80-year-old woman who was admitted with bladder cancer and urostomy also had bilateral nephrostomy tubes. The patient had acute UTI, present on admission. The cultures are showing Acinetobacter baumannii which is polysensitive. The patient is closely monitored. No chest pain. No palpitations. No fever. PHYSICAL EXAMINATION: Alert and oriented x3. Pulse 77, blood pressure 158/80, respirations 16, temperature 98.3, pulse ox 94% on room air. HEENT: Conjunctivae normal. NECK: No jugular venous distention. CARDIOVASCULAR: S1, S2 muffled. RESPIRATION: Breath sounds diminished at the bases. ABDOMEN: Soft, non-tender. LEGS: No edema. No swelling. NERVOUS SYSTEM: No focal deficit. LABS: WBC 4.6, hemoglobin sodium NTD, potassium 3.7. Acute UTI complicated UTI with possible sepsis with Acinetobacter baumannii present on admission. ASSESSMENT: 1. Acute urinary tract infection, complicated urinary tract infection, with possible sepsis with Acinetobacter baumannii, present on admission. 2. Staphylococcus epidermidis in the blood culture, possibly contaminant. 3. Bilateral nephrostomy tubes, status post bladder cancer. 4. Mild hyponatremia. 5. Increased creatinine with acute renal failure with acute kidney injury. 6. History of bladder cancer with muscle invasion, status post surgery and chemo. 7. History of tachy-shyanne syndrome. 8. History of pacemaker. 9. History of polio. 10.History of constipation. 11.History of anxiety, depression. 12.Mild protein-calorie malnutrition. BMI of 18.9. 13.FULL CODE. RECOMMENDATIONS AND DISCUSSION: I recommend to continue current medications, continue with the monitoring, symptomatic treatment. Otherwise at this time continue with the antibiotics. Currently the patient is on Rocephin, to which the organism is sensitive. Will continue to monitor. Prognosis guarded. Further recommendations to follow. Urology is following the patient closely. MMODL / IJN: [id number] / MARÍA
[2021-07-27] MEDS: ASPIRIN 81 MG PO SCH (21:11)
[2021-07-27] MEDS: METOPROLOL TARTRATE 12.5 MG TAB PO SCH (21:11)
[2021-07-28] MEDS: SODIUM CHLORIDE 0.9% 1,000 ML IV SCH (09:05)
[2021-07-28] MEDS: FLECAINIDE 50 MG TAB PO SCH ×2 (09:07→20:31)
[2021-07-28] MEDS: HEPARIN SODIUM,PORCINE/PF 5,000 UNIT/0.5 ML SYRINGE SQ SCH ×3 (09:07→20:36)
[2021-07-28] MEDS: PANTOPRAZOLE 40 MG TABLET PO SCH (09:08)
[2021-07-28] MEDS: amLODIPine 10 MG TAB PO SCH (12:46)
--- NOTE | 2021-07-28 13:08 | P.PN ---
Progress Note - Text Progress Note Date: 07/28/21 The patient continues to be weak, with poor appetite. She has no other specific complaints. The urine culture showed Acinetobacter, the significance of which is unclear. This may simply represent colonization, or perhaps a true clinical infection. In any case, I believe it is reasonable to treat this. Interventional Radiology was unable to change her nephrostomy tubes yesterday, as their schedule was already full. She is urologically stable for discharge, and if she is discharged home over the weekend arrangements will be made for her to undergo nephrostomy tube changes an outpatient.
--- NOTE | 2021-07-28 14:59 | PN ---
PROGRESS NOTE DATE OF SERVICE: 07/28/2021 This 80-year-old woman who was admitted with acute UTI, and complicated UTI is being closely monitored. Urology is planning procedure. No chest pain. No palpitations. No fever. The creatinine has normalized. PHYSICAL EXAMINATION: Alert and oriented x3. Pulse 63, blood pressure 160/83, respirations 16, temperature 98.2, pulse ox 94% on room air. HEENT: Conjunctivae normal. Neck: No JVD. Cardiovascular: S1, S2 muffled. Respiration: Breath sounds diminished in the bases. A few scattered rhonchi. Abdomen: Soft, nontender. Nervous system: No focal deficits. LABS: WBC 4.2, hemoglobin 7.2. Other labs are noted. ASSESSMENT: 1. Acute urinary tract infection, complicated urinary tract infection with possible sepsis with Acinetobacter baumannii present on admission. 2. Staphylococcus epidermidis in the blood culture, possibly contaminant. 3. Hypertension. 4. Bilateral nephrostomy tubes, status post bladder cancer. 5. Mild hyponatremia. 6. Increased creatinine with acute renal failure with acute kidney injury. 7. History of bladder cancer with muscle invasion, status post surgery and chemo. 8. History of tachy-shyanne syndrome. 9. History of pacemaker. 10.History of Bertrand. 11.History of constipation. 12.History of anxiety, depression. 13.Mild protein-calorie malnutrition, BMI of 18.9. 14.FULL CODE. RECOMMENDATIONS AND DISCUSSION: Recommend to continue current medications, antibiotics. I would also recommend to add Norvasc to the current regimen. We will cut down the IV fluids and continue to monitor and closely follow with Urology. Further recommendations to follow. MMODL / IJN: [id number] /
[2021-07-28] MEDS: ASPIRIN 81 MG PO SCH (20:31)
[2021-07-28] MEDS: ACETAMINOPHEN TAB 325 MG TAB PO PRN (20:33)
[2021-07-28] MEDS: METOPROLOL TARTRATE 12.5 MG TAB PO SCH (20:35)
[2021-07-29] MEDS: SODIUM CHLORIDE 0.9% 1,000 ML IV SCH (08:41)
[2021-07-29] MEDS: HEPARIN SODIUM,PORCINE/PF 5,000 UNIT/0.5 ML SYRINGE SQ SCH ×2 (08:43→21:02)
[2021-07-29] MEDS: amLODIPine 10 MG TAB PO SCH (08:44)
[2021-07-29] MEDS: PANTOPRAZOLE 40 MG TABLET PO SCH (08:44)
[2021-07-29] MEDS: FLECAINIDE 50 MG TAB PO SCH ×2 (08:44→21:02)
--- NOTE | 2021-07-29 12:57 | PN ---
PROGRESS NOTE DATE OF SERVICE: 07/29/2021 I am covering for Dr. Villar. This 80-year-old woman who was admitted with acute UTI complicated with also had Acinetobacter baumannii. Urology is following the patient closely. No chest pain. No palpitations. No fever. Urology has recommended possible discharge and nephrostomy tubes as an outpatient. PHYSICAL EXAMINATION: Alert and oriented times three. Pulse 68, blood pressure 162/77, respiration 20, temperature 98.2, pulse ox 94% on room air. HEENT: Conjunctivae normal. Neck: No JVD. Cardiovascular: S1, S2, muffled. Respiratory: Diminished breath sounds at the bases. No rhonchi. Abdomen: Soft. Nephrostomy tube present. LEGS are no edema. No swelling. LAB: WBC 4.6, hemoglobin 11.4, sodium 130, potassium 3.7. ASSESSMENT: 1. Acute complicated urinary tract infection with possible sepsis with Acinetobacter baumannii present on admission. 2. Staph epidermidis with blood culture, possibly contaminant. 3. Hypertension. 4. Bilateral nephrostomy tubes, status post bladder cancer. 5. Mild hyponatremia. 6. Increased creatinine with acute renal failure acute kidney injury. 7. History of bladder cancer with muscle invasion, status post surgery and chemo. 8. History of tachy-shyanne syndrome. 9. History of pacemaker. 10.History of Bertrand catheter. 11.History of constipation. 12.History of anxiety, depression. 13.Mild protein-calorie malnutrition BMI 18.9. 14.FULL CODE. RECOMMENDATIONS AND DISCUSSION: Continue current medications, management symptomatic treatment. Continue with antibiotics. Closely follow with Urology. Guarded prognosis. Increase ambulation. Further recommendations to follow. Dr. Villar will follow tomorrow. MMODL / IJN: [id number] /
[2021-07-29 20:26] VITALS: RESP 16
[2021-07-29] MEDS: ASPIRIN 81 MG PO SCH (21:01)
[2021-07-29] MEDS: METOPROLOL TARTRATE 12.5 MG TAB PO SCH (21:02)
[2021-07-30] MEDS: SODIUM CHLORIDE 0.9% 1,000 ML IV SCH ×2 (00:24→08:33)
[2021-07-30 04:50] VITALS: TEMP 98
[2021-07-30] MEDS: HEPARIN SODIUM,PORCINE/PF 5,000 UNIT/0.5 ML SYRINGE SQ SCH (07:24)
[2021-07-30] MEDS: amLODIPine 10 MG TAB PO SCH (07:57)
[2021-07-30] MEDS: FLECAINIDE 50 MG TAB PO SCH (07:57)
[2021-07-30] MEDS: PANTOPRAZOLE 40 MG TABLET PO SCH (07:57)
[2021-07-30 08:04] VITALS: BP 154/81; PULSE 76
--- NOTE | 2021-08-01 14:02 | P.DS ---
Providers Date of admission: 07/23/21 14:57 Expected date of discharge: 07/30/21 Attending physician: Sonny Villar Consults: 07/23/21 14:48 Consult Physician Routine Consulting Provider: Altaf Flynn Consult Reason/Comments: poss UTI,weakness Do you want consulting provider notified?: Yes 07/24/21 13:54 Consult Physician Routine Consulting Provider: Merlin Asif Consult Reason/Comments: Competency Do you want consulting provider notified?: Yes Primary care physician: Sonny Villar Hospital Course: Final Diagnoses: (1) UTI (urinary tract infection), Acinetobacter pantera/haemol. Current Visit: Yes Status: Acute Code(s): N39.0 - URINARY TRACT INFECTION, SITE NOT SPECIFIED SNOMED Code(s): 28714902 (2) Weakness Current Visit: Yes Status: Acute Code(s): R53.1 - WEAKNESS SNOMED Code(s): 89064707 (3) Dehydration Current Visit: No Status: Acute Code(s): E86.0 - DEHYDRATION SNOMED Code(s): 16585253 Hospital course:80-year-old female with a past medical history of bladder cancer with urostomy and bilateral nephrostomy, frequent UTIs addmitted from the emergency room for a chief complaint of weakness. Daughter reports that a week ago patient had sided chest pain and left arm pain. States his only lasted momentarily and has not recurred in the last week. However since that time patient has been very weak and not getting out of bed. States she hasn't been eating or drinking appropriately. States she has been lightheaded when trying to get up and walk. Patient has no other complaints at this time including shortness of breath, chest pain, abdominal pain, nausea or vomiting, headache, or visual changes. Urine culture reported Acinetobacter pantera/haemol. Maintained on IV antibiotics, gentle IV fluid hydration with significant clinical improvement. Evaluated by urology. Nephrostomy tubes will be changed outpatient due to full schedule of interventional radiology. Cleared by urology for discharge. Patient will be discharged home in a stable condition with guarded prognosis. Microbiology 07/23/21 15:20 Blood Blood Culture - Final No Growth after 144 hours 07/23/21 11:39 Urine,Clean Catch Urine Culture - Final Acinetobacter pantera/haemol 07/23/21 15:20 Blood Blood Culture Gram Stain - Final 07/23/21 15:20 Blood Blood Culture - Final Staphylococcus epidermidis 07/23/21 15:20 Blood Blood Culture - Final The impression and plan of care has been dictated as directed. : I performed a history and examination of this patient, discussed the same with the dictator. I agree with the dictator's note ,documented as a scribe. Any additional findings or plans will be noted. Patient Condition at Discharge: Stable Plan - Discharge Summary Discharge Rx Participant: No New Discharge Prescriptions: New amLODIPine [Norvasc] 10 mg PO DAILY #30 tab Cefuroxime Axetil [Ceftin] 500 mg PO BID 3 Days #6 tab Famotidine [Pepcid] 20 mg PO BID #14 tablet Continue Flecainide [Tambocor] 50 mg PO BID Metoprolol Tartrate [Lopressor] 12.5 mg PO HS Aspirin EC [Ecotrin Low Dose] 162 mg PO HS Discharge Medication List Flecainide [Tambocor] 50 mg PO BID 07/06/17 [History] Metoprolol Tartrate [Lopressor] 12.5 mg PO HS 10/02/20 [History] Aspirin EC [Ecotrin Low Dose] 162 mg PO HS 04/27/21 [History] Cefuroxime Axetil [Ceftin] 500 mg PO BID 3 Days #6 tab 07/30/21 [Rx] Famotidine [Pepcid] 20 mg PO BID #14 tablet 07/30/21 [Rx] amLODIPine [Norvasc] 10 mg PO DAILY #30 tab 07/30/21 [Rx] Follow up Appointment(s)/Referral(s): Altaf Flynn MD [STAFF PHYSICIAN] - 1 Week Sonny Villar DO [Primary Care Provider] - 08/02/21 10:40 am [facility] [NON-STAFF] - 1-2 Days Ambulatory/Diagnostic Orders: Complete Blood Count w/diff [LAB.AMB] Time Frame: 3 Days, Location: None Selected Patient Instructions/Handouts: How to Stop Smoking (DC) Discharge/Stand Alone Forms: [facility] Counselor Discharge Disposition: HOME WITH HOME HEALTH SERVICES
--- NOTE | 2021-08-07 08:22 | CDI ---
Documentation Clarification Form Date: 08/07/2021 07:56:00 AM From: Lorenza Oconnell Admit Date: 07/23/2021 02:57:00 PM Patient Name: Therese Barker Visit Number: [id number] Discharge Date: 07/30/2021 12:58:00 PM ATTENTION: The Clinical Documentation Specialists (CDI) and [facility] Coding Staff appreciate your assistance in clarifying documentation. Please respond to the clarification below the line at the bottom and electronically sign. The CDI & [facility] Coding staff will review the response and follow-up if needed. Please note: Queries are made part of the Legal Health Record. If you have any questions, please contact the author of this message via ITS. Dr. Sonny Villar: UTI is documented in the H&P and patient has bilateral nephrostomy tubes. Additional clarification regarding the etiology of the UTI is requested. History/Risk Factors: Frequent UTIs, bladder cancer, Clinical Indicators: Urinalysis: Urine Protein 1+ H (Negative) Urine Glucose (UA) Negative (Negative) Urine Ketones Trace H (Negative) Urine Blood Moderate H (Negative) Urine Nitrite Negative (Negative) Urine Bilirubin Negative (Negative) Urine Urobilinogen <2.0 (<2.0) mg/dL Ur Leukocyte Esterase Large H (Negative) Urine RBC 107 H (0-5) /hpf Urine WBC 56 H (0-5) /hpf Urine WBC Clumps Occasional H (None) /hpf Ur Squamous Epith Cells <1 (0-4) /hpf Amorphous Sediment Few H (None) /hpf Urine Bacteria Rare H (None) /hpf Urine Mucus Rare H (None) /hpf Urine culture: Acinetobacter Lab results: Treatment: Ceftriaxone, IV hydration and IV antibiotics Please clarify the etiology of the UTI, if known: [ ] Bertrand catheter [ ] Suprapubic catheter [ X ] Urostomy [ ] UTI not related to catheter/urostomy [ ] Other condition, please specify [ ] Unable to determine MTDD
== END 2021-07-30 12:58 | disposition home health service (06) | DRG 698 ==
LOC: EC 09:25 → 5NMEDONC 14:57
PROVIDERS: ADMIT Family Medicine; ATTEND Family Medicine
DX: T83.512A Infection and inflammatory reaction due to nephrostomy catheter, initial encounter (principal); A41.59 Other Gram-negative sepsis; E44.1 Mild protein-calorie malnutrition; E87.1 Hypo-osmolality and hyponatremia; Z68.1 Body mass index [BMI] 19.9 or less, adult; N17.9 Acute kidney failure, unspecified; N13.6 Pyonephrosis; E86.0 Dehydration; F17.200 Nicotine dependence, unspecified, uncomplicated; F41.9 Anxiety disorder, unspecified; Z20.822 Contact with and (suspected) exposure to COVID-19; Z79.899 Other long term (current) drug therapy; Z80.0 Family history of malignant neoplasm of digestive organs; Z80.49 Family history of malignant neoplasm of other genital organs; Z83.3 Family history of diabetes mellitus; Z85.51 Personal history of malignant neoplasm of bladder; Z86.12 Personal history of poliomyelitis; Z87.440 Personal history of urinary (tract) infections; Z93.6 Other artificial openings of urinary tract status; Z95.0 Presence of cardiac pacemaker; N18.9 Chronic kidney disease, unspecified; I12.9 Hypertensive chronic kidney disease with stage 1 through stage 4 chronic kidney disease, or unspecified chronic kidney disease; Y83.8 Other surgical procedures as the cause of abnormal reaction of the patient, or of later complication, without mention of misadventure at the time of the procedure; Y92.9 Unspecified place or not applicable
CPT/HCPCS: 36415; 71046; 80048; 80053; 81001; 83605; 83735; 84484; 85025; 85610; 85730; 87040; 87077; 87086; 87186; 87635; 93005; 96360; 96361; 99285

== ENCOUNTER 2021-08-14 10:50 | Day surgery (SDC) | payer MEDICARE, BC ==
--- NOTE | 2021-08-07 08:18 | P.GSHP ---
History of Present Illness H&P Date: 08/07/21 Chief Complaint: Bilateral hydronephrosis The patient is a 80 yo female with a history of bladder cancer She underwent a cystectomy with ileal loop in 2017 in [place] and developed bilateral ureteral strictures requring nephostomy tubes and antegrade ureteral stents. She has had multiple hospital admissions for abdominal and flank pain. In October 2020 she underwent placement of bilateral nephroureteral stents. The stents were exchanged for bilateral nephrostomy tubes on 05/28/2021. She was recently readmitted due to weakness and was treated for UTI. - Constitutional Constitutional: Denies chills, Denies fever - Gastrointestinal Gastrointestinal: Denies nausea, Denies vomiting - Genitourinary (Female) Genitourinary: Denies hematuria Past Medical History Past Medical History: Cancer Additional Past Medical History / Comment(s): Bladder cancer with muscle invasion/surgery/urostomy and chemo X2, frequent UTIs, has urostomy, has right ureteral stent. Tachybrady syndrome with pacemaker, hx of polio, constipation, bruises easily, bilateral nephrostomy tubes. History of Any Multi-Drug Resistant Organisms: None Reported Past Surgical History: Orthopedic Surgery Additional Past Surgical History / Comment(s): 2013 pacemaker, radical cystectomy with ileal loop/urostomy, bilateral nephrostomy tubes, right ureteral stents, right shoulder fusion with bone from hip donor site, ORIF leftt hip, removal of hardware from right shoulder. Past Anesthesia/Blood Transfusion Reactions: No Reported Reaction, Motion Sickness, Postoperative Nausea & Vomiting (PONV) Additional Past Anesthesia/Blood Transfusion Reaction / Comment(s): Pt has received blood in past without reaction. Type of Cardiac Device: Permanent Pacemaker Device Placement Date:: 2013 Past Psychological History: Anxiety, Depression Additional Psychological History / Comment(s): Pt resides with her son other. She is independent. Smoking Status: Former smoker Past Alcohol Use History: None Reported Additional Past Alcohol Use History / Comment(s): Started smoking in 1965, was light smoker, 3-7 cigarettes a day, quit in 2013 but resumed smoking in 2017- 2018. Past Drug Use History: None Reported Additional Drug Use History / Comment(s): In past had used "Marinol" at hs, 2.5 mg. - Past Family History Father History Unknown: Yes Additional Family Medical History / Comment(s): Father in a MVA when pt was young. Mother Family Medical History: Cancer, Diabetes Mellitus Additional Family Medical History / Comment(s): Cervical cancer, rheumatic fever, heart problems. Brother(s) Family Medical History: Cancer Additional Family Medical History / Comment(s): PANCREATIC CANCER. Medications and Allergies Home Medications Medication Instructions Recorded Confirmed Type Flecainide [Tambocor] 50 mg PO BID 07/06/17 07/23/21 History Metoprolol Tartrate [Lopressor] 12.5 mg PO HS 10/02/20 07/23/21 History Aspirin EC [Ecotrin Low Dose] 162 mg PO HS 04/27/21 07/23/21 History Cefuroxime Axetil [Ceftin] 500 mg PO BID 3 Days #6 tab 07/30/21 Rx Famotidine [Pepcid] 20 mg PO BID #14 tablet 07/30/21 Rx amLODIPine [Norvasc] 10 mg PO DAILY #30 tab 07/30/21 Rx Allergies Allergy/AdvReac Type Severity Reaction Status Date / Time cetirizine [From Zyrtec] Allergy Anaphylaxis Verified 07/23/21 11:25 hydrocodone [From [place]] Allergy Itching/Vom Verified 07/23/21 11:25 iting levofloxacin [From Levaquin] Allergy Swelling Verified 07/23/21 11:25 nitrofurantoin Allergy Anaphylaxis Verified 07/23/21 11:25 [From Macrobid] Penicillins Allergy Rash/Hives Verified 07/23/21 11:25 tramadol Allergy Anaphylaxis Verified 07/23/21 11:25 ciprofloxacin [From Cipro] AdvReac Vomiting Verified 07/23/21 11:25 codeine AdvReac Vomiting Verified 07/23/21 11:25 hydromorphone [From Dilaudid] AdvReac Vomiting Verified 07/23/21 11:25 ketorolac [From Toradol] AdvReac avoids due Verified 07/23/21 11:25 to kidneys linezolid AdvReac Anaphylaxis Verified 07/23/21 11:25 /Vomiting metoclopramide [From Reglan] AdvReac Hallucinati Verified 07/23/21 11:25 ons morphine AdvReac Vomiting Verified 07/23/21 11:25 oxycodone AdvReac Vomiting Verified 07/23/21 11:25 zolpidem [From Ambien] AdvReac Hallucinati Verified 07/23/21 11:25 ons narcotics AdvReac Vomiting Uncoded 07/23/21 10:16 Surgical - Exam - General well developed, well nourished, no distress - Respiratory normal respiratory effort - Abdomen Abdomen: soft, non tender, no guarding, no rigid, no rebound - Psychiatric oriented to time, oriented to person, oriented to place, speech is normal, memory intact Assessment and Plan (1) Hydronephrosis with ureteral stricture, not elsewhere classified Status: Acute Code(s): N13.1 - HYDRONEPHROSIS W URETERAL STRICTURE, NEC SNOMED Code(s): 80730233 Plan: The patient has been scheduled to undergo bilateral nephrostomy tube change. She understands risks to include infection, ureteral injury, and loss of access.
[2021-08-10 11:59] VITALS: BMI 18.8
[2021-08-14 11:30] VITALS: RESP 16; TEMP 98.5
[2021-08-14] MEDS ORDERED: LIDOCAINE 1% INJ 10MG/ML (20 ML MDV) SQ ONE (12:48)
[2021-08-14] MEDS ORDERED: IOPAMIDOL-250 50ML BTL IV ONE (13:03)
[2021-08-14] MEDS ORDERED: IV FLUID CONTINUATION 450 ML IV ONE (13:03)
--- NOTE | 2021-08-14 14:33 | IR ---
Nephrostomy tube change HISTORY: Bladder carcinoma, bilateral nephrostomy tubes Maximal barrier technique was utilized. Patient's indwelling tubes were prepped and draped in sterile fashion. Lidocaine is used for local an esthesia. Left-sided tube was gently hand injected under fluoroscopy. Tube was subsequently cut and exchanged o susie a stiff angled Glidewire for an 8 5 Latvian nephrostomy tube. Catheter was fixed in place. Urine r eturned in the hub of the catheter. Only minimal bleeding noted on the left. Using similar technique the right handed to subsequently injected with contrast material verified domenic cement. Lidocaine used for local anesthesia. Catheter was exchanged over a stiff 0.35 inch angled Gli dewire for an 8.5 Latvian tube and fixed in place. Sterile dressings were placed. Catheter was reclamation supervisor d to gravity drainage bilaterally. No immediate, location. Patient remained stable condition. No blee ding, no competition. IMPRESSION: Status post bilateral nephrostomy tube exchange, this procedure performed by the loni eldridge.
[2021-08-14 16:15] VITALS: BP 124/62; PULSE 98
== END 2021-08-14 13:55 | disposition home health service (06) ==
LOC: OR 10:50
PROVIDERS: ATTEND Radiology Diagnostic Radiology
DX: Z46.6 Encounter for fitting and adjustment of urinary device (principal); N13.30 Unspecified hydronephrosis; Z85.51 Personal history of malignant neoplasm of bladder; Z92.21 Personal history of antineoplastic chemotherapy; Z87.440 Personal history of urinary (tract) infections; I49.5 Sick sinus syndrome; Z95.0 Presence of cardiac pacemaker; Z20.822 Contact with and (suspected) exposure to COVID-19; Z86.12 Personal history of poliomyelitis; Z98.1 Arthrodesis status; Z87.891 Personal history of nicotine dependence; Z83.3 Family history of diabetes mellitus; Z82.49 Family history of ischemic heart disease and other diseases of the circulatory system; Z80.49 Family history of malignant neoplasm of other genital organs; Z80.0 Family history of malignant neoplasm of digestive organs; Z79.899 Other long term (current) drug therapy; Z88.1 Allergy status to other antibiotic agents; Z88.5 Allergy status to narcotic agent; Z88.0 Allergy status to penicillin; Z88.8 Allergy status to other drugs, medicaments and biological substances
CPT/HCPCS: 50435; 75984; 87635; C1729; C1769 ×3; J2001; Q9966

== ENCOUNTER 2021-11-01 09:35 | Day surgery (SDC) | payer MEDICARE, BC ==
--- NOTE | 2021-10-23 20:02 | P.GSHP ---
History of Present Illness H&P Date: 10/23/21 Chief Complaint: Bilateral hydronephrosis The patient is an 81 yo female with a history of bladder cancer She underwent a cystectomy with ileal loop in 2017 in [place] and developed bilateral ureteral strictures requring nephostomy tubes and antegrade ureteral stents. She has had multiple hospital admissions for abdominal and flank pain. In October 2020 she underwent placement of bilateral nephroureteral stents. The stents were exchanged for bilateral nephrostomy tubes, and were last changed on 08/14/2021. - Constitutional Constitutional: Denies chills, Denies fever - Gastrointestinal Gastrointestinal: Denies nausea, Denies vomiting - Genitourinary (Female) Genitourinary: Reports hematuria Past Medical History Past Medical History: Cancer Additional Past Medical History / Comment(s): Bladder cancer with muscle invasion/surgery/urostomy and chemo X2, frequent UTIs, has urostomy, has right ureteral stent. Tachybrady syndrome with pacemaker, hx of polio, constipation, bruises easily, bilateral nephrostomy tubes. History of Any Multi-Drug Resistant Organisms: None Reported Past Surgical History: Orthopedic Surgery Additional Past Surgical History / Comment(s): 2013 pacemaker, radical cystectomy with ileal loop/urostomy, bilateral nephrostomy tubes, right ureteral stents, right shoulder fusion with bone from hip donor site, ORIF leftt hip, removal of hardware from right shoulder. Past Anesthesia/Blood Transfusion Reactions: No Reported Reaction, Motion Sickness, Postoperative Nausea & Vomiting (PONV) Additional Past Anesthesia/Blood Transfusion Reaction / Comment(s): Pt has received blood in past without reaction. Type of Cardiac Device: Permanent Pacemaker Device Placement Date:: 2013 Smoking Status: Former smoker - Past Family History Father History Unknown: Yes Additional Family Medical History / Comment(s): Father in a MVA when pt was young. Mother Family Medical History: Cancer, Diabetes Mellitus Additional Family Medical History / Comment(s): Cervical cancer, rheumatic fever, heart problems. Brother(s) Family Medical History: Cancer Additional Family Medical History / Comment(s): PANCREATIC CANCER. Medications and Allergies Home Medications Medication Instructions Recorded Confirmed Type Flecainide [Tambocor] 50 mg PO BID 07/06/17 08/14/21 History Metoprolol Tartrate [Lopressor] 12.5 mg PO HS 10/02/20 08/14/21 History Aspirin EC [Ecotrin Low Dose] 162 mg PO HS 04/27/21 08/10/21 History Allergies Allergy/AdvReac Type Severity Reaction Status Date / Time cetirizine [From Zyrtec] Allergy Anaphylaxis Verified 08/10/21 11:50 hydrocodone [From [place]] Allergy Itching/Vom Verified 08/10/21 11:50 iting levofloxacin [From Levaquin] Allergy Swelling Verified 08/10/21 11:50 nitrofurantoin Allergy Anaphylaxis Verified 08/10/21 11:50 [From Macrobid] Penicillins Allergy Rash/Hives Verified 08/10/21 11:50 tramadol Allergy Anaphylaxis Verified 08/10/21 11:50 ciprofloxacin [From Cipro] AdvReac Vomiting Verified 08/10/21 11:50 codeine AdvReac Vomiting Verified 08/10/21 11:50 hydromorphone [From Dilaudid] AdvReac Vomiting Verified 08/10/21 11:50 ketorolac [From Toradol] AdvReac avoids due Verified 08/10/21 11:50 to kidneys linezolid AdvReac Anaphylaxis Verified 08/10/21 11:50 /Vomiting metoclopramide [From Reglan] AdvReac Hallucinati Verified 08/10/21 11:50 ons morphine AdvReac Vomiting Verified 08/10/21 11:50 oxycodone AdvReac Vomiting Verified 08/10/21 11:50 zolpidem [From Ambien] AdvReac Hallucinati Verified 08/10/21 11:50 ons narcotics AdvReac Vomiting Uncoded 08/10/21 11:50 Surgical - Exam - General well developed, well nourished, no distress - Respiratory normal respiratory effort - Abdomen Abdomen: soft, non tender, no guarding, no rigid, no rebound - Psychiatric oriented to time, oriented to person, oriented to place, speech is normal, memory intact Assessment and Plan (1) Hydronephrosis with ureteral stricture, not elsewhere classified Status: Acute Code(s): N13.1 - HYDRONEPHROSIS W URETERAL STRICTURE, NEC SNOMED Code(s): 69095702 Plan: The patient has been scheduled to undergo bilateral nephrostomy tube change in early October 2021. She understands risks to include infection, ureteral injury, and loss of access.
[~2021-11-01 09:35] MED LIST changes: -DEXAMETHASONE SOD PHOSPHATE 10 MG/ML 1 ML VIAL IV ONE; -GENTAMICIN IN NACL ISO-OSM PMX 80 MG in SALINE 1 100ML.BAG IVPB ONE; -HYDROmorphone 0.5 MG/0.5 ML SYRINGE IVP ONE; -IOPAMIDOL-370 50ML BTL INJ ONE; -IV FLUID CONTINUATION 500 ML IV ONE; -LIDOCAINE 1% (10MG/ML) FOR IV START INTRADERMA ONE; -LIDOCAINE 1% INJ 10MG/ML (20 ML MDV) ONE; -LIDOCAINE 1% INJ 10MG/ML (20 ML MDV) SQ ONE; -MIDAZOLAM 2 MG/2 ML VIAL ONE; -ONDANSETRON 4 MG/2 ML VIAL IVP ONE; -ONDANSETRON 4 MG/2 ML VIAL ONE; -PROPOFOL 10 MG/ML 20 ML VIAL IV ONE; +SODIUM CHLORIDE 0.9% 1,000 ML in EMPTY BAG 1 BAG IV ONE; -diphenhydrAMINE 50 MG/ML 1 ML VIAL ONE; -fentaNYL (PF) 50 MCG/ML 2 ML AMP IV PRN; -fentaNYL (PF) 50 MCG/ML 2 ML AMP ONE
[2021-11-01 10:04] VITALS: RESP 18; TEMP 98.3
[2021-11-01 10:10] LABS: Basophils # (A) 0.1 k/uL (0-0.2); Basophils % (A) 1 %; Eosinophils # (A) 0.3 k/uL (0-0.7); Eosinophils % (A) 3 %; HCT 42.6 % (34.0-46.0); HGB 14.2 gm/dL (11.4-16.0); Lymphocytes # (A) 2.2 k/uL (1.0-4.8); Lymphocytes % (A) 25 %; MCH 31.5 pg (25.0-35.0); MCHC 33.4 g/dL (31.0-37.0); MCV 94.3 fL (80.0-100.0); Mean Platelet Volume 7.6; Monocytes # (A) 0.5 k/uL (0-1.0); Monocytes % (A) 6 %; Neutrophils # (A) 5.5 k/uL (1.3-7.7); Neutrophils % (A) 63 %; Platelet Count 230 k/uL (150-450); RBC 4.52 m/uL (3.80-5.40); RDW 14.4 % (11.5-15.5); WBC 8.7 k/uL (3.8-10.6)
[2021-11-01] MEDS ORDERED: ceFAZolin 10 GM VIAL IVPB ONE (10:30)
[2021-11-01 10:33] LABS: Calcium 9.6 mg/dL (8.4-10.2)
[2021-11-01 10:40] LABS: Potassium 4.7 mmol/L (3.5-5.1)
[2021-11-01] MEDS ORDERED: LIDOCAINE 1% INJ 10MG/ML (20 ML MDV) ONE (10:40)
[2021-11-01] MEDS ORDERED: fentaNYL (PF) 50 MCG/ML 2 ML AMP ONE (10:40)
[2021-11-01] MEDS ORDERED: LIDOCAINE 1% INJ 10MG/ML (20 ML MDV) SQ ONE (11:18)
[2021-11-01 13:29] VITALS: BP 148/78; PULSE 92
--- NOTE | 2021-11-01 13:40 | IR ---
Bilateral nephrostomy tube change HISTORY: Routine maintenance, bladder cancer Following informed consent, patient was placed in a prone position on the fluoroscopy table. Patient' s indwelling tubes and surrounding skin were prepped and draped in a sterile fashion. Lidocaine was u sed for local anesthesia. Attention directed to the left-sided tube. Gentle hand-injection of contrast material was performed. Tube was cut, attached to the exchange the tube over wire were unsuccessful, wire could not be advanc ed through the tube. 10 [place]an sheath was then advanced over the 2 into the renal collecting system l evel of the tube was withdrawn through the sheath. Wire was introduced through the sheath. 8.5 [place] catheter then advanced over the wire and string fixed in place. Catheter attached to gravity drainag e and to the skin for anchoring. No immediate complication. Patient remained in stable condition. Attention then directed to the right-sided tube. Gentle hand-injection of contrast material performed . Catheter was cut and exchanged over a wire. Catheter string fixed and attached the skin and hat band attacher d to gravity drainage. Patient remained in stable condition. No immediate complication. IMPRESSION: Status post bilateral nephrostomy tube exchange, 8.5 [place]an tubes bilaterally. No immedia te complication. 12.5minutes fluoroscopy time. 119 intraoperative images document the procedure.
== END 2021-11-01 12:45 | disposition home or self-care (01) ==
LOC: OR 09:35
PROVIDERS: ATTEND Radiology Diagnostic Radiology
DX: C67.9 Malignant neoplasm of bladder, unspecified (principal); Z87.891 Personal history of nicotine dependence; Z20.822 Contact with and (suspected) exposure to COVID-19
CPT/HCPCS: 50435; 75984; 80048; 85025; 87635; C1729; C1894; C1769 ×4; J0690; J2001

== ENCOUNTER → 2021-12-07 | Outpatient (CLI) | payer MEDICARE, BC ==
--- NOTE | 2021-12-09 21:09 | PE ---
EXAMINATION TYPE: PET CT fusion skull to thigh DATE OF EXAM: 12/07/2021 COMPARISON: Prior PET/CT December 22, 2020 and older studies HISTORY: History of bladder cancer treated with chemotherapy 3 years ago. TECHNIQUE: Following the intravenous administration of 11.07 mCi of F-18 FDG, whole body images are performed from the skull base to the midthigh. Images are reviewed on the computer in the coronal, a xial, and sagittal planes. Reconstructed rotating images are created on independent workstation and reviewed on the computer. A localization and attenuation correction CT is performed in conjunction with the PET scan. Blood glucose level equals 126 SCAN: Subsequent Scan FINDINGS: SKULL BASE AND NECK: No new areas of abnormal hypermetabolic uptake. CHEST, MEDIASTINUM, AND HILAR REGION: No new areas of abnormal hypermetabolic uptake. ABDOMEN AND PELVIS: Bilateral percutaneous nephrostomy tubes are redemonstrated. Normal excretion is again seen. This extends to the right-sided ostomy on current study. New suspicious hypermetabolic ly mph node left iliac chain measuring 1.4 x 1.4 cm axial image 203 with max SUV of 11.33. 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 OSSEOUS STRUCTURES: Single focus of hypermetabolic uptake right lateral elements near dense sclerosis upper to mid cervical spine axial image 33 favor degenerative etiology. Max SUV is 3.25. OTHER CT: Moderate to severe calcified plaque left carotid bulb. Mild to moderate calcified plaque ri ght carotid bulb. Mild cardiomegaly with dual lead pacemaker. Patient has little intra-abdominal fat. Moderate to severe calcified plaque of the aorta extends into branch vessels. Right-sided ostomy is redemonstrated. Metallic artifact from left hip arthroplasty c auses streak artifact limiting evaluation of pelvic structures. Facet arthropathy lower lumbar levels . IMPRESSION: Local neoplastic recurrence left pelvis with new slightly enlarged hypermetabolic left il iac chain lymph node identified.
== END | disposition home or self-care (01) ==
LOC: RADXRMAIN 10:37
PROVIDERS: ATTEND Internal Medicine Hematology & Oncology
DX: C67.9 Malignant neoplasm of bladder, unspecified (principal); C77.8 Secondary and unspecified malignant neoplasm of lymph nodes of multiple regions
CPT/HCPCS: 78815; A9552

== ENCOUNTER → 2022-02-20 | Day surgery (SDC) | payer MEDICARE, BC ==
[~2022-02-20] MED LIST changes: +IOPAMIDOL-250 50ML BTL IV ONE; +LIDOCAINE 1% INJ 10MG/ML (5 ML VIAL-PF) SQ ONE; -SODIUM CHLORIDE 0.9% 1,000 ML in EMPTY BAG 1 BAG IV ONE; +SODIUM CHLORIDE 0.9% 500 ML 500 ML IV SCH
--- NOTE | 2022-02-20 12:33 | P.GSHP ---
History of Present Illness H&P Date: 02/20/22 Chief Complaint: Leaking left nephrostomy tube. The patient is an 81 yo female with a history of bladder cancer She underwent a cystectomy with ileal loop in 2017 in [place] and developed bilateral ureteral strictures requring nephostomy tubes and antegrade ureteral stents. She has had multiple hospital admissions for abdominal and flank pain. In October 2020 she underwent placement of bilateral nephroureteral stents. The stents were exchanged for bilateral nephrostomy tubes, and were last changed on 01/07/2022. The left nephrostomy tube crit draining yesterday morning. Irrigation confirms that it is displaced. - Constitutional Constitutional: Denies chills, Denies fever Past Medical History Past Medical History: Atrial Fibrillation, Cancer, Hypertension Additional Past Medical History / Comment(s): Bladder cancer with muscle invasion/surgery/urostomy and chemo X2, frequent UTIs, has stephanie ureteral stent. Pacemaker, hx of polio, bruises easily, hx skin cancer/melanoma-treated with radiation. History of Any Multi-Drug Resistant Organisms: None Reported Past Surgical History: Bladder Surgery, Orthopedic Surgery, Pacemaker Additional Past Surgical History / Comment(s): radical cystectomy with ileal loop/urostomy, bilateral nephrostomy tubes, right ureteral stents, right shou lder fusion with bone from hip donor site, ORIF left hip, removal of hardware from right shoulder. skin cancer removed from scalp. Past Anesthesia/Blood Transfusion Reactions: Postoperative Nausea & Vomiting (PONV) Additional Past Anesthesia/Blood Transfusion Reaction / Comment(s): Pt has received blood in past without reaction. Type of Cardiac Device: Permanent Pacemaker Device Placement Date:: 2013 Past Psychological History: Anxiety Smoking Status: Current some day smoker - Past Family History Father History Unknown: Yes Additional Family Medical History / Comment(s): Father in a MVA when pt was young. Mother Family Medical History: Cancer Additional Family Medical History / Comment(s): Cervical cancer, rheumatic fever, heart problems. Brother(s) Family Medical History: Cancer Additional Family Medical History / Comment(s): PANCREATIC CANCER. Medications and Allergies Home Medications Medication Instructions Recorded Confirmed Type Flecainide [Tambocor] 50 mg PO BID 07/06/17 01/07/22 History Metoprolol Tartrate [Lopressor] 12.5 mg PO HS 10/02/20 01/07/22 History Aspirin EC [Ecotrin Low Dose] 162 mg PO HS 04/27/21 01/07/22 History Multivitamins, Thera [Multivitamin 1 tab PO DAILY 10/31/21 01/07/22 History (formulary)] B12/Levomefolate Calcium/B-6 1 each PO DAILY 01/07/22 01/07/22 History [Foltx Tablet] Allergies Allergy/AdvReac Type Severity Reaction Status Date / Time adhesive tape Allergy red skin, Verified 02/19/22 14:20 itching cetirizine [From Zyrtec] Allergy Anaphylaxis Verified 02/19/22 14:20 hydrocodone [From [place]] Allergy Itching/Vom Verified 02/19/22 14:20 iting levofloxacin [From Levaquin] Allergy Swelling Verified 02/19/22 14:20 nitrofurantoin Allergy Anaphylaxis Verified 02/19/22 14:20 [From Macrobid] Penicillins Allergy Rash/Hives Verified 02/19/22 14:20 tramadol Allergy Anaphylaxis Verified 02/19/22 14:20 ciprofloxacin [From Cipro] AdvReac Vomiting Verified 02/19/22 14:20 codeine AdvReac Vomiting Verified 02/19/22 14:20 hydromorphone [From Dilaudid] AdvReac Vomiting Verified 02/19/22 14:20 ketorolac [From Toradol] AdvReac avoids due Verified 02/19/22 14:20 to kidneys linezolid AdvReac Anaphylaxis Verified 02/19/22 14:20 /Vomiting metoclopramide [From Reglan] AdvReac Hallucinati Verified 02/19/22 14:20 ons morphine AdvReac Vomiting Verified 02/19/22 14:20 oxycodone AdvReac Vomiting Verified 02/19/22 14:20 zolpidem [From Ambien] AdvReac Hallucinati Verified 02/19/22 14:20 ons narcotics AdvReac Vomiting Uncoded 02/19/22 14:20 Surgical - Exam - General well developed, well nourished, no distress - Respiratory normal respiratory effort - Abdomen Abdomen: soft, non tender, no guarding, no rigid, no rebound - Psychiatric oriented to time, oriented to person, oriented to place, speech is normal, memory intact Assessment and Plan (1) Hydronephrosis with ureteral stricture, not elsewhere classified Current Visit: No Status: Acute Code(s): N13.1 - HYDRONEPHROSIS W URETERAL STRICTURE, NEC SNOMED Code(s): 35250287 Plan: The patient will undergo left nephrostomy tube change. She understands risks to include infection, ureteral injury, and loss of access.
[2022-02-20 12:52] VITALS: BP 145/87; PULSE 82; RESP 18; TEMP 97.8
[2022-02-20 12:59] LABS: Basophils # (A) 0.1 k/uL (0-0.2); Basophils % (A) 1 %; Eosinophils # (A) 0.2 k/uL (0-0.7); Eosinophils % (A) 2 %; HCT 42.8 % (34.0-46.0); HGB 14.1 gm/dL (11.4-16.0); Lymphocytes # (A) 2.6 k/uL (1.0-4.8); Lymphocytes % (A) 26 %; MCH 31.1 pg (25.0-35.0); MCV 94.3 fL (80.0-100.0); Mean Platelet Volume 8.1; Monocytes # (A) 0.6 k/uL (0-1.0); Monocytes % (A) 6 %; Neutrophils # (A) 6.3 k/uL (1.3-7.7); Neutrophils % (A) 63 %; Platelet Count 257 k/uL (150-450); RBC 4.54 m/uL (3.80-5.40); RDW 13.7 % (11.5-15.5); WBC 10.1 k/uL (3.8-10.6)
[2022-02-20 13:10] LABS: Calcium 9.9 mg/dL (8.4-10.2); Potassium 4.5 mmol/L (3.5-5.1)
--- NOTE | 2022-02-20 14:27 | IR ---
EXAMINATION TYPE: IR nephrostomy tube change DATE OF EXAM: 02/20/2022 COMPARISON: 01/17/2022 HISTORY: Fluoroscopy time. FINDINGS: Maximal barrier technique was utilized. Patient's indwelling tubes were prepped and draped in sterile fashion. Lidocaine is used for local anesthesia. Left- sided tube was gently hand injected under flu oroscopy. Tube was subsequently cut and exchanged over a guidewire for an 8 5 [place] nephrostomy tube . Catheter was fixed in place. Urine returned in the hub of the catheter. Subsequently injected with contrast material verified placement. Lidocaine used for local anesthesia. No postprocedural complica tion. 0.7 minutes of fluoroscopy and 10 images submitted. IMPRESSION: 1. Successful left-sided nephrostomy tube exchange under fluoroscopy
== END | disposition home or self-care (01) ==
LOC: OR 12:28
PROVIDERS: ATTEND Radiology Diagnostic Radiology
DX: T83.032A Leakage of nephrostomy catheter, initial encounter (principal); Y84.6 Urinary catheterization as the cause of abnormal reaction of the patient, or of later complication, without mention of misadventure at the time of the procedure; N13.1 Hydronephrosis with ureteral stricture, not elsewhere classified; I48.91 Unspecified atrial fibrillation; Z85.51 Personal history of malignant neoplasm of bladder; Z92.21 Personal history of antineoplastic chemotherapy; Z95.0 Presence of cardiac pacemaker; Z85.820 Personal history of malignant melanoma of skin; Z86.12 Personal history of poliomyelitis; F41.9 Anxiety disorder, unspecified; F17.200 Nicotine dependence, unspecified, uncomplicated; Z80.49 Family history of malignant neoplasm of other genital organs; Z82.49 Family history of ischemic heart disease and other diseases of the circulatory system; Z80.8 Family history of malignant neoplasm of other organs or systems; Z79.82 Long term (current) use of aspirin; Z79.899 Other long term (current) drug therapy; Z88.8 Allergy status to other drugs, medicaments and biological substances; Z88.5 Allergy status to narcotic agent; Z88.0 Allergy status to penicillin
CPT/HCPCS: 75984; 80048; 85025; 50435; C1729; C1769 ×3; J0690; J2001; Q9966

== ENCOUNTER 2022-03-11 09:47 | Day surgery (SDC) | payer MEDICARE, BC ==
[2022-03-07 12:17] VITALS: BMI 19.8
[~2022-03-11 09:47] MED LIST changes: -IOPAMIDOL-250 50ML BTL IV ONE; -LIDOCAINE 1% INJ 10MG/ML (5 ML VIAL-PF) SQ ONE
[2022-03-11] MEDS ORDERED: SODIUM CHLORIDE 0.9% 500 ML 500 ML IV ONE (09:50)
[2022-03-11 10:12] VITALS: RESP 16; TEMP 97.9
[2022-03-11] MEDS ORDERED: IOPAMIDOL-370 50ML BTL INJ ONE (10:58)
--- NOTE | 2022-03-11 11:19 | IR ---
EXAMINATION TYPE: IR right nephrostomy tube exchange operator guidewire under fluoroscopy DATE OF EXAM: 03/11/2022 COMPARISON: NONE HISTORY: Request for nephrostomy tube bilateral exchange over guidewire under fluoroscopy Maximal ba rrier technique was utilized. Patient's right nephrostomy tube was prepped and draped in sterile fash ion. Lidocaine is used for local anesthesia. The tube was gently hand injected under fluoroscopy. Tube was subsequently cut and exchanged over a s tiff angled Glidewire for an 8 5 M[place]ese nephrostomy tube. Catheter was fixed in place. Urine returned in the hub of the catheter. Injection of contrast demonstrated ideal placement. Sterile dressings were placed. Catheter was attached to gravity drainage bilaterally. No immediate, l ocation. Patient remained stable condition. No bleeding, no competition. 3 images are submitted on 1. 3 minutes of fluoroscopy provided. IMPRESSION: 1. Successful fluoroscopic guided right nephrostomy tube exchange over guidewire.
[2022-03-11 12:01] VITALS: BP 159/71; PULSE 75
== END 2022-03-11 11:42 | disposition home or self-care (01) ==
LOC: OR 09:47
PROVIDERS: ATTEND Radiology Diagnostic Radiology
DX: N13.1 Hydronephrosis with ureteral stricture, not elsewhere classified (principal)
CPT/HCPCS: 50435; C1729; C1769 ×2; J0690; Q9967; 75984

== ENCOUNTER 2022-05-10 09:33 | Day surgery (SDC) | payer MEDICARE, BC ==
--- NOTE | 2022-05-08 07:17 | P.GSHP ---
History of Present Illness H&P Date: 05/08/22 Chief Complaint: Bilateral hydronephrosis secondary to ureteral strictures The patient is an 81 yo female with a history of bladder cancer She underwent a cystectomy with ileal loop in 2017 in [place] and developed bilateral ureteral strictures requring nephostomy tubes and antegrade ureteral stents. She has had multiple hospital admissions for abdominal and flank pain. In October 2020 she underwent placement of bilateral nephroureteral stents. The stents were exchan ged for bilateral nephrostomy tubes. The left nephrostomy tube was last changed on February 20, and the right nephrostomy tube was last changed on March 11. - Constitutional Constitutional: Denies chills, Denies fever - Genitourinary (Female) Genitourinary: Denies hematuria Past Medical History Past Medical History: Atrial Fibrillation, Cancer, Hypertension Additional Past Medical History / Comment(s): Bladder cancer with muscle invasion/surgery/urostomy and chemo X2, frequent UTIs, has bilateral ureteral stent. Pacemaker. Hx Polio. Bruises easily, hx skin cancer/melanoma-treated with radiation. History of Any Multi-Drug Resistant Organisms: None Reported Past Surgical History: Bladder Surgery, Orthopedic Surgery, Pacemaker Additional Past Surgical History / Comment(s): Radical cystectomy with ileal loop/urostomy, bilateral nephrostomy tubes, right ureteral stents, right shoulder fusion with bone from hip donor site, ORIF left hip, removal of hardware from right shoulder, skin cancer removed from scalp, neprostomy tube change. Past Anesthesia/Blood Transfusion Reactions: Postoperative Nausea & Vomiting (PONV) Additional Past Anesthesia/Blood Transfusion Reaction / Comment(s): Pt has received blood in past without reaction. Type of Cardiac Device: Permanent Pacemaker Device Placement Date:: 2013 Past Psychological History: Anxiety Smoking Status: Current some day smoker Past Alcohol Use History: None Reported Additional Past Alcohol Use History / Comment(s): Started smoking in 1965, was light smoker, 3-7 cigarettes a day, quit in 2013 but resumed smoking in 2017- 2018, smokes no more than 3-7 cigarettes some days. Past Drug Use History: None Reported - Past Family History Father History Unknown: Yes Additional Family Medical History / Comment(s): Father in a MVA when pt was young. Mother Family Medical History: Cancer Additional Family Medical History / Comment(s): Cervical cancer, rheumatic fever, heart problems. Brother(s) Family Medical History: Cancer Additional Family Medical History / Comment(s): PANCREATIC CANCER. Medications and Allergies Home Medications Medication Instructions Recorded Confirmed Type Flecainide [Tambocor] 50 mg PO BID 07/06/17 03/11/22 History Metoprolol Tartrate [Lopressor] 12.5 mg PO HS 10/02/20 03/11/22 History Aspirin EC [Ecotrin Low Dose] 162 mg PO HS 04/27/21 03/11/22 History Multivitamins, Thera [Multivitamin 1 tab PO DAILY 10/31/21 03/11/22 History (formulary)] Allergies Allergy/AdvReac Type Severity Reaction Status Date / Time adhesive tape Allergy red skin, Verified 03/11/22 10:07 itching cetirizine [From Zyrtec] Allergy Anaphylaxis Verified 03/11/22 10:07 hydrocodone [From [place]] Allergy Itching/Vom Verified 03/11/22 10:07 iting levofloxacin [From Levaquin] Allergy Swelling Verified 03/11/22 10:07 nitrofurantoin Allergy Anaphylaxis Verified 03/11/22 10:07 [From Macrobid] Penicillins Allergy Rash/Hives Verified 03/11/22 10:07 tramadol Allergy Anaphylaxis Verified 03/11/22 10:07 ciprofloxacin [From Cipro] AdvReac Vomiting Verified 03/11/22 10:07 codeine AdvReac Vomiting Verified 03/11/22 10:07 hydromorphone [From Dilaudid] AdvReac Vomiting Verified 03/11/22 10:07 ketorolac [From Toradol] AdvReac avoids due Verified 03/11/22 10:07 to kidneys linezolid AdvReac Anaphylaxis Verified 03/11/22 10:07 /Vomiting metoclopramide [From Reglan] AdvReac Hallucinati Verified 03/11/22 10:07 ons morphine AdvReac Vomiting Verified 03/11/22 10:07 oxycodone AdvReac Vomiting Verified 03/11/22 10:07 zolpidem [From Ambien] AdvReac Hallucinati Verified 03/11/22 10:07 ons narcotics AdvReac Vomiting Uncoded 03/11/22 10:07 Surgical - Exam - General well developed, well nourished, no distress - Respiratory normal respiratory effort - Abdomen Soft, non-distended, no mass. Right-sided urostomy. - Psychiatric oriented to time, oriented to person, oriented to place, speech is normal, memory intact Assessment and Plan (1) Hydronephrosis with ureteral stricture, not elsewhere classified Status: Acute Code(s): N13.1 - HYDRONEPHROSIS W URETERAL STRICTURE, NEC SNOMED Code(s): 05052779 Plan: Bilateral nephrostomy tube change to be performed by Dr. Patel.
[2022-05-09 09:47] VITALS: BMI 19.8
[2022-05-10] MEDS ORDERED: SODIUM CHLORIDE 0.9% 500 ML 500 ML IV ONE (10:08)
[2022-05-10 10:17] LABS: Basophils # (A) 0.1 k/uL (0-0.2); Basophils % (A) 1 %; Eosinophils # (A) 0.1 k/uL (0-0.7); Eosinophils % (A) 2 %; HGB 13.8 gm/dL (11.4-16.0); Lymphocytes # (A) 2.2 k/uL (1.0-4.8); Lymphocytes % (A) 24 %; MCH 30.8 pg (25.0-35.0); MCHC 32.9 g/dL (31.0-37.0); MCV 93.4 fL (80.0-100.0); Mean Platelet Volume 8.5; Monocytes # (A) 0.6 k/uL (0-1.0); Monocytes % (A) 6 %; Neutrophils % (A) 65 %; Platelet Count 220 k/uL (150-450); RDW 13.5 % (11.5-15.5); WBC 9.2 k/uL (3.8-10.6)
[2022-05-10 10:27] VITALS: PULSE 76; RESP 16; TEMP 97.8
[2022-05-10 10:28] LABS: Calcium 9.7 mg/dL (8.4-10.2); Potassium 4.5 mmol/L (3.5-5.1)
[2022-05-10] MEDS: LIDOCAINE 1% INJ 10MG/ML (30 ML VIAL-PF) SQ ONE ×2 (11:34→11:41)
[2022-05-10] MEDS ORDERED: IOPAMIDOL-250 50ML BTL IV ONE (11:48)
--- NOTE | 2022-05-10 12:07 | IR ---
EXAMINATION TYPE: IR nephrostomy tube change DATE OF EXAM: 05/10/2022 COMPARISON: 03/11/2022 HISTORY: Bilateral nephrostomy tube exchange Procedure had been discussed with the patient and the risks, benefits, alternatives, were discussed and any questions were answered. Informed consent was obtained. Patient's indwelling tubes and surr ounding skin were prepped and draped in a sterile fashion. Lidocaine was used for local anesthesia. A ttention directed to the left-sided tube. Gentle hand-injection of contrast material was performed. T ube was cut, attached to the exchange the tube over wire were unsuccessful, wire could not be advance d through the tube. 10 [place] sheath was then advanced over the 2 into the renal collecting system le erinn of the tube was withdrawn through the sheath. Wire was introduced through the sheath. 8.5 [place] catheter then advanced over the wire and string fixed in place. Catheter attached to gravity drainage and to the skin for anchoring. No immediate complication. Patient remained in stable condition. Atte ntion then directed to the right-sided tube. Gentle hand-injection of contrast material performed. Ca theter was cut and exchanged over a wire. Cathete r string fixed and attached the skin and attached t o gravity drainage. Patient remained in stable condition. No immediate complication. 1.2 minutes of f luoroscopy and 4 images submitted. IMPRESSION: 1. Successful bilateral nephrostomy tube exchange over a guidewire under fluoroscopy.
[2022-05-10 12:20] VITALS: BP 162/94
== END 2022-05-10 12:35 | disposition home or self-care (01) ==
LOC: OR 09:33
PROVIDERS: ATTEND Radiology Diagnostic Radiology
DX: N13.1 Hydronephrosis with ureteral stricture, not elsewhere classified (principal); I48.91 Unspecified atrial fibrillation; I10 Essential (primary) hypertension; F41.9 Anxiety disorder, unspecified; F17.210 Nicotine dependence, cigarettes, uncomplicated; Z20.822 Contact with and (suspected) exposure to COVID-19; Z98.1 Arthrodesis status; Z85.51 Personal history of malignant neoplasm of bladder; Z92.21 Personal history of antineoplastic chemotherapy; Z86.12 Personal history of poliomyelitis; Z96.0 Presence of urogenital implants; Z95.0 Presence of cardiac pacemaker; Z85.820 Personal history of malignant melanoma of skin; Z92.3 Personal history of irradiation; Z93.6 Other artificial openings of urinary tract status; Z80.49 Family history of malignant neoplasm of other genital organs; Z82.49 Family history of ischemic heart disease and other diseases of the circulatory system; Z80.0 Family history of malignant neoplasm of digestive organs; Z79.82 Long term (current) use of aspirin; Z79.899 Other long term (current) drug therapy; Z88.1 Allergy status to other antibiotic agents; Z88.5 Allergy status to narcotic agent; Z88.0 Allergy status to penicillin; Z88.8 Allergy status to other drugs, medicaments and biological substances; Z91.09 Other allergy status, other than to drugs and biological substances
CPT/HCPCS: 75984; 80048; 85025; 87635; 50435; C1769 ×2; J0690; J2001; Q9966

== ENCOUNTER → 2022-06-14 | Outpatient (CLI) | payer MEDICARE, BC ==
--- NOTE | 2022-06-14 16:09 | PE ---
Nuclear medicine PET CT HISTORY: Bladder carcinoma and the subsequent, pelvic pain Patient received 9.2 mCi F-18 FDG intravenously and delayed scanning was performed from the skull bas e to the mid thighs. Localization and attenuation correction CT scan was performed. Exam is correlated to prior nuclear medicine PET/CT 12/07/2021 Average mediastinal uptake SUV 2.6, average liver uptake, SUV 3.3 Chest and neck: There is no supraclavicular or cervical adenopathy. No mediastinal, axillary, or rocio r adenopathy. Generator is present in the left pectoral region, lead tip coursing to the right ventri sonu and right atrium. No endobronchial lesion. No evidence lung mass, pleural or pericardial effusion . ABDOMEN: Bilateral nephrostomy tubes are indwelling. No definite liver mass or retroperitoneal adenop athy. Patient is post cystectomy. Ileostomy is present in the right lower quadrant. Focus of uptake p resent in the left iliac fossa shows a stable appearance, nonenlarged node shows SUV for approximate 7.6. No suspicious osseous uptake. IMPRESSION: Findings show similar appearance to prior exam.
== END | disposition home or self-care (01) ==
LOC: RADPETMAIN 08:46
PROVIDERS: ATTEND Internal Medicine Hematology & Oncology
DX: C67.9 Malignant neoplasm of bladder, unspecified (principal)
CPT/HCPCS: 78815; A9552

== ENCOUNTER 2022-06-28 09:20 | Day surgery (SDC) | payer MEDICARE, BC ==
--- NOTE | 2022-06-03 06:35 | P.GSHP ---
History of Present Illness H&P Date: 06/03/22 Chief Complaint: Bilateral hydronephrosis secondary to ureteral strictures The patient is an 81 yo female with a history of bladder cancer She underwent a cystectomy with ileal loop in 2017 in [place] and developed bilateral ureteral strictures requring nephostomy tubes and antegrade ureteral stents. She has had multiple hospital admissions for abdominal and flank pain. In October 2020 she underwent placement of bilateral nephroureteral stents. The stents were exchan ged for bilateral nephrostomy tubes and were last changed in 05/10/2022. The nephrostomy tubes have been changed every 8 weeks, but she experiences symptoms the week prior to this being changed so the nephrostomy tubes will now be changed every 6-7 weeks to see if this can be avoided. - Constitutional Constitutional: Denies chills, Denies fever - Gastrointestinal Gastrointestinal: Denies nausea, Denies vomiting - Genitourinary (Female) Genitourinary: Denies hematuria Past Medical History Past Medical History: Atrial Fibrillation, Cancer, Hypertension Additional Past Medical History / Comment(s): Bladder cancer with muscle invasion/surgery/urostomy and chemo X2, frequent UTIs, has bilateral ureteral stent. Pacemaker. Hx Polio. Bruises easily, hx skin cancer/melanoma-treated with radiation. , Has bilateral nephrostomy tubes. History of Any Multi-Drug Resistant Organisms: None Reported Past Surgical History: Bladder Surgery, Orthopedic Surgery, Pacemaker Additional Past Surgical History / Comment(s): Radical cystectomy with ileal loop/urostomy, bilateral nephrostomy tubes, right ureteral stents, right shoulder fusion with bone from hip donor site, ORIF left hip, removal of hardware from right shoulder, skin cancer removed from scalp, neprostomy tube change. Past Anesthesia/Blood Transfusion Reactions: Motion Sickness, Postoperative Nausea & Vomiting (PONV) Additional Past Anesthesia/Blood Transfusion Reaction / Comment(s): Pt has received blood in past without reaction. Type of Cardiac Device: Permanent Pacemaker Device Placement Date:: 2013 Past Psychological History: Anxiety, Depression Additional Psychological History / Comment(s): . Smoking Status: Current some day smoker Past Alcohol Use History: None Reported Additional Past Alcohol Use History / Comment(s): Started smoking in 1965, was light smoker, 3-7 cigarettes a day, quit in 2013 but resumed smoking in 2017- 2018, smokes no more than 3-7 cigarettes some days. Past Drug Use History: None Reported Additional Drug Use History / Comment(s): . - Past Family History Father History Unknown: Yes Additional Family Medical History / Comment(s): Father in a MVA when pt was young. Mother Family Medical History: Cancer Additional Family Medical History / Comment(s): Cervical cancer, rheumatic fever, heart problems. Brother(s) Family Medical History: Cancer Additional Family Medical History / Comment(s): PANCREATIC CANCER. Medications and Allergies Home Medications Medication Instructions Recorded Confirmed Type Flecainide [Tambocor] 50 mg PO BID 07/06/17 05/10/22 History Metoprolol Tartrate [Lopressor] 12.5 mg PO HS 10/02/20 05/10/22 History Aspirin EC [Ecotrin Low Dose] 162 mg PO HS 04/27/21 05/10/22 History Multivitamins, Thera [Multivitamin 1 tab PO DAILY 10/31/21 05/10/22 History (formulary)] Allergies Allergy/AdvReac Type Severity Reaction Status Date / Time adhesive tape Allergy red skin, Verified 05/09/22 09:28 itching cetirizine [From Zyrtec] Allergy Anaphylaxis Verified 05/09/22 09:28 hydrocodone [From [place]] Allergy Itching/Vom Verified 05/09/22 09:28 iting levofloxacin [From Levaquin] Allergy Swelling Verified 05/09/22 09:28 nitrofurantoin Allergy Anaphylaxis Verified 05/09/22 09:28 [From Macrobid] Penicillins Allergy Rash/Hives Verified 05/09/22 09:28 tramadol Allergy Anaphylaxis Verified 05/09/22 09:28 ciprofloxacin [From Cipro] AdvReac Vomiting Verified 05/09/22 09:28 codeine AdvReac Vomiting Verified 05/09/22 09:28 hydromorphone [From Dilaudid] AdvReac Vomiting Verified 05/09/22 09:28 ketorolac [From Toradol] AdvReac avoids due Verified 05/09/22 09:28 to kidneys linezolid AdvReac Anaphylaxis Verified 05/09/22 09:28 /Vomiting metoclopramide [From Reglan] AdvReac Hallucinati Verified 05/09/22 09:28 ons morphine AdvReac Vomiting Verified 05/09/22 09:28 oxycodone AdvReac Vomiting Verified 05/09/22 09:28 zolpidem [From Ambien] AdvReac Hallucinati Verified 05/09/22 09:28 ons narcotics AdvReac Vomiting Uncoded 05/09/22 09:28 Surgical - Exam - General well developed, well nourished, no distress - Respiratory normal respiratory effort - Abdomen Abdomen: soft, non tender, no guarding, no rigid, no rebound - Psychiatric oriented to time, oriented to person, oriented to place, speech is normal, memory intact Assessment and Plan (1) Hydronephrosis with ureteral stricture, not elsewhere classified Status: Acute Code(s): N13.1 - HYDRONEPHROSIS W URETERAL STRICTURE, NEC SNOMED Code(s): 80313323 Plan: Bilateral nephrostomy tube change to be performed by Dr. Patel.
[2022-06-28] MEDS ORDERED: SODIUM CHLORIDE 0.9% 1,000 ML IV ONE (09:29)
[2022-06-28 09:40] VITALS: BP 192/77; RESP 16; TEMP 98.2
[2022-06-28 09:52] LABS: Basophils % (A) 0 %; Eosinophils # (A) 0.3 k/uL (0-0.7); Eosinophils % (A) 3 %; HCT 41.2 % (34.0-46.0); HGB 13.7 gm/dL (11.4-16.0); Lymphocytes # (A) 2.2 k/uL (1.0-4.8); Lymphocytes % (A) 26 %; MCH 30.7 pg (25.0-35.0); MCHC 33.2 g/dL (31.0-37.0); MCV 92.4 fL (80.0-100.0); Monocytes # (A) 0.6 k/uL (0-1.0); Monocytes % (A) 7 %; Neutrophils # (A) 5.3 k/uL (1.3-7.7); Neutrophils % (A) 62 %; Platelet Count 254 k/uL (150-450); RBC 4.46 m/uL (3.80-5.40); RDW 13.3 % (11.5-15.5); WBC 8.6 k/uL (3.8-10.6)
[2022-06-28 10:09] LABS: Calcium 9.5 mg/dL (8.4-10.2); Potassium 4.6 mmol/L (3.5-5.1)
[2022-06-28] MEDS ORDERED: HEPARIN SODIUM 1,000 UN/ML (10ML VL) ONE (11:56)
[2022-06-28] MEDS ORDERED: LIDOCAINE 1% INJ 10MG/ML (30 ML VIAL-PF) SQ ONE (12:00)
[2022-06-28] MEDS ORDERED: IOPAMIDOL-250 100ML BTL IV ONE (12:11)
--- NOTE | 2022-06-28 13:50 | IR ---
Nephrostomy tube exchange HISTORY: Bilateral nephrostomy tubes, hydronephrosis, history of bladder cancer Patient's indwelling tubes were prepped and draped in a sterile fashion. Attention directed to the le ft-sided tube. Gentle hand-injection of contrast material was performed. The catheter was then cut an d exchanged over a 0.038 inch J-wire. Gentle hand-injection of contrast material was performed verify ing placement. Catheter was fixed in place. Catheter drained cloudy urine. Using similar technique, the right-sided tube was exchanged, after failing the J-wire due to inabilit y to advance the wire the catheter was exchanged over a 0.035 inch angled Glidewire. Catheter was fix ed in place. Gentle hand-injection of contrast material was performed verifying placement. Catheters were fixed in place with 2-0 silk. There is no bleeding or complication. Patient remained in stable c ondition. Catheter drains urine. Catheters were tested gravity drainage. 8.5 [place] tubes. 5.4 minutes fluoroscopy time. 199 intraoperative C-arm images. IMPRESSION: Bilateral nephrostomy tube exchanges, this procedure performed by the undersigned.
== END 2022-06-28 12:55 | disposition home health service (06) ==
LOC: OR 09:20
PROVIDERS: ATTEND Radiology Diagnostic Radiology
DX: N13.30 Unspecified hydronephrosis (principal); I48.91 Unspecified atrial fibrillation; I10 Essential (primary) hypertension; N39.0 Urinary tract infection, site not specified; K91.0 Vomiting following gastrointestinal surgery; F41.9 Anxiety disorder, unspecified; F32.A Depression, unspecified; F17.210 Nicotine dependence, cigarettes, uncomplicated; Z85.820 Personal history of malignant melanoma of skin; Z85.51 Personal history of malignant neoplasm of bladder; Z98.890 Other specified postprocedural states; Z95.0 Presence of cardiac pacemaker; Z80.49 Family history of malignant neoplasm of other genital organs; Z80.8 Family history of malignant neoplasm of other organs or systems; Z82.49 Family history of ischemic heart disease and other diseases of the circulatory system; Z84.89 Family history of other specified conditions; Z79.82 Long term (current) use of aspirin; Z79.899 Other long term (current) drug therapy; Z91.048 Other nonmedicinal substance allergy status; Z88.5 Allergy status to narcotic agent; Z88.0 Allergy status to penicillin; Z88.3 Allergy status to other anti-infective agents; Z88.1 Allergy status to other antibiotic agents; Z88.8 Allergy status to other drugs, medicaments and biological substances; T75.3XXD Motion sickness, subsequent encounter
CPT/HCPCS: 75984; 80048; 85025; 50435; J0690; Q9966

== ENCOUNTER 2022-08-09 09:24 | Day surgery (SDC) | payer MEDICARE, BC ==
--- NOTE | 2022-08-05 20:38 | P.GSHP ---
History of Present Illness H&P Date: 08/05/22 Chief Complaint: Bilateral hydronephrosis secondary to ureteral strictures The patient is an 81 yo female with a history of bladder cancer She underwent a cystectomy with ileal loop in 2017 in [place] and developed bilateral ureteral strictures requring nephostomy tubes and antegrade ureteral stents. She has had multiple hospital admissions for abdominal and flank pain. In October 2020 she underwent placement of bilateral nephroureteral stents. The stents were exchan ged for bilateral nephrostomy tubes and were last changed in 06/28/2022. The nephrostomy tubes have been changed every 8 weeks, but she experiences symptoms the week prior to this being changed so the nephrostomy tubes will now be changed every 6-7 weeks to see if this can be avoided. - Constitutional Constitutional: Denies chills, Denies fever - Gastrointestinal Gastrointestinal: Denies nausea, Denies vomiting - Genitourinary (Female) Genitourinary: Denies hematuria Past Medical History Past Medical History: Atrial Fibrillation, Cancer, Hypertension Additional Past Medical History / Comment(s): Bladder cancer with muscle invasion/surgery/urostomy and chemo X2, frequent UTIs, has bilateral ureteral stent. Pacemaker. Hx Polio. Bruises easily, hx skin cancer/melanoma-treated with radiation. , Has bilateral nephrostomy tubes. History of Any Multi-Drug Resistant Organisms: None Reported Past Surgical History: Bladder Surgery, Orthopedic Surgery, Pacemaker Additional Past Surgical History / Comment(s): Radical cystectomy with ileal loop/urostomy, bilateral nephrostomy tubes, right ureteral stents, right shoulder fusion with bone from hip donor site, ORIF left hip, removal of hardware from right shoulder, skin cancer removed from scalp, neprostomy tube change. Past Anesthesia/Blood Transfusion Reactions: Motion Sickness, Postoperative Nausea & Vomiting (PONV) Additional Past Anesthesia/Blood Transfusion Reaction / Comment(s): Pt has received blood in past without reaction. Type of Cardiac Device: Permanent Pacemaker Device Placement Date:: 2013 Smoking Status: Current some day smoker - Past Family History Father History Unknown: Yes Additional Family Medical History / Comment(s): Father in a MVA when pt was young. Mother Family Medical History: Cancer Additional Family Medical History / Comment(s): Cervical cancer, rheumatic fever, heart problems. Brother(s) Family Medical History: Cancer Additional Family Medical History / Comment(s): PANCREATIC CANCER. Medications and Allergies Home Medications Medication Instructions Recorded Confirmed Type Flecainide [Tambocor] 50 mg PO BID 07/06/17 06/28/22 History Metoprolol Tartrate [Lopressor] 12.5 mg PO HS 10/02/20 06/28/22 History Aspirin EC [Ecotrin Low Dose] 162 mg PO HS 04/27/21 06/28/22 History Multivitamins, Thera [Multivitamin 1 tab PO DAILY 10/31/21 06/28/22 History (formulary)] Allergies Allergy/AdvReac Type Severity Reaction Status Date / Time adhesive tape Allergy red skin, Verified 06/26/22 10:22 itching cetirizine [From Zyrtec] Allergy Anaphylaxis Verified 06/26/22 10:22 hydrocodone [From [place]] Allergy Itching/Vom Verified 06/26/22 10:22 iting levofloxacin [From Levaquin] Allergy Swelling Verified 06/26/22 10:22 nitrofurantoin Allergy Anaphylaxis Verified 06/26/22 10:22 [From Macrobid] Penicillins Allergy Rash/Hives Verified 06/26/22 10:22 tramadol Allergy Anaphylaxis Verified 06/26/22 10:22 ciprofloxacin [From Cipro] AdvReac Vomiting Verified 06/26/22 10:22 codeine AdvReac Vomiting Verified 06/26/22 10:22 hydromorphone [From Dilaudid] AdvReac Vomiting Verified 06/26/22 10:22 ketorolac [From Toradol] AdvReac avoids due Verified 06/26/22 10:22 to kidneys linezolid AdvReac Anaphylaxis Verified 06/26/22 10:22 /Vomiting metoclopramide [From Reglan] AdvReac Hallucinati Verified 06/26/22 10:22 ons morphine AdvReac Vomiting Verified 06/26/22 10:22 oxycodone AdvReac Vomiting Verified 06/26/22 10:22 zolpidem [From Ambien] AdvReac Hallucinati Verified 06/26/22 10:22 ons narcotics AdvReac Vomiting Uncoded 06/26/22 10:22 Surgical - Exam - General well developed, well nourished, no distress - Respiratory normal respiratory effort - Abdomen Abdomen: soft, non tender, no guarding, no rigid, no rebound - Psychiatric oriented to time, oriented to person, oriented to place, speech is normal, memory intact Assessment and Plan (1) Hydronephrosis with ureteral stricture, not elsewhere classified Status: Acute Code(s): N13.1 - HYDRONEPHROSIS W URETERAL STRICTURE, NEC SNOMED Code(s): 05363946 Plan: Bilateral nephrostomy tube change to be performed by Dr. Patel.
[2022-08-09] MEDS ORDERED: SODIUM CHLORIDE 0.9% 500 ML 500 ML IV SCH (09:46)
[2022-08-09] MEDS ORDERED: SODIUM CHLORIDE 0.9% 500 ML 500 ML IV ONE (09:48)
[2022-08-09 10:13] VITALS: RESP 16; TEMP 97
[2022-08-09 10:14] LABS: Basophils # (A) 0.1 k/uL (0-0.2); Basophils % (A) 1 %; Eosinophils # (A) 0.2 k/uL (0-0.7); Eosinophils % (A) 2 %; HCT 41.2 % (34.0-46.0); Lymphocytes # (A) 1.4 k/uL (1.0-4.8); Lymphocytes % (A) 17 %; MCH 30.6 pg (25.0-35.0); MCHC 33.9 g/dL (31.0-37.0); MCV 90.3 fL (80.0-100.0); Mean Platelet Volume 8.7; Monocytes # (A) 0.6 k/uL (0-1.0); Monocytes % (A) 7 %; Neutrophils % (A) 72 %; Platelet Count 252 k/uL (150-450); RBC 4.57 m/uL (3.80-5.40); RDW 13.2 % (11.5-15.5); WBC 8.3 k/uL (3.8-10.6)
[2022-08-09 10:25] LABS: Calcium 9.4 mg/dL (8.4-10.2); Potassium 4.6 mmol/L (3.5-5.1)
[2022-08-09] MEDS ORDERED: LIDOCAINE 1% INJ 10MG/ML (30 ML VIAL-PF) SQ ONE (10:54)
[2022-08-09] MEDS ORDERED: fentaNYL (PF) 50 MCG/ML 2 ML AMP IV ONE (11:00)
[2022-08-09] MEDS ORDERED: IOPAMIDOL-300 50ML BTL INJ ONE ×2 (11:03)
--- NOTE | 2022-08-09 12:12 | IR ---
EXAMINATION TYPE: IR nephrostomy tube change DATE OF EXAM: 08/09/2022 COMPARISON: NONE HISTORY: Procedure had been discussed with the patient, the risks, benefits, alternatives, were discussed and any questions were answered. Informed consent was obtained. The patient was in a probably position prepped and draped on the OR table in the usual sterile fashion. Patient's indwelling tubes were prepped and draped in a sterile fashion. Attention directed to the le ft-sided tube. Gentle hand-injection of contrast material was performed. The catheter was then cut an d exchanged over a 0.038 inch J-wire. Gentle hand-injection of contrast material was performed verify ing placement. Catheter was fixed in place. Catheter drained cloudy urine. Using similar technique, t he right-sided tube was exchanged, after failing the J-wire due to inability to advance the wire the catheter was exchanged over a 0.035 inch angled Glidewire. Catheter was fixed in place. Gentle hand-i njection of contrast material was performed verifying placement. Catheters were fixed in place with 2 -0 silk. There is no bleeding or complication. Patient remained in stable condition. Catheter drains urine. Catheters were tested gravity drainage. 8.5 [place] tubes. Approximately 3 minutes of fluoroscopy was provided. IMPRESSION: 1. Successful bilateral nephrostomy tube exchange over a guidewire under fluoroscopy.
[2022-08-09 12:37] LABS: Appearance,Urine Cloudy (Clear); Bacteria,Urine Occasional /hpf; Bilirubin,Urine Negative (Negative); Blood,Urine Large (Negative); Color,Urine Yellow; Glucose,Urine (UA) Negative (Negative); Ketones,Urine Negative (Negative); Leukocyte Esterase,Urine Large (Negative); Mucus,Urine Rare /hpf; Nitrite,Urine Negative (Negative); PH, Urine 5.5 (5.0-8.0); Protein,Urine 2+ (Negative); RBC,Urine >182 /hpf (0-5); Specific Gravity,Urine 1.025 (1.001-1.035); Urobilinogen,Urine <2.0 mg/dL (<2.0); WBC,Urine 110 /hpf (0-5)
[2022-08-09 13:29] VITALS: BP 182/78; PULSE 79
== END 2022-08-09 12:01 | disposition home health service (06) ==
LOC: OR 09:24
PROVIDERS: ATTEND Radiology Diagnostic Radiology
DX: N13.1 Hydronephrosis with ureteral stricture, not elsewhere classified (principal); Z46.6 Encounter for fitting and adjustment of urinary device; Z85.51 Personal history of malignant neoplasm of bladder; Z98.890 Other specified postprocedural states; I10 Essential (primary) hypertension; I48.91 Unspecified atrial fibrillation; Z92.21 Personal history of antineoplastic chemotherapy; Z85.828 Personal history of other malignant neoplasm of skin; Z86.12 Personal history of poliomyelitis; Z92.3 Personal history of irradiation; Z87.440 Personal history of urinary (tract) infections; Z95.0 Presence of cardiac pacemaker; Z85.820 Personal history of malignant melanoma of skin; Z98.1 Arthrodesis status; F17.200 Nicotine dependence, unspecified, uncomplicated; Z82.49 Family history of ischemic heart disease and other diseases of the circulatory system; Z82.69 Family history of other diseases of the musculoskeletal system and connective tissue; Z80.8 Family history of malignant neoplasm of other organs or systems; Z80.42 Family history of malignant neoplasm of prostate; Z79.82 Long term (current) use of aspirin; Z79.02 Long term (current) use of antithrombotics/antiplatelets; Z79.891 Long term (current) use of opiate analgesic; Z88.5 Allergy status to narcotic agent; Z88.1 Allergy status to other antibiotic agents; Z88.0 Allergy status to penicillin; Z88.8 Allergy status to other drugs, medicaments and biological substances; Z91.048 Other nonmedicinal substance allergy status; Z88.6 Allergy status to analgesic agent
CPT/HCPCS: 50435; 80048; 85025; 81001; 87086; C1729; C1769 ×3; J0690; J2001; J3010; Q9967

== ENCOUNTER → 2022-09-17 | Day surgery (SDC) | payer MEDICARE, BC ==
--- NOTE | 2022-09-12 19:41 | P.GSHP ---
History of Present Illness H&P Date: 09/12/22 Chief Complaint: Hydronephrosis The patient is an 82 yo female with a history of bladder cancer She underwent a cystectomy with ileal loop in 2018 in [place] and developed bilateral ureteral strictures requring nephostomy tubes and antegrade ureteral stents. She has had multiple hospital admissions for abdominal and flank pain. In October 2020 she underwent placement of bilateral nephroureteral stents. The stents were exchanged for bilateral nephrostomy tubes and were last changed in 08/09/2022. The nephrostomy tubes have been changed every 8 weeks, but she experiences symptoms the week prior to this being changed so the nephrostomy tubes will now be changed every 6-7 weeks to see if this can be avoided. - Constitutional Constitutional: Denies chills, Denies fever Past Medical History Past Medical History: Atrial Fibrillation, Cancer, Hypertension Additional Past Medical History / Comment(s): Bladder cancer with muscle invasion/surgery/urostomy and chemo X2, frequent UTIs, has bilateral ureteral stent. Pacemaker. Hx Polio. Bruises easily, hx skin cancer/melanoma-treated with radiation. , Has bilateral nephrostomy tubes. History of Any Multi-Drug Resistant Organisms: None Reported Past Surgical History: Bladder Surgery, Orthopedic Surgery, Pacemaker Additional Past Surgical History / Comment(s): Radical cystectomy with ileal loop/urostomy, bilateral nephrostomy tubes, right ureteral stents, right shoulder fusion with bone from hip donor site, ORIF left hip, removal of hardware from right shoulder, skin cancer removed from scalp, frequent nephrostomy tube changes Past Anesthesia/Blood Transfusion Reactions: Motion Sickness, Postoperative N ausea & Vomiting (PONV) Additional Past Anesthesia/Blood Transfusion Reaction / Comment(s): Pt has received blood in past without reaction. Type of Cardiac Device: Permanent Pacemaker Device Placement Date:: 2013 Smoking Status: Current some day smoker - Past Family History Father History Unknown: Yes Additional Family Medical History / Comment(s): Father in a MVA when pt was young. Mother Family Medical History: Cancer Additional Family Medical History / Comment(s): Cervical cancer, rheumatic fever, heart problems. Brother(s) Family Medical History: Cancer Additional Family Medical History / Comment(s): PANCREATIC CANCER. Medications and Allergies Home Medications Medication Instructions Recorded Confirmed Type Flecainide [Tambocor] 50 mg PO BID 07/06/17 08/09/22 History Metoprolol Tartrate [Lopressor] 12.5 mg PO HS 10/02/20 08/09/22 History Aspirin EC [Ecotrin Low Dose] 162 mg PO HS 04/27/21 08/09/22 History Multivitamins, Thera [Multivitamin 1 tab PO DAILY 10/31/21 08/09/22 History (formulary)] Allergies Allergy/AdvReac Type Severity Reaction Status Date / Time adhesive tape Allergy red skin, Verified 08/07/22 14:48 itching cetirizine [From Zyrtec] Allergy Anaphylaxis Verified 08/07/22 14:48 hydrocodone [From [place]] Allergy Itching/Vom Verified 08/07/22 14:48 iting levofloxacin [From Levaquin] Allergy Swelling Verified 08/07/22 14:48 nitrofurantoin Allergy Anaphylaxis Verified 08/07/22 14:48 [From Macrobid] Penicillins Allergy Rash/Hives Verified 08/07/22 14:48 tramadol Allergy Anaphylaxis Verified 08/07/22 14:48 ciprofloxacin [From Cipro] AdvReac Vomiting Verified 08/07/22 14:48 codeine AdvReac Vomiting Verified 08/07/22 14:48 hydromorphone [From Dilaudid] AdvReac Vomiting Verified 08/07/22 14:48 ketorolac [From Toradol] AdvReac avoids due Verified 08/07/22 14:48 to kidneys linezolid AdvReac Anaphylaxis Verified 08/07/22 14:48 /Vomiting metoclopramide [From Reglan] AdvReac Hallucinati Verified 08/07/22 14:48 ons morphine AdvReac Vomiting Verified 08/07/22 14:48 oxycodone AdvReac Vomiting Verified 08/07/22 14:48 zolpidem [From Ambien] AdvReac Hallucinati Verified 08/07/22 14:48 ons narcotics AdvReac Vomiting Uncoded 08/07/22 14:48 Surgical - Exam - General well developed, well nourished, no distress - Respiratory normal respiratory effort - Abdomen Abdomen: soft, non tender, no guarding, no rigid, no rebound - Psychiatric oriented to time, oriented to person, oriented to place, speech is normal, memory intact Assessment and Plan (1) Hydronephrosis with ureteral stricture, not elsewhere classified Status: Acute Code(s): N13.1 - HYDRONEPHROSIS W URETERAL STRICTURE, NEC SNOMED Code(s): 89575995 Plan: Bilateral nephrostomy tube change.
[2022-09-17 07:45] VITALS: BP 162/73; PULSE 84; RESP 16; TEMP 979
[2022-09-17 07:54] LABS: Basophils # (A) 0.1 k/uL (0-0.2); Basophils % (A) 1 %; Eosinophils # (A) 0.4 k/uL (0-0.7); Eosinophils % (A) 5 %; HCT 41.5 % (34.0-46.0); HGB 13.8 gm/dL (11.4-16.0); Lymphocytes # (A) 2.3 k/uL (1.0-4.8); Lymphocytes % (A) 32 %; MCH 29.7 pg (25.0-35.0); MCHC 33.3 g/dL (31.0-37.0); MCV 89.2 fL (80.0-100.0); Mean Platelet Volume 8.7; Monocytes # (A) 0.5 k/uL (0-1.0); Monocytes % (A) 8 %; Neutrophils # (A) 3.8 k/uL (1.3-7.7); Neutrophils % (A) 52 %; Platelet Count 225 k/uL (150-450); RBC 4.65 m/uL (3.80-5.40); RDW 13.5 % (11.5-15.5); WBC 7.3 k/uL (3.8-10.6)
[2022-09-17 08:05] LABS: Calcium 9.1 mg/dL (8.4-10.2); Potassium 4.2 mmol/L (3.5-5.1)
[2022-09-17] MEDS: LIDOCAINE 1% INJ 10MG/ML (30 ML VIAL-PF) SQ ONE ×2 (09:05→09:14)
--- NOTE | 2022-09-17 09:51 | IR ---
EXAMINATION TYPE: IR bilateral nephrostomy tube change DATE OF EXAM: 09/17/2022 COMPARISON: 08/09/2022 HISTORY: Bilateral nephrostomy tube exchange FINDINGS: Procedure had been discussed with the patient, the risks, benefits, alternatives, were discussed and any questions were answered. Informed consent was obtained. The patient was in a probably position pr epped and draped on the OR table in the usual sterile fashion. Patient's indwelling tubes were prepped and draped in a sterile fashion. Attention directed to the le ft-sided tube. Gentle hand-injection of contrast material was performed. The catheter was then cut an d exchanged over a 0.038 inch J-wire. Gentle hand-injection of contrast material was performed verify ing placement. Catheter was fixed in place. Catheter drained cloudy urine. Using similar technique, t he right-sided tube was exchanged, after failing the J-wire due to inability to advance the wire the catheter was exchanged over a 0.035 inch angled Glidewire. Catheter was fixed in place. Gentle hand-i njection of contrast material was performed verifying placement. Catheters were fixed in place with 2 -0 silk. There is no bleeding or complication. Patient remained in stable condition. Catheter drains urine. Catheters were tested gravity drainage. Approximately 2.8 minutes of fluoroscopy utilized. IMPRESSION: 1. Successful bilateral nephrostomy tube exchange over a guidewire under fluoroscopy.
== END ==
LOC: OR 07:28
PROVIDERS: ATTEND Radiology Diagnostic Radiology
DX: N13.1 Hydronephrosis with ureteral stricture, not elsewhere classified (principal); I48.91 Unspecified atrial fibrillation; I10 Essential (primary) hypertension; Z85.51 Personal history of malignant neoplasm of bladder; Z87.440 Personal history of urinary (tract) infections; Z85.828 Personal history of other malignant neoplasm of skin; Z79.82 Long term (current) use of aspirin; Z79.899 Other long term (current) drug therapy; Z85.820 Personal history of malignant melanoma of skin; Z88.0 Allergy status to penicillin; Z88.1 Allergy status to other antibiotic agents; Z88.5 Allergy status to narcotic agent; Z88.8 Allergy status to other drugs, medicaments and biological substances; F17.200 Nicotine dependence, unspecified, uncomplicated; Z95.0 Presence of cardiac pacemaker
CPT/HCPCS: 50435; 80048; 85025; C1729; C1769 ×3; J0690; J2001

== ENCOUNTER 2022-12-11 10:22 | Day surgery (SDC) | payer MEDICARE, BC ==
[2022-12-05 14:49] VITALS: BMI 19.8
--- NOTE | 2022-12-11 06:48 | P.GSHP ---
History of Present Illness H&P Date: 12/11/22 Chief Complaint: Hydronephrosis The patient is an 82 yo female with a history of bladder cancer She underwent a cystectomy with ileal loop in 2018 in [place] and developed bilateral ureteral strictures requring nephostomy tubes and antegrade ureteral stents. She has had multiple hospital admissions for abdominal and flank pain. In October 2020 she underwent placement of bilateral nephroureteral stents. The stents were exchanged for bilateral nephrostomy tubes and are being changed every 6-8 weeks. - Constitutional Constitutional: Denies chills, Denies fever Past Medical History Past Medical History: Atrial Fibrillation, Cancer, Hypertension Additional Past Medical History / Comment(s): Bladder cancer with muscle invasion/surgery/urostomy and chemo X2, has bilateral ureteral stent. Pacemaker. Hx Polio. Bruises easily, hx skin cancer/melanoma-treated with radiation. , Has bilateral nephrostomy tubes. History of Any Multi-Drug Resistant Organisms: None Reported Past Surgical History: Appendectomy, Bladder Surgery, Orthopedic Surgery, Pacemaker Additional Past Surgical History / Comment(s): Radical cystectomy with ileal loop/urostomy, bilateral nephrostomy tubes, right ureteral stents, right shoulder fusion with bone from hip donor site, ORIF left hip, removal of hardware from right shoulder, skin cancer removed from scalp, frequent nephrostomy tube changes Past Anesthesia/Blood Transfusion Reactions: No Reported Reaction Additional Past Anesthesia/Blood Transfusion Reaction / Comment(s): Pt has received blood in past without reaction. Type of Cardiac Device: Permanent Pacemaker Device Placement Date:: 2013 Past Psychological History: Anxiety, Depression Additional Psychological History / Comment(s): . Smoking Status: Former smoker Past Alcohol Use History: None Reported Additional Past Alcohol Use History / Comment(s): states she quit smoking over a month ago., Started smoking 1965, was light smoker, 3-7 cigarettes a day, quit in 2013 but resumed smoking in [id number]. Past Drug Use History: None Reported Additional Drug Use History / Comment(s): . - Past Family History Father History Unknown: Yes Additional Family Medical History / Comment(s): Father in a MVA when pt was young. Mother Family Medical History: Cancer Additional Family Medical History / Comment(s): Cervical cancer, rheumatic fever, heart problems. Brother(s) Family Medical History: Cancer Additional Family Medical History / Comment(s): PANCREATIC CANCER. Medications and Allergies Home Medications Medication Instructions Recorded Confirmed Type Flecainide [Tambocor] 50 mg PO BID 07/06/17 12/05/22 History Metoprolol Tartrate [Lopressor] 12.5 mg PO HS 10/02/20 12/05/22 History Aspirin EC [Ecotrin Low Dose] 162 mg PO HS 04/27/21 12/05/22 History Multivitamins, Thera [Multivitamin 1 tab PO DAILY 10/31/21 12/05/22 History (formulary)] Simethicone [Gas-X] 1 cap PO DAILY PRN 09/13/22 12/05/22 History Allergies Allergy/AdvReac Type Severity Reaction Status Date / Time adhesive tape Allergy red skin, Verified 12/05/22 14:41 itching cetirizine [From Zyrtec] Allergy Anaphylaxis- Verified 12/05/22 14:42 swollen tongue hydrocodone [From [place]] Allergy Itching/Vom Verified 12/05/22 14:41 iting levofloxacin [From Levaquin] Allergy Swelling Verified 12/05/22 14:41 nitrofurantoin Allergy Anaphylaxis Verified 12/05/22 14:41 [From Macrobid] Penicillins Allergy Rash/Hives Verified 12/05/22 14:41 tramadol Allergy Anaphylaxis Verified 12/05/22 14:41 ciprofloxacin [From Cipro] AdvReac Vomiting Verified 12/05/22 14:41 codeine AdvReac Vomiting Verified 12/05/22 14:41 hydromorphone [From Dilaudid] AdvReac Vomiting Verified 12/05/22 14:41 ketorolac [From Toradol] AdvReac avoids due Verified 12/05/22 14:41 to kidneys linezolid AdvReac Anaphylaxis/Vomiting,itching, Verified 12/05/22 14:42 swollen tongue metoclopramide [From Reglan] AdvReac Hallucinati Verified 12/05/22 14:41 ons morphine AdvReac Vomiting Verified 12/05/22 14:41 oxycodone AdvReac Vomiting Verified 12/05/22 14:41 zolpidem [From Ambien] AdvReac Hallucinati Verified 12/05/22 14:41 ons narcotics AdvReac Vomiting Uncoded 12/05/22 14:41 Surgical - Exam - General well developed, well nourished, no distress - Respiratory normal respiratory effort - Abdomen Abdomen: soft, non tender, no guarding, no rigid, no rebound - Psychiatric oriented to time, oriented to person, oriented to place, speech is normal, memory intact Assessment and Plan (1) Hydronephrosis with ureteral stricture, not elsewhere classified Status: Acute Code(s): N13.1 - HYDRONEPHROSIS W URETERAL STRICTURE, NEC SNOMED Code(s): 60989459 Plan: Bilateral nephrostomy tube change.
[2022-12-11] MEDS ORDERED: SODIUM CHLORIDE 0.9% 500 ML 500 ML IV ONE ×2 (11:00)
[2022-12-11 11:04] LABS: Basophils % (A) 0 %; Eosinophils # (A) 0.1 k/uL (0-0.7); Eosinophils % (A) 1 %; HCT 38.3 % (34.0-46.0); HGB 12.8 gm/dL (11.4-16.0); Lymphocytes # (A) 1.5 k/uL (1.0-4.8); Lymphocytes % (A) 16 %; MCH 29.3 pg (25.0-35.0); MCHC 33.3 g/dL (31.0-37.0); Mean Platelet Volume 7.6; Monocytes # (A) 0.6 k/uL (0-1.0); Monocytes % (A) 7 %; Neutrophils # (A) 6.8 k/uL (1.3-7.7); Neutrophils % (A) 74 %; Platelet Count 287 k/uL (150-450); RBC 4.35 m/uL (3.80-5.40); RDW 13.8 % (11.5-15.5); WBC 9.2 k/uL (3.8-10.6)
[2022-12-11 11:11] VITALS: BP 217/108; PULSE 98; RESP 18; TEMP 97.9
[2022-12-11 11:27] LABS: Calcium 9.4 mg/dL (8.4-10.2); Potassium 4.4 mmol/L (3.5-5.1)
[2022-12-11] MEDS: LIDOCAINE 1% INJ 10MG/ML (5 ML VIAL-PF) SQ ONE ×2 (11:38→11:48)
--- NOTE | 2022-12-11 12:06 | IR ---
EXAMINATION TYPE: IR nephrostomy tube change DATE OF EXAM: 12/11/2022 COMPARISON: 10/30/2022 HISTORY: Bilateral nephrostomy tube exchange under fluoroscopy over a guidewire Procedure had been discussed with the patient by Dr. Alexis, risks, benefits, alternatives, were dis cussed and any questions were answered. Informed consent was obtained. The patient was in a prone p osition prepped and draped on the OR table in the usual sterile fashion. A small amount of diluted contrast was injected into the left nephrostomy tube. The nephrostomy tube was cut and a 1.035 guidewire was placed through the tube and exchange for a new 8 Lao nephrostomy tube. Repeat injection demonstrated the replacement catheter. Same sequence of the events were perfo rmed on the right with exchange of an 8 [place] right nephrostomy tube. Approximately DAP 0.67533 of fluoroscopy was provided. IMPRESSION: 1. Successful bilateral nephrostomy tube exchange over a guidewire..
== END 2022-12-11 12:18 | disposition home or self-care (01) ==
LOC: CATHCVL 10:22
PROVIDERS: ATTEND Radiology Diagnostic Radiology
DX: N13.1 Hydronephrosis with ureteral stricture, not elsewhere classified (principal); I10 Essential (primary) hypertension; F41.9 Anxiety disorder, unspecified; F32.A Depression, unspecified; I48.91 Unspecified atrial fibrillation; Z85.820 Personal history of malignant melanoma of skin; Z85.51 Personal history of malignant neoplasm of bladder; Z90.49 Acquired absence of other specified parts of digestive tract; Z95.0 Presence of cardiac pacemaker; Z87.891 Personal history of nicotine dependence; Z80.0 Family history of malignant neoplasm of digestive organs; Z79.82 Long term (current) use of aspirin; Z79.899 Other long term (current) drug therapy
CPT/HCPCS: 50435; 80048; 85025; J0690; J2001

== ENCOUNTER → 2023-01-10 | Outpatient (CLI) | payer MEDICARE, BC ==
--- NOTE | 2023-01-11 10:42 | PE ---
EXAMINATION TYPE: PET CT fusion skull to thigh DATE OF EXAM: 01/10/2023 CLINICAL INDICATION:Female, 82 years old with history of C67.9; TECHNIQUE: Following the intravenous administration of 11.0 mCi of F-18 FDG, whole body images are performed from the skull base to the midthigh. Images are reviewed on the computer in the coronal, a xial, and sagittal planes. Reconstructed rotating images are created on independent workstation and reviewed on the computer. A non-contrast CT is performed in conjunction with the PET scan. Glucose level 95 mg/dL COMPARISON: CT 10/02/2020, PET/CT 06/04/2022, FINDINGS: Mediastinal SUV mean is 1.9. Hepatic parenchyma SUV mean is 2.3. SKULL BASE AND NECK: No suspicious radiotracer activity. CHEST, MEDIASTINUM, AND HILAR REGION: No suspicious radiotracer activity. ABDOMEN AND PELVIS: New/enlarging r left psoas muscle soft tissue mass with central low attenuation measuring 7.5 x 5.7 c m. This mass has peripheral FDG activity max SUV 16.6. Stopped be some bowel activity anterior to the right external iliac artery max SUV 7.8. OSSEOUS STRUCTURES: No suspicious radiotracer activity. OTHER CT: Atherosclerosis of the carotid bifurcations. Severe degeneration changes of the right shoul aaliyah left chest wall cardiac conduction device. Bilateral percutaneous nephrostomy tubes. Tubing appea rs in appropriate placement. There is severe atherosclerosis of the arterial vasculature. Left hip ar throplasty changes. The urinary bladder appears surgically absent. 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
== END | disposition home or self-care (01) ==
LOC: RADPETMAIN 10:41
PROVIDERS: ATTEND Internal Medicine Hematology & Oncology
DX: C67.8 Malignant neoplasm of overlapping sites of bladder (principal)
CPT/HCPCS: 78815; A9552

== ENCOUNTER 2023-01-16 15:53 | Observation (INO) | payer MEDICARE, BC ==
[2023-01-16 18:15] LABS: Basophils % (A) 0 %; Eosinophils # (A) 0.1 k/uL (0-0.7); Eosinophils % (A) 1 %; HCT 34.4 % (34.0-46.0); HGB 11.5 gm/dL (11.4-16.0); Lymphocytes # (A) 1.8 k/uL (1.0-4.8); Lymphocytes % (A) 17 %; MCH 28.7 pg (25.0-35.0); MCHC 33.5 g/dL (31.0-37.0); MCV 85.8 fL (80.0-100.0); Mean Platelet Volume 7.2; Monocytes # (A) 0.8 k/uL (0-1.0); Monocytes % (A) 8 %; Neutrophils # (A) 7.7 k/uL (1.3-7.7); Neutrophils % (A) 72 %; Platelet Count 276 k/uL (150-450); RBC 4.01 m/uL (3.80-5.40); RDW 13.9 % (11.5-15.5); WBC 10.7 k/uL (3.8-10.6)
[2023-01-16 18:30] LABS: Albumin 3.8 g/dL (3.5-5.0); C Reactive Protein 2.1 mg/dL (<1.0); Potassium 4.6 mmol/L (3.5-5.1); Total Bilirubin 0.4 mg/dL (0.2-1.3); Total Protein 6.9 g/dL (6.3-8.2)
--- NOTE | 2023-01-16 18:55 | ED ---
General Adult HPI <Jesus Guadarrama - Last Filed: 01/16/23 20:40> - General Source: patient, family, RN notes reviewed Mode of arrival: wheelchair <Macy Friend - Last Filed: 01/17/23 16:26> - General Chief complaint: Urogenital Stated complaint: sent by Dr pereira Time Seen by Provider: 01/16/23 17:28 - History of Present Illness Initial comments: 82-year-old female presents to the emergency department with chief complaint of blocked nephrostomy tube on the left side. Patient states that she went to have a flushed earlier today and it would not flush. Patient was sent in by Dr. Flynn who is her urologist. Patient has bilateral nephrostomy tubes and a urostomy as she had a history of bladder cancer. Patient states that 2 or 3 days ago she had purple urine from the left tube and states that she started taking Bactrim yesterday. Patient denies fever, chills. She states that she does have some left-sided abdominal pain. There is no drainage from the left tube. (Macy Friend) - Related Data Home Medications Medication Instructions Recorded Confirmed Flecainide [Tambocor] 50 mg PO BID 07/06/17 01/16/23 Metoprolol Tartrate [Lopressor] 12.5 mg PO HS 10/02/20 01/16/23 Aspirin EC [Ecotrin Low Dose] 162 mg PO HS 04/27/21 01/16/23 Sulfamethox-Tmp 800-160Mg [Bactrim 1 tab PO Q12HR 01/16/23 01/16/23 DS 800-160 mg] Allergies Allergy/AdvReac Type Severity Reaction Status Date / Time adhesive tape Allergy red skin, Verified 01/16/23 19:42 itching cetirizine [From Zyrtec] Allergy Anaphylaxis- Verified 01/16/23 19:42 swollen tongue hydrocodone [From [place]] Allergy Itching/Vom Verified 01/16/23 19:42 iting levofloxacin [From Levaquin] Allergy Swelling Verified 01/16/23 19:42 nitrofurantoin Allergy Anaphylaxis Verified 01/16/23 19:42 [From Macrobid] Penicillins Allergy Rash/Hives Verified 01/16/23 19:42 tramadol Allergy Anaphylaxis Verified 01/16/23 19:42 ciprofloxacin [From Cipro] AdvReac Vomiting Verified 01/16/23 19:42 codeine AdvReac Vomiting Verified 01/16/23 19:42 hydromorphone [From Dilaudid] AdvReac Vomiting Verified 01/16/23 19:42 ketorolac [From Toradol] AdvReac avoids due Verified 01/16/23 19:42 to kidneys linezolid AdvReac Anaphylaxis/Vomiting,itching, Verified 01/16/23 19:42 swollen tongue metoclopramide [From Reglan] AdvReac Hallucinati Verified 01/16/23 19:42 ons morphine AdvReac Vomiting Verified 01/16/23 19:42 oxycodone AdvReac Vomiting Verified 01/16/23 19:42 zolpidem [From Ambien] AdvReac Hallucinati Verified 01/16/23 19:42 ons narcotics AdvReac Vomiting Uncoded 12/11/22 10:36 Review of Systems ROS Other: All systems not noted in ROS Statement are negative. <Jesus Guadarrama - Last Filed: 01/16/23 20:40> ROS Other: All systems not noted in ROS Statement are negative. <Macy Friend - Last Filed: 01/17/23 16:26> ROS Statement: Those systems with pertinent positive or pertinent negative responses have been documented in the HPI. Past Medical History Past Medical History: Atrial Fibrillation, Cancer, Hypertension Additional Past Medical History / Comment(s): Bladder cancer with muscle invasion/surgery/urostomy and chemo X2, has bilateral ureteral stent. Pacemaker. Hx Polio. Bruises easily, hx skin cancer/melanoma-treated with radiation. , Has bilateral nephrostomy tubes. History of Any Multi-Drug Resistant Organisms: None Reported Past Surgical History: Appendectomy, Bladder Surgery, Orthopedic Surgery, Pacemaker Additional Past Surgical History / Comment(s): Radical cystectomy with ileal loop/urostomy, bilateral nephrostomy tubes, right ureteral stents, right shoulder fusion with bone from hip donor site, ORIF left hip, removal of hardware from right shoulder, skin cancer removed from scalp, frequent nephrostomy tube changes Past Anesthesia/Blood Transfusion Reactions: No Reported Reaction Additional Past Anesthesia/Blood Transfusion Reaction / Comment(s): Pt has received blood in past without reaction. Type of Cardiac Device: Permanent Pacemaker Device Placement Date:: 2013 Past Psychological History: Anxiety, Depression Smoking Status: Former smoker Past Alcohol Use History: None Reported Past Drug Use History: None Reported - Past Family History Father History Unknown: Yes Additional Family Medical History / Comment(s): Father in a MVA when pt was young. Mother Family Medical History: Cancer Additional Family Medical History / Comment(s): Cervical cancer, rheumatic fever, heart problems. Brother(s) Family Medical History: Cancer Additional Family Medical History / Comment(s): PANCREATIC CANCER. <Macy Friend - Last Filed: 01/17/23 16:26> General Exam Limitations: no limitations General appearance: alert, in no apparent distress Head exam: Present: atraumatic, normocephalic, normal inspection Eye exam: Present: normal appearance ENT exam: Present: normal exam, mucous membranes moist Neck exam: Present: normal inspection. Absent: tenderness, meningismus, lymphadenopathy Respiratory exam: Present: normal lung sounds bilaterally. Absent: respiratory distress, wheezes, rales, rhonchi, stridor Cardiovascular Exam: Present: regular rate, normal rhythm, normal heart sounds. Absent: systolic murmur, diastolic murmur, rubs, gallop, clicks GI/Abdominal exam: Present: tenderness (Mild left-sided abdominal tenderness), hyperactive bowel sounds Extremities exam: Present: normal inspection, full ROM, normal capillary refill. Absent: tenderness, pedal edema, joint swelling, calf tenderness Back exam: Present: other (Bilateral nephrostomy tubes present with no urine in the left tube) Neurological exam: Present: alert, oriented X3 Psychiatric exam: Present: normal affect, normal mood Skin exam: Present: warm, dry, intact, normal color. Absent: rash <Macy Friend - Last Filed: 01/17/23 16:26> Course Vital Signs 01/16/23 01/16/23 01/16/23 16:14 18:59 19:23 Temperature 99 F 98.4 F Pulse Rate 76 65 79 Respiratory 18 18 17 Rate Blood Pressure 171/84 176/84 161/87 O2 Sat by Pulse 98 96 96 Oximetry 01/16/23 01/16/23 01/16/23 20:04 21:27 23:52 Temperature 98.3 F 98.6 F Pulse Rate 86 85 73 Respiratory 18 18 16 Rate Blood Pressure 146/85 177/93 118/56 O2 Sat by Pulse 96 97 98 Oximetry 01/17/23 01/17/23 01/17/23 01:00 03:32 06:12 Temperature Pulse Rate 74 76 60 Respiratory 18 18 14 Rate Blood Pressure 120/71 127/59 120/61 O2 Sat by Pulse 97 98 96 Oximetry 01/17/23 01/17/23 07:32 09:37 Temperature 98.2 F 98.2 F Pulse Rate 75 71 Respiratory 16 18 Rate Blood Pressure 129/73 149/67 O2 Sat by Pulse 95 92 L Oximetry Medical Decision Making - Lab Data Result diagrams: 01/16/23 17:55 01/16/23 17:55 <Jesus Guadarrama - Last Filed: 01/16/23 20:40> - Lab Data Result diagrams: 01/16/23 17:55 01/16/23 17:55 <Macy Friend - Last Filed: 01/17/23 16:26> - Medical Decision Making Was pt. sent in by a medical professional or institution (Dr. PA, CAR SANDER, urgent care, hospital, or half-way...) When possible be specific @ -No Did you speak to anyone other than the patient for history (EMS, parent, family, police, friend...)? What history was obtained from this source @ -No Did you review nursing and triage notes (agree or disagree)? Why? @ -I reviewed and agree with nursing and triage notes Were old charts reviewed (outside hosp., previous admission, EMS record, old EKG, old radiological studies, urgent care reports/EKG's, half-way records)? Report findings @ -No old charts were reviewed Differential Diagnosis (chest pain, altered mental status, abdominal pain women, abdominal pain men, vaginal bleeding, weakness, fever, dyspnea, syncope, headache, dizziness, GI bleed, back pain, seizure, CVA, palpatations, mental health, musculoskeletal)? @ - Differential Abdominal Pain Women: Appendicitis, Cholecystitis, diverticulosis, ischemic bowel, pancreatitis, hepatitis, UTI, gastroenteritis, AAA, incarcerated hernia, bowel obstruction, constipation, inflammatory bowel, hepatitis, peptic ulcer disease, splenic infarction, perforated viscus, vulvitis, ovarian torsion, PID, kidney stone, placenta abruption, this is not meant to be an all-inclusive list EKG interpreted by me (3pts min.). @ -None X-rays interpreted by me (1pt min.). @ -None done CT interpreted by me (1pt min.). @ -None done U/S interpreted by me (1pt. min.). @ -None done What testing was considered but not performed or refused? (CT, X-rays, U/S, labs)? Why? @ -None What meds were considered but not given or refused? Why? @ -None Did you discuss the management of the patient with other professionals (professionals i.e. DrJose, PA, CAR SANDER, lab, RT, psych nurse, social worker psychiatric, carousel operator, teacher, police officer booking, case work aide)? Give summary @ -No Was smoking cessation discussed for >3mins.? @ -No Was critical care preformed (if so, how long)? @ -No Were there social determinants of health that impacted care today? How? (Homelessness, low income, unemployed, alcoholism, drug addiction, transportation, low edu. Level, literacy, decrease access to med. care, intermediate, rehab)? @ -No Was there de-escalation of care discussed even if they declined (Discuss DNR or withdrawal of care, Hospice)? DNR status @ -No What co-morbidities impacted this encounter? (DM, HTN, Smoking, COPD, CAD, Cancer, CVA, ARF, Chemo, Hep., AIDS, mental health diagnosis, sleep apnea, morbid obesity)? @ -None Was patient admitted / discharged? Hospital course, mention meds given and route, prescriptions, significant lab abnormalities, going to OR and other pertinent info. @ -Patient presented to the emergency department with chief complaint of blocked nephrostomy tube on the left. She states that the tube on the right is draining per usual. Patient was sent in by Dr. Flynn for blocked nephrostomy. Patient reports some left lower abdominal pain. CBC showed WBC 10.7, hemoglobin 11.5, hematocrit 34.4, ESR 16; CMP showed sodium 136, potassium 4.6, BUN 36, creatinine 1.67 GFR 29, CRP 2.1, UA was obtained with the urine that was from the right nephrostomy tube. Patient was signed out to Dr. Guadarrama and is awaiting a call from Dr. Flynn at time of signout 2022. Patient admitted for observation. Undiagnosed new problem with uncertain prognosis? @ -No Drug Therapy requiring intensive monitoring for toxicity (Heparin, Nitro, Insulin, Cardizem)? @ -No Were any procedures done? @ -No Diagnosis/symptom? @ -Blocked nephrostomy tube Acute, or Chronic, or Acute on Chronic? @ -Acute Uncomplicated (without systemic symptoms) or Complicated (systemic symptoms)? @ -default Side effects of treatment? @ -No Exacerbation, Progression, or Severe Exacerbation? @ -No Poses a threat to life or bodily function? How? (Chest pain, [place], NM, pneumonia, PE, COPD, DKA, ARF, appy, cholecystitis, CVA, Diverticulitis, Homicidal, Suicidal, threat to staff... and all critical care pts) @ -No (Macy Friend) - Lab Data Lab Results 01/16/23 01/16/23 01/16/23 Range/Units 17:55 17:55 17:55 WBC 10.7 H (3.8-10.6) k/uL RBC 4.01 (3.80-5.40) m/uL Hgb 11.5 (11.4-16.0) gm/dL Hct 34.4 (34.0-46.0) % MCV 85.8 (80.0-100.0) fL MCH 28.7 (25.0-35.0) pg MCHC 33.5 (31.0-37.0) g/dL RDW 13.9 (11.5-15.5) % Plt Count 276 (150-450) k/uL MPV 7.2 Neutrophils % 72 % Lymphocytes % 17 % Monocytes % 8 % Eosinophils % 1 % Basophils % 0 % Neutrophils # 7.7 (1.3-7.7) k/uL Lymphocytes # 1.8 (1.0-4.8) k/uL Monocytes # 0.8 (0-1.0) k/uL Eosinophils # 0.1 (0-0.7) k/uL Basophils # 0.0 (0-0.2) k/uL ESR 68 H (0-20) mm/hr Sodium 136 L (137-145) mmol/L Potassium 4.6 (3.5-5.1) mmol/L Chloride 101 (98-107) mmol/L Carbon Dioxide 22 (22-30) mmol/L Anion Gap 13 mmol/L BUN 36 H (7-17) mg/dL Creatinine 1.67 H (0.52-1.04) mg/dL Est GFR (CKD-EPI)AfAm 33 (>60 ml/min/1.73 sqM) Est GFR (CKD-EPI)NonAf 29 (>60 ml/min/1.73 sqM) Glucose 87 (74-99) mg/dL Calcium 9.0 (8.4-10.2) mg/dL Total Bilirubin 0.4 (0.2-1.3) mg/dL AST 26 (14-36) U/L ALT 12 (4-34) U/L Alkaline Phosphatase 75 (38-126) U/L C-Reactive Protein 2.1 H (<1.0) mg/dL Total Protein 6.9 (6.3-8.2) g/dL Albumin 3.8 (3.5-5.0) g/dL Urine Color Yellow Urine Appearance Cloudy H (Clear) Urine pH 6.5 (5.0-8.0) Ur Specific [place] 1.012 (1.001-1.035) Urine Protein 1+ H (Negative) Urine Glucose (UA) Negative (Negative) Urine Ketones Negative (Negative) Urine Blood Negative (Negative) Urine Nitrite Negative (Negative) Urine Bilirubin Negative (Negative) Urine Urobilinogen <2.0 (<2.0) mg/dL Ur Leukocyte Esterase Large H (Negative) Urine RBC 3 (0-5) /hpf Urine WBC 39 H (0-5) /hpf Urine WBC Clumps Occasional H (None) /hpf Urine Bacteria Moderate H (None) /hpf Urine Mucus Rare H (None) /hpf Disposition <Jesus Guadarrama - Last Filed: 01/16/23 20:40> Is patient prescribed a controlled substance at d/c from ED?: No <Macy Friend - Last Filed: 01/17/23 16:26> Clinical Impression: Obstructed urostomy catheter Disposition: ADMITTED IP TO THIS HOSP Condition: Fair
[2023-01-16 19:16] LABS: Appearance,Urine Cloudy (Clear); Bacteria,Urine Moderate /hpf; Bilirubin,Urine Negative (Negative); Blood,Urine Negative (Negative); Color,Urine Yellow; Glucose,Urine (UA) Negative (Negative); Ketones,Urine Negative (Negative); Leukocyte Esterase,Urine Large (Negative); Mucus,Urine Rare /hpf; Nitrite,Urine Negative (Negative); PH, Urine 6.5 (5.0-8.0); Protein,Urine 1+ (Negative); RBC,Urine 3 /hpf (0-5); Specific Gravity,Urine 1.012 (1.001-1.035); Urobilinogen,Urine <2.0 mg/dL (<2.0); WBC,Urine 39 /hpf (0-5)
[2023-01-16 19:17] LABS: Erythrocyte Sedimentation Rate 68 mm/hr (0-20)
[2023-01-16] MEDS ORDERED: NALOXONE 0.4 MG/ML 1 ML VIAL IV PRN (20:41)
[2023-01-16] MEDS ORDERED: ASPIRIN 81 MG PO SCH (21:00)
[2023-01-16] MEDS ORDERED: METOPROLOL TARTRATE 12.5 MG TAB PO SCH (21:00)
[2023-01-16] MEDS: FLECAINIDE 50 MG TAB PO SCH (21:19)
[2023-01-16] MEDS: SULFAMETHOX-TMP 800-160MG 1 EACH TAB PO SCH (21:26)
[2023-01-17 07:33] VITALS: TEMP 98.2
[2023-01-17] MEDS: SULFAMETHOX-TMP 800-160MG 1 EACH TAB PO SCH (08:56)
[2023-01-17] MEDS: FLECAINIDE 50 MG TAB PO SCH (08:56)
[2023-01-17 09:38] VITALS: RESP 18
--- NOTE | 2023-01-17 09:53 | P.GSCN ---
History of Present Illness Consult date: 01/17/23 Reason for Consult: Nephrostomy tube not draining Requesting physician: Sonny Villar History of present illness: The patient is an 82 yo female with a history of bladder cancer. She underwent a cystectomy with ileal loop in 2017 in [place] and developed bilateral ureteral strictures requring nephostomy tubes and antegrade ureteral stents. She has had multiple hospital admissions for abdominal and flank pain. In October 2020 she underwent placement of bilateral nephroureteral stents. The stents were exchanged for bilateral nephrostomy tubes and are being changed every 6-8 weeks, most recently in 12/11/2022. She has recently experienced left flank discomfort and was started on antibiotics. However, the tube is not currently draining and she thus presented to the ER. She reports mild left lower quadrant abdominal pain. She denies flank pain. Review of Systems - Constitutional Denies chills, Denies fever Past Medical History Past Medical History: Atrial Fibrillation, Cancer, Hypertension Additional Past Medical History / Comment(s): Bladder cancer with muscle invasion/surgery/urostomy and chemo X2, has bilateral ureteral stent. Pacemaker. Hx Polio. Bruises easily, hx skin cancer/melanoma-treated with radiation. , Has bilateral nephrostomy tubes. History of Any Multi-Drug Resistant Organisms: None Reported Past Surgical History: Appendectomy, Bladder Surgery, Orthopedic Surgery, Pacemaker Additional Past Surgical History / Comment(s): Radical cystectomy with ileal loop/urostomy, bilateral nephrostomy tubes, right ureteral stents, right shoulder fusion with bone from hip donor site, ORIF left hip, removal of hardware from right shoulder, skin cancer removed from scalp, frequent nephrostomy tube changes Past Anesthesia/Blood Transfusion Reactions: No Reported Reaction Additional Past Anesthesia/Blood Transfusion Reaction / Comm: Pt has received blood in past without reaction. Type of Cardiac Device: Permanent Pacemaker Device Placement Date:: 2013 Past Psychological History: Anxiety, Depression Smoking Status: Former smoker Past Alcohol Use History: None Reported Past Drug Use History: None Reported - Past Family History Father History Unknown: Yes Additional Family Medical History / Comment(s): Father in a MVA when pt was young. Mother Family Medical History: Cancer Additional Family Medical History / Comment(s): Cervical cancer, rheumatic fever, heart problems. Brother(s) Family Medical History: Cancer Additional Family Medical History / Comment(s): PANCREATIC CANCER. Medications and Allergies Home Medications Medication Instructions Recorded Confirmed Type Flecainide [Tambocor] 50 mg PO BID 07/06/17 01/16/23 History Metoprolol Tartrate [Lopressor] 12.5 mg PO HS 10/02/20 01/16/23 History Aspirin EC [Ecotrin Low Dose] 162 mg PO HS 04/27/21 01/16/23 History Sulfamethox-Tmp 800-160Mg [Bactrim 1 tab PO Q12HR 01/16/23 01/16/23 History DS 800-160 mg] Allergies Allergy/AdvReac Type Severity Reaction Status Date / Time adhesive tape Allergy red skin, Verified 01/16/23 19:42 itching cetirizine [From Zyrtec] Allergy Anaphylaxis- Verified 01/16/23 19:42 swollen tongue hydrocodone [From [place]] Allergy Itching/Vom Verified 01/16/23 19:42 iting levofloxacin [From Levaquin] Allergy Swelling Verified 01/16/23 19:42 nitrofurantoin Allergy Anaphylaxis Verified 01/16/23 19:42 [From Macrobid] Penicillins Allergy Rash/Hives Verified 01/16/23 19:42 tramadol Allergy Anaphylaxis Verified 01/16/23 19:42 ciprofloxacin [From Cipro] AdvReac Vomiting Verified 01/16/23 19:42 codeine AdvReac Vomiting Verified 01/16/23 19:42 hydromorphone [From Dilaudid] AdvReac Vomiting Verified 01/16/23 19:42 ketorolac [From Toradol] AdvReac avoids due Verified 01/16/23 19:42 to kidneys linezolid AdvReac Anaphylaxis/Vomiting,itching, Verified 01/16/23 19:42 swollen tongue metoclopramide [From Reglan] AdvReac Hallucinati Verified 01/16/23 19:42 ons morphine AdvReac Vomiting Verified 01/16/23 19:42 oxycodone AdvReac Vomiting Verified 01/16/23 19:42 zolpidem [From Ambien] AdvReac Hallucinati Verified 01/16/23 19:42 ons narcotics AdvReac Vomiting Uncoded 12/11/22 10:36 Surgical - Exam Vital Signs Temp Pulse Resp BP Pulse Ox 99 F 76 18 171/84 98 01/16/23 16:14 01/16/23 16:14 01/16/23 16:14 01/16/23 16:14 01/16/23 16:14 - General well developed, well nourished, no distress - Respiratory normal respiratory effort - Abdomen Abdomen: soft, non tender, no guarding, no rigid, no rebound - Psychiatric oriented to time, oriented to person, oriented to place, speech is normal, memory intact Results - Labs 01/16/23 17:55 01/16/23 17:55 Abnormal Lab Results - Last 24 Hours (Table) 01/16/23 01/16/23 01/16/23 Range/Units 17:55 17:55 17:55 WBC 10.7 H (3.8-10.6) k/uL ESR 68 H (0-20) mm/hr Sodium 136 L (137-145) mmol/L BUN 36 H (7-17) mg/dL Creatinine 1.67 H (0.52-1.04) mg/dL C-Reactive Protein 2.1 H (<1.0) mg/dL Urine Appearance Cloudy H (Clear) Urine Protein 1+ H (Negative) Ur Leukocyte Esterase Large H (Negative) Urine WBC 39 H (0-5) /hpf Urine WBC Clumps Occasional H (None) /hpf Urine Bacteria Moderate H (None) /hpf Urine Mucus Rare H (None) /hpf Diabetes panel 01/16/23 Range/Units 17:55 Sodium 136 L (137-145) mmol/L Potassium 4.6 (3.5-5.1) mmol/L Chloride 101 (98-107) mmol/L Carbon Dioxide 22 (22-30) mmol/L BUN 36 H (7-17) mg/dL Creatinine 1.67 H (0.52-1.04) mg/dL Glucose 87 (74-99) mg/dL Calcium 9.0 (8.4-10.2) mg/dL AST 26 (14-36) U/L ALT 12 (4-34) U/L Alkaline Phosphatase 75 (38-126) U/L Total Protein 6.9 (6.3-8.2) g/dL Albumin 3.8 (3.5-5.0) g/dL Calcium panel 01/16/23 Range/Units 17:55 Calcium 9.0 (8.4-10.2) mg/dL Albumin 3.8 (3.5-5.0) g/dL Pituitary panel 01/16/23 Range/Units 17:55 Sodium 136 L (137-145) mmol/L Potassium 4.6 (3.5-5.1) mmol/L Chloride 101 (98-107) mmol/L Carbon Dioxide 22 (22-30) mmol/L BUN 36 H (7-17) mg/dL Creatinine 1.67 H (0.52-1.04) mg/dL Glucose 87 (74-99) mg/dL Calcium 9.0 (8.4-10.2) mg/dL Adrenal panel 01/16/23 Range/Units 17:55 Sodium 136 L (137-145) mmol/L Potassium 4.6 (3.5-5.1) mmol/L Chloride 101 (98-107) mmol/L Carbon Dioxide 22 (22-30) mmol/L BUN 36 H (7-17) mg/dL Creatinine 1.67 H (0.52-1.04) mg/dL Glucose 87 (74-99) mg/dL Calcium 9.0 (8.4-10.2) mg/dL Total Bilirubin 0.4 (0.2-1.3) mg/dL AST 26 (14-36) U/L ALT 12 (4-34) U/L Alkaline Phosphatase 75 (38-126) U/L Total Protein 6.9 (6.3-8.2) g/dL Albumin 3.8 (3.5-5.0) g/dL Assessment and Plan Assessment: Bilateral hydronephrosis secondary to bilateral ureteral strictures. This has been managed with bilateral nephrostomy tubes, and the left nephrostomy tube is currently occluded. (1) Hydronephrosis with ureteral stricture, not elsewhere classified Current Visit: No Status: Acute Code(s): N13.1 - HYDRONEPHROSIS W URETERAL STRICTURE, NEC SNOMED Code(s): 55971255 Plan: Continue Bactrim DS. I have spoken with Dr. Patel who intends to change the nephrostomy tubes.
[2023-01-17] MEDS ORDERED: CLINDAMYCIN 600 MG/50 ML-D5W 600 MG in DEXTROSE/WATER 1 50ML.BAG IVPB STA (10:03)
[2023-01-17] MEDS ORDERED: SODIUM CHLORIDE 0.9% 500 ML 500 ML IV ONE (10:05)
[2023-01-17] MEDS ORDERED: LIDOCAINE 1% INJ 10MG/ML (20 ML MDV) SQ ONE (10:07)
[2023-01-17] MEDS ORDERED: IOPAMIDOL-370 100ML BTL INJ ONE (10:26)
--- NOTE | 2023-01-17 10:53 | IR ---
EXAMINATION TYPE: IR nephrostomy tube change DATE OF EXAM: 01/17/2023 COMPARISON: 12/11/2022 HISTORY: Bilateral nephrostomy tube exchange under fluoroscopy over a guidewire Procedure had been discussed with the patient , risks, benefits, alternatives, were discussed and any questions were answered. Informed consent was obtained. The patient was in a prone position prepped and draped on the OR table in the usual sterile fashion. A small amount of diluted contrast was injected into the left nephrostomy tube. The nephrostomy tube was cut and a 1.035 guidewire was placed through the tube and exchange for a new 8 [place] nephrostomy tube. Repeat injection demonstrated the replacement catheter. Same sequence of the events were perfo rmed on the right with exchange of an 8 [place] right nephrostomy tube. Approximately DAP 0.30210 of f luoroscopy was provided. IMPRESSION: 1. Successful bilateral nephrostomy tube exchange over a guidewire.
[2023-01-17 11:01] VITALS: BP 130/64; PULSE 64
--- NOTE | 2023-01-17 14:17 | P.DS ---
Providers Date of admission: 01/16/23 20:52 Attending physician: Sonny Villar Consults: 01/16/23 20:47 Consult Physician Routine Consulting Provider: Altaf Flynn Consult Reason/Comments: Your patient Do you want consulting provider notified?: Already Contacted Primary care physician: Sonny Villar Hospital Course: She was not seen by our service before discharge Patient Condition at Discharge: Fair Plan - Discharge Summary New Discharge Prescriptions: No Action Flecainide [Tambocor] 50 mg PO BID Metoprolol Tartrate [Lopressor] 12.5 mg PO HS Aspirin EC [Ecotrin Low Dose] 162 mg PO HS Sulfamethox-Tmp 800-160Mg [Bactrim DS 800-160 mg] 1 tab PO Q12HR Discharge Medication List Flecainide [Tambocor] 50 mg PO BID 07/06/17 [History] Metoprolol Tartrate [Lopressor] 12.5 mg PO HS 10/02/20 [History] Aspirin EC [Ecotrin Low Dose] 162 mg PO HS 04/27/21 [History] Sulfamethox-Tmp 800-160Mg [Bactrim DS 800-160 mg] 1 tab PO Q12HR 01/16/23 [History] Follow up Appointment(s)/Referral(s): Altaf Flynn MD [STAFF PHYSICIAN] - 1 Week (KEEP APPOINTMENT MADE ON December @ 11:00AM DR. FLYNN WILL DISCUSS THE FLUSHING SOLUTION WHEN YOU GO SEE HIM IN THE OFFICE.) Sonny Villar DO [Primary Care Provider] - As Needed Patient Instructions/Handouts: Nephrostomy Tube Care (DC) Discharge Disposition: HOME SELF-CARE
--- NOTE | 2023-01-17 14:17 | P.HPIM ---
History of Present Illness Patient was not seen by medicine service and was discharged after nephrostomy tube placement Past Medical History Past Medical History: Atrial Fibrillation, Cancer, Hypertension Additional Past Medical History / Comment(s): Bladder cancer with muscle invasion/surgery/urostomy and chemo X2, has bilateral ureteral stent. Pacemaker. Hx Polio. Bruises easily, hx skin cancer/melanoma-treated with radiation. , Has bilateral nephrostomy tubes. History of Any Multi-Drug Resistant Organisms: None Reported Past Surgical History: Appendectomy, Bladder Surgery, Orthopedic Surgery, Pacemaker Additional Past Surgical History / Comment(s): Radical cystectomy with ileal loop/urostomy, bilateral nephrostomy tubes, right ureteral stents, right shoulder fusion with bone from hip donor site, ORIF left hip, removal of hardware from right shoulder, skin cancer removed from scalp, frequent nephrostomy tube changes Past Anesthesia/Blood Transfusion Reactions: No Reported Reaction Additional Past Anesthesia/Blood Transfusion Reaction / Comment(s): Pt has received blood in past without reaction. Type of Cardiac Device: Permanent Pacemaker Device Placement Date:: 2013 Past Psychological History: Anxiety, Depression Smoking Status: Former smoker Past Alcohol Use History: None Reported Past Drug Use History: None Reported - Past Family History Father History Unknown: Yes Additional Family Medical History / Comment(s): Father in a MVA when pt was young. Mother Family Medical History: Cancer Additional Family Medical History / Comment(s): Cervical cancer, rheumatic fever, heart problems. Brother(s) Family Medical History: Cancer Additional Family Medical History / Comment(s): PANCREATIC CANCER. Medications and Allergies Home Medications Medication Instructions Recorded Confirmed Type Flecainide [Tambocor] 50 mg PO BID 07/06/17 01/16/23 History Metoprolol Tartrate [Lopressor] 12.5 mg PO HS 10/02/20 01/16/23 History Aspirin EC [Ecotrin Low Dose] 162 mg PO HS 04/27/21 01/16/23 History Sulfamethox-Tmp 800-160Mg [Bactrim 1 tab PO Q12HR 01/16/23 01/16/23 History DS 800-160 mg] Allergies Allergy/AdvReac Type Severity Reaction Status Date / Time adhesive tape Allergy red skin, Verified 01/16/23 19:42 itching cetirizine [From Zyrtec] Allergy Anaphylaxis- Verified 01/16/23 19:42 swollen tongue hydrocodone [From [place]] Allergy Itching/Vom Verified 01/16/23 19:42 iting levofloxacin [From Levaquin] Allergy Swelling Verified 01/16/23 19:42 nitrofurantoin Allergy Anaphylaxis Verified 01/16/23 19:42 [From Macrobid] Penicillins Allergy Rash/Hives Verified 01/16/23 19:42 tramadol Allergy Anaphylaxis Verified 01/16/23 19:42 ciprofloxacin [From Cipro] AdvReac Vomiting Verified 01/16/23 19:42 codeine AdvReac Vomiting Verified 01/16/23 19:42 hydromorphone [From Dilaudid] AdvReac Vomiting Verified 01/16/23 19:42 ketorolac [From Toradol] AdvReac avoids due Verified 01/16/23 19:42 to kidneys linezolid AdvReac Anaphylaxis/Vomiting,itching, Verified 01/16/23 19:42 swollen tongue metoclopramide [From Reglan] AdvReac Hallucinati Verified 01/16/23 19:42 ons morphine AdvReac Vomiting Verified 01/16/23 19:42 oxycodone AdvReac Vomiting Verified 01/16/23 19:42 zolpidem [From Ambien] AdvReac Hallucinati Verified 01/16/23 19:42 ons narcotics AdvReac Vomiting Uncoded 12/11/22 10:36 Physical Exam Vitals: Vital Signs Temp Pulse Pulse Resp BP BP Pulse Ox 01/17/23 10:55 64 18 130/64 98 01/17/23 09:37 98.2 F 71 18 149/67 92 L 01/17/23 07:32 98.2 F 75 16 129/73 95 01/17/23 06:12 60 14 120/61 96 01/17/23 03:32 76 18 127/59 98 01/17/23 01:00 74 18 120/71 97 01/16/23 23:52 98.6 F 73 16 118/56 98 01/16/23 21:27 98.3 F 85 18 177/93 97 01/16/23 20:04 86 18 146/85 96 01/16/23 19:23 98.4 F 79 17 161/87 96 01/16/23 18:59 65 18 176/84 96 01/16/23 16:14 99 F 76 18 171/84 98 Intake and Output 01/16/23 01/17/23 01/17/23 22:59 06:59 14:59 Intake Total 300 Balance 300 Intake: IV 300 Other: Weight 58.967 kg Results CBC & Chem 7: 01/16/23 17:55 01/16/23 17:55 Labs: Abnormal Lab Results - Last 24 Hours (Table) 01/16/23 01/16/23 01/16/23 Range/Units 17:55 17:55 17:55 WBC 10.7 H (3.8-10.6) k/uL ESR 68 H (0-20) mm/hr Sodium 136 L (137-145) mmol/L BUN 36 H (7-17) mg/dL Creatinine 1.67 H (0.52-1.04) mg/dL C-Reactive Protein 2.1 H (<1.0) mg/dL Urine Appearance Cloudy H (Clear) Urine Protein 1+ H (Negative) Ur Leukocyte Esterase Large H (Negative) Urine WBC 39 H (0-5) /hpf Urine WBC Clumps Occasional H (None) /hpf Urine Bacteria Moderate H (None) /hpf Urine Mucus Rare H (None) /hpf Microbiology - Last 24 Hours (Table) 01/16/23 17:55 Urine Culture - Preliminary Urine,Voided
== END 2023-01-17 11:01 | disposition home or self-care (01) ==
LOC: EC 15:53 → 6NMEDSUR 20:52
PROVIDERS: ADMIT Family Medicine; ATTEND Family Medicine
DX: T83.092A Other mechanical complication of nephrostomy catheter, initial encounter (principal); I48.91 Unspecified atrial fibrillation; I10 Essential (primary) hypertension; Z85.51 Personal history of malignant neoplasm of bladder; Z92.21 Personal history of antineoplastic chemotherapy; Z86.12 Personal history of poliomyelitis; Z85.820 Personal history of malignant melanoma of skin; Z92.3 Personal history of irradiation; Z98.890 Other specified postprocedural states; F41.9 Anxiety disorder, unspecified; F32.A Depression, unspecified; Z80.49 Family history of malignant neoplasm of other genital organs; Z82.49 Family history of ischemic heart disease and other diseases of the circulatory system; Z80.0 Family history of malignant neoplasm of digestive organs; Z79.82 Long term (current) use of aspirin; Z79.899 Other long term (current) drug therapy; Z88.1 Allergy status to other antibiotic agents; Z88.5 Allergy status to narcotic agent; Z88.0 Allergy status to penicillin; Z88.8 Allergy status to other drugs, medicaments and biological substances; Z91.09 Other allergy status, other than to drugs and biological substances
CPT/HCPCS: 99284; 36415; 50435; 80053; 85652; 85025; 86140; 81001; 87086; G0378 ×2; C1729; C1769 ×3; J2001; Q9967

== ENCOUNTER 2023-02-18 08:41 | Day surgery (SDC) | payer MEDICARE, BC ==
[2023-02-18] MEDS ORDERED: ALPRAZolam 0.25 MG TAB PO STA (09:28)
[2023-02-18 09:32] LABS: Mean Platelet Volume 7.9; Platelet Count 311 k/uL (150-450)
[2023-02-18 09:33] VITALS: RESP 16; TEMP 98.1
[2023-02-18 09:40] LABS: INR 0.9 (<1.2); Prothrombin Time 10.1 sec (9.0-12.0)
[2023-02-18 10:45] VITALS: PULSE 80
[2023-02-18 10:47] VITALS: BP 212/145
== END 2023-02-18 10:25 | disposition home or self-care (01) ==
LOC: RADPROMAIN 08:41
PROVIDERS: ATTEND Internal Medicine Hematology & Oncology
DX: Z53.8 Procedure and treatment not carried out for other reasons (principal); C67.9 Malignant neoplasm of bladder, unspecified
CPT/HCPCS: 36415; 85049; 85610

== ENCOUNTER 2023-03-06 09:29 | Day surgery (SDC) | payer MEDICARE, BC ==
[2023-02-27 12:43] VITALS: BMI 19.8
--- NOTE | 2023-03-02 21:37 | P.GSHP ---
History of Present Illness H&P Date: 03/02/23 Chief Complaint: Hydronephrosis The patient is an 82 yo female with a history of bladder cancer. She underwent a cystectomy with ileal conduit urinary diversion in 2017 in [place] and developed bilateral ureteral strictures requring nephostomy tubes and antegrade ureteral stents. She has had multiple hospital admissions for abdominal and flank pain. In October 2020 she underwent placement of bilateral nephroureteral stents. The stents were exchanged for bilateral nephrostomy tubes and are being changed every 6-8 weeks, most recently in 01/17/2023. The left nephrostomy tube intermittently obstructs. She now comes for bilateral nephrostomy tube change. She has been advised to stop taking aspirin prior to the procedure. - Constitutional Constitutional: Denies chills, Denies fever - Genitourinary (Female) Genitourinary: Denies hematuria Past Medical History Past Medical History: Atrial Fibrillation, Cancer, Hypertension Additional Past Medical History / Comment(s): Bladder cancer with muscle invasion/surgery/urostomy and chemo X2, has bilateral ureteral stent. Pacemaker. Hx Polio. Bruises easily, hx skin cancer/melanoma-treated with radiation. , Has bilateral nephrostomy tubes. History of Any Multi-Drug Resistant Organisms: None Reported Past Surgical History: Appendectomy, Bladder Surgery, Orthopedic Surgery, Pacemaker Additional Past Surgical History / Comment(s): Radical cystectomy with ileal loop/urostomy, bilateral nephrostomy tubes, right ureteral stents, right shoulder fusion with bone from hip donor site, ORIF left hip, removal of hardware from right shoulder, skin cancer removed from scalp, frequent nephrostomy tube changes, pacemaker medtronic 2013 Past Anesthesia/Blood Transfusion Reactions: No Reported Reaction Additional Past Anesthesia/Blood Transfusion Reaction / Comment(s): Pt has received blood in past without reaction. Type of Cardiac Device: Permanent Pacemaker Device Placement Date:: 2013 Past Psychological History: Anxiety, Depression Additional Psychological History / Comment(s): . Smoking Status: Former smoker Past Alcohol Use History: None Reported Additional Past Alcohol Use History / Comment(s): states she quit smoking over a month ago., Started smoking 1965, was light smoker, 3-7 cigarettes a day, quit in 2013 but resumed smoking in [id number]. Past Drug Use History: None Reported Additional Drug Use History / Comment(s): . - Past Family History Father History Unknown: Yes Additional Family Medical History / Comment(s): Father in a MVA when pt was young. Mother Family Medical History: Cancer Additional Family Medical History / Comment(s): Cervical cancer, rheumatic fever, heart problems. Brother(s) Family Medical History: Cancer Additional Family Medical History / Comment(s): PANCREATIC CANCER. Medications and Allergies Home Medications Medication Instructions Recorded Confirmed Type Flecainide [Tambocor] 50 mg PO BID 07/06/17 02/27/23 History Metoprolol Tartrate [Lopressor] 12.5 mg PO HS 10/02/20 02/27/23 History Aspirin EC [Ecotrin Low Dose] 162 mg PO HS 04/27/21 02/27/23 History Multivit with Calcium,Iron,Min 1 each PO DAILY 02/27/23 02/27/23 History [Women's Multivitamin] Allergies Allergy/AdvReac Type Severity Reaction Status Date / Time adhesive tape Allergy red skin, Verified 02/27/23 12:33 itching cetirizine [From Zyrtec] Allergy Anaphylaxis- Verified 02/27/23 12:33 swollen tongue hydrocodone [From [place]] Allergy Itching/Vom Verified 02/27/23 12:33 iting levofloxacin [From Levaquin] Allergy Swelling Verified 02/27/23 12:33 nitrofurantoin Allergy Anaphylaxis Verified 02/27/23 12:33 [From Macrobid] Penicillins Allergy Rash/Hives Verified 02/27/23 12:33 tramadol Allergy Anaphylaxis Verified 02/27/23 12:33 ciprofloxacin [From Cipro] AdvReac Vomiting Verified 02/27/23 12:33 codeine AdvReac Vomiting Verified 02/27/23 12:33 hydromorphone [From Dilaudid] AdvReac Vomiting Verified 02/27/23 12:33 ketorolac [From Toradol] AdvReac avoids due Verified 02/27/23 12:33 to kidneys linezolid AdvReac Anaphylaxis/Vomiting,itching, Verified 02/27/23 12:33 swollen tongue metoclopramide [From Reglan] AdvReac Hallucinati Verified 02/27/23 12:33 ons morphine AdvReac Vomiting Verified 02/27/23 12:33 oxycodone AdvReac Vomiting Verified 02/27/23 12:33 zolpidem [From Ambien] AdvReac Hallucinati Verified 02/27/23 12:33 ons narcotics AdvReac Vomiting Uncoded 02/27/23 12:33 Surgical - Exam - General well developed, well nourished, no distress - Respiratory normal respiratory effort - Abdomen Abdomen: soft, non tender, no guarding, no rigid, no rebound - Psychiatric oriented to time, oriented to person, oriented to place, speech is normal, me josué intact Assessment and Plan (1) Hydronephrosis with ureteral stricture, not elsewhere classified Status: Acute Code(s): N13.1 - HYDRONEPHROSIS W URETERAL STRICTURE, NEC SNOMED Code(s): 23457433 Plan: Bilateral nephrostomy tube change by Dr. Patel.
[2023-03-06 09:49] VITALS: PULSE 72; RESP 18; TEMP 97.9
[2023-03-06] MEDS ORDERED: LIDOCAINE 1% INJ 10MG/ML (20 ML MDV) SQ ONE (11:05)
[2023-03-06] MEDS ORDERED: IOPAMIDOL-250 100ML BTL INTRAARTER ONE (11:17)
--- NOTE | 2023-03-06 11:34 | IR ---
EXAMINATION TYPE: IR nephrostomy tube change DATE OF EXAM: 03/06/2023 COMPARISON: 01/17/2023 HISTORY: Bilateral nephrostomy tube exchange under fluoroscopy over a guidewire for chronic hydroneph rosis Procedure had been discussed with the patient , risks, benefits, alternatives, were discussed and any questions were answered. Informed consent was obtained. The patient was in a prone position prepped and draped on the OR table in the usual sterile fashion. A small amount of diluted contrast was injected into the left nephrostomy tube. The nephrostomy tube was cut and a 1.035 guidewire was placed through the tube and exchange for a new 8 [place] nephrostomy tube. Repeat injection demonstrated the replacement catheter. Same sequence of the events were perfo rmed on the right with exchange of an 8 [place] right nephrostomy tube. Approximately DAP 0.95649 of f luoroscopy was provided. Approximately DAP 0.52194 and 1.9 minutes of fluoroscopy was provided. IMPRESSION: 1. Successful bilateral nephrostomy tube exchange under fluoroscopy over a guidewire.
[2023-03-06 12:31] VITALS: BP 167/72
== END 2023-03-06 12:31 | disposition home or self-care (01) ==
LOC: OR 09:29
PROVIDERS: ATTEND Radiology Diagnostic Radiology
DX: N13.1 Hydronephrosis with ureteral stricture, not elsewhere classified (principal); Z85.51 Personal history of malignant neoplasm of bladder; I10 Essential (primary) hypertension; I48.91 Unspecified atrial fibrillation; Z95.0 Presence of cardiac pacemaker; Z85.820 Personal history of malignant melanoma of skin; Z92.21 Personal history of antineoplastic chemotherapy; Z98.890 Other specified postprocedural states; F41.9 Anxiety disorder, unspecified; F32.A Depression, unspecified; Z87.891 Personal history of nicotine dependence; Z79.82 Long term (current) use of aspirin; Z79.899 Other long term (current) drug therapy; Z88.5 Allergy status to narcotic agent; Z91.048 Other nonmedicinal substance allergy status; Z88.8 Allergy status to other drugs, medicaments and biological substances; Z88.1 Allergy status to other antibiotic agents; Z88.0 Allergy status to penicillin
CPT/HCPCS: 75984; 50435; C1769 ×2; J0690; J2001; Q9966